=== PATIENT | female | born 1930 | race Hispanic/Latino ===

== ENCOUNTER 2016-11-06 07:57 | Inpatient (IN) | payer MEDICARE, OTHER ==
[2016-11-06 08:10] VITALS: BMI 30.7
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
[2016-11-06 08:28] LABS: ADD MANUAL DIFF? NO
[2016-11-06 08:33] LABS: BASO % 1.1 % (0.0-3.0); EOS # 0.2 (0.0-0.7); EOS % 2.3 % (1.5-5.0); GRAN % 79.3 % (50.0-68.0); HEMATOCRIT 41.9 % (36.0-48.0); LYMPH # 1.1 (1.2-3.4); LYMPH % 12.1 % (22.0-35.0); MEAN CELL VOLUME 93.1 fL (80.0-105.0); MEAN CORPUSCULAR HGB CONC 32.2 g/dl (31.0-37.0); MEAN PLATELET VOLUME 9.1 fl (7.0-11.0); MONO # 0.5 (0.1-0.6); MONO % 5.2 % (1.0-6.0); PLATELET COUNT 379 10^3/uL (120.0-450.0); RED CELL DISTRIBUTION WIDTH 15.9 % (11.5-14.5); WHITE BLOOD COUNT 9.2 10^3/ul (4.5-11.0)
[2016-11-06 08:44] LABS: ALKALINE PHOSPHATASE 111 U/L (38-133); ALT/SGPT 18 U/L (7-56); AST/SGOT 25 U/L (15-39); BILIRUBIN,TOTAL 1.1 mg/dL (0.2-1.3); BLOOD UREA NITROGEN 18 mg/dL (7-21); CALCIUM 9.6 mg/dL (8.4-10.5); CARBON DIOXIDE 29 mmol/L (21-33); CHLORIDE 102 mmol/L (98-107); GFR AFRICAN-AMERICAN > 60; GLUCOSE,RANDOM 213 mg/dL (70-110); INR 2.1 (0.93-1.08); MAGNESIUM 1.8 mg/dL (1.7-2.2); PARTIAL THROMBOPLASTIN TIME 32.9 Seconds (23.7-30.8); POTASSIUM 3.7 mmol/L (3.6-5.0); SODIUM 140 mmol/L (132-148); TOTAL PROTEIN 8.3 g/dL (5.8-8.3)
[2016-11-06 08:54] LABS: TROPONIN I 0.02 ng/mL
--- NOTE | 2016-11-06 09:02 | RAD ---
Indication: Altered mental status Portable chest Comparison: Chest x-ray performed 07/14/16 Findings: Examination limited by habitus. Cardiomegaly. Atherosclerotic calcifications of the aorta. Small right pleural effusion. Trace left pleural effusion. Bibasilar atelectasis/infiltrates. Mild to moderate pulmonary venous congestion. No definite pneumothorax. Please note that chest x-ray has limited sensitivity for the detection of pulmonary masses. Osseous demineralization. Degenerative changes of the spine and shoulders. Impression: Cardiomegaly. Small right and trace left pleural effusions. Bibasilar atelectasis/infiltrates. Mild to moderate pulmonary venous congestion.
[2016-11-06 09:16] LABS: PH,URINE 6.5 (4.7-8.0); URINE BILIRUBIN NEGATIVE (NEGATIVE); URINE BLOOD SMALL (NEGATIVE); URINE GLUCOSE (UA) 100 mg/dL (NEGATIVE); URINE KETONE NEGATIVE (NEGATIVE); URINE LEUKOCYTE ESTERASE SMALL Leu/uL (NEGATIVE); URINE PROTEIN 100 mg/dL (<30 mg/dL)
--- NOTE | 2016-11-06 09:32 | CT ---
PROCEDURE: CT HEAD WITHOUT CONTRAST. HISTORY: ams COMPARISON: None available. TECHNIQUE: Axial computed tomography images were obtained through the head/brain without intravenous contrast. Radiation dose: Total exam DLP = 859.09 mGy-cm. FINDINGS: BRAIN: Diffuse atrophy with prominence of the ventricles and sulci noted. No mass effect or edema. Intracranial atherosclerotic calcifications. Right parietal subdural hematoma measures approximately 8 mm maximum diameter and appears chronic with small amount of hyperdensity posteriorly likely acute on chronic hemorrhage. Small subdural collection is suspected layering along the posterior falx. Moderate scattered periventricular and subcortical white matter hypodensities, which are nonspecific, but often seen with chronic microvascular ischemic disease. Please note that MRI with diffusion imaging is more sensitive in the detection of acute ischemic event. VENTRICLES: No hydrocephalus. CALVARIUM: Unremarkable. PARANASAL SINUSES: Unremarkable as visualized. No significant inflammatory changes. MASTOID AIR CELLS: Unremarkable as visualized. No inflammatory changes. OTHER FINDINGS: None. IMPRESSION: Right parietal subdural hematoma measures approximately 8 mm maximum diameter and appears chronic with small amount of hyperdensity posteriorly likely acute on chronic hemorrhage. Small subdural collection is suspected layering along the posterior falx. Moderate nonspecific white matter changes. Findings discussed with Dr. Young on 11/06/16 at 9:25 a.m..
[2016-11-06 09:42] LABS: URINE COLOR YELLOW (YELLOW)
[2016-11-06 09:44] LABS: URINE APPEARANCE SL CLOUDY (CLEAR)
[2016-11-06 09:45] LABS: URINE BACTERIA MANY (NEG); URINE WBC TNTC /hpf (0-6)
[2016-11-06] MEDS ORDERED: cefTRIAXone 1 gm 100 ML IVPB STA (09:46)
[2016-11-06 09:53] LABS: ALCOHOL SERUM < 10 mg/dL (0-10)
[2016-11-06 09:57] LABS: THYROID STIMULATING HORMONE 2.34 mIU/mL (0.46-4.68)
[2016-11-06] MEDS: Digoxin 125 mcg (0.125 mg) Tab PO SCH (13:06)
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
[2016-11-06] MEDS: Insulin Lispro (humaLOG) LOW Coverage SC SCH ×2 (17:49→23:35)
--- NOTE | 2016-11-06 18:01 | CP.PCM.PN ---
Subjective - Date & Time of Evaluation Date of Evaluation: 11/06/16 Time of Evaluation: 17:59 - Subjective Subjective: 86 yo female with dementia who becan acting strangly, hallucinating never had any motor difficulty had ct showing tiny r parietal extra-axial collection with no mass effect Pt currnely confused but otherwise intact Will repeat ct but this collection not causing her sx Unless maked change on ct no intervention indicated Objective - Vital Signs/Intake and Output Vital Signs (last 24 hours): Temp Pulse Resp BP Pulse Ox 97 F L 76 18 141/81 95 11/06/16 17:48 11/06/16 17:48 11/06/16 17:48 11/06/16 17:48 11/06/16 11:27 - Medications Medications: Current Medications Atorvastatin Calcium (Lipitor) 20 mg PO DAILY [facility] Last Admin: 11/06/16 13:06 Dose: 20 mg Digoxin (Lanoxin) 0.125 mg PO DAILY [facility] Last Admin: 11/06/16 13:06 Dose: 0.125 mg Diltiazem HCl (Cardizem Cd) 240 mg PO DAILY [facility] Ceftriaxone Sodium (Rocephin 1 Gram Ivpb) 100 mls @ 100 mls/hr IVPB DAILY [facility] PRN Reason: Protocol Insulin Human Lispro (Humalog Low) 0 units SC ACHS [facility] PRN Reason: Protocol Last Admin: 11/06/16 17:49 Dose: 1 units Metformin HCl (Glucophage) 500 mg PO BID [facility] - Labs Labs: PT 22.7 Seconds (9.9-11.8) H 11/06/16 08:27 INR 2.10 (0.93-1.08) H 11/06/16 08:27 APTT 32.9 Seconds (23.7-30.8) H 11/06/16 08:27
[2016-11-06] MEDS ORDERED: Pneumococcal 23-Valent Vaccine IM ONE (20:58)
[2016-11-06] MEDS ORDERED: Influenza Vaccine 45 MCG/0.5 ml IM ONE (20:58)
[2016-11-07] MEDS: Insulin Lispro (humaLOG) LOW Coverage SC SCH ×4 (08:57→22:10)
--- NOTE | 2016-11-07 09:33 | CARD ---
APPROVED REPORT EKG Measurement Heart [id number] <Conclusion> Atrial fibrillation Left axis deviation RSR' or QR pattern in V1 suggests right ventricular conduction delay NSSTW changes ASMI, old No change except faster rate
--- NOTE | 2016-11-07 10:04 | CP.PCM.PN ---
Subjective - Date & Time of Evaluation Date of Evaluation: 11/07/16 Time of Evaluation: 10:03 - Subjective Subjective: no sig change in CT Neurosurgically clear for d/c Objective - Vital Signs/Intake and Output Vital Signs (last 24 hours): Temp Pulse Resp BP Pulse Ox 98.0 F 101 H 18 144/92 H 94 L 11/07/16 06:00 11/07/16 06:00 11/07/16 06:00 11/07/16 06:00 11/07/16 06:00 Intake and Output: 11/07/16 11/07/16 06:59 18:59 Intake Total 220 Output Total 200 Balance 20 - Medications Medications: Current Medications Atorvastatin Calcium (Lipitor) 20 mg PO DAILY [facility] Last Admin: 11/06/16 13:06 Dose: 20 mg Digoxin (Lanoxin) 0.125 mg PO DAILY [facility] Last Admin: 11/06/16 13:06 Dose: 0.125 mg Diltiazem HCl (Cardizem Cd) 240 mg PO DAILY [facility] Ceftriaxone Sodium (Rocephin 1 Gram Ivpb) 100 mls @ 100 mls/hr IVPB DAILY [facility] PRN Reason: Protocol Insulin Human Lispro (Humalog Low) 0 units SC ACHS [facility] PRN Reason: Protocol Last Admin: 11/07/16 08:57 Dose: Not Given Metformin HCl (Glucophage) 500 mg PO BID [facility] Last Admin: 11/06/16 18:31 Dose: 500 mg - Labs Labs: PT 22.7 Seconds (9.9-11.8) H 11/06/16 08:27 INR 2.10 (0.93-1.08) H 11/06/16 08:27 APTT 32.9 Seconds (23.7-30.8) H 11/06/16 08:27
[2016-11-07] MEDS: diltiaZEM 240 mg/24 Hours CD Cap PO SCH (10:53)
[2016-11-07] MEDS: Digoxin 125 mcg (0.125 mg) Tab PO SCH (10:56)
[2016-11-07] MEDS: cefTRIAXone 1 gm 100 ML IVPB SCH (10:57)
--- NOTE | 2016-11-07 11:31 | CT ---
PROCEDURE: CT HEAD WITHOUT CONTRAST. HISTORY: f/u COMPARISON: Noncontrast head CT performed 11/06/16 TECHNIQUE: Axial computed tomography images were obtained through the head/brain without intravenous contrast. Radiation dose: Total exam DLP = 725.84 mGy-cm. FINDINGS: BRAIN: Diffuse atrophy with prominence of the ventricles and sulci noted. No mass effect or edema. Intracranial atherosclerotic calcifications. Right parietal subdural hematoma measures approximately 8 mm maximum diameter and appears chronic with small amount of hyperdensity posteriorly likely acute on chronic hemorrhage. Small subdural collection re-identified layering along the posterior falx. Moderate scattered periventricular and subcortical white matter hypodensities, which are nonspecific, but often seen with chronic microvascular ischemic disease. Please note that MRI with diffusion imaging is more sensitive in the detection of acute ischemic event. VENTRICLES: No hydrocephalus. CALVARIUM: Unremarkable. PARANASAL SINUSES: Unremarkable as visualized. No significant inflammatory changes. MASTOID AIR CELLS: Unremarkable as visualized. No inflammatory changes. OTHER FINDINGS: Bilateral cataract surgery. Findings consistent with mild exophthalmos. IMPRESSION: Right convexity subdural hematoma measuring approximately 8 mm maximum diameter similar to prior study with evidence of acute on chronic hemorrhage. Tiny subdural collection is also re-identified layering along the posterior falx. Moderate nonspecific white matter changes. Bilateral cataract surgery. Findings consistent with mild exophthalmos.
--- NOTE | 2016-11-07 18:18 | CP.PCM.PN ---
Subjective - Date & Time of Evaluation Date of Evaluation: 11/07/16 Time of Evaluation: 10:00 - Subjective Subjective: She is alert , oriented. Deines headaches. CT head showed right parietal subdural hematoma, stable. UA positive, on IV antibiotics. BP controlled on current meds. No shortness of breath. heart rate controlled, tele monitor reviewed. coumadin on hold. Objective - Vital Signs/Intake and Output Vital Signs (last 24 hours): Temp Pulse Resp BP Pulse Ox 97.8 F 77 20 137/64 94 L 11/07/16 17:21 11/07/16 17:21 11/07/16 17:21 11/07/16 17:21 11/07/16 06:00 Intake and Output: 11/07/16 11/07/16 06:59 18:59 Intake Total 220 Output Total 200 Balance 20 - Medications Medications: Current Medications Atorvastatin Calcium (Lipitor) 20 mg PO DAILY [facility] Last Admin: 11/07/16 10:57 Dose: 20 mg Digoxin (Lanoxin) 0.125 mg PO DAILY [facility] Last Admin: 11/07/16 10:56 Dose: 0.125 mg Diltiazem HCl (Cardizem Cd) 240 mg PO DAILY [facility] Last Admin: 11/07/16 10:53 Dose: 240 mg Ceftriaxone Sodium (Rocephin 1 Gram Ivpb) 100 mls @ 100 mls/hr IVPB DAILY [facility] PRN Reason: Protocol Last Admin: 11/07/16 10:57 Dose: 100 mls/hr Insulin Human Lispro (Humalog Low) 0 units SC ACHS [facility] PRN Reason: Protocol Last Admin: 11/07/16 17:42 Dose: Not Given Metformin HCl (Glucophage) 500 mg PO BID [facility] Last Admin: 11/07/16 17:45 Dose: 500 mg Warfarin Sodium (Coumadin) 2 mg PO 1800 [facility] PRN Reason: Protocol - Labs Labs: PT 22.7 Seconds (9.9-11.8) H 11/06/16 08:27 INR 2.10 (0.93-1.08) H 11/06/16 08:27 APTT 32.9 Seconds (23.7-30.8) H 11/06/16 08:27 - Constitutional Appears: Well, Non-toxic, Cachectic - Head Exam Head Exam: ATRAUMATIC, NORMAL INSPECTION, NORMOCEPHALIC - Eye Exam Eye Exam: Normal appearance Pupil Exam: NORMAL ACCOMODATION - ENT Exam ENT Exam: Mucous Membranes Moist, Normal Exam - Neck Exam Neck Exam: Normal Inspection - Respiratory Exam Respiratory Exam: Clear to Ausculation Bilateral, NORMAL BREATHING PATTERN - Cardiovascular Exam Cardiovascular Exam: Irregular Rhythm, +S1, +S2 - GI/Abdominal Exam GI & Abdominal Exam: Soft, Normal Bowel Sounds - Extremities Exam Extremities Exam: Normal Capillary Refill, Normal Inspection - Back Exam Back Exam: NORMAL INSPECTION - Neurological Exam Neurological Exam: Alert, CN II-XII Intact, Oriented x3 - Skin Skin Exam: Dry, Intact, Normal Color, Petechiae Assessment and Plan - Assessment and Plan (Free Text) Assessment: 1. Right parietal subdural hematoma : stable. No surgical intervention needed. neuro-surgical consultation reviewed. Neuro following. Note reviewed. 2. A-Fib : coumadin was on hold. will resume at 2 mg daily. HR controlled. INR therapeutic. 3. HTN: BP controlled on current meds. will continue same. 4. Cardiomyopathy : stable. no issues. continue diltiazem, digoxin. 5. Deconditioning: gait unsteady. TCU eval. 6. UTI : urine culture pending. IV ceftrioxone to continue. Daughter bedside. Discussed with her. She agreed with plan. Discussed with the staff nurse.
--- NOTE | 2016-11-07 18:59 | HP ---
HISTORY OF PRESENT ILLNESS: The patient is an 86-year-old female with past history of cardiomyopathy, hypertension, diabetes mellitus. She also has atrial fibrillation, currently on Coumadin. She was found to have altered behavior. She thought she in the morning and had auditory hallucinations. She also had hallucination that somebody cut her legs and breast. She was admitted. A CAT scan of the head showed right parietal subdural hematoma. She had hematoma before also. In the ED, she was awake, alert and oriented. The family denies having fever. She did not fall. She has atrial fibrillation. Heart rate was controlled on current medication. She also has cardiomyopathy. No issues of shortness of breath or chest pain. She has baseline dementia which is stable, diabetes mellitus type 2. Sugars are controlled as per family. PAST MEDICAL HISTORY: Right parietal subdural hematoma, cardiomyopathy, hypertension, diabetes mellitus type 2, atrial fibrillation, dementia, on Coumadin, history of myocardial infarction, congestive cardiac failure, COPD, osteoarthritis. PAST SURGICAL HISTORY: Right breast cyst removed 25 years ago. ALLERGIES: No known drug allergies. HOME MEDICATIONS: Lipitor 20 mg daily, digoxin 0.125 mg daily, Lasix 40 mg daily, nystatin 1 application topical b.i.d., K-Dur 10 mEq daily, metformin 500 mg p.o. b.i.d., . SOCIAL HISTORY: Lives with a daughter at home. PERSONAL HISTORY: Nonsmoker. No history of alcohol abuse. FAMILY HISTORY: None positive. Mother and father not positive. REVIEW OF SYSTEMS: As per HPI. Rest of 12-point review of systems reviewed and negative. PHYSICAL EXAMINATION: GENERAL: Comfortable in bed, in no acute distress. VITAL SIGNS: Temperature 98.6, heart rate 100 per minute, respiratory rate 18 per minute, blood pressure 166/96, pulse ox is 95% on oxygen by nasal cannula. HEENT: Normal. NECK: No lymphadenopathy. CHEST: Air entry present, equal bilateral. No added sounds. CARDIOVASCULAR: S1, S2, irregularly irregular. No murmur, no gallop. CHEST: Air entry present, equal bilateral. No added sounds. ABDOMEN: Soft, nontender, no hepatosplenomegaly. EXTREMITIES: Few bruises on the right arm. There is no edema bilaterally. CENTRAL NERVOUS SYSTEM: Alert, oriented x 3, no focal sensorimotor deficit. GAIT: Unsteady. LABORATORY DATA: White count 9.2, hemoglobin 13.5, hematocrit 41.9, platelet count 379. Sodium 140, potassium 3.7, creatinine 0.8, glucose 213. Granulocytes 79%, lymphocytes 12%. INR 2. PTT 32.9, PT 22.7. . IMAGING: CT head, diffuse atrophy, prominence of ventricle and sulci noted. No mass effect, no edema. Right parietal subdural hematoma 8 mm maximum diameter, appears to be chronic. ASSESSMENT: 1. Right parietal subdural hematoma. 2. Coagulopathy related to Coumadin use. 3. Cardiomyopathy. 4. Hypertension. 5. Diabetes mellitus type 2. 6. Atrial fibrillation. 7. Dementia. 8. Urinary tract infection. PLAN: Neurology consultation with Dr. Hendrix requested, neurosurgery consultation with Dr. Chauhan requested. Note reviewed. CT scan reviewed , right parietal hematoma, appears chronic. No surgical intervention indicated right now as per neurosurgery. Coumadin was held yesterday. INR is therapeutic. We will resume the Coumadin 2 mg daily. We will monitor PT/INR. Ceftriaxone 1 gram daily for UTI. Urine culture sent. Continue digoxin 0.125 p.o. daily, diltiazem 240 mg daily, sliding scale insulin, metformin 500 mg p.o. b.i.d. to continue. Lipitor 20 mg daily to continue. Will have PT eval for gait dysfunction and deconditioning. TCU evaluation requested. Dinorah Yang MD cc: [id number] TT: 11/07/2016 18:58:44 jammie LOVE
[2016-11-08] MEDS ORDERED: Albuterol-Ipratrop 3 mg / 0.5 (3 ml) UD IH STA (07:05)
[2016-11-08] MEDS ORDERED: Albuterol-Ipratrop 3 mg / 0.5 (3 ml) UD IH PRN (07:24)
--- NOTE | 2016-11-08 07:30 | CP.PCM.PN ---
Subjective - Date & Time of Evaluation Date of Evaluation: 11/08/16 Time of Evaluation: 07:25 - Subjective Subjective: called by nurse pt is c/o sob pt has hx of chf copd admitted for subdural hematoma . pt is not on any nebs treatment.pulse ox is 83 %. Objective - Vital Signs/Intake and Output Vital Signs (last 24 hours): Temp Pulse Resp BP Pulse Ox 98.2 F 86 18 155/82 H 93 L 11/08/16 06:00 11/08/16 07:18 11/08/16 06:00 11/08/16 06:00 11/08/16 06:00 - Medications Medications: Current Medications Albuterol/Ipratropium (Duoneb 3 Mg/0.5 Mg (3 Ml) Ud) 3 ml IH Q2H PRN PRN Reason: Shortness of Breath Atorvastatin Calcium (Lipitor) 20 mg PO DAILY [facility] Last Admin: 11/07/16 10:57 Dose: 20 mg Digoxin (Lanoxin) 0.125 mg PO DAILY [facility] Last Admin: 11/07/16 10:56 Dose: 0.125 mg Diltiazem HCl (Cardizem Cd) 240 mg PO DAILY [facility] Last Admin: 11/07/16 10:53 Dose: 240 mg Ceftriaxone Sodium (Rocephin 1 Gram Ivpb) 100 mls @ 100 mls/hr IVPB DAILY [facility] PRN Reason: Protocol Last Admin: 11/07/16 10:57 Dose: 100 mls/hr Insulin Human Lispro (Humalog Low) 0 units SC ACHS [facility] PRN Reason: Protocol Last Admin: 11/07/16 22:10 Dose: Not Given Metformin HCl (Glucophage) 500 mg PO BID [facility] Last Admin: 11/07/16 17:45 Dose: 500 mg Warfarin Sodium (Coumadin) 2 mg PO 1800 [facility] PRN Reason: Protocol Last Admin: 11/07/16 18:40 Dose: 2 mg - Labs Labs: PT 22.7 Seconds (9.9-11.8) H 11/06/16 08:27 INR 2.10 (0.93-1.08) H 11/06/16 08:27 APTT 32.9 Seconds (23.7-30.8) H 11/06/16 08:27 - Constitutional Appears: In Acute Distress - Head Exam Head Exam: NORMOCEPHALIC - Eye Exam Eye Exam: PERRL - ENT Exam ENT Exam: Mucous Membranes Moist - Neck Exam Neck Exam: Full ROM - Respiratory Exam Respiratory Exam: Decreased Breath Sounds, Wheezes - Cardiovascular Exam Cardiovascular Exam: Tachycardia, Irregular Rhythm, +S1, +S2 - GI/Abdominal Exam GI & Abdominal Exam: Soft, Normal Bowel Sounds - Rectal Exam Rectal Exam: Deferred - Extremities Exam Extremities Exam: Full ROM - Neurological Exam Neurological Exam: Alert, Awake, Oriented x3 - Psychiatric Exam Psychiatric exam: Anxious - Skin Skin Exam: Dry, Warm Assessment and Plan - Assessment and Plan (Free Text) Assessment: sob copd exacerbation./a-fib. Plan: duoneb stat. and then q2h prn. ABG stat. chest x-ray stat.
[2016-11-08 07:40] LABS: ARTERIAL BLOOD GAS HCO3 27.7 mmol/L (21-28); ARTERIAL BLOOD GAS O2 CAPACITY 18.7 mL/dl (16-24); ARTERIAL BLOOD GAS O2 CONTENT 17.8 ML/dl (15-23); ARTERIAL BLOOD GAS PH 7.37 (7.35-7.45); ARTERIAL BLOOD HGB O2 SAT 90.9 % (95.0-98.0); CARBOXYHEMOGLOBIN 3.4 % (0.5-1.5); HHB 4.4 % (0-5); METHEMOGLOBIN 1.3 % (0.0-3.0)
--- NOTE | 2016-11-08 08:01 | RAD ---
HISTORY: sob COMPARISON: 11/06/2016 FINDINGS: LUNGS: Bibasilar opacity, right greater than left. No significant change peer PLEURA: Hazy opacity at the right costophrenic angle may reflect small pleural effusion. No evidence of left pleural effusion. No pneumothorax. CARDIOVASCULAR: Mild congestive change. Normal heart size. OSSEOUS STRUCTURES: No significant abnormalities. VISUALIZED UPPER ABDOMEN: Normal. OTHER FINDINGS: None. IMPRESSION: Bibasilar opacities, right greater than left. Probable small right pleural effusion. Congestive change.
[2016-11-08] MEDS: Albuterol-Ipratrop 3 mg / 0.5 (3 ml) UD IH SCH ×2 (08:20→13:02)
--- NOTE | 2016-11-08 09:01 | PN ---
DATE: 11/08/2016 SUBJECTIVE: The patient has no headaches or dizziness, no chest pain, no shortness of breath. PHYSICAL EXAMINATION: VITAL SIGNS: Temperature is 98.2, pulse of 80, blood pressure 162/92, respirations 20, O2 saturation 93%. GENERAL: The patient comfortable, in no acute distress. HEENT: Anicteric sclerae. Moist mucosa. NECK: No JVD or adenopathy. CARDIAC: S1/S2. No murmurs. No rubs. Regular. RESPIRATORY: Clear to auscultation bilaterally. No wheezes, rales, or rhonchi. Good air entry. ABDOMEN: Bowel sounds are positive, soft, nontender, and nondistended. EXTREMITIES: No edema. Has 1+ pulses. LABORATORY DATA: Blood cultures x 2 are negative. Preliminary urine cultures negative so far. ASSESSMENT: 1. Right parietal subdural hematoma. 2. Atrial fibrillation, on anticoagulation with Coumadin. 3. Hypertension. 4. Diabetes, type 2. 5. Dementia, Alzheimer's type. PLAN: The patient is currently on Coumadin for anticoagulation for the atrial fibrillation. The pat ient is on Cardizem for atrial fibrillation. She is on digoxin. She is on Lipitor for dyslipidemia. She was seen by Dr. Chauhan; no surgical intervention is needed. He has cleared her for discha rge. The patient is on Lipitor for dyslipidemia. She is on metformin for her diabetes. She is on i nsulin sliding scale. She is going to need physical therapy. Overall prognosis is guarded. Denton Napoles MD cc: [id number] TT: 11/08/2016 09:01:12 Confirmation # [id number] Dictation # [id number] stephanie
[2016-11-08] MEDS: Digoxin 125 mcg (0.125 mg) Tab PO SCH (09:05)
[2016-11-08] MEDS: cefTRIAXone 1 gm 100 ML IVPB SCH (09:07)
[2016-11-08] MEDS: diltiaZEM 240 mg/24 Hours CD Cap PO SCH (09:08)
[2016-11-08] MEDS: Insulin Lispro (humaLOG) LOW Coverage SC SCH ×4 (09:08→23:08)
[2016-11-09] MEDS: Albuterol-Ipratrop 3 mg / 0.5 (3 ml) UD IH SCH ×4 (02:05→20:27)
[2016-11-09] MEDS: Insulin Lispro (humaLOG) LOW Coverage SC SCH ×4 (08:21→22:00)
--- NOTE | 2016-11-09 10:17 | PN ---
DATE: 11/09/2016 SUBJECTIVE: The patient has no complaints of any chest pain or shortness of breath. She does get ag itated at times. She did not offer physical therapy evaluation to be done yesterday. PHYSICAL EXAMINATION: VITAL SIGNS: Temperature is 97.5, pulse of 49, blood pressure is 142/61, respirations 20. GENERAL: The patient comfortable, in no acute distress. HEENT: Anicteric sclerae. Moist mucosa. NECK: No JVD or adenopathy. CARDIAC: S1/S2. No murmurs. No rubs. Regular. RESPIRATORY: Clear to auscultation bilaterally. No wheezes, rales, or rhonchi. Good air entry. ABDOMEN: Bowel sounds are positive, soft, nontender, and nondistended. EXTREMITIES: No edema. Has 1+ pulses. IMAGING: Chest x-ray done shows bibasilar opacities, right greater than left; probable right pleur al effusion. ASSESSMENT: 1. Hypoxia. 2. Right parietal subdural hematoma. 3. Atrial fibrillation, on anticoagulation with Coumadin. 4. Hypertension. 5. Diabetes type 2. 6. Dementia, Alzheimer's type. PLAN: The patient is currently comfortable. She is on Cardizem. The patient's Coumadin is on hold. She is receiving digoxin. The patient is going to continue with metformin. She is on Xanax as nee ded. She is getting DuoNeb treatments. I will get a pulmonary evaluation by Dr. Celaya and we will continue to follow closely. Waiting for physical therapy and probable discharge to subacute rehab. Denton Napoles MD cc: [id number] TT: 11/09/2016 10:17:09 Confirmation # [id number] Dictation # [id number] mn
[2016-11-09] MEDS: diltiaZEM 240 mg/24 Hours CD Cap PO SCH (12:51)
[2016-11-09] MEDS: Digoxin 125 mcg (0.125 mg) Tab PO SCH (12:52)
--- NOTE | 2016-11-09 18:21 | PN ---
DATE: 11/09/2016 CHIEF COMPLAINT: Followup for status post right parietal subdural hematoma. SUBJECTIVE: The patient seen and examined at bedside. She has baseline dementia which is stable, sh e has type 2 diabetes mellitus. Her sugars are controlled. During the hospital course no seizure-like activity. No further altered behavior or auditory halluci nations. She is afebrile. She is on anticoagulation with Coumadin for atrial fibrillation and is on Cardizem for rate control. She is on Lipitor for dyslipidemia, and she was seen by Dr. Chauhan, which mention no surgical intervention needed and cleared her for discharge. She had some shortness of breath overnight and had a chest x-ray which showed bilateral opacities, right greater than left, and probable small right pleural effusion. She is currently on albuterol, ipratropium for her breat purnima. PAST MEDICAL HISTORY: History of type 2 diabetes, dementia - Alzheimer's type, hypertension, AFib o n Coumadin. REVIEW OF SYSTEMS: A 14-point review of systems negative except for the HPI. SOCIAL HISTORY: No illicit drug use, smoking, or ETOH abuse. ALLERGIES: No known drug allergies. MEDICATIONS: Reviewed via nurse reconciliation sheet. FAMILY HISTORY: Noncontributory. LABORATORIES: Blood glucose 145. Ammonia is less than 9. PHYSICAL EXAMINATION: VITAL SIGNS: Temperature of 97.9, pulse rate is 81, blood pressure 161/69, respiratory rate of 18, o xygen saturation 97% via room air. GENERAL EXAMINATION: The patient is lying in bed in no acute distress. HENT: Atraumatic, normocephalic. PERRLA, extraocular muscles intact. NECK: Supple, no JVD, no adenopathy noted. LUNGS: Have mild decreased breath sounds bilaterally, but no adventitious sounds. HEART: S1, S2, normal rate and rhythm. No murmurs, rubs, or gallops. ABDOMEN: Soft, nontender, nondistended. Bowel sounds present. EXTREMITIES: No clubbing. Has peripheral pulses 2+ felt bilaterally. NEUROLOGIC EXAMINATION: The patient is alert, oriented to person and place; not much on month or yea r. Recall at 5 minutes is -0/3. Reports slow thought process. Cannot spell the word world backward s. Speech is fluent without any errors. Cranial nerves II-XII are intact. MOTOR EXAMINATION: Moves all extremities equally. Slight increased tone throughout. No pronator dr ift seen. SENSORY EXAMINATION: Light touch, pinprick is reduced up the calves. Slight decreased vibration of the toes. DTRs are 1+ throughout. COORDINATION: Hqkmal-vr-hape intact. Toes are downgoing bilaterally. GAIT: Deferred for now. IMAGING: Chest x-ray shows bibasilar opacities, right greater than left, and probable right pleural effusion. ASSESSMENT AND PLAN: This is an 86-year-old woman with history of cardiomyopathy, hypertension, diab etes mellitus, atrial fibrillation on Coumadin, who was found to have altered behavior and auditory h allucinations, and she was admitted to the hospital. Found to have a CAT scan showed a right parieta l subdural hematoma in which no surgical intervention from a neurosurgical standpoint was done. Coum leslie was put on hold for coagulopathy and restarted slowly. She also had hypoxia, which was likely s econdary as a possibility of chronic obstructive pulmonary disease exacerbation, and since her chest x-ray shows some bibasilar opacities, right greater than left. She is currently stable; doing well. She is, at this time recommend: 1. To continue with Cardizem and Coumadin for atrial fibrillation. 2. Keep the blood pressure between 120-130 mmHg. 3. Give her Xanax p.r.n. 0.25 mg p.o. q. 6 hours for agitation if she gets delirious. 4. Continue with DuoNeb 3 mg/0.5 mg as needed for shortness of breath, and will likely need some phys ical therapy or subacute rehabilitation. At this time, continue with current present medical managem ent. Thank you for this followup. No further neurological workup needed at this time. She is clear from my standpoint. Ravi Hendrix MD cc: [id number] TT: 11/09/2016 18:21:40 Confirmation # [id number] Dictation # [id number] jn
[2016-11-10] MEDS: Albuterol-Ipratrop 3 mg / 0.5 (3 ml) UD IH SCH ×4 (01:03→20:40)
--- NOTE | 2016-11-10 02:55 | CON ---
DATE: 11/09/2016 REFERRING PHYSICIAN: Dr. Denton Napoles. REASON FOR CONSULT: Chronic lung disease. HISTORY OF PRESENT ILLNESS: This is an 86-year-old female with multiple medical issues including car diomyopathy, hypertension, diabetes, atrial fibrillation, dementia, anticoagulation. She was brought in to the Emergency Room with hallucinations and delusions. Also has some cough and shortness of br eath. No vomiting, no hematuria, no diarrhea reported. PAST MEDICAL HISTORY: Significant for chronic obstructive lung disease, cardiomyopathy with systolic dysfunction, pulmonary hypertension, atrial fibrillation, hypertension, diabetes, dementia, divertic ulosis, multiple falls. ALLERGIES: None known. SOCIAL HISTORY: She stopped smoking many years ago. Denied any alcohol use. FAMILY HISTORY: There is no significant cardiac history, but very strong history of chronic lung dis ease. MEDICATIONS: She is on Cardizem-CD 240 mg daily. Coumadin has been on hold, DuoNeb q. 2 hours p.r. n., DuoNeb q. 6 hours around the clock, metformin 500 mg twice a day, insulin coverage, digoxin 0.12 5 mg daily, Lipitor 20 mg daily, Xanax 0.25 mg q. 6 hours. REVIEW OF SYSTEMS: No headache, no rhinitis. Has some cough and shortness of breath. No chest pain , no nausea, no vomiting, no diarrhea. Does have trace leg swelling. PHYSICAL EXAMINATION: GENERAL: Sitting up in a chair in no acute distress. VITAL SIGNS: Temp is 98, heart rate is 81, respiratory rate is 18, blood pressure 161/69, pulse ox 9 4% on 2 liters nasal cannula. HEENT: Moist mucous membrane. Crowded airway. NECK: Supple. No JVD. LUNGS: Has a few scattered rhonchi, has a few crackles at the bases. HEART: S1, S2 irregular. ABDOMEN: Soft, nontender. No organomegaly. EXTREMITIES: Trace edema. NEUROLOGIC: Awake, alert, does follow simple commands. LABORATORY DATA: Shows hemoglobin 13.5, hematocrit 41.9, WBC 9.2, platelet is 379. INR is 2.10, PTT is 39. This was on 11/06. Blood gases from yesterday shows pH 7.37, pCO2 48, O2 of 68% on nasal ca nnula. Sodium is 140, potassium 3.7, chloride 102, bicarbonate 29, BUN 18, creatinine 0.8, glucose 2 13, calcium 9.6, phosphorus 3.0, magnesium 1.8, AST 25, ALT 18, alkaline phosphatase is 111. Ammonia level less than 9. LDH is 434, albumin is 4.0. Troponin less 0.02. TSH 2.34. Chest x-ray done ye sterday shows bibasilar opacity right greater than the left, small right pleural effusion. CAT scan of the head was done on admission, which shows right convex subdural hematoma measuring approximately 8 mm in maximum diameter. ____ prior studies is evidence of acute on chronic hemorrhages. Tiny sub dural collection is also reidentified layering along the posterior more than ____ white matter changes. Bilateral gastric was incidental finding. IMPRESSION AND PLAN: Cardiomyopathy with systolic dysfunction, pulmonary hypertension, hypertension, history of diverticulosis, atrial fibrillation, may have a sleep apnea syndrome. According to the p atient, she has multiple falls at home that may be correlating to the subdural hematoma, but differen t stages, will need to reconsider abort of anticoagulation. Is she a good candidate? Or just keep t he heart rate controlled. Need speak to family about risks, benefits, and clarify she may be better off without anticoagulation at this time. Will continue inhaled bronchodilator. She may need CPAP w hile sleeping for CO2 retention with cardiomyopathy, as well as atrial fibrillation. Will try her on CPAP 7 cm while sleeping and see how she does. She is confused. Rosa Celaya MD cc: [id number] TT: 11/10/2016 02:55:08 Confirmation # [id number] Dictation # [id number] mn
[2016-11-10 08:34] VITALS: RESP 20
[2016-11-10] MEDS: Insulin Lispro (humaLOG) LOW Coverage SC SCH ×4 (08:42→23:11)
--- NOTE | 2016-11-10 08:52 | PN ---
DATE: 11/10/2016 SUBJECTIVE: The patient has no complaints of any chest pain or shortness of breath. No headaches or dizziness. PHYSICAL EXAMINATION: VITAL SIGNS: Temperature is 97.9, pulse of 81, blood pressure 161/69, respirations 18. GENERAL: The patient comfortable, in no acute distress. HEENT: Anicteric sclerae. Moist mucosa. NECK: No JVD or adenopathy. CARDIAC: S1/S2. No murmurs. No rubs. Regular. RESPIRATORY: Clear to auscultation bilaterally. No wheezes, rales, or rhonchi. Good air entry. ABDOMEN: Bowel sounds are positive, soft, nontender, and nondistended. EXTREMITIES: No edema. Has 1+ pulses. A chest x-ray done shows bibasilar opacities, right greater than left. ASSESSMENT: 1. Hypoxia, improved. 2. Right parietal subdural hematoma, stable. 2. Atrial fibrillation, on Coumadin. 3. Hypertension. 4. Diabetes type 2. 5. Dementia, Alzheimer's type. PLAN: The patient is currently comfortable. She is being followed by Dr. Celaya. I reviewed his no te. I have held the patient's anticoagulation because of the risk of bleeding. The patient does hav e episodes of confusion. She was seen by physical therapy yesterday and may need to go to rehab. Th e patient is currently on Cardizem for her atrial fibrillation. She is on digoxin. The patient is o n Lipitor for dyslipidemia and on metformin for her diabetes. She is on CPAP. Her blood cultures gill ve been negative. She is going to be scheduled to be discharged tomorrow to subacute rehab. Denton Napoles MD cc: [id number] TT: 11/10/2016 08:51:58 Confirmation # [id number] Dictation # [id number] mn
[2016-11-10] MEDS: diltiaZEM 240 mg/24 Hours CD Cap PO SCH (09:20)
[2016-11-10] MEDS: Digoxin 125 mcg (0.125 mg) Tab PO SCH (14:43)
--- NOTE | 2016-11-10 15:54 | PN ---
DATE: 11/10/2016 REFERRING PHYSICIAN: Dr. Denton Napoles. SUBJECTIVELY: The patient is lying in the bed, head at 45 degrees. Feels better. No headache, no r hinitis, decreased cough. No nausea, no vomiting, no diarrhea. No leg pain or leg swelling. Refuse d to use BiPAP last night. OBJECTIVELY: In no acute distress. Temp is 98, heart rate 74, respiratory rate is 20, blood pressure 174/86, pulse ox 92% on nasal cannu la. HENT: Moist mucous membrane. Crowded airway. Mallampati score is 4. NECK: Supple. No JVD. LUNGS: Has scattered rhonchi. HEART: S1 and S2. ABDOMEN: Soft, nontender, no organomegaly. EXTREMITIES: There is trace edema. NEUROLOGICALLY: Awake, alert. Follows simple commands. MEDICATIONS: She is on Cardizem CD 240 mg daily, Coumadin is on hold, DuoNeb q. 6 hours, metformin 5 00 mg twice a day, insulin coverage, digoxin 0.125 mg daily, Lipitor 20 mg daily, Xanax 0.25 mg q. 6 hours p.r.n. LABORATORY DATA: Shows blood sugar this morning 215. ProBNP was 764 and procalcitonin less than 0.05 . Microbiology: Blood culture is negative. Urine culture: Suggested to repeat culture. IMPRESSION AND PLAN: Cardiomyopathy with systolic dysfunction, pulmonary hypertension, hypertension, history of diverticulosis, atrial fibrillation. May have a sleep apnea syndrome. On admission has a psychosis with hallucination and delusions. Presently, she is much more awake and alert. Will continue sleep apnea precaution, encourage CPAP use, keep head at 45 degree. Also, has multiple addiction stages. Need to reconsider about risk/benefit ratio of Coumadin. Thank you, and will follow with you. Rosa Celaya MD cc: [id number] TT: 11/10/2016 15:26:50 Confirmation # [id number] Dictation # [id number] rick
[2016-11-10 18:06] VITALS: TEMP 98; O2SAT 94
[2016-11-11] MEDS: Albuterol-Ipratrop 3 mg / 0.5 (3 ml) UD IH SCH ×2 (01:30→07:47)
[2016-11-11 07:41] LABS: HEMATOCRIT 40.4 % (36.0-48.0); MEAN CELL VOLUME 94.8 fL (80.0-105.0); MEAN CORPUSCULAR HEMOGLOBIN 29.8 pg (25.0-35.0); MEAN CORPUSCULAR HGB CONC 31.4 g/dl (31.0-37.0); MEAN PLATELET VOLUME 9.6 fl (7.0-11.0); RED CELL DISTRIBUTION WIDTH 15.6 % (11.5-14.5); WHITE BLOOD COUNT 10.5 10^3/ul (4.5-11.0)
[2016-11-11 07:53] LABS: INR 1.32 (0.93-1.08)
[2016-11-11 08:23] LABS: ALB/GLOB RATIO 0.9 (1.1-1.8); ALKALINE PHOSPHATASE 81 U/L (38-133); ALT/SGPT 12 U/L (7-56); AST/SGOT 19 U/L (15-39); BILIRUBIN,TOTAL 1.1 mg/dL (0.2-1.3); BLOOD UREA NITROGEN 26 mg/dL (7-21); CALCIUM 9.2 mg/dL (8.4-10.5); CARBON DIOXIDE 31 mmol/L (21-33); CHLORIDE 100 mmol/L (98-107); GFR AFRICAN-AMERICAN > 60; GLUCOSE,RANDOM 143 mg/dL (70-110); POTASSIUM 4.3 mmol/L (3.6-5.0); SODIUM 140 mmol/L (132-148); TOTAL PROTEIN 7.7 g/dL (5.8-8.3)
[2016-11-11] MEDS: Insulin Lispro (humaLOG) LOW Coverage SC SCH ×2 (08:26→12:20)
[2016-11-11 09:15] VITALS: BP 153/81; PULSE 71
[2016-11-11] MEDS: diltiaZEM 240 mg/24 Hours CD Cap PO SCH (10:30)
[2016-11-11] MEDS: Digoxin 125 mcg (0.125 mg) Tab PO SCH (10:30)
[2016-11-11 10:33] VITALS: PULSE 71
--- NOTE | 2016-11-11 12:26 | DS ---
SUBJECTIVE: This is an 86-year-old female who had come to the hospital because of a fall. She had a subdural hematoma. The patient did not have progression of her subdural hematoma. Her anticoagulat ion has been on hold. She is getting physical therapy. She is [facility] to [facility]. She refused BiPAP. She has no complaints of any headaches or dizziness. No nausea. She is go ing to be discharged to subacute, today. PHYSICAL EXAMINATION: VITAL SIGNS: Temperature is 98, pulse of 84, blood pressure 135/64, respirations 20, O2 saturation 9 4%. GENERAL: The patient comfortable, in no acute distress. HEENT: Anicteric sclerae. Moist mucosa. NECK: No JVD or adenopathy. CARDIAC: S1/S2. No murmurs. No rubs. Regular. RESPIRATORY: Clear to auscultation bilaterally. No wheezes, rales, or rhonchi. Good air entry. ABDOMEN: Bowel sounds are positive, soft, nontender, and nondistended. EXTREMITIES: No edema. Has 1+ pulses. ASSESSMENT: 1. Fall. 2. Hypoxia, improved. 3. Right parietal subdural hematoma, stable. 4. Atrial fibrillation, Coumadin on hold. 5. Hypertension. 6. Diabetes type 2. 7. Dementia, Alzheimer type. PLAN: The patient is currently comfortable. The patient is receiving Xanax. She is on metformin fo r her diabetes. She is on an insulin sliding scale. She is tolerating her diet. Sugars are 181 and 120. CONDITION: Stable. ACTIVITIES: Increase as tolerated. Denton Napoles MD cc: [id number] TT: 11/11/2016 12:25:10 rick
== END 2016-11-11 13:09 | DRG 65 ==
LOC: ED 07:57 → ERH 09:50 → 2RNO 12:10 → OBSVTOIN 11-08 08:05 → 5RSO 11-08 19:06
PROVIDERS: ADMIT Internal Medicine Medical Oncology; ATTEND Internal Medicine Nephrology
PROC: 5A09357 Assistance with Respiratory Ventilation, Less than 24 Consecutive Hours, Continuous Positive Airway Pressure (ICD-10-PCS; principal; 2016-11-09)
DX: I62.03 Nontraumatic chronic subdural hemorrhage (principal); J44.1 Chronic obstructive pulmonary disease with (acute) exacerbation; N39.0 Urinary tract infection, site not specified; I42.9 Cardiomyopathy, unspecified; I11.0 Hypertensive heart disease with heart failure; I50.9 Heart failure, unspecified; I27.2 Other secondary pulmonary hypertension; I48.91 Unspecified atrial fibrillation; E11.9 Type 2 diabetes mellitus without complications; R09.02 Hypoxemia; M19.90 Unspecified osteoarthritis, unspecified site; G30.9 Alzheimer's disease, unspecified; F02.80 Dementia in other diseases classified elsewhere, unspecified severity, without behavioral disturbance, psychotic disturbance, mood disturbance, and anxiety; R79.1 Abnormal coagulation profile; Z66 Do not resuscitate; G47.30 Sleep apnea, unspecified; E78.5 Hyperlipidemia, unspecified; K57.90 Diverticulosis of intestine, part unspecified, without perforation or abscess without bleeding; Z79.01 Long term (current) use of anticoagulants; I25.2 Old myocardial infarction; Z79.84 Long term (current) use of oral hypoglycemic drugs; Z87.891 Personal history of nicotine dependence

== ENCOUNTER 2017-01-07 18:10 | Inpatient (IN) | payer MEDICARE, OTHER ==
[2017-01-07 18:56] VITALS: BMI 24.8
--- NOTE | 2017-01-07 19:24 | ED PDOC ---
Arrival/HPI <Rebecca Sigala - Last Filed: 01/07/17 22:41> - General Historian: Patient - History of Present Illness Time/Duration: Other (17 hours ago) Context: Home <Hernesto Quesada - Last Filed: 01/09/17 16:25> - General Chief Complaint: Trauma Time Seen by Provider: 01/07/17 18:15 - History of Present Illness Narrative History of Present Illness (Text): 01/07/17 19:22 This 86 yo female with pmh a-fib, dementia, dm, presents to this ED with daughter c/o fall x 15 hours ago. Daughter stated patient had a mechanical fall after trying to get off her bed. Patient denies head injury. Patient is c /o right thumb pain and swelling, and left knee bruise. Denies neck pain, loc, syncope, gill, sob, cp, abdominal pain, back pain, hip pain, or abnormal gait. She stated she uses a walker. (Hernesto Quesada) Past Medical History - Provider Review Nursing Documentation Reviewed: Yes - Infectious Disease Hx of Infectious Diseases: None - Tetanus Immunization Tetanus Immunization: Unknown - Reproductive Menopause: Yes - Cardiac Hx Cardiac Disorders: Yes (OR) Hx Congestive Heart Failure: Yes Hx Hypertension: Yes - Pulmonary Hx Respiratory Disorders: Yes Hx Chronic Obstructive Pulmonary Disease (COPD): Yes - Neurological Hx Neurological Disorder: Yes Hx Dementia: Yes Hx Dizziness: Yes - HEENT Hx HEENT Disorder: Yes Hx Cataracts: Yes (bilateral, sx 2007) - Renal Hx Renal Disorder: No - Endocrine/Metabolic Hx Diabetes Mellitus Type 2: Yes - Hematological/Oncological Hx Blood Disorders: Yes Hx Anemia: Yes - Integumentary Hx Dermatological Disorder: Yes Other/Comment: eccymosis righ thigh hip leg, bruises to knees, dry brown crusty skin between toes small 0>3 round scab outer r ankle, stage 1 opening 0.5cm round left buttock, buttocks/sacrum reddened, slight redness under r brreast, multiple dry age spots to chest - Musculoskeletal/Rheumatological Hx Arthritis: Yes - Gastrointestinal Hx Gastrointestinal Disorders: Yes Hx Diverticulitis: Yes - Genitourinary/Gynecological Hx Genitourinary Disorders: Yes Hx Incontinence: Yes - Psychiatric Hx Psychophysiologic Disorder: No Hx Anxiety: No Hx Bipolar Disorder: No Hx Depression: No Hx Emotional Abuse: No Hx Hallucinations: No Hx Panic Disorder: No Hx Post Traumatic Stress Disorder: No Hx Psychosis: No Hx Physical Abuse: No Hx Schizophrenia: No Hx Sexual Abuse: No Hx Substance Use: No - Surgical History Hx Amputation: No Hx Appendectomy: No Hx Cardiac Catheterization: No Hx Cholecystectomy: No Hx Coronary Stent: No Hx Gastric Bypass Surgery: No Hx Hysterectomy: No Hx Joint Replacement: No Hx Kidney Transplant: No Hx Liver Transplant: No Hx Musculoskeletal Surgery: No Hx Open Heart Surgery: No Hx Orthopedic Surgery: No Hx Splenectomy: No Hx Valve Replacement: No Other/Comment: righ breast cyst removed 25 yrs ago - Anesthesia Hx Anesthesia: No - Suicidal Assessment Feels Threatened In Home Enviroment: No <Hernesto Quesada P - Last Filed: 01/09/17 16:25> Family/Social History - Physician Review Nursing Documentation Reviewed: Yes Family/Social History: No Known Family HX Smoking Status: Never Smoked Hx Alcohol Use: No Hx Substance Use: No Hx Substance Use Treatment: No <DipakNahapril P - Last Filed: 01/09/17 16:25> Allergies/Home Meds <Rebecca Sigala - Last Filed: 01/07/17 22:41> <Hernesto Quesada P - Last Filed: 01/09/17 16:25> Allergies/Adverse Reactions: Allergies No Known Allergies Allergy (Verified 11/06/16 18:20) Home Medications: Home Meds Medication Instructions Recorded Confirmed Atorvastatin [Lipitor] 20 mg PO DAILY 10/13/14 01/07/17 Digoxin 0.125 mg PO DAILY 10/13/14 01/07/17 Furosemide [Lasix] 40 mg PO DAILY 10/13/14 01/07/17 Nystatin [Mycostatin Cream] 1 appl TP BID 10/25/14 01/07/17 Potassium Chloride [Klor-Con 10] 10 meq PO DAILY 06/27/15 01/07/17 Metformin HCl [Glucophage] 500 mg PO BID 07/14/16 01/07/17 Svoyl-9-Vzry Ethyl Esters 1 GM 1 gm SL DAILY 07/14/16 01/07/17 [Lovaza] [id number] CD [Cardizem CD] 240 mg PO DAILY 07/14/16 01/07/17 Review of Systems - Review of Systems Constitutional: Other (fall). absent: Fatigue, Weight Change, Fevers Eyes: Normal ENT: Normal Respiratory: Cough. absent: SOB, Sputum, Wheezing Cardiovascular: Normal. absent: Chest Pain, Palpitations Gastrointestinal: Normal. absent: Abdominal Pain, Nausea, Vomiting Genitourinary Female: Normal. absent: Dysuria, Frequency, Hematuria Musculoskeletal: Other (See HPI) Skin: Normal. absent: Rash, Pruritis Neurological: Normal. absent: Headache, Dizziness Endocrine: Normal Hemo/Lymphatic: Normal Psychiatric: Normal <[employer] P - Last Filed: 01/09/17 16:25> Physical Exam Temperature: Afebrile Blood Pressure: Normal Pulse: Regular Respiratory Rate: Normal Appearance: Positive for: Well-Appearing, Non-Toxic, Comfortable Pain Distress: None Mental Status: Positive for: Alert and Oriented X 3 - Systems Exam Head: Present: Atraumatic, Normocephalic Pupils: Present: PERRL Extroacular Muscles: Present: EOMI Conjunctiva: Present: Normal Mouth: Present: Moist Mucous Membranes Neck: Present: Normal Range of Motion Respiratory/Chest: Present: Clear to Auscultation, Good Air Exchange. No: Respiratory Distress, Accessory Muscle Use Cardiovascular: Present: Regular Rate and Rhythm, Normal S1, S2. No: Murmurs Abdomen: Present: Normal Bowel Sounds. No: Tenderness, Distention, Peritoneal Signs, Rebound, Guarding Back: Present: Normal Inspection. No: CVA Tenderness Upper Extremity: Present: NORMAL PULSES, Neurovascularly Intact, Capillary Refill < 2s, Other ((+) right thumb is ecchymotis, swollen, and tender). No: Cyanosis, Edema Lower Extremity: Present: Edema (trace), NORMAL PULSES, Normal ROM, Neurovascularly Intact, Capillary Refill < 2 s, Other (Left anterior knee ecchymosis. B/L knee have FROM). No: CALF TENDERNESS, Erythema, Temperature Abnormalties Neurological: Present: GCS=15, CN II-XII Intact, Speech Normal, Motor Func Grossly Intact, Normal Sensory Function, Normal Cerebellar Funct Skin: Present: Warm, Dry, Normal Color, Erythematous. No: Rashes Psychiatric: Present: Alert, Oriented x 3 <Quesada,Nahim P - Last Filed: 01/09/17 16:25> Vital Signs Temp Pulse Resp BP Pulse Ox 01/07/17 22:19 79 20 116/62 91 L 01/07/17 22:18 116/62 01/07/17 20:11 64 20 124/60 91 L 01/07/17 18:11 98.5 F 70 20 124/60 90 L Medical Decision Making - EKG Interpretation Interpreted by ED Physician: Yes Type: 12 lead EKG <Rebecca Sigala - Last Filed: 01/07/17 22:41> Re-evaluation Time: 22:40 Reassessment Condition: Re-examined, Improving,but remains with symptoms - Lab Interpretations I have reviewed the lab results: Yes Interpretation: Abnormal lab values - EKG Interpretation Interpreted by ED Physician: Yes (A-Fib @[address] changes) Type: 12 lead EKG Comparison: No previous EKG avail. <Hernesto Quesada - Last Filed: 01/09/17 16:25> ED Course and Treatment: 01/07/17 22:42 Patient seen and examined with PA. Daughter at bedside. Patient fell at approximately 4 am. Reportedly family members heard her fall and presented immediately and she was not on floor for prolonged time. She has no hip pain on exam. Contusion to knee with bleeding controlled. No syncope or loc reported. Neurologically patient intact. While at CT scan, report from lab that patient was hypoglycemic. Patient brought back from CT, she is awake, alert, although blood sugar "less than 40". Patient given amp of d50 and fed sandwich. She is alert, awake and at baseline mental status as per daughter. Daughter states she gave her insulin prior to coming to emergency department and she did not eat. She is afebrile. No abdominal pain. Denies urinary symptoms. Patient noted to have cough. Famliy reports persistent despite outpatient antibiotics. CXR consistent with CHF, with elevated BNP. She denies chest pain. Troponin 0.05. EKG unremarkable. Lasix administered. INR 4, improved from recent INR as per PMD. No active bleeding currently noted. CT head unremarkable for acute bleed. Will admit for CHF, hypoclyemia, fall with elevated INR, monitoring, serial exams. Case discussed with Dr. Napoles, accepts admission. (Rebecca Sigala) - Lab Interpretations Lab Results: 01/07/17 19:20 01/07/17 19:20 Lab Results 01/07/17 19:20: Digoxin 1.5 01/07/17 19:20: PT 43.9 H*, INR 4.06 H*, APTT 39.8 H 01/07/17 19:20: Sodium 139, Potassium 4.3, Chloride 99, Carbon Dioxide 27, Anion Gap 17, BUN 45 H, Creatinine 1.2, Est GFR ( Amer) 51, Est GFR (Non- Af Amer) 42, Random Glucose 40 L* D, Calcium 9.9, Total Bilirubin 0.9, AST 30, ALT 34, Alkaline Phosphatase 101, Lactate Dehydrogenase 344, Total Creatine Kinase < 20 L, Troponin I 0.05 D, NT-Pro-B Natriuret Pep 2530 H, Total Protein 8.1, Albumin 4.2, Globulin 3.9, Albumin/Globulin Ratio 1.1 01/07/17 19:20: WBC 9.0, RBC 4.71, Hgb 13.6, Hct 42.8, MCV 90.9, MCH 28.9, MCHC 31.8, RDW 16.5 H, Plt Count 407, MPV 9.9, Gran % 74.1 H, Lymph % (Auto) 15.3 L, [place] % (Auto) 7.6 H, Eos % (Auto) 2.2, Baso % (Auto) 0.8, Gran # 6.65 H, Lymph # 1.4, [place] # 0.7 H, Eos # 0.2, Baso # 0.07 - RAD Interpretation Narrative RAD Interpretations (Text): 01/07/17 20:59 [facility] FINDINGS: Brain: There is marked diffuse heterogeneity of the white matter attenuation, consistent with severe chronic white matter ischemic changes. There is marked diffuse cerebral atrophy present, consistent with this patient's age. Multifocal encephalomalacia predominate right hemisphere secondary to previous infarction. There is benign calcification of the falx cerebri. The remaining brain is otherwise unremarkable. Normal narayan-white matter differentiation is present, without acute hemorrhage, or mass. Ventricles: Unremarkable. No ventriculomegaly. Bones/joints: There is a small lucent focus of right frontal bone measuring 11 mm. This is unchanged from prior exam. Benign hyperostosis frontalis is present. No acute fracture. Soft tissues: Unremarkable. Sinuses: Unremarkable as visualized, except for mild sphenoid mucosal thickening posterior aspect. No acute sinusitis. Mastoid air cells: Unremarkable as visualized. No mastoid effusion. Orbits: The orbits are normal. There is no evidence of retrobulbar hemorrhage. IMPRESSION: Age-related atrophy and chronic white matter ischemic changes, with no evidence of an acute intracranial abnormality. Chronic-appearing changes as described in the right hemisphere. Small stable lucent focus within the right frontal bone of uncertain etiology or clinical significance. Thank you for allowing us to participate in the care of your patient. Dictated and Authenticated by: Adarsh Pereira MD 01/07/2017 8:44 PM Eastern Time ([place] & [place]) 01/07/17 20:59 Right hand x-rays: Non displaced distal phalanx fx right hand , thumb Knee x-rays: DJD. no Fx (Hernesto Quesada) Radiology Orders: 01/07/17 19:19 HEAD W/O CONTRAST [CT] Stat HAND RIGHT 3 VIEWS [RAD] Stat 01/07/17 19:20 KNEE LEFT 2 VIEWS (AP & LAT) [RAD] Stat 01/07/17 19:21 CHEST PORTABLE [RAD] Stat - Medication Orders Current Medication Orders: Albuterol/Ipratropium (Duoneb 3 Mg/0.5 Mg (3 Ml) Ud) 3 ml IH [id number] [facility] Last Admin: 01/09/17 15:46 Dose: 3 ml Alprazolam (Xanax) 0.25 mg PO Q6 PRN; Protocol PRN Reason: Agitation Stop: 01/16/17 18:01 Last Admin: 01/09/17 14:11 Dose: 0.25 mg Atorvastatin Calcium (Lipitor) 20 mg PO HS [facility] Last Admin: 01/08/17 22:00 Dose: Not Given Non-Admin Reason: Patient Refused Digoxin (Lanoxin) 0.125 mg PO DAILY [facility] Last Admin: 01/09/17 09:44 Dose: 0.125 mg Diltiazem HCl (Cardizem Cd) 240 mg PO DAILY [facility] Last Admin: 01/09/17 09:43 Dose: 240 mg Insulin Human Regular (Humulin R Low) 0 units SC ACHS [facility] PRN Reason: Protocol Last Admin: 01/09/17 12:30 Dose: 3 units Warfarin Sodium (Coumadin) 2.5 mg PO 1800 [facility] PRN Reason: Protocol Discontinued Medications Albuterol/Ipratropium (Duoneb 3 Mg/0.5 Mg (3 Ml) Ud) 3 ml IH STAT STA Stop: 01/08/17 02:44 Last Admin: 01/08/17 02:55 Dose: 3 ml Dextrose (Dextrose 50% Inj) 50 ml IVP ONCE ONE Stop: 01/07/17 20:31 Last Admin: 01/07/17 20:35 Dose: 50 ml Furosemide (Lasix) 40 mg IVP ONCE ONE Stop: 01/07/17 20:46 Last Admin: 01/07/17 22:18 Dose: 40 mg Furosemide (Lasix) 40 mg IVP STAT STA Stop: 01/08/17 02:44 Last Admin: 01/08/17 02:56 Dose: 40 mg - PA / NAVAL ENGINEER / Resident Statement /DO has reviewed & agrees with the documentation as recorded. / has examined the patient and agrees with the treatment plan. <Rebecca Sigala - Last Filed: 01/07/17 22:41> Disposition/Present on Arrival <Rebecca Sigala - Last Filed: 01/07/17 22:41> - Present on Arrival Any Indicators Present on Arrival: No History of DVT/PE: No History of Uncontrolled Diabetes: No Urinary Catheter: No History of Decub. Ulcer: No History Surgical Site Infection Following: None - Disposition Have Diagnosis and Disposition been Completed?: Yes Disposition Time: 22:40 Patient Plan: Admission <Hernesto Quesada - Last Filed: 01/09/17 16:25> - Disposition Diagnosis: CHF (congestive heart failure), Elevated INR Disposition: HOSPITALIZED Condition: STABLE
[2017-01-07 19:56] LABS: ADD MANUAL DIFF? NO
[2017-01-07 20:14] LABS: ALB/GLOB RATIO 1.1 (1.1-1.8); ALKALINE PHOSPHATASE 101 U/L (38-133); ALT/SGPT 34 U/L (7-56); AST/SGOT 30 U/L (15-39); BILIRUBIN,TOTAL 0.9 mg/dL (0.2-1.3); BLOOD UREA NITROGEN 45 mg/dL (7-21); CALCIUM 9.9 mg/dL (8.4-10.5); CARBON DIOXIDE 27 mmol/L (21-33); CHLORIDE 99 mmol/L (98-107); GFR AFRICAN-AMERICAN 51; POTASSIUM 4.3 mmol/L (3.6-5.0); SODIUM 139 mmol/L (132-148); TOTAL PROTEIN 8.1 g/dL (5.8-8.3)
[2017-01-07 20:20] LABS: BASO # 0.07 K/mm3 (0.0-2.0); BASO % 0.8 % (0.0-3.0); EOS # 0.2 (0.0-0.7); EOS % 2.2 % (1.5-5.0); GRAN # 6.65 (1.4-6.5); GRAN % 74.1 % (50.0-68.0); HEMATOCRIT 42.8 % (36.0-48.0); LYMPH # 1.4 (1.2-3.4); LYMPH % 15.3 % (22.0-35.0); MEAN CELL VOLUME 90.9 fL (80.0-105.0); MEAN CORPUSCULAR HEMOGLOBIN 28.9 pg (25.0-35.0); MEAN CORPUSCULAR HGB CONC 31.8 g/dl (31.0-37.0); MEAN PLATELET VOLUME 9.9 fl (7.0-11.0); MONO # 0.7 (0.1-0.6); MONO % 7.6 % (1.0-6.0); PLATELET COUNT 407 10^3/uL (120.0-450.0); RED CELL DISTRIBUTION WIDTH 16.5 % (11.5-14.5)
[2017-01-07 20:22] LABS: GLUCOSE,RANDOM 40 mg/dL (70-110)
[2017-01-07 20:26] LABS: TROPONIN I 0.05 ng/mL
[2017-01-07 20:27] LABS: PARTIAL THROMBOPLASTIN TIME 39.8 Seconds (23.7-30.8)
[2017-01-07] MEDS ORDERED: Dextrose 50% SYRINGE Inj (50 ml) IVP ONE (20:30)
[2017-01-07 20:32] LABS: INR 4.06 (0.93-1.08)
--- NOTE | 2017-01-08 00:44 | CP.PCM.PN ---
Subjective - Date & Time of Evaluation Date of Evaluation: 01/08/17 Time of Evaluation: 00:43 - Subjective Subjective: Patient was examined at bedside. Nurse requested for diet order. Patient has been lethargic unlike earlier in the ER when she was more alert. Patient resoponds to my questions by moaning a little. Does not talk. This 86 year old woman was admitted after a mechanical fall. CT head showed atrophy changes. She has history of dementia, atrial fibrillation, DM, [place],HTN, CHF , COPD, cataract surgery,anemia, arthritis, diverticulitis. Chemistry blood glucose was 40 mg %. Finger stick blood glucose now is 206 mg %. Objective - Vital Signs/Intake and Output Vital Signs (last 24 hours): Temp Pulse Resp BP Pulse Ox 98.5 F 79 20 116/62 91 L 01/07/17 18:11 01/07/17 22:19 01/07/17 22:19 01/07/17 22:19 01/07/17 22:19 - Labs Labs: PT 43.9 Seconds (9.9-11.8) H* 01/07/17 19:20 INR 4.06 (0.93-1.08) H* 01/07/17 19:20 APTT 39.8 Seconds (23.7-30.8) H 01/07/17 19:20 - Constitutional Appears: No Acute Distress - Head Exam Head Exam: ATRAUMATIC, NORMAL INSPECTION, NORMOCEPHALIC - Eye Exam Eye Exam: Normal appearance, PERRL - ENT Exam ENT Exam: Normal External Ear Exam - Neck Exam Neck Exam: Normal Inspection - Respiratory Exam Respiratory Exam: NORMAL BREATHING PATTERN. absent: Accessory Muscle Use, Rales , Rhonchi, Wheezes, Respiratory Distress, Stridor - Cardiovascular Exam Cardiovascular Exam: absent: JVD - GI/Abdominal Exam GI & Abdominal Exam: Normal Bowel Sounds - Rectal Exam Rectal Exam: Deferred - Extremities Exam Extremities Exam: Normal Inspection - Back Exam Back Exam: NORMAL INSPECTION - Neurological Exam Neurological Exam: Altered - Psychiatric Exam Psychiatric exam: Depressed - Skin Skin Exam: Warm Assessment and Plan - Assessment and Plan (Free Text) Assessment: A/P:Lethargy. Hypercarbia. COPD. S/P fall. DM II. HTN. CHF. Atrial fibrillation. ABG with lactate shows respiratory acidosis, hypoxia.Normal lactate. BiPAP as ordered. NPO for now.
[2017-01-08 02:02] LABS: ARTERIAL BLOOD GAS HCO3 27.3 mmol/L (21-28); ARTERIAL BLOOD GAS PH 7.28 (7.35-7.45)
[2017-01-08] MEDS ORDERED: Albuterol-Ipratrop 3 mg / 0.5 (3 ml) UD IH STA (02:43)
[2017-01-08 06:30] LABS: ARTERIAL BLOOD GAS HCO3 28.5 mmol/L (21-28); ARTERIAL BLOOD GAS O2 CAPACITY 15.8 mL/dl (16-24); ARTERIAL BLOOD GAS O2 CONTENT 15.1 ML/dl (15-23); ARTERIAL BLOOD HGB O2 SAT 92.4 % (95.0-98.0); CARBOXYHEMOGLOBIN 2.6 % (0.5-1.5); HHB 4.2 % (0-5); METHEMOGLOBIN 0.7 % (0.0-3.0)
[2017-01-08 07:52] LABS: ADD MANUAL DIFF? NO
[2017-01-08 07:59] LABS: BASO # 0.05 K/mm3 (0.0-2.0); BASO % 0.7 % (0.0-3.0); EOS # 0.2 (0.0-0.7); GRAN % 74.9 % (50.0-68.0); HEMATOCRIT 41.8 % (36.0-48.0); LYMPH # 1.1 (1.2-3.4); LYMPH % 14.8 % (22.0-35.0); MEAN CELL VOLUME 89.7 fL (80.0-105.0); MEAN CORPUSCULAR HEMOGLOBIN 27.7 pg (25.0-35.0); MEAN CORPUSCULAR HGB CONC 30.9 g/dl (31.0-37.0); MEAN PLATELET VOLUME 9.6 fl (7.0-11.0); MONO # 0.6 (0.1-0.6); MONO % 7.6 % (1.0-6.0); PLATELET COUNT 362 10^3/uL (120.0-450.0); RED CELL DISTRIBUTION WIDTH 16.5 % (11.5-14.5); WHITE BLOOD COUNT 7.6 10^3/ul (4.5-11.0)
[2017-01-08] MEDS: Albuterol-Ipratrop 3 mg / 0.5 (3 ml) UD IH SCH ×5 (08:07→23:18)
[2017-01-08 08:37] LABS: BILIRUBIN,TOTAL 0.7 mg/dL (0.2-1.3); CALCIUM 9.5 mg/dL (8.4-10.5); TOTAL PROTEIN 7.6 g/dL (5.8-8.3)
--- NOTE | 2017-01-08 09:52 | CT ---
PROCEDURE: CT HEAD WITHOUT CONTRAST. HISTORY: fall COMPARISON: 11/07/2016 TECHNIQUE: Axial computed tomography images were obtained through the head/brain without intravenous contrast. Radiation dose: Total exam DLP = 822.62 mGy-cm. This CT exam was performed using one or more of the following dose reduction techniques: Automated exposure control, adjustment of the mA and/or kV according to patient size, and/or use of iterative reconstruction technique. FINDINGS: HEMORRHAGE: No intracranial hemorrhage. Previously identified right parietal extra-axial collection has resolved. . BRAIN: No mass effect or edema. There is encephalomalacia in the right occipital lobe not evident on prior examination, uncertain significance. This could be related to the prior extra-axial collection or could represent old infarct common not evident on prior examination. There is severe patchy and confluent periventricular and deep white matter lucency consistent with microvascular ischemic change. There is mild to moderate diffuse age-appropriate cerebral atrophy. VENTRICLES: Unremarkable. No hydrocephalus. CALVARIUM: Stable 1.3 cm irregular lucent lesion in the right frontal calvarium unchanged dating back to examination of 12/20/2013. Not concerning for malignancy. PARANASAL SINUSES: Minimal chronic sphenoid sinusitis. MASTOID AIR CELLS: Unremarkable as visualized. No inflammatory changes. OTHER FINDINGS: None. IMPRESSION: No intracranial mass, hemorrhage or evidence of acute infarct. Resolved previously evident right occipital parietal extra-axial collection. Encephalomalacia right occipital lobe new since prior examination, possibly related to prior right occipital parietal extra-axial collection. Alternatively, this could represent old infarct, not evident on prior examination. Severe chronic microvascular ischemic change. Age-appropriate diffuse atrophy. Preliminary interpretation of this examination was reported by [facility] at 8:44 p.m. on 01/07/2017. There is concurrence of this report with the preliminary interpretation.
[2017-01-08] MEDS: Digoxin 125 mcg (0.125 mg) Tab PO SCH (10:19)
[2017-01-08] MEDS: diltiaZEM 240 mg/24 Hours CD Cap PO SCH (10:19)
[2017-01-08] MEDS: Insulin Reg-LOW-Coverage SC SCH ×2 (12:18→17:33)
--- NOTE | 2017-01-08 12:59 | CARD ---
APPROVED REPORT EKG Measurement Heart [id number] <Conclusion> Atrial fibrillation Left axis deviation Inferior infarct, age undetermined Anteroseptal infarct, age undetermined Abnormal ECG
--- NOTE | 2017-01-08 13:06 | RAD ---
PROCEDURE: Right Hand Radiographs. HISTORY: pain s/p fall COMPARISON: None. FINDINGS: BONES: Intra-articular oblique fracture base of 1st distal phalanx. No other fracture identified. JOINTS: Osteoarthritis DIP 1 through 5. Osteoarthritis at CMC 1. No articular erosions. SOFT TISSUES: Normal. OTHER FINDINGS: None. IMPRESSION: Oblique nondisplaced intra-articular fracture base of 1st distal phalanx.
--- NOTE | 2017-01-08 13:08 | RAD ---
PROCEDURE: Left Knee Radiographs. HISTORY: Pain. COMPARISON: None. FINDINGS: BONES: No acute fracture. . JOINTS: Tricompartmental osteoarthritis most pronounced in the medial compartment. JOINT EFFUSION: None. OTHER FINDINGS: None. IMPRESSION: No acute fracture. Osteoarthritis.
--- NOTE | 2017-01-08 13:10 | RAD ---
HISTORY: cough COMPARISON: 11/08/2016 FINDINGS: LUNGS: No pulmonary infiltrate. Poor inspiratory effort with bronchovascular crowding. PLEURA: Slight blunting of both costophrenic angles which may reflect small pleural effusions or chronic pleural thickening. No pneumothorax. CARDIOVASCULAR: Normal. OSSEOUS STRUCTURES: No significant abnormalities. VISUALIZED UPPER ABDOMEN: Normal. OTHER FINDINGS: None. IMPRESSION: Possible very small bilateral pleural effusion. No acute infiltrate.
[2017-01-08 14:16] LABS: PH,URINE 5.5 (4.7-8.0); URINE BILIRUBIN NEGATIVE (NEGATIVE); URINE BLOOD NEGATIVE (NEGATIVE); URINE GLUCOSE (UA) NEGATIVE (NEGATIVE); URINE KETONE NEGATIVE (NEGATIVE); URINE LEUKOCYTE ESTERASE NEGATIVE Leu/uL (NEGATIVE); URINE PROTEIN NEGATIVE mg/dL (<30 mg/dL); URINE UROBILINOGEN 0.2 E.U./dL (<1 E.U./dL)
[2017-01-08 14:21] LABS: URINE APPEARANCE CLEAR (CLEAR); URINE COLOR YELLOW (YELLOW)
--- NOTE | 2017-01-08 15:44 | HP ---
CHIEF COMPLAINT AND HISTORY OF PRESENT ILLNESS: This is an 86-year-old female who is coming into the hospital complaining of a fall. The patient's daughter had brought her in because she had a fall pr ior to coming into the hospital. She has a past medical history of atrial fibrillation and is on Cou madin. She has diabetes. She has dementia, Alzheimer type. The patient was trying to get out of he r bed and she had a fall. She initially denied any head injury. She is confused this morning and I am not able to get a good history from her. She has complaints of right thumb pain and swelling. Hina jacome has bruising to the left knee. She has no complaints. She has no complaints of any abdominal pain , no back pain, no chest pain, no shortness of breath. REVIEW OF SYMPTOMS: Is limited because of the patient's confusion. ALLERGIES: No known drug allergies. HOME MEDICATIONS: Lipitor, digoxin, Lasix, nystatin, Klor-Con, Glucophage, Lovaza and Cardizem. PAST MEDICAL HISTORY: Fall, right parietal subdural hematoma, atrial fibrillation on Coumadin, hyper tension, diabetes type 2, Alzheimer dementia, osteoarthritis, COPD. SOCIAL HISTORY: She lives with her daughter. She does not smoke or drink. FAMILY HISTORY: Unable to obtain. PAST SURGICAL HISTORY: Right breast cyst removal 25 years ago. PHYSICAL EXAMINATION: VITAL SIGNS: Temperature is 97.4, pulse of 61, blood pressure 169/96, respirations 20, O2 saturation 94%. Height is 5 feet 6 inches, weight is 180 pounds, BMI is 29.2. GENERAL: Patient lying in bed, flat, and in no apparent distress. HEAD AND NECK EXAM: Atraumatic, normocephalic. Conjunctivae are pink. Throat clear and mouth with moist mucosa. Oropharynx benign. EYES: Unable to do a full eye exam. NECK: Supple. No JVD, thyromegaly, or adenopathy. No bruits. HEART: S1 and S2 regular rate and rhythm. No murmurs, rubs, or gallops. LUNGS: Clear to auscultation bilaterally. No wheezing rales or rhonchi appreciated. No retraction s on exam. ABDOMEN: Soft, nontender, nondistended. Bowel sounds are positive in all quadrants. No rebound. No hepatosplenomegaly. EXTREMITIES: No cyanosis, clubbing, or edema. NEURO: No facial asymmetry, tongue is midline, no uvula deviation. Power is 5/5 in upper extremity and 5/5 in lower extremity. Sensation is normal in upper extremity and lower extremity. PSYCH: Awake, alert, oriented x3. No anxiety or depression symptoms. Good insight. Normal affec t. : No CVA tenderness VASCULAR: 2+ pulses in carotid and pedal pulses. SKIN: No erythema or abnormal nodules noted. SPINE: Normal curvature. LYMPHADENOPATHY: No anterior cervical or posterior cervical adenopathy. No inguinal adenopathy. PSYCHIATRIC: Unable to assess. LABORATORY DATA: White count of 9.0, hemoglobin 13.6, platelet count is 407. INR is 4.06. ABG show s a pH of 7.28, pCO2 is 58; a repeat is a pH of 7.4 with a pCO2 of 46. Chemistry shows a sodium 139, potassium is 4.0, creatinine is 1.2. The glucose is 133. Toxicology shows a digoxin of 1.5. A CT of the head is unremarkable for acute bleed. There is age related atrophy. No evidence of intracran ial hemorrhage. The right hand, a nondisplaced distal phalanx fracture of the right thumb. ASSESSMENT: 1. Fall. 2. Right thumb distal phalanx fracture. 3. Atrial fibrillation, on Coumadin. 4. Hypertension. 5. Diabetes type 2. 6. Dementia, Alzheimer type. 7. Delirium. PLAN: The patient is going to be admitted to the hospital. She was given dextrose for her sugars. She is going to be placed on insulin sliding scale, because her sugars were low when she first came i n. I will hold off on any diabetes medications. She will need physical therapy. She is going to be seen by Dr. Celaya for elevated pCO2. The patient has been on Cardizem. Will continue the Cardizem as well as digoxin. The patient is on Lipitor for dyslipidemia. Will speak to the family to give t hem an update on the patient's diagnosis and plan of care. Denton Napoles MD cc: [id number] TT: 01/08/2017 15:43:11 dn
[2017-01-09] MEDS: Albuterol-Ipratrop 3 mg / 0.5 (3 ml) UD IH SCH ×6 (04:50→23:06)
[2017-01-09 07:23] LABS: INR 1.01 (0.93-1.08)
[2017-01-09] MEDS: Insulin Reg-LOW-Coverage SC SCH ×4 (08:35→22:10)
--- NOTE | 2017-01-09 09:22 | CON ---
DATE: 01/08/2017 REFERRING PHYSICIAN: Dr. Denton Napoles REASON FOR CONSULTATION: Chronic obstructive lung disease, hypoxemia, CO2 retention. HISTORY OF PRESENT ILLNESS: This is an 86-year-old female with past medical history significant for COUNTERSINKER bleed, atrial fibrillation, been on Coumadin, hypertension, diabetes, Alzheimer's type dementia, chronic obstructive lung disease, osteoarthritis. Apparently, she was trying to get out of bed to a chair. While trying to get out of the bed to chair, slipped and fall, ended up getting trauma to the right thumb requiring fixing, has a soft cast on it. Cough, shortness of breath. No nausea, no vom iting, no diarrhea reported. PAST MEDICAL HISTORY: Chronic obstructive lung disease, Alzheimer's type dementia, diabetes, hyperte nsion, atrial fibrillation, history of COUNTERSINKER bleed. SOCIAL HISTORY: Presently, no history of smoking or alcohol use. FAMILY HISTORY: No significant cardiopulmonary disease reported. MEDICATIONS: She is on Cardizem-CD 240 mg daily, DuoNeb q. 4 hours, insulin coverage, digoxin 0.25 m g daily, Lipitor 20 mg daily. REVIEW OF SYSTEMS: No headache, no rhinitis. Has some cough, not much sputum production. Short of breath. No nausea, no vomiting, no diarrhea, no leg pain. Has some bruises on the left knee. PHYSICAL EXAMINATION: GENERAL: Lying in the bed, mild distress secondary to cough and shortness of breath. VITAL SIGNS: Temp is 98, heart rate 73, respiratory rate is 20, blood pressure 149/84, pulse ox 95% on BiPAP. HEENT: Moist mucous membrane. Crowded airway. NECK: Supple. No JVD. LUNGS: Has a few crackles, expiratory rhonchi and wheezing. HEART: S1 and S2. ABDOMEN: Soft, nontender. No organomegaly. EXTREMITIES: Multiple bruises. Right thumb has a protective . NEUROLOGIC: Awake, alert, follows simple commands, but confused. LABORATORY DATA: Shows hemoglobin 12.9, hematocrit 41.8, WBC 7.6, platelet count is 362. Yesterday, INR 4.06. Blood gases shows pH 7.40, pCO2 46, O2 68 with supplemental oxygen. Sodium 139, potassiu m 4.0, chloride 100, bicarbonate 31, BUN 44, creatinine 1.2, glucose 133, calcium 9.5, AST 29, ALT 33 , alk phos is 101, albumin is 3.8. Chest x-ray in ER shows small bilateral pleural effusions. Her knee x-ray is no fracture, has some o steoarthritis. Also had a CAT scan of the head, which shows no intracranial mass, hemorrhage, or delia dence of acute infarct, previous right occipital parietal extraaxial collection, encephalomalacia rig ht occipital lobe, new since prior examination, related to prior right occipital parietal extraaxial collection. Also had x-ray of the hand, which shows oblique nondisplaced intraarticular fracture bas e on the first digit phalanx on the right hand. IMPRESSION AND PLAN: Cardiomyopathy with systolic dysfunction, pulmonary hypertension, hypertension, diverticulosis, atrial fibrillation, may have a sleep apnea syndrome, chronic lung disease, respirat ory failure requiring noninvasive ventilation. Continue bronchodilator. Keep head elevated at 45 de grees. May use BiPAP at bedtime and p.r.n. Get INR in the morning. Fall precautions. Thank you and we will follow with you. Rosa Celaya MD cc: [id number] TT: 01/09/2017 09:22:08 Confirmation # [id number] Dictation # [id number] en
[2017-01-09] MEDS: diltiaZEM 240 mg/24 Hours CD Cap PO SCH (09:43)
[2017-01-09] MEDS: Digoxin 125 mcg (0.125 mg) Tab PO SCH (09:44)
--- NOTE | 2017-01-09 11:31 | PN ---
DATE: 01/09/2017 DATE: 01/09/2017 SUBJECTIVE: The patient is much more awake and alert today. She has no complaints of any headaches or dizziness. This is her baseline. PHYSICAL EXAMINATION: VITAL SIGNS: Temperature is 97.7, pulse of 90. Blood pressure is 176/87, respirations 20. GENERAL: The patient is comfortable, in no acute distress. HEENT: Anicteric sclerae. Moist mucosa. NECK: No JVD or adenopathy. CARDIAC: S1/S2. No murmurs. No rubs. Regular. RESPIRATORY: Clear to auscultation bilaterally. No wheezes, rales, or rhonchi. Good air entry. ABDOMEN: Bowel sounds are positive, soft, nontender, and nondistended. EXTREMITIES: No edema. Has 1+ pulses. ASSESSMENT: 1. Fall. 2. Right thumb phalanx fracture. 3. Atrial fibrillation, on Coumadin. 4. Hypertension. 5. Diabetes type 2. 6. Dementia, Alzheimer's type. 7. Delirium. PLAN: The patient is currently comfortable. She is on Lipitor for dyslipidemia. She is on Lanoxin. The patient is on Cardizem. She is high risk of having stroke with the atrial fibrillation. I eliot l start her back on her Coumadin at a lower dose. The patient is getting physical therapy. I did ca ll the patient's daughter yesterday to give her an update on the patient's diagnosis and plan of care . I will see if the patient can [facility]. Denton Napoles MD cc: [id number] TT: 01/09/2017 11:30:34 Confirmation # [id number] Dictation # [id number] rick
--- NOTE | 2017-01-09 15:30 | CON ---
DATE: 01/09/2017 REQUESTING PHYSICIAN: Dr. Napoles. REASON FOR CONSULTATION: Atrial fibrillation, recent fall. HISTORY OF PRESENT ILLNESS: This is an 86-year-old woman known to us from prior admissions, who was brought to the Emergency Room after a fall at home. She apparently was trying to get out of bed and fell to the floor. There is no reports of syncope. She was last admitted several months ago with a subdural hematoma. She is seen lying in bed on 3R. She appears pleasantly confused. She does have a history of baseline dementia. She does have a history of chronic atrial fibrillation, COPD, zimmerman ry artery disease with prior myocardial infarction. She also has a history of hypertension, divertic ulosis, diabetes and lower extremity edema. CURRENT MEDICATIONS: Include diltiazem 240 mg daily, warfarin, albuterol inhaler, digoxin 0.125 mg d aily, atorvastatin 20 mg daily. ALLERGIES: She has no reported allergies. SOCIAL HISTORY: She does not smoke or drink. She lives with her daughter. FAMILY HISTORY: She cannot recall. REVIEW OF SYSTEMS: Ten point review of systems is limited, but grossly not abnormal. PHYSICAL EXAMINATION: GENERAL: She is an elderly woman who appears comfortable at rest. VITAL SIGNS: Her blood pressure is 176/80 with pulse of 90 and irregularly irregular, respirations a re 14. She is afebrile. HEENT: Normocephalic, atraumatic. NECK: Supple. No JVD noted. CHEST: Bilateral scattered rhonchi heard. HEART: PMI displaced laterally with an irregularly irregular rhythm. Systolic murmur is present in left sternal border. ABDOMEN: Soft, nontender with normoactive bowel sounds. EXTREMITIES: Chronic stasis changes are present. No edema noted. PSYCHIATRIC: Appropriate mood and affect. NEUROLOGIC: Oriented to person and year. No gross motor or sensory deficits appreciable. DIAGNOSTIC DATA: White count 7.6, hemoglobin and hematocrit 12.9 and 41.8 with a platelet count 362, 000. Initial INR is 4.6, repeat is 1.0. Potassium 4.0, BUN and creatinine are 44 and 1.2. Initial glucose was 40, repeat is 133. Initial cardiac enzymes are negative. BNP 2530. Digoxin level is 1. 5. Electrocardiogram reveals atrial fibrillation with left axis deviation and a prior anteroseptal a nd inferior wall myocardial infarction pattern cannot be excluded. Chest x-ray reveals normal cardia c silhouette, small bilateral effusions cannot be excluded. Hand x-ray revealed fracture of the base of the first distal phalanx. IMPRESSION: 1. Recent fall with finger fracture. 2. No clear evidence of syncope. 3. Chronic atrial fibrillation, rate controlled, currently on Coumadin; however, the safety of oscar nued use is questionable given her recurrent falls and recent subdural hematoma. At this time the ri sk of anticoagulation may outweigh benefit. 4. Rest of problems as noted. RECOMMENDATIONS: Her current rate control therapy should continue. Discussion will need to be had w ith the family regarding the appropriateness and safety of anticoagulation use. At this time, the ri sk appears to be excessive. In general, conservative management appears most reasonable for her. Thank you for this consultation. I am happy to follow through her hospital course. Gabe Alba MD cc: [id number] TT: 01/09/2017 15:24:57 Confirmation # [id number] Dictation # [id number] 01/09/2017 14:29:13
[2017-01-09] MEDS ORDERED: Albuterol-Ipratrop 3 mg / 0.5 (3 ml) UD IH PRN (23:17)
--- NOTE | 2017-01-09 23:55 | PN ---
DATE: 01/09/2017 PULMONARY PROGRESS NOTE REFERRING PHYSICIAN: Dr. Denton Napoles. SUBJECTIVE: The patient is lying in the bed, night was unremarkable, not very compliant with BiPAP, confused, trying to get her out of bed to chair, has a cough, shortness of breath. No nausea, no vom iting, no diarrhea. Has some bruises of the lower extremities. Right thumb has a soft cast. OBJECTIVE: GENERAL: No acute distress. VITAL SIGNS: Temperature is 98, heart rate is 90, respiratory rate is 20, blood pressure 176/87 and pulse ox 96% on nasal cannula. HEENT: Moist mucous membranes. Crowded airway. NECK: Supple. No JVD. LUNGS: Has scattered rhonchi. HEART: S1 and S2. ABDOMEN: Soft, nontender. No organomegaly. EXTREMITIES: There are some bruises. NEUROLOGIC: Awake, alert, follows simple commands, but confused. MEDICATIONS: She is on Cardizem-CD 240 mg daily, Coumadin 2.5 mg, DuoNeb q. 6 hours, insulin coverag e, digoxin 0.125 mg daily, Lipitor 20 mg daily, Xanax 0.25 mg q. 6 hours. LABORATORY DATA: Reviewed, shows INR is 1.01. Ammonia level is 14. IMPRESSION AND PLAN: Cardiomyopathy with systolic dysfunction, pulmonary hypertension, hypertension, diverticulosis, atrial fibrillation, may have sleep apnea syndrome, chronic lung disease, respirator y failure requiring noninvasive ventilation, Alzheimer type dementia, very forgetful, trauma with rig ht thumb finger fracture. Pulmonary point of view, continue to encourage BiPAP. Keep head jelena vated at 45 degrees. Anticoagulation. Fall precaution. Bronchodilator. Thank you and we will foll ow with you. Rosa Celaya MD cc: [id number] TT: 01/09/2017 23:55:15 Confirmation # [id number] Dictation # [id number] stephanie
[2017-01-10 07:33] LABS: MEAN CELL VOLUME 90.3 fL (80.0-105.0); MEAN CORPUSCULAR HEMOGLOBIN 27.5 pg (25.0-35.0); MEAN CORPUSCULAR HGB CONC 30.5 g/dl (31.0-37.0); MEAN PLATELET VOLUME 9.6 fl (7.0-11.0); RED CELL DISTRIBUTION WIDTH 16.6 % (11.5-14.5)
[2017-01-10 07:55] LABS: INR 3.32 (0.93-1.08)
[2017-01-10 07:56] LABS: ALKALINE PHOSPHATASE 89 U/L (38-133); ALT/SGPT 30 U/L (7-56); AST/SGOT 25 U/L (15-39); BILIRUBIN,TOTAL 0.9 mg/dL (0.2-1.3); BLOOD UREA NITROGEN 32 mg/dL (7-21); CALCIUM 9.1 mg/dL (8.4-10.5); CARBON DIOXIDE 33 mmol/L (21-33); CHLORIDE 100 mmol/L (95-110); GFR AFRICAN-AMERICAN > 60; GLUCOSE,RANDOM 141 mg/dL (70-110); SODIUM 142 mmol/L (132-148); TOTAL PROTEIN 7.3 g/dL (5.8-8.3)
[2017-01-10] MEDS: Insulin Reg-LOW-Coverage SC SCH ×4 (08:03→21:57)
[2017-01-10 08:04] LABS: URINE BILIRUBIN NEGATIVE (NEGATIVE); URINE BLOOD MODERATE (NEGATIVE); URINE GLUCOSE (UA) NEGATIVE (NEGATIVE); URINE KETONE NEGATIVE (NEGATIVE); URINE LEUKOCYTE ESTERASE SMALL Leu/uL (NEGATIVE); URINE PROTEIN TRACE mg/dL (<30 mg/dL); URINE UROBILINOGEN 0.2 E.U./dL (<1 E.U./dL)
[2017-01-10 08:05] LABS: URINE APPEARANCE CLEAR (CLEAR); URINE COLOR YELLOW (YELLOW)
[2017-01-10] MEDS: Arformoterol 15 mcg/2 ml Inh Sol IH SCH ×2 (08:08→19:45)
[2017-01-10] MEDS: Budesonide 0.5 mg/2 ml Inhal Susp UD IH SCH ×2 (08:08→19:45)
[2017-01-10 08:21] LABS: URINE BACTERIA FEW (NEG); URINE EPITHELIAL CELLS 0 - 2 /hpf (0-5); URINE RBC 25 - 30 /hpf (0-2)
--- NOTE | 2017-01-10 09:50 | PQF GENQUE ---
This form is a permanent part of the medical record Dr. Napoles, Patient was admitted after a fall at home, has history of dementia. Blood sugar 40 in ER, afib on EKG, elevated BNP with small pleural effusions on CXR, respiratory acidosis shortly after admission. Pulmonary consult noted respiratory failure requiring bipap. ER attending noted CHF. Please document specifically if any of these findings contributed to admission, were they present or ruled out as diagnosis? No respiratory failure and no CHF Clarification of your documentation is requested to better reflect the severity of illness and intensity of treatment of your patient. Indicators present [] Specify: [] [] Specify: [] [] Specify: [] [] Specify: [] Location in the medical record that reflects the above clinical findings: [] Treatment Provided: [] PHYSICIAN'S RESPONSE Based on your medical judgment of the clinical indicators outlined above please clarify the following: [] Practitioner response [] If unable to determine, please check the box, sign and date. Present On Admission (POA) Indicator: [] Present at the time of admission [] Not present at the time of admission [] Clinically Undetermined In responding to this query, please exercise your independent professional judgment. The fact that a question is asked does not imply that any particular answer is desired or expected. Thank you for your clarification on this documentation. If you have any questions please call:[ ] * Thank you, [ ]Jessica Lala [facility] #[id number] style advisor KATE
[2017-01-10] MEDS: diltiaZEM 240 mg/24 Hours CD Cap PO SCH (09:53)
[2017-01-10] MEDS: Digoxin 125 mcg (0.125 mg) Tab PO SCH (09:54)
--- NOTE | 2017-01-10 10:10 | PN ---
DATE: 01/10/2017 SUBJECTIVE: The patient has no complaints of any chest pain, no shortness of breath, no headaches. PHYSICAL EXAMINATION: VITAL SIGNS: Temperature is 98.3, pulse of 96, blood pressure 156/72, respirations 18. GENERAL: The patient comfortable, in no acute distress. HEENT: Anicteric sclerae. Moist mucosa. NECK: No JVD or adenopathy. CARDIAC: S1/S2. No murmurs. No rubs. Regular. RESPIRATORY: Clear to auscultation bilaterally. No wheezes, rales, or rhonchi. Good air entry. ABDOMEN: Bowel sounds are positive, soft, nontender, and nondistended. EXTREMITIES: No edema. Has 1+ pulses. LABS: White count of 9.0, hemoglobin 11.9. ASSESSMENT: 1. Fall. 2. Right thumb phalanx fracture. 3. Atrial fibrillation, on Coumadin. 4. Hypertension. 5. Diabetes, type 2. 6. Dementia, Alzheimer's type. 7. Delirium. PLAN: The patient is comfortable. She is on Coumadin. Her INR is 3.3 today. She is on a lower dos e of her Coumadin. The patient is on Lipitor for dyslipidemia. She is on digoxin. She is going to continue with Lipitor. She is being followed by Dr. Hercules. The patient is waiting for TCU evalua tion. Denton Napoles MD cc: [id number] TT: 01/10/2017 10:09:25 Confirmation # [id number] Dictation # [id number] mn
--- NOTE | 2017-01-10 22:09 | PN ---
DATE: 01/10/2017 PULMONARY PROGRESS NOTE REFERRING PHYSICIAN: Dr. Denton Napoles. SUBJECTIVE: She is out of bed to chair, feels better, decreased cough, decreased shortness of breath . No nausea, no vomiting, no diarrhea. Has Coy catheter, leg bruises. OBJECTIVE: GENERAL: No acute distress. VITAL SIGNS: Temperature is 98, heart rate is 60, respiratory rate is 20, blood pressure 142/81, pul se ox 95% on 2 liters nasal cannula. HEENT: Moist mucous membranes. Crowded airway. Mallampati score is 4. NECK: Supple. No JVD. LUNGS: Has scattered rhonchi and wheezing. HEART: S1 and S2. ABDOMEN: Soft, nontender. No organomegaly. EXTREMITIES: Multiple bruises. NEUROLOGIC: Awake, alert, follows simple command. MEDICATIONS: She is on Brovana 15 mcg inhaled twice a day, Cardizem-CD 240 mg daily, Coumadin 2.5 mg daily, DuoNeb q. 6 hours, digoxin 0.125 mg daily, Lasix 40 mg daily, Pulmicort inhaled twice a day, Xanax 0.25 mg q. 6 hours p.r.n. LABORATORY DATA: Shows hemoglobin 11.9, hematocrit 39.0, WBC 9.0, platelet is 327. INR 3.32. Sodiu m 142, potassium 4.0, chloride 100, bicarbonate 33, BUN 32, creatinine 0.9, glucose 141, calcium 9.1, AST 25, ALT 30, alkaline phosphatase is 89, albumin 3.6. IMPRESSION AND PLAN: Cardiomyopathy with systolic dysfunction, pulmonary hypertension, hypertension, diverticulosis, atrial fibrillation, sleep apnea syndrome, chronic lung disease, respiratory failure requiring noninvasive ventilation, Alzheimer-type dementia, status post fall with multiple bruises a nd left hand thumb fracture. Pulmonary point of view, continue bronchodilator, keep head at 45 degre es. May use BiPAP while sleeping. Gastric prophylaxis. No Coumadin today. INR in the morning. Th ank you and will follow with you. Rosa Celaya MD cc: [id number] TT: 01/10/2017 22:08:29 Confirmation # [id number] Dictation # [id number] mn
[2017-01-11 06:53] LABS: HEMATOCRIT 40.2 % (36.0-48.0); MEAN CELL VOLUME 91.4 fL (80.0-105.0); MEAN CORPUSCULAR HGB CONC 30.6 g/dl (31.0-37.0); MEAN PLATELET VOLUME 9.7 fl (7.0-11.0); RED CELL DISTRIBUTION WIDTH 16.6 % (11.5-14.5); WHITE BLOOD COUNT 9.5 10^3/ul (4.5-11.0)
[2017-01-11 07:07] LABS: INR 2.4 (0.93-1.08)
--- NOTE | 2017-01-11 07:51 | PN ---
DATE: 01/11/2017 SUBJECTIVE: The patient has no complaints of any chest pain, no shortness of breath, no headaches, n o dizziness. PHYSICAL EXAMINATION: VITAL SIGNS: Temperature is 98.4, pulse of 60, blood pressure is 142/81, respirations 19, O2 saturat ion is 95%. GENERAL: The patient comfortable, in no acute distress. HEENT: Anicteric sclerae. Moist mucosa. NECK: No JVD or adenopathy. CARDIAC: S1/S2. No murmurs. No rubs. Regular. RESPIRATORY: Clear to auscultation bilaterally. No wheezes, rales, or rhonchi. Good air entry. ABDOMEN: Bowel sounds are positive, soft, nontender, and nondistended. EXTREMITIES: No edema. Has 1+ pulses. LABORATORY DATA: White count is 9.0, hemoglobin 11.9. Creatinine 0.9. ASSESSMENT: 1. Fall. 2. Right thumb phalanx fracture. 3. Atrial fibrillation, on Coumadin. 4. Hypertension. 5. Diabetes type 2. 6. Dementia, Alzheimer's type. 7. Delirium. 8. Congestive heart failure, secondary to systolic dysfunction, stable. PLAN: The patient is currently comfortable. She is on her anticoagulation. She has an INR that is pending this morning. She is on Coumadin. She is on Lipitor for dyslipidemia. She is on Lasix. Sh e is on Xanax as needed. She is receiving Cardizem for her atrial fibrillation. She has an echo jenny t has been ordered. She was seen by physical therapy and TCU was recommended. Awaiting for the TCU to see if she can go. Will discuss with assistant case manager. Denton Napoles MD cc: [id number] TT: 01/11/2017 07:49:58 Confirmation # [id number] Dictation # [id number] en
[2017-01-11] MEDS: Arformoterol 15 mcg/2 ml Inh Sol IH SCH (08:12)
[2017-01-11] MEDS: Budesonide 0.5 mg/2 ml Inhal Susp UD IH SCH (08:12)
[2017-01-11] MEDS: Insulin Reg-LOW-Coverage SC SCH ×2 (08:44→17:38)
[2017-01-11 08:50] LABS: ALB/GLOB RATIO 0.9 (1.1-1.8); ALKALINE PHOSPHATASE 91 U/L (38-133); ALT/SGPT 28 U/L (7-56); AST/SGOT 23 U/L (15-39); BLOOD UREA NITROGEN 32 mg/dL (7-21); CALCIUM 9.1 mg/dL (8.4-10.5); CARBON DIOXIDE 31 mmol/L (21-33); CHLORIDE 101 mmol/L (98-107); GFR AFRICAN-AMERICAN > 60; GLUCOSE,RANDOM 163 mg/dL (70-110); POTASSIUM 4.2 mmol/L (3.6-5.0); SODIUM 139 mmol/L (132-148); TOTAL PROTEIN 7.3 g/dL (5.8-8.3)
[2017-01-11] MEDS: Digoxin 125 mcg (0.125 mg) Tab PO SCH (10:02)
[2017-01-11] MEDS: diltiaZEM 240 mg/24 Hours CD Cap PO SCH (10:03)
[2017-01-11 10:08] VITALS: PULSE 84
--- NOTE | 2017-01-11 11:44 | CP.PCM.PN ---
Subjective - Date & Time of Evaluation Date of Evaluation: 12/30/16 Time of Evaluation: 11:30 - Subjective Subjective: Patient seen and evaluated at bedside. She does require frequent repositioning, is admitted s/p fall , and is at risk for future falls, at risk for aspiration, therefore will benefit from hospital bed at home. ISAIAH Martinez. Objective - Vital Signs/Intake and Output Vital Signs (last 24 hours): Temp Pulse Resp BP Pulse Ox 97.8 F 70 22 164/94 H 93 L 01/11/17 08:28 01/11/17 08:28 01/11/17 08:28 01/11/17 10:02 01/11/17 08:28 Intake and Output: 01/11/17 01/11/17 06:59 18:59 Intake Total 600 Output Total 425 Balance 175 - Medications Medications: Current Medications Albuterol/Ipratropium (Duoneb 3 Mg/0.5 Mg (3 Ml) Ud) 3 ml IH [id number] PRN PRN Reason: Shortness of Breath Alprazolam (Xanax) 0.25 mg PO Q6 PRN; Protocol PRN Reason: Agitation Stop: 01/16/17 18:01 Last Admin: 01/11/17 04:49 Dose: 0.25 mg Arformoterol Tartrate (Brovana) 15 mcg IH [id number] [facility] Last Admin: 01/11/17 08:12 Dose: 15 mcg Atorvastatin Calcium (Lipitor) 20 mg PO HS [facility] Last Admin: 01/10/17 21:57 Dose: 20 mg Budesonide (Pulmicort Respules) 0.5 mg IH [id number] [facility] Last Admin: 01/11/17 08:12 Dose: 0.5 mg Digoxin (Lanoxin) 0.125 mg PO DAILY [facility] Last Admin: 01/11/17 10:02 Dose: 0.125 mg Diltiazem HCl (Cardizem Cd) 240 mg PO DAILY [facility] Last Admin: 01/11/17 10:03 Dose: 240 mg Furosemide (Lasix) 40 mg IVP DAILY [facility] Last Admin: 01/11/17 10:02 Dose: 40 mg Insulin Human Regular (Humulin R Low) 0 units SC ACHS [facility] PRN Reason: Protocol Last Admin: 01/11/17 08:44 Dose: 1 units Warfarin Sodium (Coumadin) 2.5 mg PO 1800 GRACIE PRN Reason: Protocol Last Admin: 01/10/17 17:41 Dose: 2.5 mg - Labs Labs: 01/11/17 06:15 01/11/17 06:15 PT 25.9 Seconds (9.9-11.8) H 01/11/17 06:15 INR 2.40 (0.93-1.08) H 01/11/17 06:15 APTT 39.8 Seconds (23.7-30.8) H 01/07/17 19:20
[2017-01-11 17:29] VITALS: BP 165/80; PULSE 92; RESP 21; O2SAT 94
[2017-01-11 17:30] VITALS: TEMP 97.8
--- NOTE | 2017-01-12 01:55 | CON ---
DATE: 01/11/2017 HISTORY OF PRESENT ILLNESS: The patient is an 86-year-old female with history of dementia and multiple medical problems including ACB dementia. The patient is status post fall. That is why patient was admitted on the medical side. Psych consult was called for evaluation of psychotic sympt oms. This casualty underwriter attempted to speak to the patient. The patient was falling asleep during the inter view. There is no option to have meaningful conversation. The patient is mumbling something to her incoherently. The patient does not know why she came to the hospital. This casualty underwriter checked the previ ous history. This casualty underwriter that has never been involved in the patient's care. VITAL SIGNS: Stable. Temperature 97.8, pulse is 70, blood pressure 164/94, respirations 22, oxygen saturation is 93. MEDICATIONS: Reviewed. The patient is on DuoNeb, Xanax 0.25 mg q. 6 hours as needed, Brovana, Lipit or, Pulmicort, , Cardizem, Lasix, Humulin, as well as Coumadin. LABORATORY DATA: Reviewed. Patient's hematology seems to be within normal limits. Coagulation: PT 25.9 and 2.40 INR. Chemistry also reviewed. The patient has normal labs. Most recent urinalysis s howed possible urinary tract infection. Microbiology: No growth. Notes by Dr. Napoles reviewed. MENTAL STATUS EXAMINATION: As this casualty underwriter described above, the patient presented to be sleepy, was f alling asleep during the interview. No eye contact. Speech was incoherent. The patient was mumblin g something. The patient was not able to participate in interview, but the patient is not agitated, not having any aggressive behavior. IMPRESSION: Most likely, it is combination of delirium plus dementia. The patient has multiple medi zaid issues including status post fall, right thumb phalanx fracture, atrial fibrillation, hypertensio n, diabetes, dementia, congestive heart failure. PLAN: Continue current management. This casualty underwriter will attempt to speak to the patient tomorrow. Ther e is no option to have a meaningful conversation. The patient has Xanax as needed for agitation. We will keep monitoring patient and will advise accordingly. Thank you very much for letting me participate in the care of your patient. Jazmyn Kaye MD cc: [id number] TT: 01/12/2017 01:54:16 Confirmation # [id number] Dictation # [id number] mn
--- NOTE | 2017-01-12 06:38 | CARD ---
APPROVED REPORT EXAM: Two-dimensional and M-mode echocardiogram with Doppler and color Doppler. INDICATION Congestive Heart Failure 2D DIMENSIONS Left Atrium (2D)5.8 (1.6-4.0cm)IVSd1.0 (0.7-1.1cm) LVDd4.2 (3.9-5.9cm)LVOT Diameter2.2 (1.8-2.4cm) PWd1.0 (0.7-1.1cm)LVDs3.2 (2.5-4.0cm) FS (%) 25.2 %LVEF (%)50.2 (>50%) M-Mode DIMENSIONS Aortic Root2.80 (2.2-3.7cm)Aortic Cusp Exc.0.70 (1.5-2.0cm) Aortic Valve AoV Peak Ywewhpru487.0cm/sAoV VTI59.3cmAO Peak GR.26mmHg LVOT Peak Qcgfpclj26.7cm/sLVOT VTI16.20cmAO Mean GR.15mmHg LEIGHTON (VMAX)1.82pt8LYV (VTI)1.04cm2 Mitral Valve MV FHX33ywU/A ratio0.0MVA (PHT)2.56cm2 TDI E/Lateral E'0.0E/Medial E'0.0 Pulmonary Valve PV Peak Zsrboefi05.0cm/sPV Peak Grad.1mmHg Tricuspid Valve TR Peak Zzsstgav404dq/sRAP TQDIOYZY30otZvCF Peak Gr.31mmHg BRCS87yaCf LEFT VENTRICLE The left ventricle is normal size. There is normal left ventricular wall thickness. Left ventricle systolic function is low normal.EF-50-55% There is normal LV segmental wall motion. A Fib No left ventricle thrombus noted on this study. There is no ventricular septal defect visualized. There is no left ventricular aneurysm. There is no mass noted in the left ventricle. RIGHT VENTRICLE The right ventricle is moderately dilated. There is normal right ventricular wall thickness. Systolic function of RV is moderately reduced. ATRIA The left atrium is moderately dilated. The right atrium is moderately dilated. The interatrial septum is intact with no evidence for an atrial septal defect. AORTIC VALVE The aortic valve is calcified and displays decreased opening. There is trace aortic regurgitation. There is moderate to severe valvular aortic stenosis. There is no aortic valvular vegetation. MITRAL VALVE The mitral valve is calcified and displays decreased opening. Mitral regurgitation is mild. There is mild mitral valve stenosis. There is no evidence of mitral valve prolapse. TRICUSPID VALVE The tricuspid valve leaflets are thickened , but open well. There is trace to mild tricuspid regurgitation.RVSP-31 mmof Hg There is no tricuspid valve stenosis. PULMONIC VALVE The pulmonic valve is mildly thickened. There is trace to mild pulmonic valvular regurgitation. There is no pulmonic valvular stenosis. GREAT VESSELS The aortic root is normal in size. The ascending aorta is normal in size. The pulmonary artery is normal. The IVC is dilated. PERICARDIAL EFFUSION There is moderate left pleural effusion. There is a trace circumferential pericardial effusion. <Conclusion> The left ventricle is normal size. There is normal left ventricular wall thickness. Left ventricle systolic function is low normal.EF-50-55% The right ventricle is moderately dilated. Systolic function of RV is moderately reduced. There is trace aortic regurgitation. There is moderate to severe valvular aortic stenosis. Mitral regurgitation is mild. There is mild mitral valve stenosis. There is trace to mild tricuspid regurgitation.RVSP-31 mmof Hg There is trace to mild pulmonic valvular regurgitation. The IVC is dilated. There is moderate left pleural effusion. There is a trace circumferential pericardial effusion. No thrombus or vegetation noted
--- NOTE | 2017-01-12 10:19 | CP.PCM.PCO ---
Physician Communication Note - Physician Communication Note Physician Communication Note: pt was d/c yesterday
--- NOTE | 2017-01-20 08:38 | DS ---
This is an 86-year-old female who had come in to the hospital after a fall. The patient had a right thumb phalanx fracture. She was on anticoagulation with Coumadin. She was comfortable. She had imp rovement of her symptoms. Please see the note dictated 01/11/2017 for further details. The patient w as discharged. Denton Napoles MD cc: [id number] TT: 01/20/2017 08:37:38 jn
== END 2017-01-11 18:10 | disposition home or self-care (01) | DRG 638 ==
LOC: ED 18:10 → ERH 21:37 → 2RNO 01-08 00:16 → 3RNO 01-08 18:52
PROVIDERS: ADMIT Internal Medicine Nephrology; ATTEND Internal Medicine Nephrology
PROC: 5A09457 Assistance with Respiratory Ventilation, 24-96 Consecutive Hours, Continuous Positive Airway Pressure (ICD-10-PCS; principal; 2017-01-08)
DX: E11.649 Type 2 diabetes mellitus with hypoglycemia without coma (principal); S62.524A Nondisplaced fracture of distal phalanx of right thumb, initial encounter for closed fracture; S80.02XA Contusion of left knee, initial encounter; I50.20 Unspecified systolic (congestive) heart failure; E87.2 Acidosis; I42.9 Cardiomyopathy, unspecified; I11.0 Hypertensive heart disease with heart failure; D64.9 Anemia, unspecified; G30.9 Alzheimer's disease, unspecified; F02.80 Dementia in other diseases classified elsewhere, unspecified severity, without behavioral disturbance, psychotic disturbance, mood disturbance, and anxiety; I48.2 Chronic atrial fibrillation; J44.9 Chronic obstructive pulmonary disease, unspecified; E78.5 Hyperlipidemia, unspecified; K57.90 Diverticulosis of intestine, part unspecified, without perforation or abscess without bleeding; I27.2 Other secondary pulmonary hypertension; G47.30 Sleep apnea, unspecified; I25.10 Atherosclerotic heart disease of native coronary artery without angina pectoris; M19.90 Unspecified osteoarthritis, unspecified site; W06.XXXA Fall from bed, initial encounter; I25.2 Old myocardial infarction; Y92.013 Bedroom of single-family (private) house as the place of occurrence of the external cause; Z79.84 Long term (current) use of oral hypoglycemic drugs; Z79.01 Long term (current) use of anticoagulants

== ENCOUNTER 2017-01-26 21:56 | Inpatient (IN) | payer MEDICARE, OTHER ==
[2017-01-26 21:59] VITALS: BMI 29.8
--- NOTE | 2017-01-26 22:23 | ED PDOC ---
Arrival/HPI - General Chief Complaint: Shortness Of Breath Time Seen by Provider: 01/26/17 21:57 Historian: Patient, Family (Daughter) - History of Present Illness Narrative History of Present Illness (Text): 01/26/17 22:22 Arleth Batista is an 86 year old female, whose past medical history includes hypertension, atrial fibrillation, CHF, COPD, diabetes, and Alzheimer's dementia , who presents to the Emergency department brought in by EMS accompanied by daughter complaining of shortness of breath. Daughter states patient has been experiencing worsening shortness of breath tonight with bilateral lower extremity redness. Patient reports associated discomfort to bilateral lower extremities and cough. Patient denies any fever, chills, nausea, vomiting, diarrhea, urinary symptoms, back pain, neck pain, headache, dizziness, or any other complaints. PMD: Dr. Napoles Symptom Onset: Gradual Symptom Course: Unchanged Activities at Onset: Rest, Light Context: Home Past Medical History - Provider Review Nursing Documentation Reviewed: Yes - Infectious Disease Hx of Infectious Diseases: None - Tetanus Immunization Tetanus Immunization: Unknown - Cardiac Hx Cardiac Disorders: Yes (VT) Hx Congestive Heart Failure: Yes Hx Hypertension: Yes - Pulmonary Hx Respiratory Disorders: Yes Hx Chronic Obstructive Pulmonary Disease (COPD): Yes - Neurological Hx Neurological Disorder: Yes Hx Dementia: Yes Hx Dizziness: Yes - HEENT Hx HEENT Disorder: Yes Hx Cataracts: Yes (bilateral, sx 2007) - Renal Hx Renal Disorder: No - Endocrine/Metabolic Hx Diabetes Mellitus Type 2: Yes - Hematological/Oncological Hx Blood Disorders: Yes Hx Anemia: Yes - Integumentary Hx Dermatological Disorder: Yes Other/Comment: eccymosis righ thigh hip leg, bruises to knees, dry brown crusty skin between toes small 0>3 round scab outer r ankle, stage 1 opening 0.5cm round left buttock, buttocks/sacrum reddened, slight redness under r brreast, multiple dry age spots to chest - Musculoskeletal/Rheumatological Hx Arthritis: Yes - Gastrointestinal Hx Gastrointestinal Disorders: Yes Hx Diverticulitis: Yes - Genitourinary/Gynecological Hx Genitourinary Disorders: Yes Hx Incontinence: Yes - Psychiatric Hx Psychophysiologic Disorder: No Hx Anxiety: No Hx Bipolar Disorder: No Hx Depression: No Hx Emotional Abuse: No Hx Hallucinations: No Hx Panic Disorder: No Hx Post Traumatic Stress Disorder: No Hx Psychosis: No Hx Physical Abuse: No Hx Schizophrenia: No Hx Sexual Abuse: No Hx Substance Use: No - Surgical History Hx Amputation: No Hx Appendectomy: No Hx Cardiac Catheterization: No Hx Cholecystectomy: No Hx Coronary Stent: No Hx Gastric Bypass Surgery: No Hx Hysterectomy: No Hx Joint Replacement: No Hx Kidney Transplant: No Hx Liver Transplant: No Hx Musculoskeletal Surgery: No Hx Open Heart Surgery: No Hx Orthopedic Surgery: No Hx Splenectomy: No Hx Valve Replacement: No Other/Comment: righ breast cyst removed 25 yrs ago - Anesthesia Hx Anesthesia: No - Suicidal Assessment Feels Threatened In Home Enviroment: No Family/Social History - Physician Review Nursing Documentation Reviewed: Yes Family/Social History: No Known Family HX Smoking Status: Never Smoked Hx Alcohol Use: No Hx Substance Use: No Hx Substance Use Treatment: No Allergies/Home Meds Allergies/Adverse Reactions: Allergies No Known Allergies Allergy (Verified 11/06/16 18:20) Home Medications: Home Meds Medication Instructions Recorded Confirmed Atorvastatin [Lipitor] 20 mg PO DAILY 10/13/14 01/26/17 Digoxin 0.125 mg PO DAILY 10/13/14 01/26/17 Furosemide [Lasix] 40 mg PO BID 10/13/14 01/26/17 Nystatin [Mycostatin Cream] 1 appl TP BID 10/25/14 01/26/17 Potassium Chloride [Klor-Con 10] 10 meq PO DAILY 06/27/15 01/26/17 Metformin HCl [Glucophage] 500 mg PO BID 07/14/16 01/26/17 [id number]-[id number] Ethyl Esters 1 GM 1 cap PO DAILY 07/14/16 01/26/17 [Lovaza] [id number] CD [Cardizem CD] 240 mg PO DAILY 07/14/16 01/26/17 Alprazolam [Xanax] 1 tab PO HS PRN 01/26/17 01/26/17 Donepezil [Aricept] 1 tab PO DAILY 01/26/17 01/26/17 Insulin Aspar/Insulin N 70/30 20 units SC 01/26/17 [Novolog Mix 70/30-U/ml 3Ml] Warfarin [Coumadin] 1 tab PO DAILY 01/26/17 01/26/17 Review of Systems - Physician Review All systems were reviewed & negative as marked: Yes - Review of Systems Constitutional: Normal. absent: Fevers Eyes: Normal ENT: Normal Respiratory: SOB, Cough Cardiovascular: Normal. absent: Chest Pain Gastrointestinal: Normal. absent: Abdominal Pain, Diarrhea, Nausea, Vomiting Genitourinary Female: Normal. absent: Dysuria, Frequency, Hematuria, Urine Output Changes Musculoskeletal: Other (+bilateral lower extremity redness/swelling). absent: Back Pain, Neck Pain Skin: absent: Rash Neurological: Normal. absent: Headache, Dizziness Endocrine: Normal Hemo/Lymphatic: Normal Psychiatric: Normal Physical Exam Vital Signs Reviewed: Yes Vital Signs Temp Pulse Resp BP Pulse Ox 01/27/17 07:33 96 H 20 138/92 H 01/27/17 05:26 86 19 146/59 L 92 L 01/27/17 04:18 78 18 154/92 H 97 01/27/17 02:04 73 18 152/77 H 96 01/26/17 23:08 121/82 01/26/17 22:20 97.7 F 76 24 145/82 95 Temperature: Afebrile Blood Pressure: Normal Pulse: Regular Respiratory Rate: Normal Appearance: Positive for: Well-Appearing, Non-Toxic, Comfortable Pain Distress: None Mental Status: Positive for: Alert and Oriented X 3 - Systems Exam Head: Present: Atraumatic, Normocephalic Pupils: Present: PERRL Extroacular Muscles: Present: EOMI Conjunctiva: Present: Normal Mouth: Present: Moist Mucous Membranes Neck: Present: Normal Range of Motion Respiratory/Chest: Present: Rales (Rales bilaterally). No: Respiratory Distress , Accessory Muscle Use Cardiovascular: Present: Irregular Rhythm, Bradycardic Abdomen: Present: Normal Bowel Sounds. No: Tenderness, Distention, Peritoneal Signs Upper Extremity: Present: Normal Inspection. No: Cyanosis, Edema Lower Extremity: Present: Edema (Pitting edema bilaterally), Erythema (Erythema to bilateral lower legs) Neurological: Present: GCS=15, CN II-XII Intact, Speech Normal Skin: Present: Warm, Dry, Normal Color. No: Rashes Psychiatric: Present: Alert, Oriented x 3, Normal Insight, Normal Concentration Medical Decision Making ED Course and Treatment: 01/26/17 22:22 Impression: 86 year old female complaining of shortness of breath, bilateral lower extremity redness/discomfort, and cough. Differential Diagnosis include but are not limited to: CHF vs. pneumonia vs. ACS vs. COPD Plan: -- EKG -- Chest X-ray -- Labs, cardiac enzymes, BNP, blood cultures, VBG -- Reassess and disposition Prior Visits: Notes and results from previous visits were reviewed. Progress Notes: Reviewed EKG, a fib at [address] bpm[address] Non-specific ST/T wave changes. 01/26/17 23:07 Reviewed radiology, Chest X-ray shows CHF. 01/26/17 23:[address] Napoles, who is aware and agrees with plan. Accepts pt in to his service. Pt will go to Telemetry observation for CHF. - Lab Interpretations Microbiology Results: Microbiology Results 01/26/17 22:45 Blood-Venous Blood Culture - Preliminary NO GROWTH AFTER 48 HOURS 01/26/17 22:25 Blood-Venous Blood Culture - Preliminary NO GROWTH AFTER 48 HOURS Lab Results: 01/28/17 06:30 01/28/17 06:30 Lab Results 01/28/17 07:51: POC Glucose (mg/dL) 150 H 01/28/17 06:30: Sodium 140, Chloride 97, Potassium 3.7, Carbon Dioxide 34 H, Anion Gap 13, BUN 39 H, Creatinine 1.0, Est GFR ( Amer) > 60, Est GFR ( Non-Af Amer) 52, Random Glucose 129 H, Calcium 9.2, Total Bilirubin 0.7, AST 21 , ALT 31, Alkaline Phosphatase 98, Total Protein 7.3, Albumin 3.6, Globulin 3.6 , Albumin/Globulin Ratio 1.0 L 01/28/17 06:30: PT 15.4 H, INR 1.43 H 01/28/17 06:30: WBC 7.9, RBC 4.64, Hgb 12.3, Hct 41.2, MCV 88.8, MCH 26.5, MCHC 29.9 L, RDW 17.2 H, Plt Count 350, MPV 9.3 01/27/17 18:07: POC Glucose (mg/dL) 229 H 01/26/17 22:25: Sodium 138, Chloride 100, Potassium 4.3, Carbon Dioxide 30, Anion Gap 12, BUN 45 H, Creatinine 1.3, Est GFR ( Amer) 47, Est GFR (Non- Af Amer) 39, Random Glucose 72, Calcium 9.5, Total Bilirubin 0.6, AST 25, ALT 24 , Alkaline Phosphatase 113, Lactate Dehydrogenase 379, Total Creatine Kinase < 20 L, Troponin I 0.04, NT-Pro-B Natriuret Pep 2250 H, Total Protein 7.8, Albumin 3.9, Globulin 3.9, Albumin/Globulin Ratio 1.0 L 01/26/17 22:25: pO2 52, VBG pH 7.32, VBG pCO2 63.0 H, VBG HCO3 32.5 H, VBG Total CO2 34.4 H, VBG O2 Sat (Calc) 87.1 H, VBG Base Excess 4.5 H, VBG Potassium 4.5, Sodium 139.0, Chloride 103.0, Glucose 70, Lactate 1.8, FiO2 21.0 , Venous Blood Potassium 4.5 01/26/17 22:25: PT 15.2 H, INR 1.41 H, APTT 29.2 01/26/17 22:25: WBC 7.7, RBC 4.63, Hgb 12.7, Hct 41.8, MCV 90.3, MCH 27.4, MCHC 30.4 L, RDW 17.3 H, Plt Count 368, MPV 9.5, Gran % 71.7 H, Lymph % (Auto) 13.7 L , [place] % (Auto) 9.7 H, Eos % (Auto) 3.7, Baso % (Auto) 1.2, Gran # 5.49, Lymph # 1.1 L, [place] # 0.7 H, Eos # 0.3, Baso # 0.09 I have reviewed the lab results: Yes - RAD Interpretation Radiology Orders: 01/26/17 22:23 CHEST PORTABLE [RAD] Stat Costume Cutter: ED Physician - EKG Interpretation Interpreted by ED Physician: Yes Type: 12 lead EKG - Medication Orders Current Medication Orders: Acetylcysteine (Acetylcysteine 20%) 3 ml IH 0800,1999 [facility] Arformoterol Tartrate (Brovana) 15 mcg IH [id number] [facility] Last Admin: 01/29/17 08:25 Dose: 15 mcg Atorvastatin Calcium (Lipitor) 20 mg PO DAILY [facility] Last Admin: 01/29/17 11:23 Dose: 20 mg Budesonide (Pulmicort Respules) 0.5 mg IH [id number] [facility] Last Admin: 01/29/17 08:25 Dose: 0.5 mg Digoxin (Lanoxin) 0.125 mg PO 1400 [facility] Last Admin: 01/29/17 13:36 Dose: 0.125 mg Diltiazem HCl (Cardizem Cd) 240 mg PO DAILY [facility] Last Admin: 01/29/17 11:23 Dose: 240 mg Donepezil HCl (Aricept) 5 mg PO HS [facility] Last Admin: 01/28/17 21:31 Dose: Not Given Non-Admin Reason: Patient Refused Enoxaparin Sodium (Lovenox) 80 mg SC Q12H [facility] PRN Reason: Protocol Last Admin: 01/29/17 15:51 Dose: 80 mg Furosemide (Lasix) 40 mg IVP BID [facility] Last Admin: 01/29/17 17:43 Dose: 40 mg Ceftriaxone Sodium (Rocephin 1 Gram Ivpb) 1 gm in 100 mls @ 200 mls/hr IV DAILY [facility] PRN Reason: Protocol Last Admin: 01/29/17 11:18 Dose: 200 mls/hr Insulin Human Regular (Humulin R Low) 0 units SC ACHS [facility] PRN Reason: Protocol Last Admin: 01/29/17 17:43 Dose: 2 units Lorazepam (Ativan) 0.5 mg PO BID PRN; Protocol PRN Reason: anxiety, restlessness Memantine (Namenda) 5 mg PO DAILY [facility] Last Admin: 01/29/17 11:24 Dose: 5 mg Quetiapine Fumarate (Seroquel) 12.5 mg PO HS PRN; Protocol PRN Reason: agitation/confusion Warfarin Sodium (Coumadin) 7 mg PO 1800 [facility] PRN Reason: Protocol Last Admin: 01/29/17 17:43 Dose: 7 mg Discontinued Medications Acetylcysteine (Acetylcysteine 20%) 3 ml PO BID [facility] Last Admin: 01/28/17 10:45 Dose: Not Given Non-Admin Reason: Patient Refused Acetylcysteine (Acetylcysteine 20%) 3 ml IH BID [facility] Last Admin: 01/28/17 19:42 Dose: Not Given Non-Admin Reason: Patient Refused Donepezil HCl (Aricept) 5 mg PO HS [facility] Last Admin: 01/27/17 22:30 Dose: Not Given Non-Admin Reason: Patient Refused Furosemide (Lasix) 40 mg IVP ONCE ONE Stop: 01/26/17 23:00 Last Admin: 01/26/17 23:08 Dose: 40 mg Home Med (*Refrigerator Open) Confirm Administered Dose 1 unit XX .STK-MED ONE Stop: 01/27/17 08:34 Vancomycin HCl (Vancomycin 1gm) 1 gm in 250 mls @ 167 mls/hr IVPB STAT STA PRN Reason: Protocol Stop: 01/27/17 01:39 Last Admin: 01/27/17 01:56 Dose: 167 mls/hr Piperacillin Sod/Tazobactam Sod (Zosyn 3.375 In Ns 100ml) 100 mls @ 200 mls/hr IVPB STAT STA PRN Reason: Protocol Stop: 01/27/17 00:40 Last Admin: 01/27/17 00:51 Dose: 200 mls/hr Warfarin Sodium (Coumadin) 5 mg PO 1800 [facility] PRN Reason: Protocol Last Admin: 01/27/17 18:42 Dose: 5 mg - Scribe Statement The provider has reviewed the documentation as recorded by the Ilanibayaz Grullon All medical record entries made by the Ilanibayaz were at my direction and personally dictated by me. I have reviewed the chart and agree that the record accurately reflects my personal performance of the history, physical exam, medical decision making, and the department course for this patient. I have also personally directed, reviewed, and agree with the discharge instructions and disposition. Disposition/Present on Arrival - Present on Arrival Any Indicators Present on Arrival: No History of DVT/PE: No History of Uncontrolled Diabetes: No Urinary Catheter: No History of Decub. Ulcer: No History Surgical Site Infection Following: None - Disposition Have Diagnosis and Disposition been Completed?: Yes Diagnosis: CHF (congestive heart failure), Cellulitis of lower leg Disposition: HOSPITALIZED Disposition Time: 23:45 Condition: FAIR
[2017-01-26 22:31] LABS: ADD MANUAL DIFF? NO
[2017-01-26 22:33] LABS: BASO # 0.09 K/mm3 (0.0-2.0); BASO % 1.2 % (0.0-3.0); EOS # 0.3 (0.0-0.7); EOS % 3.7 % (1.5-5.0); GRAN # 5.49 (1.4-6.5); GRAN % 71.7 % (50.0-68.0); HEMATOCRIT 41.8 % (36.0-48.0); LYMPH # 1.1 (1.2-3.4); LYMPH % 13.7 % (22.0-35.0); MEAN CELL VOLUME 90.3 fL (80.0-105.0); MEAN CORPUSCULAR HEMOGLOBIN 27.4 pg (25.0-35.0); MEAN CORPUSCULAR HGB CONC 30.4 g/dl (31.0-37.0); MEAN PLATELET VOLUME 9.5 fl (7.0-11.0); MONO # 0.7 (0.1-0.6); MONO % 9.7 % (1.0-6.0); PLATELET COUNT 368 10^3/uL (120.0-450.0); RED CELL DISTRIBUTION WIDTH 17.3 % (11.5-14.5); WHITE BLOOD COUNT 7.7 10^3/ul (4.5-11.0)
[2017-01-26 22:37] LABS: VENOUS BLOOD GAS BASE EXCESS 4.5 mmol/L (0.0-2.0); VENOUS BLOOD PH 7.32 (7.32-7.43)
[2017-01-26 22:44] LABS: ALKALINE PHOSPHATASE 113 U/L (38-133); ALT/SGPT 24 U/L (7-56); AST/SGOT 25 U/L (15-39); BILIRUBIN,TOTAL 0.6 mg/dL (0.2-1.3); BLOOD UREA NITROGEN 45 mg/dL (7-21); CALCIUM 9.5 mg/dL (8.4-10.5); CARBON DIOXIDE 30 mmol/L (21-33); CHLORIDE 100 mmol/L (98-107); GFR AFRICAN-AMERICAN 47; GLUCOSE,RANDOM 72 mg/dL (70-110); POTASSIUM 4.3 mmol/L (3.6-5.0); SODIUM 138 mmol/L (132-148); TOTAL PROTEIN 7.8 g/dL (5.8-8.3)
[2017-01-26 22:56] LABS: TROPONIN I 0.04 ng/mL
[2017-01-26 23:03] LABS: INR 1.41 (0.93-1.08); PARTIAL THROMBOPLASTIN TIME 29.2 Seconds (23.7-30.8)
[2017-01-27] MEDS ORDERED: Vancomycin 1gm in NS 250ml 1 GM/250 ML BAG IVPB STA (00:10)
[2017-01-27] MEDS ORDERED: Piperacillin/Tazobact 3.375 gm 100 ML IVPB STA (00:11)
--- NOTE | 2017-01-27 08:17 | RAD ---
HISTORY: Shortness of breath COMPARISON: 01/07/2017 FINDINGS: LUNGS: There are low lung volumes. There is mild pulmonary venous congestion worse since the prior examination. PLEURA: There are probable small pleural effusions. No pneumothorax. CARDIOVASCULAR: Within normal limits. Atherosclerotic aortic arch calcifications are present. OSSEOUS STRUCTURES: No significant abnormalities. VISUALIZED UPPER ABDOMEN: Normal. OTHER FINDINGS: None. IMPRESSION: Worsening pulmonary venous congestion and stable small pleural effusions.
--- NOTE | 2017-01-27 10:43 | CARD ---
APPROVED REPORT EKG Measurement Heart [id number] <Conclusion> Atrial fibrillation IMI, old ASMI, old STTW changes c/w ischemia No change
[2017-01-27] MEDS: diltiaZEM 240 mg/24 Hours CD Cap PO SCH (10:50)
[2017-01-27] MEDS: Digoxin 125 mcg (0.125 mg) Tab PO SCH (14:56)
[2017-01-27] MEDS: Enoxaparin 80 mg Syringe SC SCH (15:03)
[2017-01-27] MEDS: cefTRIAXone 1 gm 1 GM/100 ML BAG IV SCH (15:04)
--- NOTE | 2017-01-27 15:20 | HP ---
CHIEF COMPLAINT AND HISTORY OF PRESENT ILLNESS: This is an 86-year-old female who is coming into the hospital with complaints of shortness of breath and lower extremity edema. The patient's daughter kelley hernandez called me a few days ago informing me that she is having lower extremity swelling. I had increase d the patient's diuretics. She did not respond well enough and so she came in for further evaluation . The patient is currently comfortable. She has Alzheimer dementia, so she is not able to give much of a history. She has a history of CHF, COPD, diabetes. She has no complaints of any fevers, no ch ills, no headaches, no nausea, but not able to get a full review of symptoms. MEDICATIONS: She is on Lipitor, digoxin, Lasix, nystatin, potassium, Glucophage, Lovaza, Cardizem, X anax, Aricept, NovoLog and Coumadin. PAST MEDICAL HISTORY: 1. Fall. 2. Right parietal subdural hematoma. 3. Atrial fibrillation, on Coumadin. 4. Hypertension. 5. Diabetes type 2. 6. Dementia, Alzheimer's type. 7. Osteoarthritis. 8. COPD. SOCIAL HISTORY: She lives with her daughter. She does not smoke or drink currently. FAMILY HISTORY: Noncontributory. PAST SURGICAL HISTORY: Right breast cyst removal 25 years ago. PHYSICAL EXAMINATION: VITAL SIGNS: She has a temperature of 97.3, pulse of 100, blood pressure is 147/76, respirations 18, height is 5 feet 6 inches, weight is 185 pounds, BMI is 29.9. GENERAL: The patient lying in bed, flat, and in no apparent distress. HEAD AND NECK EXAM: Atraumatic, normocephalic. Conjunctivae are pink. Throat clear and mouth with moist mucosa. Oropharynx benign. EYES: Extraocular movements are intact. PERRLA. NECK: Supple. No JVD, thyromegaly, or adenopathy. No bruits. HEART: S1 and S2 regular rate and rhythm. No murmurs, rubs, or gallops. LUNGS: Clear to auscultation bilaterally. No wheezing rales or rhonchi appreciated. No retraction s on exam. ABDOMEN: Soft, nontender, nondistended. Bowel sounds are positive in all quadrants. No rebound. No hepatosplenomegaly. EXTREMITIES: In the lower extremities, there is 2+ edema with bilateral erythema. No cyanosis, cl ubbing. NEUROLOGIC: No facial asymmetry, tongue is midline, no uvula deviation. Power is 5/5 in upper extr emity and 5/5 in lower extremity. Sensation is normal in upper extremity and lower extremity. PSYCHIATRIC: Awake, alert, oriented x 1. No anxiety or depression symptoms. Good insight. Ambar l affect. GENITOURINARY: No CVA tenderness VASCULAR: 2+ pulses in carotid and pedal pulses. SKIN: No erythema or abnormal nodules noted. SPINE: Normal curvature. LYMPHADENOPATHY: No anterior cervical or posterior cervical adenopathy. No inguinal adenopathy. LABORATORIES: White count of 7.7, hemoglobin is 12.7. The patient's INR is 1.4. She is subtherapeu tic. Creatinine is 1.3. ProBNP is 2250. ABG done showed a pH of 7.3, pCO2 of 63, PaO2 is 52. Her chest x-ray done shows no infiltrates. EKG shows atrial fibrillation at 58. There are no nonspe cific ST changes, QTc is 333. ASSESSMENT: 1. Acute congestive heart failure, secondary to systolic dysfunction. 2. Dementia, Alzheimer's type. 3. Right distal phalanx fracture. 4. Atrial fibrillation, on Coumadin. 5. Hypertension. 6. Diabetes type 2. 7. Osteoarthritis. 8. Chronic obstructive pulmonary disease. PLAN: The patient is going to be admitted to the hospital. I did call the patient's daughter to [facility] her an outpatient. She is going to be on Aricept. She is going to continue with Coumadin. She is subtherapeutic. I will place her on Lovenox. She has going to be placed on Lasix. I will get Dr. De Los Santos to evaluate the patient. She is on Lipitor for dyslipidemia. I will add memantine for her de mentia. She is going to be on a carbohydrate consistent diet for her diabetes. I will place her on insulin. She will need physical therapy. Denton Napoles MD cc: [id number] TT: 01/27/2017 15:19:04 en
[2017-01-27] MEDS ORDERED: Acetylcysteine 20% Inhal Sol (30ml) PO SCH (18:00)
[2017-01-27] MEDS ORDERED: Acetylcysteine 20% Inhal Soln (4ml) PO SCH (18:00)
[2017-01-27] MEDS: Insulin Reg-LOW-Coverage SC SCH ×2 (18:43→22:40)
[2017-01-27] MEDS: Arformoterol 15 mcg/2 ml Inh Sol IH SCH (19:51)
[2017-01-27] MEDS: Budesonide 0.5 mg/2 ml Inhal Susp UD IH SCH (19:51)
--- NOTE | 2017-01-27 23:28 | CON ---
DATE: 01/27/2017 REFERRING PHYSICIAN: Dr. Denton Napoles. REASON FOR CONSULT: Chronic lung disease, short of breath, heart failure. HISTORY OF PRESENT ILLNESS: This is an 86-year-old female with past medical history significant for cardiomyopathy with atrial fibrillation, chronic lung disease. Comes into Emergency Room with shortn ess of breath, lower extremity swelling and erythema. The patient is very forgetful, cannot give any history. Most of the information obtained from the chart. There is no fever, no chills, no hemopty sis. PAST MEDICAL HISTORY: Chronic lung disease, cardiomyopathy, atrial fibrillation, hypertension, diabe papi, Alzheimer type dementia, osteoarthritis, multiple falls. ALLERGIES: None known. SOCIAL HISTORY: Does not smoke or drink, lives with her daughter. MEDICATIONS: She is on Aricept 5 mg at bedtime, Cardizem-CD 240 mg daily, Coumadin 5 mg daily, insul in coverage, digoxin 0.125 mg daily, Lasix 40 mg IV twice a day, Lipitor 20 mg daily, Lovenox 80 mg s ubQ q. 12 hours, Namenda 5 mg daily, Rocephin 1 gram daily. REVIEW OF SYSTEMS: CONSTITUTIONAL: No headache. Has some rhinitis, postnasal drip, cough, sputum production. CHEST: No chest pain. ABDOMEN: No nausea, no vomiting, no abdominal pain. EXTREMITIES: Has some leg swelling and erythema of the skin. NEUROLOGIC: Awake, alert, follows simple commands. PHYSICAL EXAMINATION: GENERAL: Lying in the bed, head at 45 degrees, having cough, shortness of breath. VITAL SIGNS: Temp is 98, heart rate is 100, respiratory rate is 20, blood pressure 147/66, pulse ox 92% on room air. HEENT: Small oral cavity. Crowded airway. NECK: Supple, no JVD. LUNGS: Crackles in the bases and scattered rhonchi and wheezing. HEART: S1 and S2. ABDOMEN: Soft, nontender. No organomegaly. EXTREMITIES: Does have edema of both lower extremities, erythema of lower extremities. NEUROLOGIC: Awake, but confused. LABORATORY DATA: Shows hemoglobin 12.7, hematocrit 41.8, WBC 7.7, platelet is 368. INR 1.41. PTT 2 9. VBG showed pH 7.32, pCO2 is 63, O2 is 52. Sodium 138, potassium 4.3, chloride 100, bicarbonate 3 0, BUN 45, creatinine 1.3, glucose 72. AST 25, ALT 24, alkaline phosphatase is 113. LDH is 379, pro tein is 7.8. SMA-7 showed BUN 45, creatinine 1.3, proBNP 2250. Chest x-ray done in the ER shows pul monary venous congestion, stable small pleural effusion. IMPRESSION AND PLAN: Cardiomyopathy with systolic cardiac dysfunction, pulmonary hypertension, hyper tension, diverticulosis, atrial fibrillation, may have sleep apnea syndrome, chronic lung disease, ac miky bronchitis. We will place her on bilevel positive airway pressure 10/6 with 30% oxygen while sle eping or while short of breath. Continue anticoagulation. Gastric prophylaxis. We will continue di uretics. Add inhaled bronchodilators. Follow up labs in the morning. Aspiration precaution. Thank you and we will follow with you. Rosa Celaya MD cc: [id number] TT: 01/27/2017 23:27:51 Confirmation # [id number] Dictation # [id number] ln
[2017-01-28] MEDS: Enoxaparin 80 mg Syringe SC SCH ×2 (03:00→14:55)
[2017-01-28] MEDS: Arformoterol 15 mcg/2 ml Inh Sol IH SCH ×5 (05:14→19:42)
[2017-01-28] MEDS: Budesonide 0.5 mg/2 ml Inhal Susp UD IH SCH ×5 (05:15→19:42)
[2017-01-28 07:03] LABS: INR 1.43 (0.93-1.08)
[2017-01-28 07:09] LABS: HEMATOCRIT 41.2 % (36.0-48.0); MEAN CELL VOLUME 88.8 fL (80.0-105.0); MEAN CORPUSCULAR HEMOGLOBIN 26.5 pg (25.0-35.0); MEAN CORPUSCULAR HGB CONC 29.9 g/dl (31.0-37.0); MEAN PLATELET VOLUME 9.3 fl (7.0-11.0); RED CELL DISTRIBUTION WIDTH 17.2 % (11.5-14.5); WHITE BLOOD COUNT 7.9 10^3/ul (4.5-11.0)
[2017-01-28 07:22] LABS: ALKALINE PHOSPHATASE 98 U/L (38-133); ALT/SGPT 31 U/L (7-56); AST/SGOT 21 U/L (15-39); BILIRUBIN,TOTAL 0.7 mg/dL (0.2-1.3); BLOOD UREA NITROGEN 39 mg/dL (7-21); CALCIUM 9.2 mg/dL (8.4-10.5); CARBON DIOXIDE 34 mmol/L (21-33); CHLORIDE 97 mmol/L (95-110); GFR AFRICAN-AMERICAN > 60; GLUCOSE,RANDOM 129 mg/dL (70-110); POTASSIUM 3.7 mmol/L (3.6-5.0); SODIUM 140 mmol/L (132-148); TOTAL PROTEIN 7.3 g/dL (5.8-8.3)
[2017-01-28] MEDS: Insulin Reg-LOW-Coverage SC SCH ×4 (08:31→22:00)
--- NOTE | 2017-01-28 08:49 | PN ---
DATE: 01/28/2017 DATE: 01/28/2017 SUBJECTIVE: The patient has no complaints of any chest pain, no shortness of breath, no headaches. PHYSICAL EXAMINATION: VITAL SIGNS: Temperature is 98.2. Pulse is 62. Blood pressure is 135/71, respirations 20. GENERAL: The patient is comfortable, in no acute distress. HEENT: Anicteric sclerae. Moist mucosa. NECK: No JVD or adenopathy. CARDIAC: S1/S2. No murmurs. No rubs. Regular. RESPIRATORY: Clear to auscultation bilaterally. No wheezes, rales, or rhonchi. Good air entry. ABDOMEN: Bowel sounds are positive, soft, nontender, and nondistended. EXTREMITIES: Lower extremity edema. LABS: Creatinine is 1.3. ASSESSMENT: 1. Acute congestive heart failure secondary to systolic dysfunction. 2. Lower extremity edema. 3. Dementia, Alzheimer's type. 4. Atrial fibrillation, on Coumadin. 5. Right distal phalanx fracture history. 6. Hypertension. 7. Diabetes type 2. 8. Osteoarthritis. 9. Chronic obstructive pulmonary disease. 10. Lower extremity cellulitis. PLAN: The patient is currently comfortable. She is getting diuretic therapy. She is being followed by Dr. Celaya from pulmonary. I appreciate his input. She is going to be on Aricept for her zaria ia. The patient is on Coumadin. She is going to be on Lipitor for dyslipidemia. She is on Lovenox because she is subtherapeutic. She is on Rocephin for antibiotics for her lower extremity cellulitis . I did speak to the patient's daughter yesterday to give her an update. She lives at home with her daughter. I will get physical therapy to evaluate the patient. Denton Napoles MD cc: [id number] TT: 01/28/2017 08:48:54 Confirmation # [id number] Dictation # [id number] jn
[2017-01-28] MEDS: cefTRIAXone 1 gm 1 GM/100 ML BAG IV SCH (10:36)
[2017-01-28] MEDS: diltiaZEM 240 mg/24 Hours CD Cap PO SCH ×3 (10:41→15:08)
[2017-01-28] MEDS: Digoxin 125 mcg (0.125 mg) Tab PO SCH (14:56)
[2017-01-28] MEDS ORDERED: Acetylcysteine 20% Inhal Soln (4ml) IH SCH (18:00)
--- NOTE | 2017-01-28 19:51 | PN ---
DATE: 01/28/2017 REFERRING PHYSICIAN: Dr. Denton Napoles. SUBJECTIVE: The patient is lying in the bed, head at 45 degree. Daughter is at bedside, nursing sta ff at bedside. Overall, feels better, tolerated BiPAP well, decreased cough and shortness of breath. No nausea, no vomiting, no diarrhea. Still having leg swelling. OBJECTIVE: GENERAL: No acute distress. VITAL SIGNS: Temp is 98, heart rate is 72, respiratory rate is 18, blood pressure 158/77, pulse ox i s 90% on nasal cannula. HEENT: Moist mucous membranes. Crowded airway. Mallampati score is 4. NECK: Supple. No JVD. LUNGS: Have a few crackles at bases, scattered rhonchi. HEART: S1, S2. ABDOMEN: Soft, nontender. No organomegaly. EXTREMITIES: There is edema and erythema of the lower extremities. NEUROLOGIC: Awake, alert, follows simple command. MEDICATIONS: She is on Mucomyst 20% inhaled twice a day, Aricept 5 mg at bedtime, Brovana 15 mcg inh aled twice a day, Cardizem-CD 240 mg daily, Coumadin 7 mg will be given tonight, insulin coverage, di goxin 0.125 mg daily, Lasix 40 mg IV twice a day, Lipitor 20 mg daily, Lovenox 80 mg subQ q. 12 hour s, Namenda 5 mg daily, Pulmicort inhaled twice a day, Rocephin 1 gram IV daily. LABORATORY DATA: Shows hemoglobin 12.3, hematocrit 41.2, WBC 7.9, platelet is 350. INR is 1.43. So dium 140, potassium 3.7, chloride 97, bicarbonate 34, BUN 39, creatinine 1.0, glucose 129, calcium is 9.2, total albumin 0.7, AST 21, ALT 31, alk phos is 98, albumin is 3.6. Microbiology: Blood cultur es have been negative. IMPRESSION AND PLAN: Cardiomyopathy with systolic cardiac dysfunction, pulmonary hypertension, hyper tension, diverticulosis, atrial fibrillation, may have sleep apnea syndrome, chronic lung disease, ac miky bronchitis. I spoke to patient at bedside. All the questions answered. Continue antibiotics. Continue bronchodilator. Keep head elevated at 45 degree. Continue diuretics. Gastric prophylaxis. Follow up labs in the morning. Thank you and will follow with you. Rosa Celaya MD cc: [id number] TT: 01/28/2017 19:50:34 Confirmation # [id number] Dictation # [id number] jn
[2017-01-29] MEDS: Enoxaparin 80 mg Syringe SC SCH ×2 (03:00→15:51)
[2017-01-29] MEDS: Insulin Reg-LOW-Coverage SC SCH ×4 (08:03→22:25)
[2017-01-29] MEDS: Arformoterol 15 mcg/2 ml Inh Sol IH SCH ×2 (08:25→20:35)
[2017-01-29] MEDS: Budesonide 0.5 mg/2 ml Inhal Susp UD IH SCH ×2 (08:25→20:35)
[2017-01-29 08:33] LABS: INR 1.56 (0.93-1.08)
[2017-01-29 08:53] LABS: BLOOD UREA NITROGEN 33 mg/dL (7-21); CARBON DIOXIDE 35 mmol/L (21-33); CHLORIDE 95 mmol/L (95-110); GFR AFRICAN-AMERICAN > 60; GLUCOSE,RANDOM 150 mg/dL (70-110); POTASSIUM 3.6 mmol/L (3.6-5.0); SODIUM 139 mmol/L (132-148)
--- NOTE | 2017-01-29 09:41 | PN ---
DATE: 01/29/2017 SUBJECTIVE: The patient has no complaints of any chest pain. She says she does have a cough, mostly dry, no headaches. PHYSICAL EXAMINATION: VITAL SIGNS: Temperature is 97.3, pulse is 72, blood pressure 126/82, respirations 20. GENERAL: The patient comfortable, in no acute distress. HEENT: Anicteric sclerae. Moist mucosa. NECK: No JVD or adenopathy. CARDIAC: S1/S2. No murmurs. No rubs. Regular. RESPIRATORY: Clear to auscultation bilaterally. No wheezes, rales, or rhonchi. Good air entry. ABDOMEN: Bowel sounds are positive, soft, nontender, and nondistended. EXTREMITIES: Lower extremities 1+ edema. Has 1+ pulses. LABS: Creatinine is 1.0. ASSESSMENT: 1. Acute congestive heart failure secondary to systolic dysfunction. 2. Lower extremity 1+ edema. 3. Dementia, Alzheimer's type. 4. Atrial fibrillation, on Coumadin. 5. Hypertension. 6. Diabetes type 2. 7. Chronic obstructive pulmonary disease. 8. Osteoarthritis. 9. Right distal phalanx fracture. 10. Lower extremity cellulitis. PLAN: The patient is currently comfortable. She is continuing on Aricept. She is also on Cardizem. She is on Coumadin. Her INR is subtherapeutic still at 1.5. She is on memantine as well. The pat ient is on Lasix twice a day. She is on Lovenox for DVT prophylaxis. She is on Rocephin for her patricio lulitis of her legs. She is on a 1:1 because of her confusion. Denton Napoles MD cc: [id number] TT: 01/29/2017 09:41:15 Confirmation # [id number] Dictation # [id number] maulik
[2017-01-29] MEDS: cefTRIAXone 1 gm 1 GM/100 ML BAG IV SCH (11:18)
[2017-01-29] MEDS: diltiaZEM 240 mg/24 Hours CD Cap PO SCH (11:23)
[2017-01-29] MEDS: Digoxin 125 mcg (0.125 mg) Tab PO SCH (13:36)
--- NOTE | 2017-01-29 14:00 | CON ---
DATE: 01/29/2017 HISTORY OF PRESENT ILLNESS: Shortly, the patient is an 86-year-old female with long histor y of Alzheimer's type dementia. The patient has multiple medical issues, hypertension, atrial fibril lation, CHF, COPD, diabetes. The patient was brought in by her daughter for evaluation of shortness of breath. A psych consult was called for evaluation of confusion as well as psychotic symptoms as w ell as safety precautions. The patient was seen and examined today. The patient is on 1:1 for jesús denson and patient is very familiar to this senior underwriter from the previous admissions on the medical floor. The patient appears to be confused. There is no option to have a logical conversation with the patie nt. The patient said that this senior underwriter is her blood relative and at present moment, her mother is ivy garcia. This information is not true. The patient also started to cry and said that she needs to go bec ause her mother is dying. The 1:1 reported that the patient has good appetite. The patient is restl ess. At the same time, no agitation, no aggression, but patient is confused and talking nonsense. VITAL SIGNS: Reviewed. Temperature 97.3, pulse is 72, blood pressure 155/80, respirations 20, oxyge n saturation is 98. MEDICATIONS: Reviewed. The patient is on , Brovana, Lipitor, Pulmicort. The patient is on ant ibiotics, Rocephin 1 gram IV push daily, digoxin, Cardizem, Aricept 5 mg at the nighttime, Lovenox, L asix, Namenda 5 mg daily, Coumadin. This senior underwriter also reviewed previous history. The patient was seen by this senior underwriter and patient was on X anax in the past and tolerated that well. LABORATORY DATA: Reviewed. Chemistry, carbon dioxide 35, BUN 33. The rest within normal limits. MENTAL STATUS EXAMINATION: The patient presents to be confused, oriented only in herself, intermitte nt eye contact, appears to be anxious and restless. Speech is incoherent. Thought process is disorg anized and illogical. Thought content: The patient is confused. Denied hearing voices, denied seei ng things, denied thoughts of harming herself or others. Insight and judgment are impaired. Impulse s are unpredictable. IMPRESSION: Alzheimer's dementia plus delirium due to general medical condition. The patient has co ngestive heart failure, atrial fibrillation, congestive heart failure, right distal phalanx fracture, lower extremity cellulitis. PLAN: Continue current management. The patient is on 1:1 for safety precautions. The patient is ve ry confused and restless. Based on the previous history, patient was on small dose of Xanax and toan ent might benefit from a small dose of Ativan at present moment 0.5 mg twice a day as needed for rest less behavior and anxiety. This senior underwriter also will implement Seroquel 12.5 mg at the nighttime as need ed for agitation and psychotic symptoms at the nighttime because patient most likely is in delirium s tage, and sundowning syndrome cannot be excluded at present moment. Meanwhile, continue current leandro gement. Continue current medications. We will follow up on this patient and advise accordingly. Thank you very much for letting me participate in the care of your patient. Jazmyn Kaye MD cc: [id number] TT: 01/29/2017 13:59:25 Confirmation # [id number] Dictation # [id number] jammie
--- NOTE | 2017-01-29 17:13 | PN ---
DATE: 01/29/2017 REFERRING PHYSICIAN: Dr. Denton Napoles SUBJECTIVE: She is lying in the bed, head at 45 degrees, under 1:1 supervision. Night was unremarka ble. Tolerated CPAP for a while. Coughing is better. Decreased shortness of breath. No nausea, no vomiting, no diarrhea. Still having leg swelling and erythema of the lower extremity. OBJECTIVE: GENERAL: In no acute distress. VITAL SIGNS: Temp is 98, heart rate is 88, respiratory rate is 18, blood pressure 138/90, pulse ox 9 8% on nasal cannula. HEENT: Moist mucous membrane. Crowded airway. NECK: Supple, no JVD. LUNGS: Have crackles at the bases, scattered rhonchi. HEART: S1 and S2. ABDOMEN: Soft, nontender. No organomegaly. EXTREMITIES: Does have edema, erythema of the lower extremity ____ . NEUROLOGIC: Awake, alert, follows simple commands, but confused. MEDICATIONS: She is on Mucomyst inhaled twice a day, Aricept 5 mg daily, Ativan 0.5 mg twice a day p .r.n., Brovana 15 mcg inhaled twice daily, diltiazem 240 mg daily, Coumadin 7 mg will be given, digox in 0.125 mg daily, Lasix 40 mg twice a day, Lipitor 20 mg daily, Lovenox 80 mg subcutaneous q. 12 richard rs, Namenda 5 mg daily, Pulmicort inhaled twice a day, Rocephin 1 g IV daily, Seroquel 12.5 mg at bed time. LABORATORY DATA: Shows INR 1.56. Sodium 139, potassium 3.6, chloride 95, bicarbonate 35, BUN 33, cr eatinine 1.0, glucose is 261, calcium is 9.0. MICROBIOLOGY: Blood culture has been negative. IMPRESSION AND PLAN: Cardiomyopathy with systolic cardiac dysfunction, pulmonary hypertension, hyper tension, diverticulosis, atrial fibrillation. May have a component of sleep apnea syndrome, chronic lung disease, acute bronchitis, lower extremity erythema could be cellulitis. Pulmonary point of vie w, she is doing okay. Cough is better. Shortness of breath is better, under 1:1 supervision, seen b y psychiatrist. Gastric prophylaxis. Fall precaution. Thank you and I will follow with you. Rosa Celaya MD cc: [facility] TT: 01/29/2017 17:13:02 Confirmation # [id number] Dictation # [id number] dn
[2017-01-30] MEDS: Enoxaparin 80 mg Syringe SC SCH (02:40)
[2017-01-30 07:39] LABS: INR 2.05 (0.93-1.08)
[2017-01-30 07:47] LABS: BLOOD UREA NITROGEN 30 mg/dL (7-21); CALCIUM 9.1 mg/dL (8.4-10.5); CARBON DIOXIDE 37 mmol/L (21-33); CHLORIDE 94 mmol/L (95-110); GFR AFRICAN-AMERICAN > 60; GLUCOSE,RANDOM 138 mg/dL (70-110); POTASSIUM 3.6 mmol/L (3.6-5.0); SODIUM 139 mmol/L (132-148)
[2017-01-30] MEDS: Acetylcysteine 20% Inhal Soln (4ml) IH SCH ×2 (08:01→20:46)
[2017-01-30] MEDS: Budesonide 0.5 mg/2 ml Inhal Susp UD IH SCH ×3 (08:01→20:45)
[2017-01-30] MEDS: Arformoterol 15 mcg/2 ml Inh Sol IH SCH ×3 (08:01→20:46)
[2017-01-30] MEDS: Insulin Reg-LOW-Coverage SC SCH ×3 (08:50→21:43)
[2017-01-30] MEDS: cefTRIAXone 1 gm 1 GM/100 ML BAG IV SCH (10:14)
[2017-01-30] MEDS: diltiaZEM 240 mg/24 Hours CD Cap PO SCH (10:17)
--- NOTE | 2017-01-30 10:22 | PN ---
DATE: 01/30/2017 Shortly, patient is an 86-year-old female, long history of Alzheimer dementia. The patient was admitted on the medical side for cough. Psych consult was called for evaluation of restlessness , confusion and change in mental status. The patient was seen initially yesterday. This sports book writer impl emented small dose of Ativan as well as Seroquel at the nighttime. The patient was followed up today . The patient presented to be less confused, more pleasant. The patient observed eating with a good appetite. As per 1:1, patient slept through the night, does not have behavioral issues, but confuse d and disoriented. During the interview, patient was confabulating. The patient said that he does r emember this sports book writer. When this sports book writer asked how old are you, patient was giving vague answers like i t is not polite to ask such questions. At the same time, patient is not emotionally disturbed, smili ng appropriately. VITAL SIGNS: Stable. Temperature 98.1, pulse is 62, blood pressure 132/77, respirations 21. MEDICATIONS: Reviewed. The patient on acetylcysteine, Brovana, Lipitor, Pulmicort, Rocephin, digoxi n, Cardizem, Aricept, Lovenox, Lasix, Humulin, Ativan, Namenda, Seroquel 12.5 mg at nighttime as need ed for agitation. LABORATORIES: Reviewed. No acute changes with the labs. Chloride of 94, carbon dioxide 37. Notes reviewed. The patient was seen by tube drawer, Dr. Celaya, and Dr. Denton Napoles. MENTAL STATUS EXAMINATION: As this sports book writer described above, patient is alert, but disoriented in plac e, confabulates. Speech was underproductive. Eye contact is fair. Mood described "I'm kind of okay ." Affect was constricted, but reactive, mood congruent. Thought process confabulation. Thought co ntent: The patient denied visual, auditory, tactile hallucinations, denied paranoid ideations. The patient denied thoughts of harming herself or others, denied intent or plan. Insight and judgment ar e impaired due to chronic dementia. Impulses are well controlled. IMPRESSION: The patient has multiple medical issues, cardiomyopathy, systolic dysfunction, pul monary hypertension, hypertension, diverticulosis, atrial fibrillation. The patient also could have sleep apnea syndrome, bronchitis. The patient also has Alzheimer dementia with behavioral disturbanc es. On top of that, patient was delirious, which is improving. PLAN: Continue current management. The patient seems to be doing better. Ativan as needed for anxi ety. The patient was on Xanax in the past. For agitation and restless behavior at the nighttime, 12 .5 mg Seroquel should be given. The patient is on 1:1. insulation worker apprentice and case investigator involvement. This sports book writer is not sure where does patient live and what family patient has. This sports book writer doubts jenny t patient could function independently. We will follow up and advise accordingly. Thank you so much for letting me participate in care of your patient. Jazmyn Kaye MD cc: [id number] TT: 01/30/2017 10:22:24 Confirmation # [id number] Dictation # [id number] en
--- NOTE | 2017-01-30 10:58 | PN ---
DATE: 01/30/2017 SUBJECTIVE: The patient has no complaints of any chest pain, no shortness of breath, no headaches, n o dizziness. PHYSICAL EXAMINATION: VITAL SIGNS: Temperature is 98.1, pulse is 69, blood pressure 132/77, respirations 21. GENERAL: The patient comfortable, in no acute distress. HEENT: Anicteric sclerae. Moist mucosa. NECK: No JVD or adenopathy. CARDIAC: S1/S2. No murmurs. No rubs. Regular. RESPIRATORY: Clear to auscultation bilaterally. No wheezes, rales, or rhonchi. Good air entry. ABDOMEN: Bowel sounds are positive, soft, nontender, and nondistended. EXTREMITIES: Lower extremities, 1+ edema. Lower extremity erythema improving. Has 1+ pulses. LABORATORIES: Creatinine 0.9. ASSESSMENT: 1. Acute congestive heart failure, secondary to systolic dysfunction. 2. Lower extremity cellulitis. 3. Lower extremity edema. 4. Dementia, Alzheimer's type. 5. Atrial fibrillation, on Coumadin. 6. Hypertension. 7. Diabetes type 2. 8. Chronic obstructive pulmonary disease. 9. Osteoarthritis. 10. Right distal phalanx fracture. PLAN: The patient is currently comfortable, is on Aricept for memory. Her INR is therapeutic this m orning at 2. She is on Coumadin 7. This will be continued. She is on Lasix daily. She will have h er Lovenox discontinued because she is therapeutic. The patient is on Lipitor for dyslipidemia, is o n Pulmicort. She is going to continue with Seroquel. Denton Napoles MD cc: [id number] TT: 01/30/2017 10:57:30 Confirmation # [id number] Dictation # [id number] en
[2017-01-30] MEDS: Digoxin 125 mcg (0.125 mg) Tab PO SCH (15:58)
--- NOTE | 2017-01-30 17:43 | PN ---
DATE: 01/30/2017 REFERRING PHYSICIAN: Dr. Denton Napoles. SUBJECTIVE: She is lying in the bed, head at 45 degrees, sleepy, arousable, feels better. Decreased cough, decreased shortness of breath. No chest pain, no nausea, no vomiting, no diarrhea. Still gill ving significant leg swelling. OBJECTIVE: GENERAL: In no acute distress. VITAL SIGNS: Temp is 98, heart rate is 99, respiratory rate is 18, blood pressure 136/76, pulse ox 9 7% on nasal cannula. HEENT: Moist mucous membrane. Crowded airway. NECK: Supple, no JVD. LUNGS: Have a few crackles at the bases and scattered rhonchi. HEART: S1 and S2. ABDOMEN: Soft and nontender. No organomegaly. EXTREMITIES: Has edema of both lower extremities. There is erythema of the lower extremities. NEUROLOGIC: Awake, alert, follows simple commands, but confused. MEDICATIONS: She is on Mucomyst 20% inhaled twice a day, Aricept 5 mg at bedtime, Ativan 0.5 mg twic e a day p.r.n., Brovana 15 mcg inhaled twice a day, diltiazem 240 mg daily, Coumadin 7 mg will be giv en tonight, insulin coverage, digoxin 0.125 mg daily, Lasix 40 mg twice a day, Lipitor 20 mg daily, N amenda 5 mg daily, Pulmicort inhaled twice a day, Rocephin 1 gram daily, Seroquel 12.5 mg at bedtime. LABORATORY DATA: Reviewed and shows INR is 2.05. Sodium 139, potassium 3.6, chloride 94, bicarbonat e 31, BUN 30, creatinine 0.9, glucose 138, calcium is 9.1. Microbiology: Blood cultures have been n egative. IMPRESSION AND PLAN: Cardiomyopathy with systolic cardiac dysfunction, pulmonary hypertension, hyper tension, diverticulosis, atrial fibrillation, may have a sleep apnea syndrome, chronic lung disease, acute bronchitis, mild erythema lower extremities, may have cellulitis. I spoke to the nursing staff and requested to raise her lower extremities up while she is in the bed. Continue bronchodilator. Keep head elevated at 45 degrees. CPAP while sleeping. Diuretics. Coumadin and INR in the mo rning. Thank you and will follow with you. Rosa Celaya MD cc: [id number] TT: 01/30/2017 17:43:37 Confirmation # [id number] Dictation # [id number] dn
[2017-01-31 07:47] LABS: INR 2.33 (0.93-1.08)
[2017-01-31] MEDS: Insulin Reg-LOW-Coverage SC SCH ×4 (08:19→22:50)
[2017-01-31] MEDS: Acetylcysteine 20% Inhal Soln (4ml) IH SCH ×2 (08:33→19:25)
[2017-01-31] MEDS: Budesonide 0.5 mg/2 ml Inhal Susp UD IH SCH ×2 (08:34→19:26)
[2017-01-31] MEDS: Arformoterol 15 mcg/2 ml Inh Sol IH SCH ×2 (08:34→19:26)
--- NOTE | 2017-01-31 10:02 | CP.PCM.CON ---
History of Present Illness - History of Present Illness History of Present Illness: Palliative consult requested by Dr Doc Napoles Reason: Goals of care/advance care planning HPI: 86 year old female who presented with shortness of breath, lower extremity swelling. Chest x ray showed pulmonary congestion, bilateral pleural effusions.She was admitted with CHF secondary to systolic dysfunction. PMHx:Alzheimer's type dementia, cardiomyopathy pulmonary hypertension, atrial fibrillation, anti-coagulation therapy, HTN, diverticulosis. Social History: Non smoker, no alcohol or drug use. Family History: Non contributory Advance Care Planning: There is no Advance Directive in chart Review of System: Patient is confused, unable to obtain. Past Patient History - Infectious Disease Hx of Infectious Diseases: None - Tetanus Immunizations Tetanus Immunization: Unknown - Past Social History Smoking Status: Never Smoked - CARDIAC Hx Cardiac Disorders: Yes (AL) Hx Congestive Heart Failure: Yes Hx Hypertension: Yes - PULMONARY Hx Respiratory Disorders: Yes Hx Chronic Obstructive Pulmonary Disease (COPD): Yes - NEUROLOGICAL Hx Neurological Disorder: Yes Hx Dementia: Yes Hx Dizziness: Yes - HEENT Hx HEENT Problems: Yes Hx Cataracts: Yes (bilateral, sx 2007) - RENAL Hx Chronic Kidney Disease: No - ENDOCRINE/METABOLIC Hx Diabetes Mellitus Type 2: Yes - HEMATOLOGICAL/ONCOLOGICAL Hx Blood Disorders: Yes Hx Anemia: Yes - INTEGUMENTARY Hx Dermatological Problems: Yes Other/Comment: eccymosis righ thigh hip leg, bruises to knees, dry brown crusty skin between toes small 0>3 round scab outer r ankle, stage 1 opening 0.5cm round left buttock, buttocks/sacrum reddened, slight redness under r brreast, multiple dry age spots to chest - MUSCULOSKELETAL/RHEUMATOLOGICAL Hx Arthritis: Yes - GASTROINTESTINAL Hx Gastrointestinal Disorders: Yes Hx Diverticulitis: Yes - GENITOURINARY/GYNECOLOGICAL Hx Genitourinary Disorders: Yes Hx Incontinence: Yes - PSYCHIATRIC Hx Psychophysiologic Disorder: No Hx Anxiety: No Hx Bipolar Disorder: No Hx Depression: No Hx Emotional Abuse: No Hx Hallucinations: No Hx Panic Symptoms: No Hx Post Traumatic Stress Disorder: No Hx Psychosis: No Hx Physical Abuse: No Hx Schizophrenia: No Hx Sexual Abuse: No Hx Substance Use: No - SURGICAL HISTORY Hx Amputation: No Hx Appendectomy: No Hx Cardiac Catheterization: No Hx Cholecystectomy: No Hx Coronary Stent: No Hx Gastric Bypass Surgery: No Hx Hysterectomy: No Hx Joint Replacement: No Hx Kidney Transplant: No Hx Liver Transplant: No Hx Musculoskeletal Surgery: No Hx Open Heart Surgery: No Hx Orthopedic Surgery: No Hx Splenectomy: No Hx Valve Replacement: No Other/Comment: righ breast cyst removed 25 yrs ago - ANESTHESIA Hx Anesthesia: No Meds Allergies/Adverse Reactions: Allergies Allergy/AdvReac Type Severity Reaction Status Date / Time No Known Allergies Allergy Verified 11/06/16 18:20 - Medications Medications: Current Medications Acetylcysteine (Acetylcysteine 20%) 3 ml IH 0800,1999 [facility] Last Admin: 01/31/17 08:33 Dose: 3 ml Arformoterol Tartrate (Brovana) 15 mcg IH [id number] [facility] Last Admin: 01/31/17 08:34 Dose: 15 mcg Atorvastatin Calcium (Lipitor) 20 mg PO DAILY [facility] Last Admin: 01/30/17 10:14 Dose: 20 mg Budesonide (Pulmicort Respules) 0.5 mg IH [id number] [facility] Last Admin: 01/31/17 08:34 Dose: 0.5 mg Digoxin (Lanoxin) 0.125 mg PO 1400 [facility] Last Admin: 01/30/17 15:58 Dose: 0.125 mg Diltiazem HCl (Cardizem Cd) 240 mg PO DAILY [facility] Last Admin: 01/30/17 10:17 Dose: 240 mg Donepezil HCl (Aricept) 5 mg PO HS [facility] Last Admin: 01/30/17 21:21 Dose: 5 mg Ceftriaxone Sodium (Rocephin 1 Gram Ivpb) 1 gm in 100 mls @ 200 mls/hr IV DAILY [facility] PRN Reason: Protocol Last Admin: 01/30/17 10:14 Dose: 200 mls/hr Insulin Human Regular (Humulin R Low) 0 units SC ACHS [facility] PRN Reason: Protocol Last Admin: 01/31/17 08:19 Dose: 1 units Lorazepam (Ativan) 0.5 mg PO BID PRN; Protocol PRN Reason: anxiety, restlessness Last Admin: 01/29/17 22:28 Dose: 0.5 mg Memantine (Namenda) 5 mg PO DAILY [facility] Last Admin: 01/30/17 10:14 Dose: 5 mg Polyethylene Glycol (Miralax) 17 gm PO DAILY [facility] Quetiapine Fumarate (Seroquel) 12.5 mg PO HS PRN; Protocol PRN Reason: agitation/confusion Last Admin: 01/30/17 21:21 Dose: 12.5 mg Warfarin Sodium (Coumadin) 7 mg PO 1800 [facility] PRN Reason: Protocol Last Admin: 01/30/17 18:05 Dose: 7 mg Physical Exam - Constitutional Appears: Chronically Ill - Head Exam Head Exam: NORMOCEPHALIC - Eye Exam Eye Exam: Normal appearance, PERRL - ENT Exam ENT Exam: Mucous Membranes Moist, Normal Oropharynx - Neck Exam Neck exam: Positive for: Normal Inspection - Respiratory Exam Respiratory Exam: Decreased Breath Sounds, NORMAL BREATHING PATTERN - Cardiovascular Exam Cardiovascular Exam: Irregular Rhythm, +S1, +S2 - GI/Abdominal Exam GI & Abdominal Exam: Distended, Hypoactive Bowel Sounds Additional comments: diffuse tenderness on palpation - Exam Additional comments: incontinent - Extremities Exam Additional comments: bilateral lower extremity edema 1+, cellulitis left mosley - Neurological Exam Neurological exam: Altered - Skin Skin Exam: Dry, Pallor - Additional Findings Additional findings: Palliative performance rating 40% Results - Vital Signs Recent Vital Signs: Last Vital Signs Temp 97.5 F L 01/31/17 06:00 Pulse 65 01/31/17 06:00 Resp 20 01/31/17 06:00 BP 146/76 01/31/17 06:00 Pulse Ox 91 L 01/31/17 06:00 - Labs Result Diagrams: 01/28/17 06:30 01/30/17 07:26 Labs: Laboratory Results - last 24 hr 01/30/17 01/30/17 01/30/17 11:51 14:10 16:10 PT INR POC Glucose (mg/dL) 224 H 214 H Digoxin 1.0 01/30/17 01/31/17 21:35 06:30 PT 25.2 H INR 2.33 H POC Glucose (mg/dL) 295 H Digoxin Assessment & Plan - Assessment and Plan (Free Text) Assessment: 86 year old female admitted with CHF,lower extremity edema, LLE cellulitis. The patients needs assistance with most ADL/s. She follows simple command, confused. She is distended and has abdominal tenderness when examined. Small amount of hard stool in rectum.No nausea or vomiting. I spoke with patients daughter, Rocco Anguiano via phone. Daughter expressed interest in hospice services. Hospice care explained in detail. Questions answered. Daughter feels she is not ready for hospice services at this point in time. I also spoke with daughter about resuscitation status and advance care planning. Benefits and burdens of aggressive resuscitation explained. Rocco states that she is her mother's POA and that she can make decision regarding medical directives. POLST explained. Daughter will meet with me to complete POLST form. Time spent in discussion regarding goals of care and advance care planning, 20 minutes Plan: Constipation: Ducolax suppository now, would follow with enema in no BM. Will assist with advance care planning
[2017-01-31] MEDS: POLYETHYLENE GLYCOL 3350 17 GM/Dose PACKET PO SCH (10:47)
[2017-01-31] MEDS: diltiaZEM 240 mg/24 Hours CD Cap PO SCH (10:47)
[2017-01-31] MEDS: cefTRIAXone 1 gm 1 GM/100 ML BAG IV SCH (10:48)
--- NOTE | 2017-01-31 16:31 | CP.PCM.PCO ---
Physician Communication Note - Physician Communication Note Physician Communication Note: pt was seen by a resident, pt is pleasantly confused, no changes, will f/u
[2017-01-31] MEDS: Digoxin 125 mcg (0.125 mg) Tab PO SCH (19:08)
--- NOTE | 2017-02-01 07:43 | PN ---
DATE: 01/31/2017 SUBJECTIVE: The patient is lying in the bed, head at 45 degree, under one-to-one supervision. Decrea sed cough. Decreased shortness of breath. No nausea, no vomiting, no diarrhea. Still having leg sw elling, but improving. OBJECTIVE: GENERAL: No acute distress. VITAL SIGNS: Temp is 98, heart rate is 70, respiratory rate is 18, blood pressure 128/72. HEENT: Moist mucous membrane. Crowded airway. NECK: Supple. No JVD. LUNGS: Have crackles at the bases, scattered rhonchi. HEART: S1 and S2. ABDOMEN: Soft, nontender. No organomegaly. EXTREMITIES: Does have edema. There is some skin breakdown though. NEUROLOGIC: Sleepy, arousable. Follows simple commands, but confused. MEDICATIONS: She is on Mucomyst 20% inhaled twice a day, Aricept 5 mg at bedtime, Lovaza 0.5 mg twic e a day p.r.n., Brovana 15 mcg inhaled twice a day, Cardizem-CD 240 mg daily, Coumadin 5 mg daily, in sulin coverage, digoxin 0.125 mg daily, Lipitor 20 mg daily, MiraLax 17 g daily, Namenda 5 mg daily, Pulmicort inhaled twice a day, Rocephin 1 g daily, Seroquel 12.5 mg at bedtime. LABORATORY DATA: Shows INR is 2.33. Blood sugar is 192. MICROBIOLOGY: Blood culture has been negative. IMPRESSION AND PLAN: Cardiomyopathy with systolic cardiac dysfunction, pulmonary hypertension, hyper tension, diverticulosis, atrial fibrillation, may have sleep apnea syndrome, chronic lung disease, ac miky bronchitis, erythema of the lower extremity with probably cellulitis Pulmonary point of view, doi ng okay. Keep head elevated at 45 degrees. Continue bronchodilator. Encourage BiPAP use. Gastric prophylaxis. Anticoagulation. INR in the morning. Elevate lower extremity. The patient seen by shima galeano. Thank you and we will follow with you. Rosa Celaya MD cc: [phone] TT: 02/01/2017 07:42:49 Confirmation # [id number] Dictation # [id number] dn
[2017-02-01] MEDS: Acetylcysteine 20% Inhal Soln (4ml) IH SCH (08:32)
[2017-02-01] MEDS: Insulin Reg-LOW-Coverage SC SCH ×2 (08:37→12:26)
[2017-02-01 08:38] VITALS: RESP 22
[2017-02-01] MEDS: Budesonide 0.5 mg/2 ml Inhal Susp UD IH SCH (08:40)
[2017-02-01] MEDS: Arformoterol 15 mcg/2 ml Inh Sol IH SCH (08:40)
--- NOTE | 2017-02-01 11:00 | CP.PCM.PN ---
Subjective - Date & Time of Evaluation Date of Evaluation: 02/01/17 Time of Evaluation: 10:00 - Subjective Subjective: Alert, confused. Objective - Vital Signs/Intake and Output Vital Signs (last 24 hours): Temp Pulse Resp BP Pulse Ox 98.7 F 75 22 134/79 95 02/01/17 07:30 02/01/17 07:30 02/01/17 07:30 02/01/17 07:30 02/01/17 07:30 Intake and Output: 02/01/17 02/01/17 06:59 18:59 Intake Total 120 Balance 120 - Medications Medications: Current Medications Acetylcysteine (Acetylcysteine 20%) 3 ml IH 0800,2000 [facility] Last Admin: 02/01/17 08:32 Dose: 3 ml Arformoterol Tartrate (Brovana) 15 mcg IH [id number] [facility] Last Admin: 02/01/17 08:40 Dose: 15 mcg Atorvastatin Calcium (Lipitor) 20 mg PO DAILY [facility] Last Admin: 01/31/17 10:47 Dose: 20 mg Budesonide (Pulmicort Respules) 0.5 mg IH [id number] [facility] Last Admin: 02/01/17 08:40 Dose: 0.5 mg Digoxin (Lanoxin) 0.125 mg PO 1400 [facility] Last Admin: 01/31/17 19:08 Dose: 0.125 mg Diltiazem HCl (Cardizem Cd) 240 mg PO DAILY [facility] Last Admin: 01/31/17 10:47 Dose: 240 mg Donepezil HCl (Aricept) 5 mg PO HS [facility] Last Admin: 01/31/17 22:49 Dose: 5 mg Ceftriaxone Sodium (Rocephin 1 Gram Ivpb) 1 gm in 100 mls @ 200 mls/hr IV DAILY [facility] PRN Reason: Protocol Last Admin: 01/31/17 10:48 Dose: 200 mls/hr Insulin Human Regular (Humulin R Low) 0 units SC ACHS [facility] PRN Reason: Protocol Last Admin: 02/01/17 08:37 Dose: 1 units Lorazepam (Ativan) 0.5 mg PO BID PRN; Protocol PRN Reason: anxiety, restlessness Last Admin: 02/01/17 02:48 Dose: 0.5 mg Memantine (Namenda) 5 mg PO DAILY [facility] Last Admin: 01/31/17 10:48 Dose: 5 mg Polyethylene Glycol (Miralax) 17 gm PO DAILY [facility] Last Admin: 01/31/17 10:47 Dose: 17 gm Quetiapine Fumarate (Seroquel) 12.5 mg PO HS PRN; Protocol PRN Reason: agitation/confusion Last Admin: 01/30/17 21:21 Dose: 12.5 mg Warfarin Sodium (Coumadin) 5 mg PO 1800 GRACIE PRN Reason: Protocol Last Admin: 01/31/17 19:10 Dose: 5 mg Warfarin Sodium (Coumadin) 2 mg PO 1800 GRACIE PRN Reason: Protocol Last Admin: 01/31/17 19:09 Dose: 2 mg - Labs Labs: 01/30/17 07:26 PT 25.2 Seconds (9.9-11.8) H 01/31/17 06:30 INR 2.33 (0.93-1.08) H 01/31/17 06:30 APTT 29.2 Seconds (23.7-30.8) 01/26/17 22:25 - Constitutional Appears: No Acute Distress - Eye Exam Eye Exam: Normal appearance, PERRL - Respiratory Exam Respiratory Exam: Clear to Ausculation Bilateral, NORMAL BREATHING PATTERN - Cardiovascular Exam Cardiovascular Exam: +S1, +S2 - GI/Abdominal Exam GI & Abdominal Exam: Soft, Normal Bowel Sounds - Extremities Exam Extremities Exam: Pedal Edema Additional comments: left lower leg cellulitis - Skin Skin Exam: Dry Assessment and Plan - Assessment and Plan (Free Text) Assessment: 86 year old female admitted with CHF, lower extrmity edema, LLE cellulitis. Voice message left for daughter, Rocco Skinner. Intent to follow up on advance care planning and initiation of POLST. Constipation resolved. Plan: Advance care planning
[2017-02-01] MEDS: diltiaZEM 240 mg/24 Hours CD Cap PO SCH (11:08)
[2017-02-01] MEDS: POLYETHYLENE GLYCOL 3350 17 GM/Dose PACKET PO SCH (11:08)
[2017-02-01] MEDS: cefTRIAXone 1 gm 1 GM/100 ML BAG IV SCH (11:09)
[2017-02-01] MEDS: Digoxin 125 mcg (0.125 mg) Tab PO SCH (13:31)
[2017-02-01 13:32] VITALS: PULSE 70
--- NOTE | 2017-02-01 16:34 | DS ---
The patient is an 86-year-old female who had come into the hospital because of lower extremity edema. She was having acute CHF exacerbation secondary to systolic dysfunction and she also had a cellulit is. She was placed on IV antibiotics and also given IV diuretics. The patient is comfortable. She has no swelling. End of life discussions were had with the patient's daughter and also hospice infor mation was given by Christy Cotter. The patient is going to be discharged home to follow up as an out patient. PHYSICAL EXAMINATION: VITAL SIGNS: Temperature is 97, pulse of 70, blood pressure 128/72, respirations 18. GENERAL: The patient comfortable, in no acute distress. HEENT: Anicteric sclerae. Moist mucosa. NECK: No JVD or adenopathy. CARDIAC: S1/S2. No murmurs. No rubs. Regular. RESPIRATORY: Clear to auscultation bilaterally. No wheezes, rales, or rhonchi. Good air entry. ABDOMEN: Bowel sounds are positive, soft, nontender, and nondistended. EXTREMITIES: No edema. Has 1+ pulses. ASSESSMENT: 1. Acute congestive heart failure secondary to systolic dysfunction. 2. Lower extremity edema, resolved. 3. Lower extremity cellulitis, resolved. 4. Dementia, Alzheimer's type. 5. Atrial fibrillation, on Coumadin. 6. Hypertension. 7. Diabetes type 2. 8. Chronic obstructive pulmonary disease. 9. Osteoarthritis. 10. Right distal phalanx fracture. PLAN: The patient is on Aricept, is going to continue with her Coumadin. She is therapeutic with an INR of 2.3. The patient is on Rocephin for antibiotics. She is on Seroquel. The Seroquel will als o be continued. The patient is on MiraLax for constipation. She is on BiPAP. She is going to be di scharged home today. Denton Napoles MD cc: [id number] TT: 02/01/2017 16:33:13 ln
[2017-02-01 16:52] VITALS: BP 142/72; PULSE 68; TEMP 98.5; O2SAT 93
--- NOTE | 2017-02-01 19:15 | PN ---
DATE: 02/01/2017 REFERRING PHYSICIAN: Dr. Denton Napoles. SUBJECTIVE: The patient is lying in the bed, head at 45 degrees, night was unremarkable. Feels much better, decreased cough, decreased shortness of breath. No nausea, vomiting, diarrhea. No leg pain or leg swelling. OBJECTIVE: GENERAL: In no acute distress. VITAL SIGNS: Temp is 98, heart rate is 68, respiratory rate is 20, blood pressure 142/72, pulse ox 9 5% on nasal cannula. HEENT: Moist mucous membranes. No ulcer or oral thrush noted. NECK: Supple. No JVD. LUNGS: Have fair airflow with few rhonchi. HEART: S1, S2. ABDOMEN: Soft, nontender. No organomegaly. EXTREMITIES: There is decreased edema. NEUROLOGIC: Awake, alert, follows simple command. MEDICATIONS: She is on Mucomyst 20% inhaled twice a day, Aricept 5 mg at bedtime, Ativan 0.5 mg twic e a day p.r.n., Brovana 15 mcg inhaled twice a day, Cardizem-CD 240 mg daily, Coumadin 5 mg daily, in sulin coverage, digoxin 0.125 mg daily, Lipitor 20 mg daily, MiraLax 17 grams daily, Namenda 5 mg crystal ly, Pulmicort inhaled twice a day, Rocephin 1 gram daily, Seroquel 12.5 mg at bedtime. LABORATORY DATA: Reviewed and was sent yesterday again at 2.3. Blood sugar from today is 230. MICROBIOLOGY: Blood cultures have been negative. IMPRESSION AND PLAN: Cardiomyopathy with systolic cardiac dysfunction, pulmonary hypertension, hyper tension, diverticulosis, atrial fibrillation, may have sleep apnea syndrome, chronic lung disease. F rom a pulmonary point of view, doing well. Keep head elevated at 45 degrees. Encourage BiPAP use, b ronchodilator and aspiration precaution. Gastric prophylaxis, anticoagulation and fall precautions. Thank you and will follow with you. Rosa Celaya MD cc: [phone] TT: 02/01/2017 19:15:22 Confirmation # [id number] Dictation # [id number] mn
== END 2017-02-01 17:53 | disposition home or self-care (01) | DRG 292 ==
LOC: ED 21:56 → ERH 01-27 00:03 → 2RSO 01-27 08:47 → OBSVTOIN 01-28 09:13 → 5RSO 01-31 22:00
PROVIDERS: ADMIT Internal Medicine Nephrology; ATTEND Internal Medicine Nephrology
PROC: 5A09357 Assistance with Respiratory Ventilation, Less than 24 Consecutive Hours, Continuous Positive Airway Pressure (ICD-10-PCS; principal; 2017-01-28)
DX: I11.0 Hypertensive heart disease with heart failure (principal); I50.21 Acute systolic (congestive) heart failure; L03.115 Cellulitis of right lower limb; L03.116 Cellulitis of left lower limb; F05 Delirium due to known physiological condition; J44.0 Chronic obstructive pulmonary disease with (acute) lower respiratory infection; J20.9 Acute bronchitis, unspecified; I27.2 Other secondary pulmonary hypertension; G30.9 Alzheimer's disease, unspecified; I42.9 Cardiomyopathy, unspecified; I48.91 Unspecified atrial fibrillation; E11.9 Type 2 diabetes mellitus without complications; M19.90 Unspecified osteoarthritis, unspecified site; E78.5 Hyperlipidemia, unspecified; K57.90 Diverticulosis of intestine, part unspecified, without perforation or abscess without bleeding; G47.30 Sleep apnea, unspecified; F02.80 Dementia in other diseases classified elsewhere, unspecified severity, without behavioral disturbance, psychotic disturbance, mood disturbance, and anxiety; K59.00 Constipation, unspecified; R29.6 Repeated falls; Z79.01 Long term (current) use of anticoagulants; Z79.4 Long term (current) use of insulin

== ENCOUNTER 2017-04-16 20:27 | Inpatient (IN) | payer MEDICARE, OTHER ==
[2017-04-16 20:50] VITALS: BMI 34.6
--- NOTE | 2017-04-16 21:04 | ED PDOC ---
Arrival/HPI - General Chief Complaint: Shortness Of Breath Time Seen by Provider: 04/16/17 20:32 Historian: Patient - History of Present Illness Narrative History of Present Illness (Text): 04/16/17 21:04 Arleth Batista is an 86 year old female, whose past medical history includes hypertension, atrial fibrillation, CHF, COPD, diabetes, and Alzheimer's dementia , who presents to the Emergency department complaining of worsening bilateral leg and body edema. Patient also complaining of some shortness of breath and weeping fluid from the legs. Patient recently had her Lasix dosage increased with minimal relief. Patient denies any fever, chills, chest pain, nausea, vomiting, diarrhea, back pain, neck pain, headache, dizziness, or any other complaints. PMD: Dr. Napoles Symptom Onset: Gradual Symptom Course: Unchanged Activities at Onset: Rest, Light Context: Home Past Medical History - Provider Review Nursing Documentation Reviewed: Yes - Infectious Disease Hx of Infectious Diseases: None - Tetanus Immunization Tetanus Immunization: Unknown - Reproductive Menopause: Yes - Cardiac Hx Cardiac Disorders: Yes ([place]) Hx Congestive Heart Failure: Yes Hx Hypertension: Yes - Pulmonary Hx Respiratory Disorders: Yes Hx Chronic Obstructive Pulmonary Disease (COPD): Yes - Neurological Hx Neurological Disorder: Yes Hx Dementia: Yes Hx Dizziness: Yes - HEENT Hx HEENT Disorder: Yes Hx Cataracts: Yes (bilateral, sx 2007) - Renal Hx Renal Disorder: No - Endocrine/Metabolic Hx Diabetes Mellitus Type 2: Yes - Hematological/Oncological Hx Blood Disorders: Yes Hx Anemia: Yes - Integumentary Hx Dermatological Disorder: Yes Other/Comment: eccymosis righ thigh hip leg, bruises to knees, dry brown crusty skin between toes small 0>3 round scab outer r ankle, stage 1 opening 0.5cm round left buttock, buttocks/sacrum reddened, slight redness under r brreast, multiple dry age spots to chest - Musculoskeletal/Rheumatological Hx Arthritis: Yes - Gastrointestinal Hx Gastrointestinal Disorders: Yes Hx Diverticulitis: Yes - Genitourinary/Gynecological Hx Genitourinary Disorders: Yes Hx Incontinence: Yes - Psychiatric Hx Psychophysiologic Disorder: No Hx Anxiety: No Hx Bipolar Disorder: No Hx Depression: No Hx Emotional Abuse: No Hx Hallucinations: No Hx Panic Disorder: No Hx Post Traumatic Stress Disorder: No Hx Psychosis: No Hx Physical Abuse: No Hx Schizophrenia: No Hx Sexual Abuse: No Hx Substance Use: No - Surgical History Hx Amputation: No Hx Appendectomy: No Hx Cardiac Catheterization: No Hx Cholecystectomy: No Hx Coronary Stent: No Hx Gastric Bypass Surgery: No Hx Hysterectomy: No Hx Joint Replacement: No Hx Kidney Transplant: No Hx Liver Transplant: No Hx Musculoskeletal Surgery: No Hx Open Heart Surgery: No Hx Orthopedic Surgery: No Hx Splenectomy: No Hx Valve Replacement: No Other/Comment: righ breast cyst removed 25 yrs ago - Anesthesia Hx Anesthesia: No - Suicidal Assessment Feels Threatened In Home Enviroment: No Family/Social History - Physician Review Nursing Documentation Reviewed: Yes Family/Social History: Unknown Family HX Smoking Status: Never Smoked Hx Alcohol Use: No Hx Substance Use: No Hx Substance Use Treatment: No Allergies/Home Meds Allergies/Adverse Reactions: Allergies No Known Allergies Allergy (Verified 11/06/16 18:20) Home Medications: Home Meds Medication Instructions Recorded Confirmed Atorvastatin [Lipitor] 20 mg PO DAILY 10/13/14 04/16/17 Digoxin 0.125 mg PO DAILY 10/13/14 04/16/17 Furosemide [Lasix] 80 mg PO BID 10/13/14 04/16/17 Metformin HCl [Glucophage] 500 mg PO BID 07/14/16 04/16/17 [id number] CD [Cardizem CD] 240 mg PO DAILY 07/14/16 04/16/17 Alprazolam [Xanax] 1 tab PO HS PRN 01/26/17 04/16/17 Donepezil [Aricept] 1 tab PO DAILY 01/26/17 04/16/17 Insulin Aspar/Insulin N 70/30 20 units SC BID 01/26/17 04/16/17 [Novolog Mix 70/30-U/ml 3Ml] Warfarin [Coumadin] 1 tab PO DAILY 01/26/17 04/16/17 Potassium Chloride [Klor-Con 8] 8 meq PO DAILY 04/16/17 04/16/17 Review of Systems - Physician Review All systems were reviewed & negative as marked: Yes - Review of Systems Constitutional: absent: Fevers Eyes: Normal ENT: Normal Respiratory: SOB. absent: Cough Cardiovascular: Normal. absent: Chest Pain Gastrointestinal: Normal. absent: Abdominal Pain, Diarrhea, Nausea, Vomiting Genitourinary Female: Normal. absent: Dysuria, Frequency, Hematuria, Urine Output Changes Musculoskeletal: Other (+bilateral lower leg edema). absent: Neck Pain Skin: Normal Neurological: Normal. absent: Headache, Dizziness Endocrine: Normal Hemo/Lymphatic: Normal Psychiatric: Normal Physical Exam Vital Signs Reviewed: Yes Vital Signs Temp Pulse Resp BP Pulse Ox 04/16/17 22:01 126/72 04/16/17 20:38 97.7 F 82 18 124/78 98 Temperature: Afebrile Blood Pressure: Normal Pulse: Regular Respiratory Rate: Normal Appearance: Positive for: Well-Appearing, Non-Toxic, Comfortable Pain Distress: None Mental Status: Positive for: Alert and Oriented X 3 Finger Stick Blood Glucose: 150 - Systems Exam Head: Present: Atraumatic, Normocephalic Pupils: Present: PERRL Extroacular Muscles: Present: EOMI Conjunctiva: Present: Normal Mouth: Present: Moist Mucous Membranes Neck: Present: Normal Range of Motion Respiratory/Chest: Present: Rales (Rales at bases), Rhonchi (Rhonchi at bases). No: Respiratory Distress, Accessory Muscle Use Cardiovascular: Present: Normal S1, S2, Irregular Rhythm (Irregular, regular). No: Murmurs Abdomen: Present: Normal Bowel Sounds. No: Tenderness, Distention, Peritoneal Signs Back: Present: Normal Inspection Upper Extremity: Present: Edema (+1 pitting edema to bilateral hands). No: Cyanosis Lower Extremity: Present: Edema (+1 pitting edema to bilateral lower extremities , skin breakdown to left lower leg with weeping fluid), NORMAL PULSES, Neurovascularly Intact. No: CALF TENDERNESS, Cyanosis, Prema's Sign, Erythema, Deformity Neurological: Present: GCS=15, CN II-XII Intact, Speech Normal Skin: Present: Warm, Dry, Normal Color. No: Rashes Psychiatric: Present: Alert, Oriented x 3, Normal Insight, Normal Concentration Medical Decision Making ED Course and Treatment: 04/16/17 21:04 Impression: 86 year old female complaining of worsening bilateral leg and body edema. Also complaining of some shortness of breath. Plan: -- EKG -- Chest X-ray -- Labs, BNP, cardiac enzymes, digoxin -- Reassess and disposition Prior Visits: Notes and results from previous visits were reviewed. On 01/26/2017, pt was seen in the Emergency department for shortness of breath, bilateral lower extremity redness, and cough. Pt was admitted to the hospital for further evaluation. Progress Notes: Reviewed EKG, a fib at 81 bpm. Occasional PVC. LAD. Inferior and anteroseptal infarct. 04/16/17 21:[address] Yang, covering for Dr. Napoles, who is aware and agrees with plan. Pt will be admitted to Telemetry for CHF under Dr. Napoles's service. - Lab Interpretations Lab Results: 04/16/17 21:00 04/16/17 21:00 Lab Results 04/16/17 21:00: Digoxin 1.4 04/16/17 21:00: WBC 7.1, RBC 4.95, Hgb 12.1, Hct 42.2, MCV 85.3, MCH 24.4 L, MCHC 28.7 L, RDW 19.8 H, Plt Count 277, MPV 9.8 04/16/17 21:00: Sodium 141, Potassium 4.2, Chloride 100, Carbon Dioxide 30, Anion Gap 15, BUN 57 H, Creatinine 1.5 H, Est GFR ( Amer) 40, Est GFR ( Non-Af Amer) 33, Random Glucose 134 H, Calcium 8.9, Total Bilirubin 0.6, AST 36 , ALT 39, Alkaline Phosphatase 125, Lactate Dehydrogenase 394, Total Creatine Kinase < 20 L, Troponin I 0.05 D, NT-Pro-B Natriuret Pep 2810 H, Total Protein 7.6, Albumin 3.6, Globulin 4.1, Albumin/Globulin Ratio 0.9 L 04/16/17 21:00: PT 44.6 H*, INR 4.13 H*, APTT 38.3 H I have reviewed the lab results: Yes - RAD Interpretation Radiology Orders: 04/16/17 20:45 CHEST PORTABLE [RAD] Stat - EKG Interpretation Interpreted by ED Physician: Yes Type: 12 lead EKG - Medication Orders Current Medication Orders: Alprazolam (Xanax) 1 mg PO HS PRN; Protocol PRN Reason: Anxiety Atorvastatin Calcium (Lipitor) 20 mg PO DAILY [facility] Digoxin (Lanoxin) 0.125 mg PO DAILY [facility] Diltiazem HCl (Cardizem Cd) 240 mg PO DAILY [facility] Donepezil HCl (Aricept) 1 mg PO DAILY [facility] Metformin HCl (Glucophage) 500 mg PO BID GRACIE Non-Formulary Medication (Insulin Aspar/Insulin N 70/30 [Novolog Mix 70/30-U/Ml 3ml]) 20 units SC BID GRACIE Discontinued Medications Furosemide (Lasix) 60 mg IVP ONCE ONE Stop: 04/16/17 21:40 Last Admin: 04/16/17 22:01 Dose: 60 mg - Scribe Statement The provider has reviewed the documentation as recorded by the Jimmy Grullon Provider Scribe Attestation: All medical record entries made by the Jimmy were at my direction and personally dictated by me. I have reviewed the chart and agree that the record accurately reflects my personal performance of the history, physical exam, medical decision making, and the department course for this patient. I have also personally directed, reviewed, and agree with the discharge instructions and disposition. Disposition/Present on Arrival - Present on Arrival Any Indicators Present on Arrival: No History of DVT/PE: No History of Uncontrolled Diabetes: No Urinary Catheter: No History of Decub. Ulcer: No History Surgical Site Infection Following: None - Disposition Have Diagnosis and Disposition been Completed?: Yes Diagnosis: CHF (congestive heart failure) Disposition: HOSPITALIZED Disposition Time: 21:40 Patient Plan: Admission Patient Problems: Current Active Problems Problem Status Onset CHF (congestive heart failure) Acute Condition: STABLE
[2017-04-16 21:28] LABS: ALB/GLOB RATIO 0.9 (1.1-1.8); ALKALINE PHOSPHATASE 125 U/L (38-133); ALT/SGPT 39 U/L (7-56); AST/SGOT 36 U/L (15-39); BILIRUBIN,TOTAL 0.6 mg/dL (0.2-1.3); BLOOD UREA NITROGEN 57 mg/dL (7-21); CALCIUM 8.9 mg/dL (8.4-10.5); CARBON DIOXIDE 30 mmol/L (21-33); CHLORIDE 100 mmol/L (98-107); GFR AFRICAN-AMERICAN 40; GLUCOSE,RANDOM 134 mg/dL (70-110); POTASSIUM 4.2 mmol/L (3.6-5.0); SODIUM 141 mmol/L (132-148); TOTAL PROTEIN 7.6 g/dL (5.8-8.3)
[2017-04-16 21:31] LABS: HEMATOCRIT 42.2 % (36.0-48.0); MEAN CELL VOLUME 85.3 fl (80.0-105.0); MEAN CORPUSCULAR HEMOGLOBIN 24.4 pg (25.0-35.0); MEAN CORPUSCULAR HGB CONC 28.7 g/dl (31.0-37.0); MEAN PLATELET VOLUME 9.8 fl (7.0-11.0); RED CELL DISTRIBUTION WIDTH 19.8 % (11.5-14.5); WHITE BLOOD COUNT 7.1 10^3/ul (4.5-11.0)
[2017-04-16 21:40] LABS: TROPONIN I 0.05 ng/mL
[2017-04-16 21:48] LABS: PARTIAL THROMBOPLASTIN TIME 38.3 Seconds (23.7-30.8)
[2017-04-16 21:50] LABS: INR 4.13 (0.93-1.08)
[2017-04-17 08:16] LABS: BASO # 0.05 K/mm3 (0.0-2.0); BASO % 0.8 % (0.0-3.0); EOS # 0.2 (0.0-0.7); EOS % 2.8 % (1.5-5.0); GRAN # 4.87 (1.4-6.5); GRAN % 75.2 % (50.0-68.0); HEMATOCRIT 40.9 % (36.0-48.0); LYMPH # 0.7 (1.2-3.4); LYMPH % 10.5 % (22.0-35.0); MEAN CORPUSCULAR HEMOGLOBIN 24.5 pg (25.0-35.0); MEAN CORPUSCULAR HGB CONC 28.9 g/dl (31.0-37.0); MEAN PLATELET VOLUME 9.9 fl (7.0-11.0); MONO # 0.7 (0.1-0.6); MONO % 10.7 % (1.0-6.0); RED CELL DISTRIBUTION WIDTH 19.9 % (11.5-14.5); WHITE BLOOD COUNT 6.5 10^3/ul (4.5-11.0)
[2017-04-17 08:33] LABS: CALCIUM 8.9 mg/dL (8.4-10.5); POTASSIUM 3.7 mmol/L (3.6-5.0)
[2017-04-17] MEDS: Potassium Chloride 20 mEq ER Tab PO SCH (10:55)
[2017-04-17] MEDS: diltiaZEM 240 mg/24 Hours CD Cap PO SCH (10:55)
[2017-04-17] MEDS: Insulin Lispro (humaLOG) MIX 75/25(10 ml) SC SCH ×2 (10:57→18:16)
--- NOTE | 2017-04-17 13:54 | RAD ---
HISTORY: sob COMPARISON: Comparison chest 01/26/2017 FINDINGS: LUNGS: Mild pulmonary vascular congestive changes with bilateral lower lobe alveolar-type infiltrates and bilateral effusions right larger than left PLEURA: As above. No pneumothorax apparent. CARDIOVASCULAR: Cardiomegaly. OSSEOUS STRUCTURES: Multilevel degenerative spondylosis of the thoracic spine degenerative osteoarthritis both shoulder girdles right greater than left. VISUALIZED UPPER ABDOMEN: Normal. OTHER FINDINGS: None. IMPRESSION: Mild pulmonary vascular congestive changes with bilateral lower lobe alveolar-type infiltrates and bilateral effusions right larger than left Cardiomegaly.
[2017-04-17] MEDS: Digoxin 125 mcg (0.125 mg) Tab PO SCH (14:34)
--- NOTE | 2017-04-17 16:36 | CON ---
DATE: 04/17/2017 CONSULTATION INDICATION: Shortness of breath and edema. HISTORY OF PRESENT ILLNESS: This is an 86-year-old woman known to me from prior [facility] admissions. Admitted to the emergency room yesterday because of increasing worsening lower extremity edema and dyspnea. There was no chest pain, orthopnea, PND, syncope, fall, dizziness, vertigo, palpitations, fever, chills, cough, sputum production, hemoptysis, abdominal pain, nausea, vomiting, diarrhea, constipation or melena. PAST MEDICAL HISTORY: Complex. She has coronary artery disease with remote myocardial infarction. A recent echo in December 2016 documents normal LV function. It also showed moderate to severe aortic stenosis with mild mitral regurgitation. She has chronic atrial fibrillator on warfarin. Although, she has history of falls, including a finger fracture and subdural hematoma. She has COPD, diabetes, hypertension, dementia, diverticulosis, anemia, chronic lower extremity edema. There is no history of rheumatic fever, stroke, or gout. MEDICATIONS: At the time of admission include Aricept, diltiazem, warfarin, digoxin, metformin, potassium chloride, Lasix b.i.d., Lipitor, insulin, Xanax. ALLERGIES: NO MEDICATION ALLERGIES REPORTED. SOCIAL HISTORY: She lives at home. She is sedentary. She does not smoke. She does not drink alcohol significantly. FAMILY HISTORY: Noncontributory. REVIEW OF SYSTEMS: A 10-point review of systems, otherwise unremarkable except as noted above. PHYSICAL EXAMINATION: GENERAL: She is an elderly woman lying in bed on telemetry in no acute distress. VITAL SIGNS: Notable for atrial fibrillation 63 to 101 beats per minute. She is afebrile, blood pressure 143/61, respirations 18 to 21, O2 sat 95 to 99% on nasal cannula. HEENT: Reveals no neck vein distention, thyromegaly or carotid bruit. Mucous membranes are moist. Conjunctiva pink. NECK: Supple. LUNGS: Lung valentine, diminished breath sounds at the bases. Few scattered rhonchi. HEART: Examination of heart reveals a soft systolic ejection murmur in the aortic space and along the left sternal border. ABDOMEN: Soft. Bowel sounds present. No mass, organomegaly, tenderness, rebound, guarding, CVA tenderness, or palpable abdominal aortic aneurysm. EXTREMITIES: Exam revealed no cyanosis, clubbing or edema. NEUROLOGIC: She is awake and alert. PSYCHIATRIC: Alert, dementia. SKIN: Warm and dry. Lower extremities bandaged. LABORATORY AND IMAGING DATA: Chest x-ray was a portable study is not yet read, it shows some increased vascular markings, cardiomegaly right pleural effusion by my reading. CBC unremarkable. PT 44.6, INR 4.13, PTT 38.3. Electrolytes normal; BUN 57 and creatinine 1.5. LFTs unremarkable. CK less than 20. Troponin of 0.05. BNP 2810. Dig 1.4. IMPRESSION: Arleth Batista is an 86-year-old woman with chronic cellulitic lower extremities admitted with increasing swelling and weeping, possible acute cellulitis, also with dyspnea with a history of remote myocardial infraction, normal left ventricular function on a fairly recent echo with moderately severe aortic stenosis and mild mitral regurgitation. PLAN: At this time, I reviewed her old records and prior echocardiogram. She is on telemetry. Her leg should be cultured. She is getting IV Lasix. Podiatric evaluation would be appropriate as well as leg elevation. Warfarin will be held. INRs will be monitored. I will check a TSH. She can be out of bed to chair. I will follow along with you. I will make additional recommendations based on her clinical course. Overall, conservative course of cardiac care is anticipated. Robert De Los Santos MD MTDJarvis
--- NOTE | 2017-04-17 21:11 | CARD ---
APPROVED REPORT EKG Measurement Heart [id number] <Conclusion> Atrial fibrillation with premature ventricular or aberrantly conducted complexes Left axis deviation Inferior infarct, age undetermined Anteroseptal infarct, age undetermined Abnormal ECG
[2017-04-17] MEDS: cefTRIAXone 1 gm 1 GM/100 ML BAG IVPB SCH (21:24)
--- NOTE | 2017-04-17 23:00 | CP.PCM.PN ---
Subjective - Date & Time of Evaluation Date of Evaluation: 04/17/17 Time of Evaluation: 22:59 - Subjective Subjective: Patient was seen at bedside because she was found to have 10 beats of vtach on monitor. Has no complaints. Denies chest pain, sob, nausea, sweating , palpitation. Is going to get prescribed xanax for her anxiety. ROS:Negative except as mentioned above. 86 year old white woman was admitted with worsenig bilateral leg and bod edema, sob,CHF. Has PMH of right parietal subdural hematoma, atrial fibrillation, on coumadin, HTN,CHF, DM II, Dementia Alzheimer's type, COPD, OA, falls,right breast cyst excision. Objective - Vital Signs/Intake and Output Vital Signs (last 24 hours): Temp Pulse Resp BP Pulse Ox 98.3 F 80 20 137/61 96 04/17/17 18:00 04/17/17 22:00 04/17/17 18:00 04/17/17 18:17 04/17/17 06:00 - Medications Medications: Current Medications Alprazolam (Xanax) 1 mg PO HS PRN; Protocol PRN Reason: Anxiety Atorvastatin Calcium (Lipitor) 20 mg PO DAILY [facility] Last Admin: 04/17/17 10:55 Dose: 20 mg Digoxin (Lanoxin) 0.125 mg PO 1400 [facility] Last Admin: 04/17/17 14:34 Dose: 0.125 mg Diltiazem HCl (Cardizem Cd) 240 mg PO DAILY [facility] Last Admin: 04/17/17 10:55 Dose: 240 mg Donepezil HCl (Aricept) 5 mg PO HS [facility] Last Admin: 04/17/17 21:23 Dose: 5 mg Furosemide (Lasix) 40 mg IVP BID [facility] Last Admin: 04/17/17 18:17 Dose: 40 mg Ceftriaxone Sodium (Rocephin 1 Gram Ivpb) 1 gm in 100 mls @ 100 mls/hr IVPB DAILY [facility] PRN Reason: Protocol Last Admin: 04/17/17 21:24 Dose: 100 mls/hr Insulin Lispro Protam/Lispro Human (Humalog Mix 75/25) 20 units SC BID [facility] Last Admin: 04/17/17 18:16 Dose: 20 units Potassium Chloride (K-Dur 20 Meq Er Tab) 20 meq PO DAILY [facility] Last Admin: 04/17/17 10:55 Dose: 20 meq - Labs Labs: 04/17/17 07:20 04/17/17 07:20 PT 44.6 Seconds (9.9-11.8) H* 04/16/17 21:00 INR 4.13 (0.93-1.08) H* 04/16/17 21:00 APTT 38.3 Seconds (23.7-30.8) H 04/16/17 21:00 Laboratory Last Values WBC 6.5 10^3/ul (4.5-11.0) 04/17/17 07:20 RBC 4.81 10^6/uL (3.5-6.1) 04/17/17 07:20 Hgb 11.8 g/dL (12.0-16.0) L 04/17/17 07:20 Hct 40.9 % (36.0-48.0) 04/17/17 07:20 MCV 85.0 fl (80.0-105.0) 04/17/17 07:20 MCH 24.5 pg (25.0-35.0) L 04/17/17 07:20 MCHC 28.9 g/dl (31.0-37.0) L 04/17/17 07:20 RDW 19.9 % (11.5-14.5) H 04/17/17 07:20 Plt Count 276 10^3/uL (120.0-450.0) 04/17/17 07:20 MPV 9.9 fl (7.0-11.0) 04/17/17 07:20 Gran % 75.2 % (50.0-68.0) H 04/17/17 07:20 Lymph % (Auto) 10.5 % (22.0-35.0) L 04/17/17 07:20 [place] % (Auto) 10.7 % (1.0-6.0) H 04/17/17 07:20 Eos % (Auto) 2.8 % (1.5-5.0) 04/17/17 07:20 Baso % (Auto) 0.8 % (0.0-3.0) 04/17/17 07:20 Gran # 4.87 (1.4-6.5) 04/17/17 07:20 Lymph # 0.7 (1.2-3.4) L 04/17/17 07:20 [place] # 0.7 (0.1-0.6) H 04/17/17 07:20 Eos # 0.2 (0.0-0.7) 04/17/17 07:20 Baso # 0.05 K/mm3 (0.0-2.0) 04/17/17 07:20 PT 44.6 Seconds (9.9-11.8) H* 04/16/17 21:00 INR 4.13 (0.93-1.08) H* 04/16/17 21:00 APTT 38.3 Seconds (23.7-30.8) H 04/16/17 21:00 Sodium 141 mmol/L (132-148) 04/17/17 07:20 Potassium 3.7 mmol/L (3.6-5.0) 04/17/17 07:20 Chloride 100 mmol/L (98-107) 04/17/17 07:20 Carbon Dioxide 32 mmol/L (21-33) 04/17/17 07:20 Anion Gap 13 (10-20) 04/17/17 07:20 BUN 56 mg/dL (7-21) H 04/17/17 07:20 Creatinine 1.3 mg/dL (0.5-1.4) 04/17/17 07:20 Est GFR ( Amer) 47 04/17/17 07:20 Est GFR (Non-Af Amer) 39 04/17/17 07:20 POC Glucose (mg/dL) 176 mg/dL (65-110) H 04/17/17 17:10 Random Glucose 111 mg/dL (70-110) H 04/17/17 07:20 Calcium 8.9 mg/dL (8.4-10.5) 04/17/17 07:20 Total Bilirubin 0.6 mg/dL (0.2-1.3) 04/16/17 21:00 AST 36 U/L (15-39) 04/16/17 21:00 ALT 39 U/L (7-56) 04/16/17 21:00 Alkaline Phosphatase 125 U/L (38-133) 04/16/17 21:00 Lactate Dehydrogenase 394 U/L (333-699) 04/16/17 21:00 Total Creatine Kinase < 20 U/L (35-230) L 04/16/17 21:00 Troponin I 0.05 ng/mL D 04/16/17 21:00 NT-Pro-B Natriuret Pep 2810 pg/mL (0-450) H 04/16/17 21:00 Total Protein 7.6 g/dL (5.8-8.3) 04/16/17 21:00 Albumin 3.6 g/dL (3.0-4.8) 04/16/17 21:00 Globulin 4.1 gm/dL 04/16/17 21:00 Albumin/Globulin Ratio 0.9 (1.1-1.8) L 04/16/17 21:00 Digoxin 1.4 ng/mL (0.8-2.0) 04/16/17 21:00 - Constitutional Appears: Well, No Acute Distress - Head Exam Head Exam: ATRAUMATIC, NORMAL INSPECTION, NORMOCEPHALIC - Eye Exam Eye Exam: Normal appearance - ENT Exam ENT Exam: Normal External Ear Exam - Neck Exam Neck Exam: Normal Inspection - Respiratory Exam Respiratory Exam: NORMAL BREATHING PATTERN - Cardiovascular Exam Cardiovascular Exam: absent: JVD - GI/Abdominal Exam GI & Abdominal Exam: absent: Distended - Rectal Exam Rectal Exam: Deferred - Exam Additional comments: Deferred. - Extremities Exam Extremities Exam: Normal Inspection - Back Exam Back Exam: NORMAL INSPECTION - Neurological Exam Neurological Exam: Alert, Awake - Psychiatric Exam Psychiatric exam: Normal Affect, Normal Mood - Skin Skin Exam: Normal Color Assessment and Plan - Assessment and Plan (Free Text) Assessment: Non sustained ventricular tachycardia. CHF. HTN. Atrial fibrillation. DM II. Dementia, Alzheimer's type. Plan: EKG--------------------->Atrial fibrillation, LAD, Old inf mi. BMP, Magnesium , phos, troponin stat. Observation. Continue present management.
[2017-04-17 23:43] LABS: CALCIUM 8.9 mg/dL (8.4-10.5); MAGNESIUM 1.8 mg/dL (1.7-2.2); PHOSPHOROUS 3.6 mg/dL (2.5-4.5); POTASSIUM 3.9 mmol/L (3.6-5.0)
[2017-04-17 23:54] LABS: TROPONIN I 0.05 ng/mL
[2017-04-18 06:55] LABS: INR 3.02 (0.93-1.08)
[2017-04-18 06:57] LABS: BASO # 0.07 K/mm3 (0.0-2.0); BASO % 1.2 % (0.0-3.0); EOS # 0.2 (0.0-0.7); EOS % 2.9 % (1.5-5.0); GRAN # 4.22 (1.4-6.5); HEMATOCRIT 41.7 % (36.0-48.0); LYMPH # 0.7 (1.2-3.4); LYMPH % 12.3 % (22.0-35.0); MEAN CELL VOLUME 85.1 fl (80.0-105.0); MEAN CORPUSCULAR HEMOGLOBIN 24.3 pg (25.0-35.0); MEAN CORPUSCULAR HGB CONC 28.5 g/dl (31.0-37.0); MEAN PLATELET VOLUME 9.6 fl (7.0-11.0); MONO # 0.6 (0.1-0.6); MONO % 10.6 % (1.0-6.0); RED CELL DISTRIBUTION WIDTH 20.1 % (11.5-14.5); WHITE BLOOD COUNT 5.8 10^3/ul (4.5-11.0)
[2017-04-18 07:00] LABS: CALCIUM 8.8 mg/dL (8.4-10.5); POTASSIUM 3.9 mmol/L (3.6-5.0)
[2017-04-18] MEDS: Insulin Lispro (humaLOG) MIX 75/25(10 ml) SC SCH ×2 (10:56→18:18)
[2017-04-18] MEDS: diltiaZEM 240 mg/24 Hours CD Cap PO SCH (11:27)
[2017-04-18] MEDS: cefTRIAXone 1 gm 1 GM/100 ML BAG IVPB SCH (11:27)
[2017-04-18] MEDS: Potassium Chloride 20 mEq ER Tab PO SCH (11:28)
--- NOTE | 2017-04-18 13:58 | PN ---
DATE: 04/18/2017 SUBJECTIVE: Patient is seen lying in bed in telemetry. Her edema is improved. Her left leg remains wrapped. She remains in atrial fibrillation. CURRENT MEDICATIONS: Include Aricept, diltiazem 240 mg daily, Coumadin, insulin, K-Dur 20 mEq daily, Lanoxin 0.125 mg daily, Lasix 40 mg IV b.i.d., Lipitor 20 mg daily, Rocephin and Xanax. PHYSICAL EXAMINATION GENERAL: She is a very elderly woman who appears comfortable at rest. VITAL SIGNS: Blood pressure is 132/66 with a pulse of 60 and atrial fibrillation, respirations are 16. She is afebrile. HEENT: No JVD. CHEST: Few scattered rhonchi heard. HEART: PMI displaced laterally with systolic murmur at the base. ABDOMEN: Soft and nontender. Normoactive bowel sounds. EXTREMITIES: Left leg is wrapped in gauze dressing. 1+ bilateral edema is present. DIAGNOSTIC DATA: Potassium is 3.9, BUN and creatinine are 54 and 1.2. White count is 5.8, hemoglobin and hematocrit 11.9 and 41.7 with a platelet count of 262,000. INR is 3.0. IMPRESSION: 1. Leg cellulitis on antibiotics and local wound care. 2. Known coronary artery disease status post prior infarct. 3. Moderately severe aortic stenosis with preserved LV systolic function. 4. Chronic atrial fibrillation. 5. History of diabetes, hypertension, and dementia. RECOMMENDATIONS: IV Lasix should continue. All records were reviewed. Consideration to be given to switching from diltiazem, which may increase the likelihood of peripheral edema and substituting with a beta-lemuel in its place. In general, conservative management is most appropriate. We will continue to follow and make further recommendations as appropriate. Gabe Alba MD
[2017-04-18] MEDS: Digoxin 125 mcg (0.125 mg) Tab PO SCH (14:02)
--- NOTE | 2017-04-18 15:44 | US ---
HISTORY: Leg pain and swelling. Evaluate for DVT PHYSICIAN(S): Dayo Mahoney MD. TECHNIQUE: Duplex sonography and color-flow Doppler with graded compression were used to evaluate the deep venous systems of both lower extremities. The tibial veins are not well seen due to edema and bandages on the left lower extremity below the knee FINDINGS: The visualized deep venous systems of both lower extremities are sonographically normal and compressible. Normal wave forms and augmentation are seen. There is no sonographic evidence for deep venous thrombosis in the visualized segments of both lower extremities. IMPRESSION: No sonographic evidence for deep venous thrombosis in the visualized segments of both lower extremities. Limited study.
[2017-04-18] MEDS ORDERED: metOLazone 5 MG TAB PO ONE (20:44)
--- NOTE | 2017-04-18 21:42 | CARD ---
APPROVED REPORT EKG Measurement Heart [id number] <Conclusion> Atrial fibrillation Left axis deviation Low voltage QRS Inferior infarct, age undetermined Cannot rule out Anteroseptal infarct, age undetermined Abnormal ECG
--- NOTE | 2017-04-18 22:47 | CP.PCM.HP ---
History of Present Illness - History of Present Illness History of Present Illness: Patient is an 86 year old female presented to ED with increased shortness of breath. She has history of CHF, A- Fib. CXR showed b/L lower lobe infiltrate. B /L pleural effusion. Rt greater than left. INR supra-therapeutic. On coumadin. Increased lower extremity swelling. right leg swelling, redness. No chest pain, nausea. Present on Admission - Present on Admission Any Indicators Present on Admission: Yes Decubitus Ulcer Present: Yes (left buttock , stage 1) Decubitus Ulcer Location: left buttock Decubitus Ulcer Stage: I Review of Systems - Constitutional Constitutional: As Per HPI, Fatigue, Malaise, Weakness - EENT Eyes: absent: As Per HPI, Blind Spots, Blurred Vision, Change in Vision, Decreased Night Vision, Diplopia, Discharge, Dry Eye, Exophthalmos, Floaters, Irritation, Itchy Eyes, Loss of Peripheral Vision, Pain, Photophobia, Requires Corrective Lenses, Sees Flashes, Spots in Vision, Tunnel Vision, Other Visual Disturbances, Loss of Vision, Other - Breasts Breasts: absent: As Per HPI, Change in Shape, Mass, Pain, Nipple Discharge, Nipple Inversion, Skin Changes, Swelling, Other - Cardiovascular Cardiovascular: As Per HPI - Respiratory Respiratory: As Per HPI, Dyspnea - Gastrointestinal Gastrointestinal: absent: As Per HPI, Abdominal Pain, Belching, Bloating, Change in Bowel Habits, Change in Stool Character, Coffee Ground Emesis, Constipation, Cramping, Diarrhea, Dyspepsia, Dysphagia, Early Satiety, Excessive Flatus, Fecal Incontinence, Heartburn, Hematemesis, Hematochezia, Loose Stools, Melena, Nausea, Odynophagia, Temesmus, Vomiting, Other - Genitourinary Genitourinary: absent: As Per HPI, Change in Urinary Stream, Difficulty Urinating, Dysuria, Flank Pain, Hematuria, Pyuria, Nocturia, Urinary Incontinence, Urinary Frequency, Urinary Hesitance, Urinary Urgency, Voiding Freq/Small Amts, Freq UTI, Hx Renal/Bladder Calculi, Hx /Renal Surgery, Bladder Distension, Other - Menstruation Menstruation: absent: As Per HPI, Amenorrhea, Amenorrhea/ Control, Currently Menstual, Cycle <21 Days, Cycle >35 Days, Cycle Variable, Menses 1-7 Days, Menses >/= 8 Days, Menses Variable, Cycle > 4 Weeks Between, No Menses for 6 Months, Heavy Menses, Light Menses, Normal Menses, Spotting Between Cycles , S/P Hysterectomy, Menopausal, Post Menopausal, Premenarche, Abnormal Vaginal Bleeding, Dysmenorrhea, Other - Musculoskeletal Additional comments: b/l leg swelling - Neurological Neurological: As Per HPI - Psychiatric Psychiatric: absent: As Per HPI, Abnormal Sleep Pattern, Anhedonia, Anxiety, Auditory Hallucinations, Behavioral Changes, Change in Appetite, Change in Libido, Confusion, Depression, Difficulty Concentrating, Hallucinations, Homicidal Ideation, Hopelessness, Irritability, Memory Loss, Mood Swings, Panic Attacks, Paranoia, Suicidal Ideation, Visual Hallucinations, Tactile Hallucinations, Other - Endocrine Endocrine: As Per HPI - Hematologic/Lymphatic Hematologic: As Per HPI Past Patient History - Infectious Disease Hx of Infectious Diseases: None - Tetanus Immunizations Tetanus Immunization: Unknown - Past Medical History & Family History Past Medical History?: Yes Past Family History: Reviewed and not pertinent - Past Social History Smoking Status: Never Smoked - CARDIAC Hx Cardiac Disorders: Yes (AR) Hx Cardia Arrhythmia: Yes (afib) Hx Congestive Heart Failure: Yes Hx Hypercholesterolemia: Yes Hx Hypertension: Yes Hx Peripheral Edema: Yes (+2 pitting edema arms/hands legs) - PULMONARY Hx Respiratory Disorders: Yes Hx Chronic Obstructive Pulmonary Disease (COPD): Yes Hx Pneumonia: Yes - NEUROLOGICAL Hx Neurological Disorder: Yes HX Cerebrovascular Accident: Yes Hx Dementia: Yes Hx Dizziness: Yes - HEENT Hx HEENT Problems: Yes Hx Cataracts: Yes (bilateral, sx 2007) - RENAL Hx Chronic Kidney Disease: No - ENDOCRINE/METABOLIC Hx Diabetes Mellitus Type 2: Yes - HEMATOLOGICAL/ONCOLOGICAL Hx Blood Disorders: Yes Hx Anemia: Yes - INTEGUMENTARY Hx Dermatological Problems: Yes Other/Comment: bruises to left knee , both great toes red swollen stage 1 opening 0.5cm round left buttock, buttocks/sacrum reddened, red rash under right breast multiple dry age spots to chest, small dry brown growth to left hand 3rd finger. 2 small scabs to rle, multiple skin discolorations b/l arms, small st 1 0.5cm left buttock round opening - MUSCULOSKELETAL/RHEUMATOLOGICAL Hx Falls: No - GASTROINTESTINAL Hx Gastrointestinal Disorders: Yes Hx Diverticulitis: Yes - GENITOURINARY/GYNECOLOGICAL Hx Genitourinary Disorders: Yes Hx Incontinence: Yes Hx Urinary Tract Infection: Yes - PSYCHIATRIC Hx Substance Use: No - SURGICAL HISTORY Hx Amputation: No Hx Appendectomy: No Hx Cardiac Catheterization: No Hx Cholecystectomy: No Hx Coronary Stent: No Hx Gastric Bypass Surgery: No Hx Hysterectomy: No Hx Joint Replacement: No Hx Kidney Transplant: No Hx Liver Transplant: No Hx Musculoskeletal Surgery: No Hx Open Heart Surgery: No Hx Orthopedic Surgery: No Hx Splenectomy: No Hx Valve Replacement: No Other/Comment: right breast cyst removed 25 yrs ago - ANESTHESIA Hx Anesthesia: No Meds Allergies/Adverse Reactions: Allergies Allergy/AdvReac Type Severity Reaction Status Date / Time No Known Allergies Allergy Verified 11/06/16 18:20 Physical Exam - Constitutional Appears: Chronically Ill - Head Exam Head Exam: ATRAUMATIC, NORMAL INSPECTION, NORMOCEPHALIC - Eye Exam Eye Exam: Normal appearance Pupil Exam: NORMAL ACCOMODATION - ENT Exam ENT Exam: absent: Mucous Membranes Dry, Mucous Membranes Moist, Normal Exam, Normal External Ear Exam, Normal Oropharynx, TM's Normal Bilaterally - Neck Exam Neck exam: Negative for: Full Rom, Lymphadenopathy, Meningismus, Normal Inspection, Tenderness, Thyromegaly - Respiratory Exam Respiratory Exam: Clear to Auscultation Bilateral, NORMAL BREATHING PATTERN - Cardiovascular Exam Cardiovascular Exam: REGULAR RHYTHM, +S1, +S2 - GI/Abdominal Exam GI & Abdominal Exam: Normal Bowel Sounds, Soft - Extremities Exam Extremities exam: Positive for: pedal edema Additional comments: B/L leg swelling. erythema right leg. - Back Exam Additional comments: stage I decub left buttock - Psychiatric Exam Psychiatric exam: Normal Affect, Normal Mood - Skin Skin Exam: Normal Color, Warm Additional comments: as above. Results - Vital Signs Recent Vital Signs: Last Vital Signs Temp 98.3 F 04/17/17 18:00 Pulse 75 04/17/17 18:00 Resp 20 04/17/17 18:00 BP 137/61 04/17/17 18:17 Pulse Ox 96 04/17/17 06:00 - Labs Result Diagrams: 04/18/17 06:30 04/18/17 06:30 Labs: Laboratory Results - last 24 hr 04/17/17 04/17/17 04/17/17 07:20 07:20 11:20 WBC 6.5 RBC 4.81 Hgb 11.8 L Hct 40.9 MCV 85.0 MCH 24.5 L MCHC 28.9 L RDW 19.9 H Plt Count 276 MPV 9.9 Gran % 75.2 H Lymph % (Auto) 10.5 L [place] % (Auto) 10.7 H Eos % (Auto) 2.8 Baso % (Auto) 0.8 Gran # 4.87 Lymph # 0.7 L [place] # 0.7 H Eos # 0.2 Baso # 0.05 Sodium 141 Potassium 3.7 Chloride 100 Carbon Dioxide 32 Anion Gap 13 BUN 56 H Creatinine 1.3 Est GFR ( Amer) 47 Est GFR (Non-Af Amer) 39 POC Glucose (mg/dL) 179 H Random Glucose 111 H Calcium 8.9 04/17/17 17:10 WBC RBC Hgb Hct MCV MCH MCHC RDW Plt Count MPV Gran % Lymph % (Auto) [place] % (Auto) Eos % (Auto) Baso % (Auto) Gran # Lymph # [place] # Eos # Baso # Sodium Potassium Chloride Carbon Dioxide Anion Gap BUN Creatinine Est GFR ( Amer) Est GFR (Non-Af Amer) POC Glucose (mg/dL) 176 H Random Glucose Calcium Assessment & Plan - Assessment and Plan (Free Text) Plan: 1. CHF 2. A-Fib 3. Coagulopathy 4. CAD 5. DM II 6. anemia,granulocytosis 7. B/L lung infiltrate. 8. B/L leg swelling. Plan : admit tele monitoring. lasix 40 mg IV BID. Kdur 20 meq daily. B/L lung infiltrate. ceftrioxone 1 gm daily. ID consult, Dr. Conway. doppler b/l lower extremity. INR elevated 4.0. Hold coumadin. monitor Pt/INR. Insulin -25 units BID. Continue xanax, lipitor, digoxin. cardiology consult Dr. De Los Santos. podiatry consult.
--- NOTE | 2017-04-18 22:55 | CP.PCM.PN ---
Subjective - Date & Time of Evaluation Date of Evaluation: 04/18/17 Time of Evaluation: 10:00 - Subjective Subjective: Comfortable in bed. Breathing improved. B/L lower leg swelling. Doppler negative for DVT. No fever, cough. Objective - Vital Signs/Intake and Output Vital Signs (last 24 hours): Temp Pulse Resp BP Pulse Ox 98.2 F 63 18 144/68 94 L 04/18/17 16:00 04/18/17 16:00 04/18/17 16:00 04/18/17 18:18 04/18/17 16:00 Intake and Output: 04/18/17 04/19/17 18:59 06:59 Intake Total 540 Output Total 1100 Balance -560 - Medications Medications: Current Medications Alprazolam (Xanax) 1 mg PO HS PRN; Protocol PRN Reason: Anxiety Last Admin: 04/17/17 23:14 Dose: 1 mg Atorvastatin Calcium (Lipitor) 20 mg PO DAILY [facility] Last Admin: 04/18/17 11:28 Dose: 20 mg Digoxin (Lanoxin) 0.125 mg PO 1400 [facility] Last Admin: 04/18/17 14:02 Dose: 0.125 mg Diltiazem HCl (Cardizem Cd) 240 mg PO DAILY [facility] Last Admin: 04/18/17 11:27 Dose: 240 mg Donepezil HCl (Aricept) 5 mg PO HS [facility] Last Admin: 04/18/17 21:09 Dose: 5 mg Furosemide (Lasix) 40 mg IVP BID [facility] Last Admin: 04/18/17 18:18 Dose: 40 mg Ceftriaxone Sodium (Rocephin 1 Gram Ivpb) 1 gm in 100 mls @ 100 mls/hr IVPB DAILY [facility] PRN Reason: Protocol Last Admin: 04/18/17 11:27 Dose: 100 mls/hr Insulin Lispro Protam/Lispro Human (Humalog Mix 75/25) 20 units SC BID [facility] Last Admin: 04/18/17 18:18 Dose: 20 units Metolazone (Zaroxolyn) 5 mg PO ONCE ONE Stop: 04/19/17 10:01 Potassium Chloride (K-Dur 20 Meq Er Tab) 20 meq PO DAILY [facility] Last Admin: 04/18/17 11:28 Dose: 20 meq Warfarin Sodium (Coumadin) 3 mg PO 1800 [facility] PRN Reason: Protocol - Labs Labs: 04/18/17 06:30 04/18/17 06:30 PT 32.6 Seconds (9.9-11.8) H* 04/18/17 06:30 INR 3.02 (0.93-1.08) H 04/18/17 06:30 APTT 38.3 Seconds (23.7-30.8) H 04/16/17 21:00 - Constitutional Appears: Non-toxic - Head Exam Head Exam: ATRAUMATIC, NORMAL INSPECTION, NORMOCEPHALIC - Eye Exam Eye Exam: absent: Conjunctival injection, EOMI, Normal appearance, Nystagmus, Periorbital swelling, Periorbital tenderness, PERRL, Scleral icterus - ENT Exam ENT Exam: absent: Mucous Membranes Dry, Mucous Membranes Moist, Normal Exam, Normal External Ear Exam, Normal Oropharynx, TM's Normal Bilaterally - Neck Exam Neck Exam: absent: Full ROM, Lymphadenopathy, Meningismus, Normal Inspection, Tenderness, Thyromegaly - Respiratory Exam Respiratory Exam: Clear to Ausculation Bilateral, NORMAL BREATHING PATTERN - GI/Abdominal Exam GI & Abdominal Exam: Normal Bowel Sounds. absent: Bruit, Distended, Firm, Guarding, Rigid, Soft, Tenderness, Diminished Bowel Sounds, Hernia, Hyperactive Bowel Sounds, Hypoactive Bowel Sounds, Organomegaly, Pulsatile Mass, Rebound, Mass - Extremities Exam Extremities Exam: Pedal Edema - Neurological Exam Neurological Exam: Alert, Oriented x3 - Skin Skin Exam: Normal Color, Warm Assessment and Plan - Assessment and Plan (Free Text) Assessment: Plan: 1. CHF 2. A-Fib 3. Coagulopathy 4. CAD 5. DM II 6. anemia,granulocytosis 7. B/L lung infiltrate. 8. B/L leg swelling. Plan : Breathing improved. Continue lasix 40 mg IV BID Kdur 20 meq daily. B/L lung infiltrate. ceftrioxone 1 gm daily. doppler b/l lower extremity negative for DVT. coumadin 3start 04/19. monitor Pt/INR. Insulin -25 units BID. Continue xanax, lipitor, digoxin. cardiology consult Dr. De Los Santos appreciated. Blood counts stable.
[2017-04-19 07:39] LABS: MEAN CELL VOLUME 86.4 fl (80.0-105.0); MEAN CORPUSCULAR HEMOGLOBIN 24.8 pg (25.0-35.0); MEAN CORPUSCULAR HGB CONC 28.8 g/dl (31.0-37.0); MEAN PLATELET VOLUME 9.4 fl (7.0-11.0); RED CELL DISTRIBUTION WIDTH 20.2 % (11.5-14.5); WHITE BLOOD COUNT 6.3 10^3/ul (4.5-11.0)
[2017-04-19 07:59] LABS: ALB/GLOB RATIO 0.8 (1.1-1.8); BILIRUBIN,TOTAL 0.8 mg/dL (0.2-1.3); CALCIUM 8.9 mg/dL (8.4-10.5); POTASSIUM 3.4 mmol/L (3.6-5.0); TOTAL PROTEIN 7.4 g/dL (5.8-8.3)
[2017-04-19 08:13] VITALS: O2SAT 96
[2017-04-19] MEDS: Potassium Chloride 20 mEq ER Tab PO SCH (09:39)
[2017-04-19] MEDS: cefTRIAXone 1 gm 1 GM/100 ML BAG IVPB SCH (09:39)
[2017-04-19] MEDS: diltiaZEM 240 mg/24 Hours CD Cap PO SCH (09:39)
[2017-04-19] MEDS: Insulin Lispro (humaLOG) MIX 75/25(10 ml) SC SCH ×2 (09:40→17:26)
[2017-04-19] MEDS ORDERED: metOLazone 5 MG TAB PO ONE (10:00)
--- NOTE | 2017-04-19 13:23 | CP.PCM.CON ---
<Lisset Baez - Last Filed: 04/19/17 13:18> History of Present Illness - History of Present Illness History of Present Illness: Patient is an 86 yo female patient with PMHx of CHF, A- Fib, DM II, Dementia Alzheimer's type, COPD was seen at bedside this AM with attending Dr. Gamino concerning Left leg open wound. Patient was not AAOx3 at the time of visit and was not able to communicate. Patient is known to podiatry service (Dr. Gamino) from home visits in the past. Patient presents with left leg venous stasis ulceration to anterior aspect and b/l lymphedema secondary to CHF Past Patient History - Infectious Disease Hx of Infectious Diseases: None - Tetanus Immunizations Tetanus Immunization: Unknown - Past Medical History & Family History Past Medical History?: Yes Past Family History: Reviewed and not pertinent - Past Social History Smoking Status: Never Smoked - CARDIAC Hx Cardiac Disorders: Yes ([place]) Hx Congestive Heart Failure: Yes Hx Hypercholesterolemia: Yes Hx Hypertension: Yes - PULMONARY Hx Chronic Obstructive Pulmonary Disease (COPD): Yes - NEUROLOGICAL HX Cerebrovascular Accident: Yes - HEENT Hx HEENT Problems: Yes Hx Cataracts: Yes (bilateral, sx 2007) - RENAL Hx Chronic Kidney Disease: No - ENDOCRINE/METABOLIC Hx Diabetes Mellitus Type 2: Yes - HEMATOLOGICAL/ONCOLOGICAL Hx Blood Disorders: Yes Hx Anemia: Yes - INTEGUMENTARY Hx Dermatological Problems: Yes Other/Comment: bruises to left knee , both great toes red swollen stage 1 opening 0.5cm round left buttock, buttocks/sacrum reddened, red rash under right breast multiple dry age spots to chest, small dry brown growth to left hand 3rd finger. 2 small scabs to rle, multiple skin discolorations b/l arms, small st 1 0.5cm left buttock round opening - MUSCULOSKELETAL/RHEUMATOLOGICAL Hx Falls: No - GASTROINTESTINAL Hx Gastrointestinal Disorders: Yes Hx Diverticulitis: Yes - GENITOURINARY/GYNECOLOGICAL Hx Genitourinary Disorders: Yes Hx Incontinence: Yes Hx Urinary Tract Infection: Yes - PSYCHIATRIC Hx Substance Use: No - SURGICAL HISTORY Hx Amputation: No Hx Appendectomy: No Hx Cardiac Catheterization: No Hx Cholecystectomy: No Hx Coronary Stent: No Hx Gastric Bypass Surgery: No Hx Hysterectomy: No Hx Joint Replacement: No Hx Kidney Transplant: No Hx Liver Transplant: No Hx Musculoskeletal Surgery: No Hx Open Heart Surgery: No Hx Orthopedic Surgery: No Hx Splenectomy: No Hx Valve Replacement: No Other/Comment: right breast cyst removed 25 yrs ago - ANESTHESIA Hx Anesthesia: No Meds Allergies/Adverse Reactions: Allergies Allergy/AdvReac Type Severity Reaction Status Date / Time No Known Allergies Allergy Verified 11/06/16 18:20 - Medications Medications: Current Medications Alprazolam (Xanax) 1 mg PO HS PRN; Protocol PRN Reason: Anxiety Last Admin: 04/17/17 23:14 Dose: 1 mg Atorvastatin Calcium (Lipitor) 20 mg PO DAILY [facility] Last Admin: 04/19/17 09:39 Dose: 20 mg Digoxin (Lanoxin) 0.125 mg PO 1400 [facility] Last Admin: 04/18/17 14:02 Dose: 0.125 mg Diltiazem HCl (Cardizem Cd) 240 mg PO DAILY [facility] Last Admin: 04/19/17 09:39 Dose: 240 mg Donepezil HCl (Aricept) 5 mg PO HS [facility] Last Admin: 04/18/17 21:09 Dose: 5 mg Furosemide (Lasix) 40 mg IVP BID [facility] Last Admin: 04/19/17 09:39 Dose: 40 mg Ceftriaxone Sodium (Rocephin 1 Gram Ivpb) 1 gm in 100 mls @ 100 mls/hr IVPB DAILY [facility] PRN Reason: Protocol Last Admin: 04/19/17 09:39 Dose: 100 mls/hr Insulin Lispro Protam/Lispro Human (Humalog Mix 75/25) 20 units SC BID [facility] Last Admin: 04/19/17 09:40 Dose: 20 units Potassium Chloride (K-Dur 20 Meq Er Tab) 20 meq PO DAILY [facility] Last Admin: 04/19/17 09:39 Dose: 20 meq Warfarin Sodium (Coumadin) 3 mg PO 1800 [facility] PRN Reason: Protocol Physical Exam - Constitutional Appears: Well, Non-toxic, No Acute Distress - Head Exam Head Exam: ATRAUMATIC - Extremities Exam Additional comments: Left lower extremity exam DERM: Open wound noted to anterior aspect of Left leg measuring 3cm x 2cmx 0.1cm with mix of granular and fibrotic base. Moderate sero-sanguinous drainage is noted from the wound. Mild erythema is present around the wound. No purulent drainage is noted. No mal-odor is noted. No PTB VASC: Non-palpable DP and PT noted b/l [employer] less than 3 seconds noted to all digits - Psychiatric Exam Psychiatric exam: Normal Affect, Normal Mood - Skin Skin Exam: Normal Color, Warm Results - Vital Signs Recent Vital Signs: Last Vital Signs Temp 97.8 F 04/19/17 08:12 Pulse 62 04/19/17 09:39 Resp 22 04/19/17 08:12 BP 142/62 04/19/17 09:39 Pulse Ox 96 04/19/17 08:12 - Labs Result Diagrams: 04/19/17 07:00 04/19/17 07:00 Labs: Laboratory Results - last 24 hr 04/18/17 04/18/17 04/19/17 16:49 21:01 07:00 WBC 6.3 RBC 4.63 Hgb 11.5 L Hct 40.0 MCV 86.4 MCH 24.8 L MCHC 28.8 L RDW 20.2 H Plt Count 237 MPV 9.4 Sodium Potassium Chloride Carbon Dioxide Anion Gap BUN Creatinine Est GFR ( Amer) Est GFR (Non-Af Amer) POC Glucose (mg/dL) 208 H 179 H Random Glucose Calcium Total Bilirubin AST ALT Alkaline Phosphatase Total Protein Albumin Globulin Albumin/Globulin Ratio 04/19/17 04/19/17 04/19/17 07:00 07:54 11:37 WBC RBC Hgb Hct MCV MCH MCHC RDW Plt Count MPV Sodium 143 Potassium 3.4 L Chloride 97 Carbon Dioxide 40 H Anion Gap 9 L BUN 50 H Creatinine 1.2 Est GFR ( Amer) 51 Est GFR (Non-Af Amer) 42 POC Glucose (mg/dL) 127 H 227 H Random Glucose 122 H Calcium 8.9 Total Bilirubin 0.8 AST 33 ALT 27 Alkaline Phosphatase 119 Total Protein 7.4 Albumin 3.2 Globulin 4.2 Albumin/Globulin Ratio 0.8 L Assessment & Plan - Assessment and Plan (Free Text) Assessment: 86 year old female presents with Lower extremity lymphedema, open venous stasis ulceration to anterior left leg Plan: Patient was seen, evaluated by bedside with attending Dr. Gamino Labs and vitals reviewed Left leg wound is dressed with Adaptic, Maxorb and DSD Podiatry will continue to follow inhouse <Quan Gamino - Last Filed: 04/21/17 08:01> Results - Vital Signs Recent Vital Signs: Last Vital Signs Temp 98.7 F 04/19/17 16:00 Pulse 42 L 04/19/17 16:00 Resp 20 04/19/17 16:00 BP 132/65 04/19/17 17:26 Pulse Ox 96 04/19/17 16:00 - Labs Result Diagrams: 04/19/17 07:00 04/19/17 07:00 Attending/Attestation - Attestation I have personally seen and examined this patient.: Yes I have fully participated in the care of the patient.: Yes I have reviewed all pertinent clinical information: Yes
[2017-04-19] MEDS: Digoxin 125 mcg (0.125 mg) Tab PO SCH (14:32)
[2017-04-19 14:35] VITALS: PULSE 76
[2017-04-19 16:36] VITALS: BP 132/65; PULSE 42; RESP 20; TEMP 98.7
--- NOTE | 2017-04-20 02:52 | PN ---
DATE: 04/19/2017 SUBJECTIVE: Patient is seen lying in bed on 3R. She offers no complaints at present. MEDICATIONS: Her current medications include Aricept,diltiazem 240 mg daily, warfarin, insulin, potassium, digoxin 0.125 mg daily, Lasix 40 mg b.i.d., Lipitor 20 mg daily, Rocephin, and Xanax p.r.n. OBJECTIVE: GENERAL: She is a very elderly women, who appears comfortable at the present time. VITAL SIGNS: Her blood pressure 142/60 with pulse of 60 and sinus, respirations are 16. She is afebrile. HEENT: No JVD. LUNGS: Few scattered rhonchi heard. CARDIOVASCULAR: PMI displaced laterally with systolic murmur in the left sternal border. ABDOMEN: Soft and nontender with bowel sounds.. EXTREMITIES: Revealed 1+ leg edema. DIAGNOSTIC DATA: Potassium is 3.4, BUN and creatinine 50 and 1.2. White count 6.3, hemoglobin and hematocrit 11.5 and 40.0 with platelet count 237,000. IMPRESSION: 1. Leg cellulitis, clinically improved. 2. Known coronary artery disease status post prior myocardial infarction. 3. Moderately severe aortic stenosis. 4. Chronic atrial fibrillation. 5. History of hypertension, diabetes, and dementia. RECOMMENDATIONS: Lasix can be switch to oral administration at this time. From a cardiac standpoint, she appears stable for transfer to rehabilitation center if she is mentally cleared to do so. Conservative cardiac management is planned. We will follow along as needed. Gabe Alba MD
--- NOTE | 2017-04-20 05:40 | DS ---
HISTORY OF PRESENT ILLNESS: This is an 86-year-old female who was brought in by her daughter because of lower extremity edema with significant swelling that was 3+. She was having oozing to her legs and bandages are wet that were being wrapped. She has been given IV diuretic therapy and have improvement of her symptoms. She is going to be discharge to subacute rehab at [facility] for further management. She has no complaints of any headaches or dizziness. No nausea. No vomiting. PHYSICAL EXAMINATION: VITAL SIGNS: Temperature 98.7, pulse of 42, blood pressure 132/65 and respirations 20. GENERAL: The patient is lying in bed, flat, comfortable. HEENT: No oral lesion. Anicteric sclerae. Moist mucosa. NECK: No JVD, adenopathy, or thyromegaly. CARDIOVASCULAR: S1 and S2, regular. No murmurs, rubs, or gallops. LUNGS: Clear to auscultation bilaterally. No wheeze, rales, or rhonchi. ABDOMEN: Bowel sounds are positive, soft, nontender and nondistended. EXTREMITIES: 1+ edema. LABORATORY DATA: White count is 6.3 and hemoglobin 11.5. Creatinine is 1.2 and potassium is 3.4. ASSESSMENT: 1. Lower extremity edema, improving. 2. Coronary artery disease. 3. Congestive heart failure secondary to diastolic dysfunction. 4. Aortic stenosis. 5. Atrial fibrillation, on anticoagulation. 6. Hypertension. 7. Diabetes type 2. 8. Dementia, Alzheimer's type. PLAN: The patient is currently comfortable. She is going to be discharge home. I did give her metolazone for extra diuresis. She did have significant urine output. She is going to be discharge to [facility] for followup as an outpatient with me, although she is homebound. Condition is stable. Activities increase as tolerated. Denton Napoles MD
== END 2017-04-19 21:38 | DRG 292 ==
LOC: ED 20:27 → ERH 21:41 → 2RSO 04-17 01:11 → 3RNO 04-18 12:53
PROVIDERS: ADMIT Internal Medicine Nephrology; ATTEND Internal Medicine Nephrology
DX: I11.0 Hypertensive heart disease with heart failure (principal); I50.31 Acute diastolic (congestive) heart failure; I47.2 Ventricular tachycardia; L03.119 Cellulitis of unspecified part of limb; L97.829 Non-pressure chronic ulcer of other part of left lower leg with unspecified severity; E11.622 Type 2 diabetes mellitus with other skin ulcer; L89.321 Pressure ulcer of left buttock, stage 1; I48.2 Chronic atrial fibrillation; G30.9 Alzheimer's disease, unspecified; F02.80 Dementia in other diseases classified elsewhere, unspecified severity, without behavioral disturbance, psychotic disturbance, mood disturbance, and anxiety; J44.9 Chronic obstructive pulmonary disease, unspecified; D64.9 Anemia, unspecified; I87.8 Other specified disorders of veins; I25.10 Atherosclerotic heart disease of native coronary artery without angina pectoris; I08.0 Rheumatic disorders of both mitral and aortic valves; M19.012 Primary osteoarthritis, left shoulder; M19.011 Primary osteoarthritis, right shoulder; I89.0 Lymphedema, not elsewhere classified; I25.2 Old myocardial infarction; Z79.01 Long term (current) use of anticoagulants; Z79.4 Long term (current) use of insulin

== ENCOUNTER 2017-06-15 12:07 | Emergency (ER) | payer MEDICARE, OTHER ==
[2017-06-15 12:08] VITALS: PULSE 76; BMI 34.6
[2017-06-15 12:30] VITALS: TEMP 98.4
--- NOTE | 2017-06-15 12:50 | ED PDOC ---
Arrival/HPI - General Chief Complaint: Trauma Time Seen by Provider: 06/15/17 12:12 Historian: Patient, Family (daughter) - History of Present Illness Narrative History of Present Illness (Text): 06/15/17 12:35 Arleth Batista is an 86 year old female, whose past medical history includes COPD, CHF, diabetes, NC, and dementia, who is brought in to the emergency department by her daughter after a [facility] prior to arrival. Daughter reports the nursing aid contacted her stating patient was getting up to go to the bathroom from her chair when she slipped down hitting her buttocks. It was a witnessed fall with no head injury or LOC. Daughter notes patient was complaining of pain but patient currently denies any symptoms. No other complaints were made. PMD: Dr. Napoles 06/15/17 15:13 Time/Duration: Prior to Arrival Symptom Onset: Sudden Symptom Course: Unchanged Activities at Onset: Light Context: Slipped Past Medical History - Provider Review Nursing Documentation Reviewed: Yes - Infectious Disease Hx of Infectious Diseases: None - Tetanus Immunization Tetanus Immunization: Unknown - Reproductive Menopause: Yes - Cardiac Hx Cardiac Disorders: Yes ([place]) Hx Congestive Heart Failure: Yes Hx Hypertension: Yes - Pulmonary Hx Chronic Obstructive Pulmonary Disease (COPD): Yes - Neurological Hx Alzheimer's Disease: Yes HX Cerebrovascular Accident: Yes - HEENT Hx HEENT Disorder: Yes Hx Cataracts: Yes (bilateral, sx 2007) - Renal Hx Renal Disorder: No - Endocrine/Metabolic Hx Diabetes Mellitus Type 2: Yes - Hematological/Oncological Hx Blood Disorders: Yes Hx Anemia: Yes - Integumentary Hx Dermatological Disorder: Yes Other/Comment: bruises to left knee , both great toes red swollen stage 1 opening 0.5cm round left buttock, buttocks/sacrum reddened, red rash under right breast multiple dry age spots to chest, small dry brown growth to left hand 3rd finger. 2 small scabs to rle, multiple skin discolorations b/l arms, small st 1 0.5cm left buttock round opening - Musculoskeletal/Rheumatological Hx Falls: No - Gastrointestinal Hx Gastrointestinal Disorders: Yes Hx Diverticulitis: Yes - Genitourinary/Gynecological Hx Genitourinary Disorders: Yes Hx Incontinence: Yes Hx Urinary Tract Infection: Yes - Psychiatric Hx Psychophysiologic Disorder: No Hx Anxiety: No Hx Bipolar Disorder: No Hx Depression: No Hx Emotional Abuse: No Hx Hallucinations: No Hx Panic Disorder: No Hx Post Traumatic Stress Disorder: No Hx Psychosis: No Hx Physical Abuse: No Hx Schizophrenia: No Hx Sexual Abuse: No Hx Substance Use: No - Surgical History Hx Amputation: No Hx Appendectomy: No Hx Cardiac Catheterization: No Hx Cholecystectomy: No Hx Coronary Stent: No Hx Gastric Bypass Surgery: No Hx Hysterectomy: No Hx Joint Replacement: No Hx Kidney Transplant: No Hx Liver Transplant: No Hx Musculoskeletal Surgery: No Hx Open Heart Surgery: No Hx Orthopedic Surgery: No Hx Splenectomy: No Hx Valve Replacement: No Other/Comment: right breast cyst removed 25 yrs ago - Anesthesia Hx Anesthesia: No - Suicidal Assessment Feels Threatened In Home Enviroment: No Family/Social History - Physician Review Nursing Documentation Reviewed: Yes Family/Social History: Unknown Family HX Smoking Status: Never Smoked Hx Alcohol Use: No Hx Substance Use: No Hx Substance Use Treatment: No Allergies/Home Meds Allergies/Adverse Reactions: Allergies No Known Allergies Allergy (Verified 11/06/16 18:20) Home Medications: Home Meds Medication Instructions Recorded Confirmed Atorvastatin [Lipitor] 20 mg PO DAILY 10/13/14 06/15/17 Digoxin 0.125 mg PO DAILY 10/13/14 06/15/17 [id number] CD [Cardizem CD] 240 mg PO DAILY 07/14/16 06/15/17 Alprazolam [Xanax] 1 mg PO HS 01/26/17 06/15/17 Furosemide [Lasix] 80 mg PO TID 06/15/17 06/15/17 Warfarin [Coumadin] 4 mg PO 1800 06/15/17 06/15/17 Review of Systems - Review of Systems Constitutional: absent: Fevers Respiratory: absent: SOB Cardiovascular: absent: Chest Pain Genitourinary Female: Vaginal Bleeding (not new and is scheduled to see a office clinician this week) Musculoskeletal: Other (buttock pain after mechanical fall at [facility]. ) Neurological: absent: Headache, Dizziness Physical Exam Vital Signs Reviewed: Yes Vital Signs Temp Pulse Resp BP Pulse Ox 06/15/17 15:09 57 L 17 135/77 93 L 06/15/17 12:29 98.4 F 74 17 137/62 95 Temperature: Afebrile Blood Pressure: Normal Pulse: Regular Respiratory Rate: Normal Appearance: Positive for: Well-Appearing, Non-Toxic, Comfortable Pain Distress: None Mental Status: Positive for: Alert and Oriented X 3 - Systems Exam Head: Present: Atraumatic, Normocephalic. No: Tenderness, Swelling Pupils: Present: PERRL Extroacular Muscles: Present: EOMI Conjunctiva: Present: Normal Mouth: Present: Moist Mucous Membranes Neck: Present: Normal Range of Motion. No: MIDLINE TENDERNESS, Paraspinal Tenderness Respiratory/Chest: Present: Clear to Auscultation, Good Air Exchange. No: Respiratory Distress, Accessory Muscle Use Cardiovascular: Present: Regular Rate and Rhythm, Normal S1, S2. No: Murmurs Abdomen: Present: Normal Bowel Sounds. No: Tenderness, Distention, Peritoneal Signs Back: No: CVA Tenderness, Midline Tenderness, Paraspinal Tenderness, Pain with Leg Raise Upper Extremity: Present: Normal Inspection, Normal ROM, NORMAL PULSES, Neurovascularly Intact. No: Cyanosis, Edema, Tenderness, Swelling, Deformity Lower Extremity: Present: Edema, Normal ROM, Other (FROM of hip and knees). No : Tenderness, Deformity Neurological: Present: GCS=15, CN II-XII Intact, Speech Normal, Motor Func Grossly Intact, Normal Sensory Function Skin: Present: Warm, Dry, Normal Color. No: Rashes Psychiatric: Present: Alert, Oriented x 3, Normal Insight, Normal Concentration Medical Decision Making ED Course and Treatment: 06/15/17 Impression: 86 year old female with no back tenderness, no midline or neck tenderness. pt has FROM of bilateral knees and hip. there is no tenderness on head or extremities. Differential Diagnosis included but are not limited to: mechanical fall r/o fracture Plan: -- Hip x-ray -- Labs -- Urinalysis -- Reassess and disposition Progress Notes: 06/15/17 14:10 Hip x-ray: Creator: Guzman Tracy MD FINDINGS: BONES: Pelvis: Unremarkable. Right hip: Unremarkable. Left hip: Unremarkable. JOINTS: Right hip: Mild degenerative change Left hip: Mild degenerative change Sacroiliac Joints: Unremarkable. Pubic symphysis: Unremarkable. SOFT TISSUES: Normal. OTHER FINDINGS: None. IMPRESSION: Mild degenerative changes. No evidence of fracture 06/15/17 16:50 Daughter states that the fall was witness and patient is at baseline mental status. She requested a UA because her mom has frequent UTI's. The labs showed elevated INR. Daughter states the vaginal bleeding has not worsened. Patient denies any lightheadedness or dizziness. H/H normal. I advised daughter she needs to hold the coumadin for 2 days and get her INR rechecked by her PMD in 2- 3days. UA was positive for UTI and patient was treated with Keflex. UCx sent. Oxygen saturation is 95% on 2L oxygen and daughter states this is her baseline. She says without oxygen she drops to the 80's as her baseline. - Lab Interpretations Lab Results: 06/15/17 13:15 06/15/17 13:15 Lab Results 06/15/17 15:23: Urine Color Yellow, Urine Appearance Cloudy, Urine pH 6.0, Ur Specific [place] 1.015, Urine Protein Trace H, Urine Glucose (UA) Negative, Urine Ketones Negative, Urine Blood Moderate H, Urine Nitrate Negative, Urine Bilirubin Negative, Urine Urobilinogen 1.0 H, Ur Leukocyte Esterase Large H, Urine RBC 20 - 25, Urine WBC Tntc, Ur Epithelial Cells 6 - 8, Urine Bacteria Many 06/15/17 14:25: PT 41.9 H, INR 3.74 H*, APTT 46.2 H 06/15/17 13:15: Sodium 143, Potassium 4.1, Chloride 99, Carbon Dioxide 35 H, Anion Gap 13, BUN 43 H, Creatinine 1.4 H, Est GFR ( Amer) 43, Est GFR ( Non-Af Amer) 36, Random Glucose 188 H, Calcium 9.0 06/15/17 13:15: WBC 7.1, RBC 4.52, Hgb 12.4, Hct 40.8, MCV 90.3 D, MCH 27.4, MCHC 30.4 L, RDW 21.4 H, Plt Count 274, MPV 9.8, Gran % 79.3 H, Lymph % (Auto) 7.1 L, Gage % (Auto) 10.3 H, Eos % (Auto) 2.5, Baso % (Auto) 0.8, Gran # 5.60, Lymph # 0.5 L, Gage # 0.7 H, Eos # 0.2, Baso # 0.06 I have reviewed the lab results: Yes - RAD Interpretation Radiology Orders: 06/15/17 12:37 Hip Bilateral [HIP MIN 3V W/ PELVIS DANA] [RAD] Stat - Medication Orders Current Medication Orders: Discontinued Medications Cephalexin Monohydrate (Keflex) 500 mg PO STAT STA PRN Reason: Protocol Stop: 06/15/17 16:31 - Scribe Statement The provider has reviewed the documentation as recorded by the Jimmy Peterson Provider Scribe Attestation: All medical record entries made by the Scribe were at my direction and personally dictated by me. I have reviewed the chart and agree that the record accurately reflects my personal performance of the history, physical exam, medical decision making, and the department course for this patient. I have also personally directed, reviewed, and agree with the discharge instructions and disposition. Disposition/Present on Arrival - Present on Arrival Any Indicators Present on Arrival: No History of DVT/PE: No History of Uncontrolled Diabetes: No Urinary Catheter: No History of Decub. Ulcer: No History Surgical Site Infection Following: None - Disposition Have Diagnosis and Disposition been Completed?: Yes Diagnosis: Elevated INR, UTI (lower urinary tract infection), Fall Disposition: HOME/ ROUTINE Disposition Time: 16:53 Patient Plan: Discharge Patient Problems: Current Active Problems Problem Status Onset Elevated INR Acute Fall Acute UTI (lower urinary tract infection) Acute Condition: IMPROVED Discharge Instructions (ExitCare): Urinary Tract Infection in Women (ED), Fall Prevention for Older Adults (ED), Elevated INR (ED) Additional Instructions: Ms Batista thank you for letting us take care of you today. Your provider was Dr. Newell. You were treated for UTI, Mechanical Fall, Elevated INR. The emergency medical care you received today was directed at your acute symptoms. If you were prescribed any medication, please fill it and take as directed. It may take several days for your symptoms to resolve. Return to the Emergency Department if your symptoms worsen, do not improve, or if you have any other problems. Hold her coumadin for 2 days and make sure to have your INR repeated in 2-3 days. Please contact your doctor or call one of the physicians/clinics you have been referred to that are listed on the Patient Visit Information form that is included in your discharge packet. Bring any paperwork you were given at discharge with you along with any medications you are taking to your follow up visit. Our treatment cannot replace ongoing medical care by a primary care provider (PCP) outside of the emergency department. Thank you for allowing the [facility] team to be part of your care today. If you had an X-Ray or CT scan: A Radiologist will review the ED reading if any change in treatment is needed we will contact you. If you had a blood, urine, or wound culture: It will take several days for the results, if any change in treatment is needed we will contact you. If you had an STI test: It will take 48 hours for the results. Please call after 1 week if you have not heard back. Prescriptions: Cephalexin [Keflex] 500 mg PO BID #14 capsule Referrals: Denton Napoles MD [Family Provider] - Follow up with primary Forms: [employer] (Vietnamese)
[2017-06-15 13:55] LABS: BASO # 0.06 K/mm3 (0.0-2.0); BASO % 0.8 % (0.0-3.0); EOS # 0.2 (0.0-0.7); EOS % 2.5 % (1.5-5.0); GRAN # 5.6 (1.4-6.5); GRAN % 79.3 % (50.0-68.0); HEMATOCRIT 40.8 % (36.0-48.0); LYMPH # 0.5 (1.2-3.4); LYMPH % 7.1 % (22.0-35.0); MEAN CELL VOLUME 90.3 fl (80.0-105.0); MEAN CORPUSCULAR HEMOGLOBIN 27.4 pg (25.0-35.0); MEAN CORPUSCULAR HGB CONC 30.4 g/dl (31.0-37.0); MEAN PLATELET VOLUME 9.8 fl (7.0-11.0); MONO # 0.7 (0.1-0.6); MONO % 10.3 % (1.0-6.0); RED CELL DISTRIBUTION WIDTH 21.4 % (11.5-14.5); WHITE BLOOD COUNT 7.1 10^3/ul (4.5-11.0)
[2017-06-15 14:02] LABS: POTASSIUM 4.1 mmol/L (3.6-5.0)
--- NOTE | 2017-06-15 14:12 | RAD ---
PROCEDURE: Radiographs of the pelvis and bilateral hips HISTORY: fall r/o fx COMPARISON: None. FINDINGS: BONES: Pelvis: Unremarkable. Right hip:Unremarkable. Left hip:Unremarkable. JOINTS: Right hip: Mild degenerative change Left hip: Mild degenerative change Sacroiliac Joints: Unremarkable. Pubic symphysis: Unremarkable. SOFT TISSUES: Normal. OTHER FINDINGS: None. IMPRESSION: Mild degenerative changes. No evidence of fracture
[2017-06-15 15:10] LABS: PARTIAL THROMBOPLASTIN TIME 46.2 Seconds (25.1-36.5)
[2017-06-15 15:11] LABS: INR 3.74 (0.93-1.08)
[2017-06-15 15:50] LABS: URINE BILIRUBIN NEGATIVE (NEGATIVE); URINE BLOOD MODERATE (NEGATIVE); URINE GLUCOSE (UA) NEGATIVE (NEGATIVE); URINE KETONE NEGATIVE (NEGATIVE); URINE LEUKOCYTE ESTERASE LARGE Leu/uL (NEGATIVE); URINE PROTEIN TRACE mg/dL (<30 mg/dL)
[2017-06-15 15:59] LABS: URINE APPEARANCE CLOUDY (CLEAR); URINE COLOR YELLOW (YELLOW)
[2017-06-15 16:02] LABS: URINE BACTERIA MANY (NEG); URINE RBC 20 - 25 /hpf (0-2); URINE WBC TNTC /hpf (0-6)
[2017-06-15 17:18] VITALS: BP 144/72; RESP 18; O2SAT 94
[2017-06-15 17:21] VITALS: PULSE 60
== END 2017-06-15 17:20 | disposition home or self-care (01) ==
LOC: ED 12:07
DX: R79.1 Abnormal coagulation profile (principal); N39.0 Urinary tract infection, site not specified; E11.9 Type 2 diabetes mellitus without complications; F02.80 Dementia in other diseases classified elsewhere, unspecified severity, without behavioral disturbance, psychotic disturbance, mood disturbance, and anxiety; G30.9 Alzheimer's disease, unspecified; I50.9 Heart failure, unspecified; I10 Essential (primary) hypertension; Z79.01 Long term (current) use of anticoagulants; J44.9 Chronic obstructive pulmonary disease, unspecified

== ENCOUNTER 2017-06-27 05:04 | Inpatient (IN) | payer MEDICARE, OTHER ==
[2017-06-27 05:08] VITALS: BMI 33.8
--- NOTE | 2017-06-27 05:30 | ED PDOC ---
Arrival/HPI - General Chief Complaint: Shortness Of Breath Time Seen by Provider: 06/27/17 05:08 Historian: Patient - History of Present Illness Narrative History of Present Illness (Text): 06/27/17 05:30 Arleth Batista is an 86 year old female, whose past medical history includes COPD, CHF, diabetes,atrial fibrillation, [place], and dementia, who presents to the emergency department complaining of shortness of breath for a few hours. Patient denies any fever, chills, chest pain, nausea, vomiting, diarrhea, urinary symptoms, back pain, neck pain, headache, dizziness, or any other complaints. Time/Duration: 4-6 hours Symptom Onset: Gradual Symptom Course: Unchanged Activities at Onset: Rest Context: Home Past Medical History - Provider Review Nursing Documentation Reviewed: Yes - Infectious Disease Hx of Infectious Diseases: None - Tetanus Immunization Tetanus Immunization: Unknown - Cardiac Hx Cardiac Disorders: Yes ([place]) Hx Congestive Heart Failure: Yes Hx Hypertension: Yes - Pulmonary Hx Chronic Obstructive Pulmonary Disease (COPD): Yes - Neurological Hx Alzheimer's Disease: Yes HX Cerebrovascular Accident: Yes - HEENT Hx HEENT Disorder: Yes Hx Cataracts: Yes (bilateral, sx 2007) - Renal Hx Renal Disorder: No - Endocrine/Metabolic Hx Diabetes Mellitus Type 2: Yes - Hematological/Oncological Hx Blood Disorders: Yes Hx Anemia: Yes - Integumentary Hx Dermatological Disorder: Yes Other/Comment: bruises to left knee , both great toes red swollen stage 1 opening 0.5cm round left buttock, buttocks/sacrum reddened, red rash under right breast multiple dry age spots to chest, small dry brown growth to left hand 3rd finger. 2 small scabs to rle, multiple skin discolorations b/l arms, small st 1 0.5cm left buttock round opening - Musculoskeletal/Rheumatological Hx Falls: No - Gastrointestinal Hx Gastrointestinal Disorders: Yes Hx Diverticulitis: Yes - Genitourinary/Gynecological Hx Genitourinary Disorders: Yes Hx Incontinence: Yes Hx Urinary Tract Infection: Yes - Psychiatric Hx Psychophysiologic Disorder: No Hx Anxiety: No Hx Bipolar Disorder: No Hx Depression: No Hx Emotional Abuse: No Hx Hallucinations: No Hx Panic Disorder: No Hx Post Traumatic Stress Disorder: No Hx Psychosis: No Hx Physical Abuse: No Hx Schizophrenia: No Hx Sexual Abuse: No Hx Substance Use: No - Surgical History Hx Amputation: No Hx Appendectomy: No Hx Cardiac Catheterization: No Hx Cholecystectomy: No Hx Coronary Stent: No Hx Gastric Bypass Surgery: No Hx Hysterectomy: No Hx Joint Replacement: No Hx Kidney Transplant: No Hx Liver Transplant: No Hx Musculoskeletal Surgery: No Hx Open Heart Surgery: No Hx Orthopedic Surgery: No Hx Splenectomy: No Hx Valve Replacement: No Other/Comment: right breast cyst removed 25 yrs ago - Anesthesia Hx Anesthesia: No - Suicidal Assessment Feels Threatened In Home Enviroment: No Family/Social History - Physician Review Nursing Documentation Reviewed: Yes Family/Social History: No Known Family HX Smoking Status: Never Smoked Hx Alcohol Use: No Hx Substance Use: No Hx Substance Use Treatment: No Allergies/Home Meds Allergies/Adverse Reactions: Allergies No Known Allergies Allergy (Verified 11/06/16 18:20) Home Medications: Home Meds Medication Instructions Recorded Confirmed Atorvastatin [Lipitor] 20 mg PO DAILY 10/13/14 06/27/17 Digoxin 0.125 mg PO DAILY 10/13/14 06/27/17 [id number] [Cardizem CD] 240 mg PO DAILY 07/14/16 06/27/17 Alprazolam [Xanax] 1 mg PO HS 01/26/17 06/27/17 Furosemide [Lasix] 80 mg PO TID 06/15/17 06/27/17 Warfarin [Coumadin] 4 mg PO 1800 06/15/17 06/27/17 Review of Systems - Review of Systems Constitutional: absent: Fevers, Night Sweats Eyes: absent: Vision Changes ENT: absent: Hearing Changes Respiratory: SOB Cardiovascular: absent: Chest Pain Gastrointestinal: absent: Abdominal Pain Genitourinary Female: absent: Dysuria, Frequency Musculoskeletal: absent: Arthralgias, Back Pain Skin: absent: Rash, Pruritis Neurological: absent: Headache, Dizziness Endocrine: absent: Diaphoresis Hemo/Lymphatic: absent: Adenopathy Physical Exam Vital Signs Reviewed: Yes Vital Signs Temp Pulse Resp BP Pulse Ox 06/27/17 07:40 97.9 F 81 20 158/110 H 92 L 06/27/17 07:16 148/116 H 06/27/17 07:12 90 19 148/116 H 92 L 06/27/17 05:22 18 06/27/17 05:08 96.7 F L 62 19 162/102 H 92 L Temperature: Afebrile Blood Pressure: Hypertensive Pulse: Irregular Respiratory Rate: Normal Appearance: Positive for: Well-Appearing Mental Status: Positive for: Alert and Oriented X 3 - Systems Exam Head: Present: Atraumatic, Normocephalic Pupils: Present: PERRL Extroacular Muscles: Present: EOMI Conjunctiva: Present: Normal Mouth: Present: Moist Mucous Membranes Pharnyx: Present: Normal Neck: Present: Normal Range of Motion Respiratory/Chest: Present: Rales (to bilateral bases), Rhonchi Cardiovascular: Present: Irregular Rhythm. No: Murmurs Abdomen: Present: Normal Bowel Sounds. No: Tenderness, Distention, Peritoneal Signs Upper Extremity: Present: Normal Inspection. No: Cyanosis, Edema Lower Extremity: Present: Edema (chronic), Erythema (chronic), Neurovascularly Intact Neurological: Present: GCS=15, CN II-XII Intact, Speech Normal, Motor Func Grossly Intact, Normal Sensory Function Skin: Present: Warm, Dry, Normal Color. No: Rashes Psychiatric: Present: Alert, Oriented x 3 Medical Decision Making ED Course and Treatment: 06/27/17 05:33 Impression: 86 year old female complaining of shortness of breath for a few hours. Differential Diagnosis included but are not limited to: Plan: -- EKG -- Chest X-ray -- Labs -- Reassess and disposition Prior Visits: Notes and results from previous visits were reviewed. Patient last seen in the ED on 06/15/17 for evaluation s/p mechanical fall prior to arriving that day. Patient was discharged home. Progress Notes: EKG: Ordered, reviewed, and independently interpreted the EKG. Rate : 81 BPM Rhythm : A Fib Interpretation : Occasional PVC. LAD. Inferior infarct. No specific ST-T changes. - Lab Interpretations Lab Results: 06/27/17 05:50 06/27/17 06:40 Lab Results 06/27/17 06:40: Sodium 142, Potassium 3.9, Chloride 98, Carbon Dioxide 36 H, Anion Gap 12, BUN 44 H, Creatinine 1.2, Est GFR ( Amer) 51, Est GFR (Non- Af Amer) 42, Random Glucose 122 H, Calcium 9.2, Total Bilirubin 1.2, AST 32, ALT 23, Alkaline Phosphatase 142 H, Lactate Dehydrogenase 440, Total Creatine Kinase < 20 L, Troponin I 0.04, NT-Pro-B Natriuret Pep 2440 H, Total Protein 8.3 , Albumin 3.6, Globulin 4.7, Albumin/Globulin Ratio 0.8 L 06/27/17 06:40: PT 20.5 H, INR 1.84 H, APTT 35.4 06/27/17 05:50: WBC 7.3, RBC 4.31, Hgb 11.6 L, Hct 38.7, MCV 89.8, MCH 26.9, MCHC 30.0 L, RDW 21.8 H, Plt Count 317, MPV 9.9 I have reviewed the lab results: Yes - RAD Interpretation Narrative RAD Interpretations (Text): 06/27/17 05:53 CXR- Increased PVM c/w CHF Radiology Orders: 06/27/17 05:22 CHEST PORTABLE [RAD] Stat [employer]: ED Physician - Medication Orders Current Medication Orders: Albuterol/Ipratropium (Duoneb 3 Mg/0.5 Mg (3 Ml) Ud) 3 ml IH TIDRESP [facility] Last Admin: 06/27/17 14:06 Dose: 3 ml Alprazolam (Xanax) 1 mg PO [facility] PRN Reason: Protocol Atorvastatin Calcium (Lipitor) 20 mg PO DAILY [facility] Last Admin: 06/27/17 11:11 Dose: 20 mg Digoxin (Lanoxin) 0.125 mg PO DAILY [facility] Last Admin: 06/27/17 11:12 Dose: 0.125 mg MAR Apical Pulse Rate Document 06/27/17 11:12 SOUSV (Rec: 06/27/17 11:12 [facility] [id number]) Apical Pulse Rate Apical Pulse Rate (60-90 beats/min) 80 Diltiazem HCl (Cardizem Cd) 240 mg PO DAILY [facility] Last Admin: 06/27/17 11:11 Dose: 240 mg MAR Pulse and Blood Pressure Document 06/27/17 11:11 [facility]SV (Rec: 06/27/17 11:12 [facility] [id number]) Pulse Pulse Rate (60-90) 81 Blood Pressure Blood Pressure (100/60-150/90) 153/75 Donepezil HCl (Aricept) 5 mg PO [facility] Furosemide (Lasix) 40 mg IVP BID [facility] Last Admin: 06/27/17 17:04 Dose: 40 mg MAR Blood Pressure Document 06/27/17 17:04 SOUSV (Rec: 06/27/17 17:04 [facility] [id number]) Blood Pressure Blood Pressure (100/60-150/90) 171/87 IVP Administration Document 06/27/17 17:04 SOUSV (Rec: 06/27/17 17:04 [facility] [id number]) Charges for Administration # of IVP Administrations 1 Insulin Human Regular (Humulin R Med) 0 units SC ACHS [facility] PRN Reason: Protocol Last Admin: 06/27/17 17:05 Dose: 1 units MAR Blood Glucose Document 06/27/17 17:05 SOUSV (Rec: 06/27/17 17:05 [facility]OUS [id number]) Blood Glucose Finger Stick Blood Glucose (70-120) 155 Subcutaneous Administrations Document 06/27/17 17:05 [facility] (Rec: 06/27/17 17:05 [facility] [id number] Injection Site MAR Injection Site Left Arm Charges for Administration # of Subcutaneous Administrations 1 Insulin Lispro Protam/Lispro Human (Humalog Mix 75/25) 20 units SC BID [facility] Last Admin: 06/27/17 17:05 Dose: 20 units MAR Blood Glucose Document 06/27/17 17:05 [facility]SV (Rec: 06/27/17 17:05 [facility] [id number]) Blood Glucose Finger Stick Blood Glucose (70-120) 155 Subcutaneous Administrations Document 06/27/17 17:05 [facility]SV (Rec: 06/27/17 17:05 [facility] [id number]) Injection Site MAR Injection Site Left Arm Charges for Administration # of Subcutaneous Administrations 1 Potassium Chloride (K-Dur 20 Meq Er Tab) 20 meq PO DAILY [facility] Last Admin: 06/27/17 11:11 Dose: 20 meq Warfarin Sodium (Coumadin) 5 mg PO 1800 [facility] Last Admin: 06/27/17 17:05 Dose: 5 mg Discontinued Medications Furosemide (Lasix) 40 mg IVP ONCE ONE Stop: 06/27/17 07:02 Last Admin: 06/27/17 07:16 Dose: 40 mg MAR Blood Pressure Document 06/27/17 07:16 OCS (Rec: 06/27/17 07:16 [facility] [id number]) Blood Pressure Blood Pressure (100/60-150/90) 148/116 IVP Administration Document 06/27/17 07:16 [facility]CS (Rec: 06/27/17 07:16 [facility] [id number]) Charges for Administration # of IVP Administrations 1 Warfarin Sodium (Coumadin) 4 mg PO 1800 [facility] PRN Reason: Protocol Warfarin Sodium (Coumadin) 5 mg PO 1800 [facility] PRN Reason: Protocol - Scribe Statement The provider has reviewed the documentation as recorded by the Ilanibayaz Burton Provider Scribe Attestation: All medical record entries made by the Scribe were at my direction and personally dictated by me. I have reviewed the chart and agree that the record accurately reflects my personal performance of the history, physical exam, medical decision making, and the department course for this patient. I have also personally directed, reviewed, and agree with the discharge instructions and disposition. Disposition/Present on Arrival - Present on Arrival Any Indicators Present on Arrival: No History of DVT/PE: No History of Uncontrolled Diabetes: No Urinary Catheter: No History of Decub. Ulcer: No History Surgical Site Infection Following: None - Disposition Have Diagnosis and Disposition been Completed?: Yes Diagnosis: CHF (congestive heart failure) Disposition: HOSPITALIZED Disposition Time: 07:04 Patient Plan: Observation Patient Problems: Current Active Problems Problem Status Onset CHF (congestive heart failure) Acute Condition: STABLE
[2017-06-27 06:21] LABS: HEMATOCRIT 38.7 % (36.0-48.0); MEAN CELL VOLUME 89.8 fl (80.0-105.0); MEAN CORPUSCULAR HEMOGLOBIN 26.9 pg (25.0-35.0); MEAN PLATELET VOLUME 9.9 fl (7.0-11.0); RED CELL DISTRIBUTION WIDTH 21.8 % (11.5-14.5); WHITE BLOOD COUNT 7.3 10^3/ul (4.5-11.0)
[2017-06-27 07:04] LABS: ALB/GLOB RATIO 0.8 (1.1-1.8); ALKALINE PHOSPHATASE 142 U/L (38-126); ALT/SGPT 23 U/L (7-56); AST/SGOT 32 U/L (14-36); BILIRUBIN,TOTAL 1.2 mg/dL (0.2-1.3); BLOOD UREA NITROGEN 44 mg/dL (7-21); CALCIUM 9.2 mg/dL (8.4-10.5); CARBON DIOXIDE 36 mmol/L (21-33); CHLORIDE 98 mmol/L (98-107); GFR AFRICAN-AMERICAN 51; GLUCOSE,RANDOM 122 mg/dL (70-110); POTASSIUM 3.9 mmol/L (3.6-5.0); SODIUM 142 mmol/L (132-148); TOTAL PROTEIN 8.3 g/dL (5.8-8.3)
[2017-06-27 07:10] LABS: INR 1.84 (0.93-1.08); PARTIAL THROMBOPLASTIN TIME 35.4 Seconds (25.1-36.5)
[2017-06-27 07:18] LABS: TROPONIN I 0.04 ng/mL
--- NOTE | 2017-06-27 08:48 | RAD ---
HISTORY: Shortness of breath. Portable study 05:27. COMPARISON: 04/16/2017. FINDINGS: LUNGS: Worsening pulmonary edema PLEURA: Bilateral pleural effusions progressive compared to the prior study. CARDIOVASCULAR: Cardiomegaly/worsening CHF. OSSEOUS STRUCTURES: No significant abnormalities. VISUALIZED UPPER ABDOMEN: Normal. OTHER FINDINGS: None. IMPRESSION: Cardiomegaly, CHF and pulmonary edema of more severe than that seen previously.
--- NOTE | 2017-06-27 11:10 | HP ---
DATE: CHIEF COMPLAINT AND HISTORY OF PRESENT ILLNESS: This is an 86-year-old female who is coming into the hospital with complaints of a shortness of breath. She has a past medical history of COPD, CHF, diabetes, atrial fibrillation, on anticoagulation and dementia, Alzheimer type. The patient has been slowly declining at home. She is being taken care by her daughter, Rocco. I did speak to Rocco to give up information about how she has been doing at home. She states that she has been declining. She has been having episodes of hypoxia. She requires oxygen 24 hours a day. She was short of breath and told she was concerned about her shortness of breath last night and came into the ER for further evaluation. The patient has been taking diuretic therapy. She does have [place] visiting nurses come to the home and have been in contact with them and trying to manage her as an outpatient. The patient is not able to give much information because of her underlying dementia. She is awake and alert. Denies any chest pain or shortness of breath. PAST MEDICAL HISTORY: 1. Fall, right parietal subdural hematoma. 2. Atrial fibrillation, on Coumadin. 3. Hypertension. 4. Diabetes type 2. 5. Dementia, Alzheimer type. 6. Osteoarthritis. 7. COPD. SOCIAL HISTORY: She lives with her daughter. She does not smoke or drink. FAMILY HISTORY: Noncontributory. PAST SURGICAL HISTORY: Right breast cyst removal 25 years ago. HOME MEDICATIONS: Following, she is on Lipitor, digoxin, Cardizem, Xanax, Lasix, Coumadin. PHYSICAL EXAMINATION: VITAL SIGNS: Temperature is 97.9, pulse of 88, blood pressure is 158/110, respirations 20, O2 saturation 92%. Weight is 210 pounds. GENERAL: The patient lying in bed, uncomfortable, and in no acute distress. HEENT: Atraumatic and normocephalic. Anicteric sclerae. Moist mucosa. [place] conjunctivae. No oral lesions. NECK: No JVD, anterior and posterior adenopathy, thyromegaly, or bruits. CARDIOVASCULAR: S1 and S2 regular. No murmur, rubs, or gallop. LUNGS: Clear to auscultation bilaterally. No wheezes, rales, or rhonchi. ABDOMEN: Bowel sounds are positive. Soft, nontender and nondistended. No hepatosplenomegaly. No rebound. No guarding. NEUROLOGIC: No facial asymmetry. Tongue is midline. No uvula deviation. Power is 5/5 upper extremity and lower extremity. Sensation intact in upper extremity and lower extremity. PSYCHIATRIC: Alert, awake and oriented x1. No hallucinations. No delusions. GENITOURINARY: No CVA tenderness. VASCULAR: 2+ pulses in the carotid pulses and pedal pulses. SKIN: No erythema or nodules. SPINE: Shows normal curvature. EXTREMITIES: No cyanosis or clubbing. Lower extremities, 1+ edema. LABORATORY DATA: Sodium is 142, creatinine is 1.2, alkaline phosphatase 142, troponin 0.04. White count 10.3, hemoglobin 11.6. INR is 1.8. The patient had a chest x-ray done. Chest x-ray shows heart rate of 81, atrial fibrillation with occasional PVCs. Nonspecific ST-T changes. Chest x-ray shows mild increased pulmonary vascular congestion. There is some pleural effusion probably bilaterally, mild. BNP is 2440. ASSESSMENT: 1. Acute congestive heart failure secondary to systolic dysfunction. 2. Dementia, Alzheimer type. 3. Atrial fibrillation, on Coumadin subtherapeutic. 4. Hypertension. 5. Diabetes type 2. 6. Osteoarthritis. 7. Chronic obstructive pulmonary disease on home O2. 8. History of right distal phalanx fracture. PLAN: The patient is currently comfortable. She was given a dose of IV Lasix in the ER. I did speak to the patient's daughter to give an update on the patient's diagnosis and plan of care. We spoke to end-of-life care as well as hospice. She is open to the idea of trying to get compassionate care for hospice. The patient is on Coumadin. I would increase the patient's Coumadin. She is on Cardizem. Continue the Cardizem. She is on Aricept. The patient is going to be placed on Lasix IV for diuresis. She is on heart healthy diet. We will get physical therapy to evaluate the patient. Denton Napoles MD
[2017-06-27] MEDS: diltiaZEM 240 mg/24 Hours CD Cap PO SCH (11:11)
[2017-06-27] MEDS: Potassium Chloride 20 mEq ER Tab PO SCH (11:11)
[2017-06-27] MEDS: Digoxin 125 mcg (0.125 mg) Tab PO SCH (11:12)
--- NOTE | 2017-06-27 12:02 | CP.PCM.CON ---
History of Present Illness - History of Present Illness History of Present Illness: Palliative consult requested by Dr Doc Napoles Reason: Goals of care/hospice discussion 86 year old female with history of CHF,lower extremity edema, LLE cellulitis,UTI , dementia,atrial fibrillation who presented with shortness of breath. She denied fever,chills, pain, nausea,vomiting or diarrhea. Chest xray showed cardiomegaly,CHF and worsening pulmonary edema. PMHx: CHF,CAD,cardiomyopahty, pulmonary hypertension,atrial fibrillation,DM,HTN, UTI, cellulitis,COPD,[place],dementia, UTI,diverticulosis. Social History: Non smoker, no alcohol or drug use. Lives with daughter, Rocco Anguiano. Family History: Non contributory. Advance Care Planning:The patient does not have an Advance Directive. Review of Systems: As per HPI, limited as patient is confused. Past Patient History - Infectious Disease Hx of Infectious Diseases: None - Tetanus Immunizations Tetanus Immunization: Unknown - Past Medical History & Family History Past Medical History?: Yes - Past Social History Smoking Status: Never Smoked - CARDIAC Hx Cardiac Disorders: Yes ([place]) Hx Congestive Heart Failure: Yes Hx Hypertension: Yes - PULMONARY Hx Chronic Obstructive Pulmonary Disease (COPD): Yes - NEUROLOGICAL Hx Alzheimer's Disease: Yes HX Cerebrovascular Accident: Yes - HEENT Hx HEENT Problems: Yes Hx Cataracts: Yes (bilateral, sx 2007) - RENAL Hx Chronic Kidney Disease: No - ENDOCRINE/METABOLIC Hx Diabetes Mellitus Type 2: Yes - HEMATOLOGICAL/ONCOLOGICAL Hx Blood Disorders: Yes Hx Anemia: Yes - INTEGUMENTARY Hx Dermatological Problems: Yes Other/Comment: bruises to left knee , both great toes red swollen stage 1 opening 0.5cm round left buttock, buttocks/sacrum reddened, red rash under right breast multiple dry age spots to chest, small dry brown growth to left hand 3rd finger. 2 small scabs to rle, multiple skin discolorations b/l arms, small st 1 0.5cm left buttock round opening - MUSCULOSKELETAL/RHEUMATOLOGICAL Hx Falls: No - GASTROINTESTINAL Hx Gastrointestinal Disorders: Yes Hx Diverticulitis: Yes - GENITOURINARY/GYNECOLOGICAL Hx Genitourinary Disorders: Yes Hx Incontinence: Yes Hx Urinary Tract Infection: Yes - PSYCHIATRIC Hx Psychophysiologic Disorder: No Hx Anxiety: No Hx Bipolar Disorder: No Hx Depression: No Hx Emotional Abuse: No Hx Hallucinations: No Hx Panic Symptoms: No Hx Post Traumatic Stress Disorder: No Hx Psychosis: No Hx Physical Abuse: No Hx Schizophrenia: No Hx Sexual Abuse: No Hx Substance Use: No - SURGICAL HISTORY Hx Amputation: No Hx Appendectomy: No Hx Cardiac Catheterization: No Hx Cholecystectomy: No Hx Coronary Stent: No Hx Gastric Bypass Surgery: No Hx Hysterectomy: No Hx Joint Replacement: No Hx Kidney Transplant: No Hx Liver Transplant: No Hx Musculoskeletal Surgery: No Hx Open Heart Surgery: No Hx Orthopedic Surgery: No Hx Splenectomy: No Hx Valve Replacement: No Other/Comment: right breast cyst removed 25 yrs ago - ANESTHESIA Hx Anesthesia: No Meds Allergies/Adverse Reactions: Allergies Allergy/AdvReac Type Severity Reaction Status Date / Time No Known Allergies Allergy Verified 11/06/16 18:20 - Medications Medications: Current Medications Alprazolam (Xanax) 1 mg PO [facility] PRN Reason: Protocol Atorvastatin Calcium (Lipitor) 20 mg PO DAILY [facility] Last Admin: 06/27/17 11:11 Dose: 20 mg Digoxin (Lanoxin) 0.125 mg PO DAILY [facility] Last Admin: 06/27/17 11:12 Dose: 0.125 mg Diltiazem HCl (Cardizem Cd) 240 mg PO DAILY [facility] Last Admin: 06/27/17 11:11 Dose: 240 mg Donepezil HCl (Aricept) 5 mg PO HS [facility] Furosemide (Lasix) 40 mg IVP BID [facility] Last Admin: 06/27/17 11:07 Dose: Not Given Insulin Human Regular (Humulin R Med) 0 units SC [facility] PRN Reason: Protocol Insulin Lispro Protam/Lispro Human (Humalog Mix 75/25) 20 units SC BID [facility] Potassium Chloride (K-Dur 20 Meq Er Tab) 20 meq PO DAILY [facility] Last Admin: 06/27/17 11:11 Dose: 20 meq Warfarin Sodium (Coumadin) 5 mg PO 1800 [facility] Physical Exam - Constitutional Appears: No Acute Distress, Chronically Ill - Head Exam Head Exam: NORMAL INSPECTION - Eye Exam Eye Exam: Normal appearance, PERRL - ENT Exam ENT Exam: Mucous Membranes Moist, Normal Oropharynx - Neck Exam Neck exam: Positive for: Normal Inspection - Respiratory Exam Respiratory Exam: Decreased Breath Sounds, NORMAL BREATHING PATTERN - Cardiovascular Exam Cardiovascular Exam: Irregular Rhythm, +S1 - GI/Abdominal Exam GI & Abdominal Exam: Distended, Firm, Hypoactive Bowel Sounds Additional comments: non tender - Exam Additional comments: incontinent - Extremities Exam Additional comments: venous stasis and 2+ edema of both lower extremities - Neurological Exam Neurological exam: Alert, Altered - Skin Skin Exam: Dry, Pallor Additional comments: anasarca - Additional Findings Additional findings: Pallaiative performance scale rating 40% Results - Vital Signs Recent Vital Signs: Last Vital Signs Temp 97.9 F 06/27/17 07:40 Pulse 81 06/27/17 11:11 Resp 20 06/27/17 07:40 BP 153/75 H 06/27/17 11:11 Pulse Ox 92 L 06/27/17 07:40 - Labs Result Diagrams: 06/27/17 05:50 06/27/17 06:40 Assessment & Plan - Assessment and Plan (Free Text) Assessment: 86 year old female with history of cardiomegaly, CHF,pulmonary hypertension, atrial fibrillation,dementia and multiple comorbidities who was admitted with increased shortness of breath, CHF exacerbation. This patient is known to me. She is confused. She needs assistance with all ADL' s. She denies pain. I last spoke with this patients daughter, Rocco Anguiano in January of 2017. At that time the daughter and I discussed advance care planning and hospice services via phone. I tried to arrange to meet with Rocco but she was unable to do so. Today I left a voice mail for Rocco. My intent is to initiate advance care care planning and discuss goals of care again. Due to her multiple comorbidities this patient is an appropriate candidate for hospice services. I will specifically discuss this option for care with Rocco. Plan: Palliative services will assist family in establishing goals of care and with advance care planning.
[2017-06-27] MEDS: Insulin Reg-MEDIUM-Coverage SC SCH ×2 (13:27→17:05)
--- NOTE | 2017-06-27 13:43 | CARD ---
APPROVED REPORT EKG Measurement Heart [id number] <Conclusion> Atrial fibrillation with premature ventricular or aberrantly conducted complexes Left axis deviation Low voltage QRS Inferior infarct, age undetermined Cannot rule out Anteroseptal infarct, age undetermined Abnormal ECG
[2017-06-27] MEDS: Albuterol-Ipratrop 3 mg / 0.5 (3 ml) UD IH SCH ×2 (14:06→19:35)
[2017-06-27] MEDS: Insulin Lispro (humaLOG) MIX 75/25(10 ml) SC SCH ×2 (16:20→17:05)
[2017-06-28] MEDS: Insulin Reg-MEDIUM-Coverage SC SCH ×3 (08:00→17:53)
[2017-06-28] MEDS: Albuterol-Ipratrop 3 mg / 0.5 (3 ml) UD IH SCH ×3 (08:06→19:31)
[2017-06-28] MEDS: diltiaZEM 240 mg/24 Hours CD Cap PO SCH (09:00)
[2017-06-28] MEDS: Potassium Chloride 20 mEq ER Tab PO SCH (09:00)
[2017-06-28] MEDS: Digoxin 125 mcg (0.125 mg) Tab PO SCH (09:00)
[2017-06-28] MEDS: Insulin Lispro (humaLOG) MIX 75/25(10 ml) SC SCH ×2 (09:06→17:54)
--- NOTE | 2017-06-28 13:21 | CP.PCM.PN ---
Subjective - Date & Time of Evaluation Date of Evaluation: 06/28/17 Time of Evaluation: 12:00 - Subjective Subjective: Lethargic, offers no complaints. Objective - Vital Signs/Intake and Output Vital Signs (last 24 hours): Temp Pulse Resp BP Pulse Ox 97.6 F 60 24 140/77 95 06/28/17 08:05 06/28/17 09:00 06/28/17 08:05 06/28/17 09:00 06/28/17 08:05 Intake and Output: 06/28/17 06/28/17 06:59 18:59 Intake Total 300 Balance 300 - Medications Medications: Current Medications Albuterol/Ipratropium (Duoneb 3 Mg/0.5 Mg (3 Ml) Ud) 3 ml IH TIDRESP [facility] Last Admin: 06/28/17 13:06 Dose: 3 ml Alprazolam (Xanax) 1 mg PO HS [facility] PRN Reason: Protocol Last Admin: 06/27/17 22:29 Dose: 1 mg Atorvastatin Calcium (Lipitor) 20 mg PO DAILY [facility] Last Admin: 06/28/17 09:00 Dose: 20 mg Digoxin (Lanoxin) 0.125 mg PO DAILY [facility] Last Admin: 06/28/17 09:00 Dose: 0.125 mg Diltiazem HCl (Cardizem Cd) 240 mg PO DAILY [facility] Last Admin: 06/28/17 09:00 Dose: 240 mg Donepezil HCl (Aricept) 5 mg PO HS [facility] Last Admin: 06/27/17 22:29 Dose: 5 mg Furosemide (Lasix) 40 mg IVP BID [facility] Last Admin: 06/27/17 17:04 Dose: 40 mg Insulin Human Regular (Humulin R Med) 0 units SC [facility] PRN Reason: Protocol Last Admin: 06/28/17 08:00 Dose: Not Given Insulin Lispro Protam/Lispro Human (Humalog Mix 75/25) 20 units SC BID [facility] Last Admin: 06/28/17 09:06 Dose: 20 units Potassium Chloride (K-Dur 20 Meq Er Tab) 20 meq PO DAILY [facility] Last Admin: 06/28/17 09:00 Dose: 20 meq Warfarin Sodium (Coumadin) 5 mg PO 1800 [facility] Last Admin: 06/27/17 17:05 Dose: 5 mg - Labs Labs: PT 20.5 SECONDS (9.4-12.5) H 11/06/17 06:40 INR 1.84 (0.93-1.08) H 06/27/17 06:40 APTT 35.4 Seconds (25.1-36.5) 06/27/17 06:40 - Constitutional Appears: Chronically Ill - Head Exam Head Exam: NORMAL INSPECTION - Eye Exam Eye Exam: Normal appearance, PERRL - ENT Exam ENT Exam: Mucous Membranes Moist - Neck Exam Neck Exam: Normal Inspection - Respiratory Exam Respiratory Exam: Decreased Breath Sounds, NORMAL BREATHING PATTERN - Cardiovascular Exam Cardiovascular Exam: +S1, +S2 - GI/Abdominal Exam GI & Abdominal Exam: Distended, Firm, Diminished Bowel Sounds Additional comments: no tenderness - Back Exam Additional comments: 2 + edema of both lower extremities - Neurological Exam Additional comments: confused - Skin Skin Exam: Dry, Pallor Assessment and Plan - Assessment and Plan (Free Text) Assessment: 86 year old female with history of dementia, CHF,atrial fibrillation,HTN, lower extremity cellulitis who is admitted with shortness of breath, CHF exacerbation and lower extremity edema. Patients daughter Rocco Anguiano and I met today. Lengthy discussion regarding future goals of care ensued. Daughter expressed interest in hospice care. Hospice services explained in detail. All questions answered. Daughter understands that hospice care will focus on pain and symptom management while providing end of life. She has agreed to meet with [facility] liaison either later today or early tomorrow morning. Psychosocial support given. Time spent with daughter in goals of care discussion and end of life counseling , 30 minutes Plan: Hospice evaluation Palliative care assistance in establishing goals of care. End of life counseling
--- NOTE | 2017-06-28 16:05 | IP.NPCORE ---
Heart Failure Core Measure - Heart Failure Ejection Fraction: 40 % or Greater CECILIO Inhibitor Prescribed: No Contraindication/Reason for not providing: renal insufficiency Beta-Aleja Prescribed: None Contraindication/Reason for not providing: severe copd Angiotensin II Receptor Aleja Prescribed: No Contraindication/Reason for not providing: renal insufficiency AnticoagulationTherapy for Atrial Fibrillation/Atrialflutter: Yes Aldosterone Antagonist Prescribed: No Contraindication/Reason for not providing: on lasix 40 bid Hydralazine Nitrate Prescribed: No Contraindication/Reason for not providing: on lasix 40 bid Implantable Cardioverter Defibrillator Therapy: No Contraindication/Reason for not providing: ef greater than 40% Cardiac Resynchronization Therapy Prescribed: No Contraindication/Reason for not providing: not appropriate at this time, near end of life poor prognosis - Follow up Will be discharged to: Home Follow Up Date (must be within 7 days from discharge): 07/05/17 Follow Up Time: 09:00
--- NOTE | 2017-06-28 22:54 | PN ---
DATE: 06/28/2017 SUBJECTIVE: The patient has no complaints of any chest pain, shortness of breath and headache. PHYSICAL EXAMINATION: VITAL SIGNS: Temperature is 98, pulse of 55, blood pressure 150/72, respirations 20, creatinine is 1.2. GENERAL: The patient is lying in bed, flat, comfortable. HEENT: No oral lesion. Anicteric sclerae. Moist mucosa. NECK: No JVD, adenopathy, or thyromegaly. CARDIOVASCULAR: S1 and S2, regular. No murmurs, rubs, or gallops. LUNGS: Clear to auscultation bilaterally. No wheeze, rales, or rhonchi. ABDOMEN: Bowel sounds are positive, soft, nontender and nondistended. EXTREMITIES: No cyanosis or clubbing 1+stephan. ASSESSMENT: 1. Acute congestive heart failure secondary to systolic dysfunction, 2. Lower extremity edema, improving. 3. Dementia, Alzheimer's type. 4. Atrial fibrillation, on Coumadin. 5. Hypertension. 6. Diabetes type 2. 7. Osteoarthritis. 8. Chronic obstructive pulmonary disease on home O2. 9. History of right distal phalanx fracture. PLAN: The patient is being evaluated by hospice. I did speak to Roseline Cotter from palliative care. The patient's daughter, Tammi is going to be meeting with [facility] later today. The patient is on Aricept for dementia. The patient is going to continue with digoxin. She is on Lasix daily and Xanax as needed. Denton Napoles MD MTDJarvis
[2017-06-29] MEDS: Albuterol-Ipratrop 3 mg / 0.5 (3 ml) UD IH SCH ×4 (07:55→23:53)
[2017-06-29] MEDS: Insulin Reg-MEDIUM-Coverage SC SCH ×4 (07:56→22:00)
[2017-06-29] MEDS: Potassium Chloride 20 mEq ER Tab PO SCH (09:33)
[2017-06-29] MEDS: diltiaZEM 240 mg/24 Hours CD Cap PO SCH (09:34)
[2017-06-29] MEDS: Digoxin 125 mcg (0.125 mg) Tab PO SCH (09:34)
[2017-06-29 10:05] LABS: ARTERIAL BLOOD GAS HCO3 38.9 mmol/L (21-28); ARTERIAL BLOOD GAS PH 7.29 (7.35-7.45)
--- NOTE | 2017-06-29 10:19 | RAD ---
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 PLEURA: Interval increased bilateral pleural effusions. No pneumothorax seen. CARDIOVASCULAR: Cardiomegaly as before. OSSEOUS STRUCTURES: Thoracic spondylosis. Bilateral shoulder arthrosis. VISUALIZED UPPER ABDOMEN: Normal. OTHER FINDINGS: There is radio opaque wire projecting over the lateral right inferior gelacio thorax correlate clinically. This may be extrinsic to the patient IMPRESSION: Interval increasing pulmonary venous congestion/pulmonary edema. Interval concomitant coalescing pulmonary patchy infiltrates possible. Interval increased bilateral pleural effusions
[2017-06-29 10:23] LABS: BASO # 0.07 K/mm3 (0.0-2.0); BASO % 0.7 % (0.0-3.0); EOS # 0.2 (0.0-0.7); EOS % 2.5 % (1.5-5.0); GRAN # 7.58 (1.4-6.5); GRAN % 78.2 % (50.0-68.0); HEMATOCRIT 43.1 % (36.0-48.0); LYMPH # 1.1 (1.2-3.4); LYMPH % 11.7 % (22.0-35.0); MEAN CELL VOLUME 91.7 fl (80.0-105.0); MEAN CORPUSCULAR HEMOGLOBIN 26.6 pg (25.0-35.0); MEAN PLATELET VOLUME 9.1 fl (7.0-11.0); MONO # 0.7 (0.1-0.6); MONO % 6.9 % (1.0-6.0); RED CELL DISTRIBUTION WIDTH 21.4 % (11.5-14.5); WHITE BLOOD COUNT 9.7 10^3/ul (4.5-11.0)
[2017-06-29 10:30] LABS: ALB/GLOB RATIO 0.8 (1.1-1.8); BILIRUBIN,TOTAL 1.2 mg/dL (0.2-1.3); CALCIUM 9.6 mg/dL (8.4-10.5); MAGNESIUM 1.9 mg/dL (1.7-2.2); TOTAL PROTEIN 8.9 g/dL (5.8-8.3)
[2017-06-29 10:47] LABS: INR 2.56 (0.93-1.08); PARTIAL THROMBOPLASTIN TIME 36.3 Seconds (25.1-36.5)
--- NOTE | 2017-06-29 11:01 | PCM.RRT ---
<Addi Spence - Last Filed: 06/29/17 14:29> CLINICAL NURSING INTERN Nurse Assessment - Situation Date: 06/29/17 Time CLINICAL NURSING INTERN was called: 09:48 CLINICAL NURSING INTERN Responder Arrival Time: 09:52 CLINICAL NURSING INTERN Location:: [address] [place] [address] Room Number: 367 CLINICAL NURSING INTERN Reason for Call: Bradycardia, O2 Saturation below 90%, Change in Mental Status, Looks Sicker CLINICAL NURSING INTERN Called By: RN - IV IV Inserted during CLINICAL NURSING INTERN?: No - Respiratory Oxygen Delivery Method: Nasal Cannula @L/min Oxygen Flow Rate: 5 Received Nebulizer Treatments:: No Was the Patient Ventilated with Bag/Mask 100% O2?: Yes Secretions Suctioned?: Yes Was the Patient Intubated?: No Was the Patient Placed on a Ventilator?: No - Diagnostic Test Ordered EKG: Yes Chest X-Ray: Yes - Stat Labs Ordered CLINICAL NURSING INTERN Stat Labs Ordered: CBC, ABG CLINICAL NURSING INTERN Other Labs Ordered: INR, CPR started during CLINICAL NURSING INTERN?: No - Vital Signs Vital Sign: Rapid Response Vital Sign Blood Pressure 139/64 Pulse Rate 45 Oxygen Saturation 69 - Finger Stick Blood Glucose Finger Stick Blood Glucose: 119 - Time CLINICAL NURSING INTERN Ended Time CLINICAL NURSING INTERN Ended: 10:10 - Vital Signs at end of CLINICAL NURSING INTERN Vital Signs at end of CLINICAL NURSING INTERN: Rapid Response End Vital Sign Blood Pressure 187/77 Pulse Rate 97 O2 Sat by Pulse Oximetry 95 - Recommendations Notifications: Attending Physician, Family or Designated Caregiver I.Reason for CLINICAL NURSING INTERN - A) Acute Change in Patient: (Select all that apply): Staff member or family is worried about patient ( Patient began choking while drinking) - Neurological Status (Select all that apply): Disoriented, Lethargic. absent: Alert, Responsive, Oriented, Verbal, Follows Commands, Aggressive - Respiratory Oxygen Delivery Method: Nasal Cannula @L/min, Face Mask @% Oxygen Flow Rate: 5 - Constitutional Appears: In Acute Distress - Head Head Exam: ATRAUMATIC, NORMAL INSPECTION Additional Comments: Cyanosis of face and oral mucosa - Eyes Eye Exam: EOMI, Normal appearance Additional Comments: Right and left Ear lobes cyanotic - Respiratory Exam Respiratory Exam: Rales, Wheezes. absent: Clear to Ausculation Bilateral Additional comments: Fluid overloaded. Luiz cyanosis noted to improve after CLINICAL NURSING INTERN Initially minimal respiratory effort. With Ambu-bag respirations faint crackles were appreciated. After gaining normal respiratory efforts, diffuse wheezing appreciated in upper lobes bilaterally. - Cardiovascular Exam Cardiovascular Exam: Irregular Rhythm, +S1, +S2. absent: Clicks, Gallop Additional comments: Throughout course of CLINICAL NURSING INTERN, heart rate ranged between 30-100 bpm as observed on bed monitor - GI/Abdominal Exam GI & Abdominal Exam: Soft, Normal Bowel Sounds - Neurological Exam Neurological Exam: Altered. absent: Alert, Awake, Oriented x3 Additional exam: Initially not verbal, became verbal once respiratory efforts were gained. Still was not responsive to staff despite being verbal - Extremities Exam Extremities Exam: Pedal Edema (bilateral) Additional comments: Bilateral LE erythema Plan - Assessment of Findings&Treatment Plan Patient is an 86 year old female with past medical history of COPD, CHF, and atrial fibrillation on coumadin who is being treated for CHF exacerbation during this hospital visit. Rapid Response was called at 9:48 a.m. Patient was seen at bedside unresponsive, unable to breath on her own, and cyanotic. As per nursing staff patient began choking when she was taking her medication. Initially when CLINICAL NURSING INTERN was called patient was found to have a pulse oximetry of 69% as well as a HR in the 40s. With resuscitation efforts and oxygen mask, patient became responsive; vitals improved, began moving extremities, attempted to speak by counting to 100. Deep suctioning was performed by respiratory therapy due potential aspiration in which 100 ccs of bloody discharge was obtained. CBC , PT, ABG ordered. Once vitals stabilized, patient was transferred to the unit for further monitoring. As per discussion between palliative nurse and patient' s daughter (POA) patient will remain full code (this was the status at the time of CLINICAL NURSING INTERN). <Jade Montiel B - Last Filed: 06/29/17 17:19> CLINICAL NURSING INTERN Nurse Assessment - Vital Signs Vital Sign: Rapid Response Vital Sign Blood Pressure 139/64 Pulse Rate 45 Oxygen Saturation 69 - Vital Signs at end of CLINICAL NURSING INTERN Vital Signs at end of CLINICAL NURSING INTERN: Rapid Response End Vital Sign Blood Pressure 187/77 Pulse Rate 97 O2 Sat by Pulse Oximetry 95 Attending/Attestation - Attestation I have personally seen and examined this patient.: Yes I have fully participated in the care of the patient.: Yes I have reviewed all pertinent clinical information, including history, physical exam and plan: Yes Notes (Text): I have seen and examined the patient at bedside. Agree with the above note. Attending physician, patients family( daughter) and interventionist was notified. Patient is being transferred to ICU. As per patients daughter, she remains full code.
--- NOTE | 2017-06-29 11:33 | CP.PCM.CON ---
<Perfecto Marinelli - Last Filed: 06/29/17 11:24> History of Present Illness - History of Present Illness History of Present Illness: Patient is a 86 year old female with a PMHx of right parietal subdural hematoma , atrial fibrillation on coudmadin, hypertnesion, diabetes type 2, alzheimers dementia, osteoarthritis, and COPD who was admitted for evaluation and treatment of SOB. MUSIC WRITER was called on patient for experiencing a hypoxemic episode and was subsequently transferred to the ICU for further managing. Patient cannot provide further information due to declining status in addition to her baseline dementia. ROS cannot be attained at this time due to AMS. PMHx: right parietal subdural hematoma, atrial fibrillation on coumadin, hypertnesion, diabetes type 2, alzheimers dementia, osteoarthritis, and COPD PSHx: right breast cyst removal 25 years ago Allergies: NKDA Medications: no MAR Family Hx: noncontributory Social Hx: lives with daughter, does not smoke or drink ETOH Review of Systems - Review of Systems Review of Systems: 12 point review of systems cannot be ascertained at this time due to altered mental status Past Patient History - Infectious Disease Hx of Infectious Diseases: None - Tetanus Immunizations Tetanus Immunization: Unknown - Past Medical History & Family History Past Medical History?: Yes - Past Social History Smoking Status: Never Smoked - CARDIAC Hx Cardiac Disorders: Yes (HI) Hx Congestive Heart Failure: Yes Hx Hypertension: Yes - PULMONARY Hx Chronic Obstructive Pulmonary Disease (COPD): Yes - NEUROLOGICAL Hx Alzheimer's Disease: Yes HX Cerebrovascular Accident: Yes - HEENT Hx HEENT Problems: Yes Hx Cataracts: Yes (bilateral, sx 2007) - RENAL Hx Chronic Kidney Disease: No - ENDOCRINE/METABOLIC Hx Diabetes Mellitus Type 2: Yes - HEMATOLOGICAL/ONCOLOGICAL Hx Blood Disorders: Yes Hx Anemia: Yes - INTEGUMENTARY Hx Dermatological Problems: Yes Other/Comment: bruises to left knee , both great toes red swollen stage 1 opening 0.5cm round left buttock, buttocks/sacrum reddened, red rash under right breast multiple dry age spots to chest, small dry brown growth to left hand 3rd finger. 2 small scabs to rle, multiple skin discolorations b/l arms, small st 1 0.5cm left buttock round opening - MUSCULOSKELETAL/RHEUMATOLOGICAL Hx Falls: No - GASTROINTESTINAL Hx Gastrointestinal Disorders: Yes Hx Diverticulitis: Yes - GENITOURINARY/GYNECOLOGICAL Hx Genitourinary Disorders: Yes Hx Incontinence: Yes Hx Urinary Tract Infection: Yes - PSYCHIATRIC Hx Psychophysiologic Disorder: No Hx Anxiety: No Hx Bipolar Disorder: No Hx Depression: No Hx Emotional Abuse: No Hx Hallucinations: No Hx Panic Symptoms: No Hx Post Traumatic Stress Disorder: No Hx Psychosis: No Hx Physical Abuse: No Hx Schizophrenia: No Hx Sexual Abuse: No Hx Substance Use: No - SURGICAL HISTORY Hx Amputation: No Hx Appendectomy: No Hx Cardiac Catheterization: No Hx Cholecystectomy: No Hx Coronary Stent: No Hx Gastric Bypass Surgery: No Hx Hysterectomy: No Hx Joint Replacement: No Hx Kidney Transplant: No Hx Liver Transplant: No Hx Musculoskeletal Surgery: No Hx Open Heart Surgery: No Hx Orthopedic Surgery: No Hx Splenectomy: No Hx Valve Replacement: No Other/Comment: right breast cyst removed 25 yrs ago - ANESTHESIA Hx Anesthesia: No Meds Allergies/Adverse Reactions: Allergies Allergy/AdvReac Type Severity Reaction Status Date / Time No Known Allergies Allergy Verified 11/06/16 18:20 - Medications Medications: Current Medications Albuterol/Ipratropium (Duoneb 3 Mg/0.5 Mg (3 Ml) Ud) 3 ml IH TIDRESP [facility] Last Admin: 06/29/17 07:55 Dose: 3 ml Alprazolam (Xanax) 1 mg PO HS [facility] PRN Reason: Protocol Last Admin: 06/28/17 21:23 Dose: 1 mg Atorvastatin Calcium (Lipitor) 20 mg PO DAILY [facility] Last Admin: 06/29/17 09:33 Dose: 20 mg Digoxin (Lanoxin) 0.125 mg PO DAILY [facility] Last Admin: 06/29/17 09:34 Dose: 0.125 mg Diltiazem HCl (Cardizem Cd) 240 mg PO DAILY [facility] Last Admin: 06/29/17 09:34 Dose: 240 mg Donepezil HCl (Aricept) 5 mg PO HS [facility] Last Admin: 06/28/17 21:23 Dose: 5 mg Furosemide (Lasix) 40 mg PO BID [facility] Last Admin: 06/29/17 09:34 Dose: 40 mg Doxycycline Hyclate 100 mg/ (Sodium Chloride) 100 mls @ 100 mls/hr IVPB Q12 [facility] PRN Reason: Protocol Ceftriaxone Sodium (Rocephin 1 Gram Ivpb) 1 gm in 100 mls @ 100 mls/hr IVPB DAILY [facility] PRN Reason: Protocol Insulin Human Regular (Humulin R Med) 0 units SC ACHS [facility] PRN Reason: Protocol Last Admin: 06/29/17 07:56 Dose: Not Given Insulin Lispro Protam/Lispro Human (Humalog Mix 75/25) 20 units SC BID [facility] Last Admin: 06/28/17 17:54 Dose: 20 units Potassium Chloride (K-Dur 20 Meq Er Tab) 20 meq PO DAILY [facility] Last Admin: 06/29/17 09:33 Dose: 20 meq Warfarin Sodium (Coumadin) 5 mg PO 1800 [facility] Last Admin: 06/28/17 17:53 Dose: 5 mg Physical Exam - Head Exam Head Exam: ATRAUMATIC, NORMAL INSPECTION - Eye Exam Eye Exam: absent: Conjunctival injection - ENT Exam ENT Exam: Mucous Membranes Dry - Neck Exam Neck exam: Positive for: Normal Inspection - Respiratory Exam Respiratory Exam: Respiratory Distress - Cardiovascular Exam Cardiovascular Exam: +S1, +S2 - GI/Abdominal Exam GI & Abdominal Exam: Soft. absent: Distended, Firm, Guarding, Tenderness - Extremities Exam Extremities exam: Positive for: normal inspection - Neurological Exam Neurological exam: Altered - Skin Skin Exam: Normal Color, Warm Results - Vital Signs Recent Vital Signs: Last Vital Signs Temp 98.0 F 06/29/17 06:00 Pulse 92 H 06/29/17 10:34 Resp 17 06/29/17 06:00 BP 155/79 H 06/29/17 09:34 Pulse Ox 84 L 06/29/17 06:00 - Labs Result Diagrams: 06/29/17 10:15 06/29/17 10:15 Labs: Laboratory Results - last 24 hr 06/28/17 06/28/17 06/29/17 16:05 21:08 07:18 WBC RBC Hgb Hct MCV MCH MCHC RDW Plt Count MPV Gran % Lymph % (Auto) [place] % (Auto) Eos % (Auto) Baso % (Auto) Gran # Lymph # [place] # Eos # Baso # PT INR APTT pCO2 pO2 HCO3 ABG pH ABG Total CO2 ABG O2 Saturation ABG Base Excess ABG Potassium Sodium Chloride Glucose Lactate FiO2 Potassium Carbon Dioxide Anion Gap BUN Creatinine Est GFR ( Amer) Est GFR (Non-Af Amer) POC Glucose (mg/dL) 173 H 188 H 92 Random Glucose Calcium Phosphorus Magnesium Total Bilirubin AST ALT Alkaline Phosphatase Total Protein Albumin Globulin Albumin/Globulin Ratio Arterial Blood Potassium 06/29/17 06/29/17 06/29/17 09:51 10:00 10:15 WBC 9.7 D RBC 4.70 Hgb 12.5 Hct 43.1 MCV 91.7 MCH 26.6 MCHC 29.0 L RDW 21.4 H Plt Count 267 MPV 9.1 Gran % 78.2 H Lymph % (Auto) 11.7 L [place] % (Auto) 6.9 H Eos % (Auto) 2.5 Baso % (Auto) 0.7 Gran # 7.58 H Lymph # 1.1 L [place] # 0.7 H Eos # 0.2 Baso # 0.07 PT INR APTT pCO2 81 H* pO2 77.0 L HCO3 38.9 H ABG pH 7.29 L ABG Total CO2 41.4 H ABG O2 Saturation 96.1 ABG Base Excess 9.0 H ABG Potassium 3.5 L Sodium 143.0 Chloride 102.0 Glucose 153 H Lactate 1.5 FiO2 100.0 Potassium Carbon Dioxide Anion Gap BUN Creatinine Est GFR ( Amer) Est GFR (Non-Af Amer) POC Glucose (mg/dL) 119 H Random Glucose Calcium Phosphorus Magnesium Total Bilirubin AST ALT Alkaline Phosphatase Total Protein Albumin Globulin Albumin/Globulin Ratio Arterial Blood Potassium 3.5 L 06/29/17 06/29/17 10:15 10:15 WBC RBC Hgb Hct MCV MCH MCHC RDW Plt Count MPV Gran % Lymph % (Auto) [place] % (Auto) Eos % (Auto) Baso % (Auto) Gran # Lymph # [place] # Eos # Baso # PT 28.7 H INR 2.56 H APTT 36.3 pCO2 pO2 HCO3 ABG pH ABG Total CO2 ABG O2 Saturation ABG Base Excess ABG Potassium Sodium 145 Chloride 99 Glucose Lactate FiO2 Potassium 4.0 Carbon Dioxide 37 H Anion Gap 13 BUN 38 H Creatinine 1.2 Est GFR ( Amer) 51 Est GFR (Non-Af Amer) 42 POC Glucose (mg/dL) Random Glucose 154 H Calcium 9.6 Phosphorus 4.0 Magnesium 1.9 Total Bilirubin 1.2 AST 26 ALT 25 Alkaline Phosphatase 159 H Total Protein 8.9 H Albumin 3.9 Globulin 5.0 Albumin/Globulin Ratio 0.8 L Arterial Blood Potassium Assessment & Plan - Assessment and Plan (Free Text) Assessment: Patient is a 86 year old female with a PMHx of right parietal subdural hematoma , atrial fibrillation on coudmadin, hypertension, diabetes type 2, alzheimers dementia, osteoarthritis, and COPD who was admitted for evaluation and treatment of SOB. MUSIC WRITER was called on patient for experiencing a hypoxemic episode and was transferred to the ICU for further managing her respiratory distress. Plan: Neuro: Baseline Dementia Alzheimer Type - C/w aricept - Patient is awake, alert, responds to verbal stimuli, she does not answer questions appropriately, nor does she follows commands; moves extremities spontaneously - Monitor closely Cardio: Acute Systolic Heart Failure; Atrial Fibrillation; Hypertension - HR trended, reviewed, and appreciated, will continue to monitor closely - BPs trended, reviewed, and appreciated, will continue to monitor closely - c/w furosemide, digoxin, cardizem, atorvastatin, warfarin- follow up on INR - repeat CXR in afternoon- will follow up - continue to monitor vitals Pulm: COPD - ABG reviewed and appreciated- hypercapnic, hypoxemic respiratory failure - patient placed on bipap IPAP 14, EPAP 6 RR 16 FiO2 60% - IV solumedrol 40mg q8 - repeat ABG/CXR in afternoon- will follow up - c/w duonebs - c/w ceftriaxone and doxycycline - keep SaO2 above 92% GI: - continue with heart healthy diet - prophylaxis with protonix Renal/Electrolytes: - creatinine and BUN trended, reviewed, and appreciated, will continue to monitor closely - continue Kdur supplement Endo: - keep patient euglycemic - accuchecks - ISS and humalog 75/25 Heme: - Hgbs trended, reviewed, and appreciated, will continue to monitor closely - DVT prophylaxis with warfarin Patient seen, case discussed with, and plan approved by attending physician, Dr. Elizabeth <Reji Elizabeth - Last Filed: 06/29/17 15:14> Meds - Medications Medications: Current Medications Albuterol/Ipratropium (Duoneb 3 Mg/0.5 Mg (3 Ml) Ud) 3 ml IH Q2H PRN PRN Reason: Shortness of Breath Albuterol/Ipratropium (Duoneb 3 Mg/0.5 Mg (3 Ml) Ud) 3 ml IH [id number] [facility] Alprazolam (Xanax) 1 mg PO HS [facility] PRN Reason: Protocol Last Admin: 06/28/17 21:23 Dose: 1 mg Atorvastatin Calcium (Lipitor) 20 mg PO DAILY [facility] Last Admin: 06/29/17 09:33 Dose: 20 mg Digoxin (Lanoxin) 0.125 mg PO DAILY [facility] Last Admin: 06/29/17 09:34 Dose: 0.125 mg Diltiazem HCl (Cardizem Cd) 240 mg PO DAILY [facility] Last Admin: 06/29/17 09:34 Dose: 240 mg Donepezil HCl (Aricept) 5 mg PO HS [facility] Last Admin: 06/28/17 21:23 Dose: 5 mg Furosemide (Lasix) 40 mg IVP Q12 [facility] Last Admin: 06/29/17 14:38 Dose: 40 mg Doxycycline Hyclate 100 mg/ (Sodium Chloride) 100 mls @ 100 mls/hr IVPB Q12 [facility] PRN Reason: Protocol Last Admin: 06/29/17 14:38 Dose: 100 mls/hr Ceftriaxone Sodium (Rocephin 1 Gram Ivpb) 1 gm in 100 mls @ 100 mls/hr IVPB DAILY [facility] PRN Reason: Protocol Last Admin: 06/29/17 14:38 Dose: 100 mls/hr Milrinone Lactate/Dextrose (Primacor 20mg/100ml D5w) 100 mls @ 6.069 mls/hr IV .[id number] PRN; Protocol; 0.2 MCG/KG/MIN PRN Reason: TITRATE PER MD ORDER Insulin Human Regular (Humulin R Med) 0 units SC ACHS [facility] PRN Reason: Protocol Last Admin: 06/29/17 07:56 Dose: Not Given Insulin Lispro Protam/Lispro Human (Humalog Mix 75/25) 20 units SC BID [facility] Last Admin: 06/28/17 17:54 Dose: 20 units Methylprednisolone (Solu-Medrol) 40 mg IVP Q8H [facility] Last Admin: 06/29/17 14:37 Dose: 40 mg Pantoprazole Sodium (Protonix Inj) 40 mg IVP DAILY [facility] Potassium Chloride (K-Dur 20 Meq Er Tab) 20 meq PO DAILY [facility] Last Admin: 06/29/17 09:33 Dose: 20 meq Warfarin Sodium (Coumadin) 5 mg PO 1800 [facility] Last Admin: 06/28/17 17:53 Dose: 5 mg Results - Vital Signs Recent Vital Signs: Last Vital Signs Temp 98.0 F 06/29/17 06:00 Pulse 88 06/29/17 14:28 Resp 23 06/29/17 13:00 BP 148/67 06/29/17 14:38 Pulse Ox 87 L 06/29/17 14:28 - Labs Result Diagrams: 06/29/17 10:15 06/29/17 10:15 Labs: Laboratory Results - last 24 hr 06/28/17 06/28/17 06/29/17 16:05 21:08 07:18 WBC RBC Hgb Hct MCV MCH MCHC RDW Plt Count MPV Gran % Lymph % (Auto) [place] % (Auto) Eos % (Auto) Baso % (Auto) Gran # Lymph # [place] # Eos # Baso # PT INR APTT pCO2 pO2 HCO3 ABG pH ABG Total CO2 ABG O2 Saturation ABG Base Excess ABG Potassium Sodium Chloride Glucose Lactate FiO2 Potassium Carbon Dioxide Anion Gap BUN Creatinine Est GFR ( Amer) Est GFR (Non-Af Amer) POC Glucose (mg/dL) 173 H 188 H 92 Random Glucose Calcium Phosphorus Magnesium Total Bilirubin AST ALT Alkaline Phosphatase Total Protein Albumin Globulin Albumin/Globulin Ratio Arterial Blood Potassium 06/29/17 06/29/17 06/29/17 09:51 10:00 10:15 WBC 9.7 D RBC 4.70 Hgb 12.5 Hct 43.1 MCV 91.7 MCH 26.6 MCHC 29.0 L RDW 21.4 H Plt Count 267 MPV 9.1 Gran % 78.2 H Lymph % (Auto) 11.7 L [place] % (Auto) 6.9 H Eos % (Auto) 2.5 Baso % (Auto) 0.7 Gran # 7.58 H Lymph # 1.1 L [place] # 0.7 H Eos # 0.2 Baso # 0.07 PT INR APTT pCO2 81 H* pO2 77.0 L HCO3 38.9 H ABG pH 7.29 L ABG Total CO2 41.4 H ABG O2 Saturation 96.1 ABG Base Excess 9.0 H ABG Potassium 3.5 L Sodium 143.0 Chloride 102.0 Glucose 153 H Lactate 1.5 FiO2 100.0 Potassium Carbon Dioxide Anion Gap BUN Creatinine Est GFR ( Amer) Est GFR (Non-Af Amer) POC Glucose (mg/dL) 119 H Random Glucose Calcium Phosphorus Magnesium Total Bilirubin AST ALT Alkaline Phosphatase Total Protein Albumin Globulin Albumin/Globulin Ratio Arterial Blood Potassium 3.5 L 06/29/17 06/29/17 06/29/17 10:15 10:15 13:00 WBC RBC Hgb Hct MCV MCH MCHC RDW Plt Count MPV Gran % Lymph % (Auto) [place] % (Auto) Eos % (Auto) Baso % (Auto) Gran # Lymph # [place] # Eos # Baso # PT 28.7 H INR 2.56 H APTT 36.3 pCO2 66 H pO2 43.0 L* HCO3 40.0 H ABG pH 7.39 ABG Total CO2 42.0 H ABG O2 Saturation 83.6 L ABG Base Excess 12.1 H ABG Potassium 4.0 Sodium 145 141.0 Chloride 99 102.0 Glucose 172 H Lactate 0.7 FiO2 28.0 Potassium 4.0 Carbon Dioxide 37 H Anion Gap 13 BUN 38 H Creatinine 1.2 Est GFR ( Amer) 51 Est GFR (Non-Af Amer) 42 POC Glucose (mg/dL) Random Glucose 154 H Calcium 9.6 Phosphorus 4.0 Magnesium 1.9 Total Bilirubin 1.2 AST 26 ALT 25 Alkaline Phosphatase 159 H Total Protein 8.9 H Albumin 3.9 Globulin 5.0 Albumin/Globulin Ratio 0.8 L Arterial Blood Potassium 4.0 Attending/Attestation - Attestation I have personally seen and examined this patient.: Yes I have fully participated in the care of the patient.: Yes I have reviewed all pertinent clinical information: Yes Notes (Text): 06/29/17 15:10 86 yo with COPD and cor-pulmonale 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 BPAP, steroids taper, bronchodilators and abx started for presumed AECOPD etiology of respiratory failure, extra dose of IV Lasix given and primacor initiated to unload RV. INR is therapeutic--unlikely VTE. Family decided for DNR/DNI. GI prophylaxis. ABG substantially removed, acute respiratory acidosis resolved, continue with 02 supplementation and BPAP at night. ccm time 40 min
[2017-06-29] MEDS ORDERED: Albuterol-Ipratrop 3 mg / 0.5 (3 ml) UD IH PRN (11:35)
[2017-06-29] MEDS ORDERED: DOBUTamine 500mg/250ml D5W 500 MG/250 ML BAG IV PRN (11:50)
[2017-06-29] MEDS: Insulin Lispro (humaLOG) MIX 75/25(10 ml) SC SCH ×2 (12:00→18:00)
[2017-06-29 13:14] LABS: ARTERIAL BLOOD GAS PH 7.39 (7.35-7.45)
--- NOTE | 2017-06-29 13:29 | CP.PCM.PN ---
Subjective - Date & Time of Evaluation Date of Evaluation: 06/29/17 Time of Evaluation: 13:00 - Subjective Subjective: Found patient choking > then became unresponsive> rapid response called. Objective - Vital Signs/Intake and Output Vital Signs (last 24 hours): Temp Pulse Resp BP Pulse Ox 98.0 F 92 H 17 155/79 H 84 L 06/29/17 06:00 06/29/17 10:34 06/29/17 06:00 06/29/17 09:34 06/29/17 06:00 Intake and Output: 06/29/17 06/29/17 06:59 18:59 Intake Total 360 Output Total 900 Balance -540 - Medications Medications: Current Medications Albuterol/Ipratropium (Duoneb 3 Mg/0.5 Mg (3 Ml) Ud) 3 ml IH Q2H PRN PRN Reason: Shortness of Breath Albuterol/Ipratropium (Duoneb 3 Mg/0.5 Mg (3 Ml) Ud) 3 ml IH [id number] GRACIE Alprazolam (Xanax) 1 mg PO HS [facility] PRN Reason: Protocol Last Admin: 06/28/17 21:23 Dose: 1 mg Atorvastatin Calcium (Lipitor) 20 mg PO DAILY [facility] Last Admin: 06/29/17 09:33 Dose: 20 mg Digoxin (Lanoxin) 0.125 mg PO DAILY [facility] Last Admin: 06/29/17 09:34 Dose: 0.125 mg Diltiazem HCl (Cardizem Cd) 240 mg PO DAILY [facility] Last Admin: 06/29/17 09:34 Dose: 240 mg Donepezil HCl (Aricept) 5 mg PO HS [facility] Last Admin: 06/28/17 21:23 Dose: 5 mg Furosemide (Lasix) 40 mg IVP Q12 [facility] Doxycycline Hyclate 100 mg/ (Sodium Chloride) 100 mls @ 100 mls/hr IVPB Q12 [facility] PRN Reason: Protocol Ceftriaxone Sodium (Rocephin 1 Gram Ivpb) 1 gm in 100 mls @ 100 mls/hr IVPB DAILY [facility] PRN Reason: Protocol Milrinone Lactate/Dextrose (Primacor 20mg/100ml D5w) 100 mls @ 6.069 mls/hr IV .[id number] PRN; Protocol; 0.2 MCG/KG/MIN PRN Reason: TITRATE PER MD ORDER Insulin Human Regular (Humulin R Med) 0 units SC ACHS [facility] PRN Reason: Protocol Last Admin: 06/29/17 07:56 Dose: Not Given Insulin Lispro Protam/Lispro Human (Humalog Mix 75/25) 20 units SC BID [facility] Last Admin: 06/28/17 17:54 Dose: 20 units Methylprednisolone (Solu-Medrol) 40 mg IVP Q8H [facility] Pantoprazole Sodium (Protonix Inj) 40 mg IVP DAILY [facility] Potassium Chloride (K-Dur 20 Meq Er Tab) 20 meq PO DAILY [facility] Last Admin: 06/29/17 09:33 Dose: 20 meq Warfarin Sodium (Coumadin) 5 mg PO 1800 [facility] Last Admin: 06/28/17 17:53 Dose: 5 mg - Labs Labs: 06/29/17 10:15 06/29/17 10:15 PT 28.7 SECONDS (9.4-12.5) H 06/29/17 10:15 INR 2.56 (0.93-1.08) H 06/29/17 10:15 APTT 36.3 Seconds (25.1-36.5) 06/29/17 10:15 - Constitutional Appears: Chronically Ill - Eye Exam Eye Exam: Normal appearance, PERRL - ENT Exam ENT Exam: Mucous Membranes Moist - Respiratory Exam Respiratory Exam: Decreased Breath Sounds - Cardiovascular Exam Cardiovascular Exam: Bradycardia - GI/Abdominal Exam GI & Abdominal Exam: Firm, Diminished Bowel Sounds - Skin Skin Exam: Pallor Assessment and Plan - Assessment and Plan (Free Text) Assessment: 86 year old female with history of dementia, atrial fibrillation on warfarin, cellulitis of lower extremities, COPD,CAD, CHF and subdural hematoma who was admitted with CHF exacerbation. This morning, she choked and had difficulty breathing then became unresponsive. An ADULT PROTECTIVE CASEWORKER was called.She was transferred to the ICU for further medical management. She was placed on BIPAP but has since stabilized and is now back on nasal cannula. Family at bedside. Discussed resuscitation status at length. POLST directive explained, questions answered. POLST completed by Rocco WHITE. She is now DNR/DNI. Further discussion regarding goals of carer and option for comfort care discussed by Dr. Elizabeth with family. Family still undecided regarding hospice care. Psychosocial support given. Time spent with family in advance care planning discussion, 30 minutes Plan: POLST: DNR/DNI Palliative support and assistance establishing goals of care
[2017-06-29] MEDS: MethylPREDNISolone 40 mg Vial IVP SCH ×2 (14:37→20:28)
--- NOTE | 2017-06-29 14:37 | RAD ---
HISTORY: SOB COMPARISON: 06/29/2017 at 1006 hours. The current study is that to 13 p.m. on the same day FINDINGS: LUNGS: Allowing for slight differences in technique, the same-daycentral pulmonary vascular congestion and diffuse patchy hazy coalescent airspace opacities consistent with coalescent pulmonary edema and/or pulmonary infiltrates are similar in appearance. Interval trace decreased superior interstitial pulmonary edema is possible possible PLEURA: The prior bilateral pleural effusions right side greater than left side are similar in appearance. No pneumothorax. CARDIOVASCULAR: Cardiomegaly as before. Central pulmonary vascular congestion renoted extensive as detailed above OSSEOUS STRUCTURES: Thoracic spondylosis. VISUALIZED UPPER ABDOMEN: Normal. OTHER FINDINGS: None. IMPRESSION: Similar extensive coalescent hazy opacities obscuring each inferior hemithorax. Findings are more dense over left lung base yet extend more superiorly on the right. Large bilateral pleural effusions with concomitant coalescing compressive atelectasis and/or coalescing infiltrates suggested. Intrinsic pulmonary venous congestion and cardiomegaly. CHF-consistent with this . Possible minimal decreased interstitial pulmonary edema at the extreme lung apices. Cardiomegaly as before.
[2017-06-29] MEDS: cefTRIAXone 1 gm 1 GM/100 ML BAG IVPB SCH (14:38)
[2017-06-29] MEDS: Milrinone 20mg/100ml D5W 100 ML IV PRN (17:35)
--- NOTE | 2017-06-29 19:15 | CON ---
DATE: 06/29/2017 HISTORY OF PRESENT ILLNESS: The patient is an 86-year-old lady with history of COPD, CHF, right ventricular failure, who presented 2 days ago with increased shortness of breath, swelling of lower extremities. No fever, no chills, no sweats. No chest pain. Shortness of breath was getting progressively worse over the course of 2 to 3 days. It was more prominent during exertion. No cough. No sputum production. The patient had those episodes before, and at that time, she was diagnosed with CHF as well. PAST MEDICAL HISTORY: Atrial fibrillation, on Coumadin; hypertension, diabetes type 2, dementia, osteoarthritis, COPD, cor pulmonale. SOCIAL HISTORY: The patient used to smoke many years ago, not anymore. No alcohol or illicit drug abuse. FAMILY HISTORY: Noncontributory. HOME MEDICATIONS: The patient is on Lipitor, digoxin, Cardizem, Xanax, Lasix, and Coumadin. REVIEW OF SYSTEM: Review of 12-organ system other than mentioned in history of present illness is negative. MEDICATIONS IN THE HOSPITAL: Xanax, DuoNeb every 4 hours, Lipitor, digoxin, Cardizem, Aricept, doxycycline, Lasix 40 mg IV q. 12 hours (used to be p.o.); regular insulin sliding scale medium protocol, 75/25 insulin 20 units subcu b.i.d.; Solu-Medrol 40 mg IV q. 8 hours, Protonix, milrinone, ceftriaxone, warfarin. Chest x-ray showed worsening of bilateral vascular congestion and bilateral pleural effusion. PHYSICAL EXAMINATION: VITAL SIGNS: Oxygen saturation 94% on BiPAP 60% FiO2. Blood pressure systolic fluctuates between 155 to 180. Heart rate 92 to 103, respiratory rate 20. HEENT/NECK: Head and neck atraumatic. LUNGS: Crackles bibasilarly. HEART: Irregular rate and rhythm. S1, S2 distant. ABDOMEN: Soft, nontender, nondistended. MUSCULOSKELETAL: 1+ bilateral pedal and ankle edema. NEUROLOGIC: The patient moves all extremities spontaneously. SKIN: Moist. PSYCHIATRIC: The patient is alert and awake. LABORATORY DATA: WBC 9.7, hemoglobin 12.5, platelet count 267. Sodium 145, potassium 4, chloride 99, carbon dioxide 37, BUN 38, creatinine 1.2, glucose 154, AST 26, ALT 25, albumin 3.9. INR 2.56. ABG is 7.29/81/77. Lactic acid 1.5. ASSESSMENT AND PLAN: This is an 86-year-old lady who was transferred to intensive care unit after rapid response due to acute worsening of her shortness of breath. It appears that the patient has worsening of right ventricular failure, most likely due to cor pulmonale. She was found to have acute respiratory acidosis due to hypercapnic respiratory failure. Possibility of bronchospasm as a complication of chronic obstructive pulmonary disease exacerbation cannot be ruled out, which most likely superimposed on progressive right ventricular failure and some left ventricular systolic dysfunction. At the present time, we will proceed with BiPAP, conservative fluid management, and we will switch from p.o. formulation of Lasix to IV 40 mg q. 12 hours. I will start the patient on Primacor to somewhat unload right ventricle in an attempt to decrease mean pulmonary artery pressure as well as PVR. The patient is hypertensive. The patient has mild left ventricular systolic dysfunction and Primacor would help as well. I would avoid dobutamine at present time as the patient has atrial fibrillation. I will be careful with Primacor as well, as the patient has borderline renal function. I will monitor urine output and will try to maintain it at a rate of >0.5 mL/kg per hour. Unfortunately, I think her prognosis is poor. I will proceed with bronchodilators, steroid taper, and antibiotics as a part of management of her chronic obstructive pulmonary disease exacerbation. I discussed situation with patient's daughter and she will consider advance directives of which she will let me know. We will continue with gastrointestinal prophylaxis. I have low suspicion for venous thromboembolism as the patient has therapeutic level of INR. I will repeat ABG to ascertain resolution of hypercapnic respiratory failure. ccm time 40 min Reji Elizabeth MD KATE
--- NOTE | 2017-06-29 19:36 | DS ---
HISTORY OF PRESENT ILLNESS: This is an 86-year-old female who had come into the hospital because of lower extremity edema. She was more short of breath. The patient has been declining. She has advanced dementia, COPD, and is on home O2. The patient has been getting discussion regarding end of life care and hospice. The patient's daughter, Tammi was to meet with [facility] yesterday. We will see if she is open to being going home on palliative care. The patient has no complaint of any chest pain and no shortness of breath. No headache or dizziness. She will need oxygen. Her oxygen is 84% on room air without O2. She would qualify. PHYSICAL EXAMINATION: VITAL SIGNS: Temperature is 98, pulse is 64, blood pressure is 155/79, and O2 saturation of 84%. GENERAL: The patient is lying in bed, flat, comfortable. HEENT: No oral lesion. Anicteric sclerae. Moist mucosa. NECK: No JVD, adenopathy, or thyromegaly. CARDIOVASCULAR: S1 and S2, regular. No murmurs, rubs, or gallops. LUNGS: Clear to auscultation bilaterally. No wheeze, rales, or rhonchi. ABDOMEN: Bowel sounds are positive, soft, nontender and nondistended. EXTREMITIES: No cyanosis, clubbing or edema. ASSESSMENT: 1. Hypoxia secondary to chronic obstructive pulmonary disease with room air oxygenation at 84%. 2. Acute congestive heart failure secondary to systolic dysfunction improved. 3. Lower extremity edema improving. 4. Dementia Alzheimer's type. 5. Atrial fibrillation on Coumadin. 6. Hypertension. 7. Diabetes type 2. 8. Osteoarthritis. 9. Right distal phalanx fracture. PLAN: The patient is currently on Coumadin. The patient's INR was 1.4 yesterday. Her Coumadin was increased. The patient is on nebulizer treatment. She is receiving Humalog for her diabetes. She is on Lasix twice a day. I will change that to p.o. Lasix. At this point, she is on Lipitor for dyslipidemia. She is on potassium replacement. She does have mild edema, but I do not think she will be able to get rid of all of her edema. She is on heart healthy diet. CONDITION: Stable. ACTIVITY: Increase as tolerated. DISCHARGE INSTRUCTIONS: The patient , will get visiting nurse because it is too taxing for her to come to the office because of the COPD and advanced dementia. Denton Napoles MD
[2017-06-30] MEDS ORDERED: Dexmedetomidine HCl 4mcg/ml 400 MCG/100 ML BOTTLE IV PRN (01:47)
[2017-06-30] MEDS: Albuterol-Ipratrop 3 mg / 0.5 (3 ml) UD IH SCH ×5 (03:49→23:58)
[2017-06-30] MEDS: MethylPREDNISolone 40 mg Vial IVP SCH ×3 (04:00→21:12)
[2017-06-30 07:02] LABS: INR 2.56 (0.93-1.08)
[2017-06-30 07:08] LABS: BASO # 0.01 K/mm3 (0.0-2.0); BASO % 0.2 % (0.0-3.0); GRAN # 4.47 (1.4-6.5); GRAN % 90.7 % (50.0-68.0); HEMATOCRIT 39.2 % (36.0-48.0); LYMPH # 0.3 (1.2-3.4); LYMPH % 5.9 % (22.0-35.0); MEAN CORPUSCULAR HEMOGLOBIN 26.2 pg (25.0-35.0); MEAN CORPUSCULAR HGB CONC 28.8 g/dl (31.0-37.0); MEAN PLATELET VOLUME 9.6 fl (7.0-11.0); MONO # 0.2 (0.1-0.6); MONO % 3.2 % (1.0-6.0); PLATELET COUNT 259 10^3/uL (120.0-450.0); RED CELL DISTRIBUTION WIDTH 20.8 % (11.5-14.5); WHITE BLOOD COUNT 4.9 10^3/ul (4.5-11.0)
[2017-06-30] MEDS: Milrinone 20mg/100ml D5W 100 ML IV PRN ×2 (07:08→23:50)
[2017-06-30 07:12] LABS: ALB/GLOB RATIO 0.8 (1.1-1.8); BILIRUBIN,TOTAL 0.9 mg/dL (0.2-1.3); CALCIUM 9.1 mg/dL (8.4-10.5); POTASSIUM 4.2 mmol/L (3.6-5.0)
[2017-06-30 09:06] LABS: ANISOCYTOSIS SLIGHT; NEUTROPHIL 91 % (50.0-70.0)
[2017-06-30] MEDS: cefTRIAXone 1 gm 1 GM/100 ML BAG IVPB SCH (10:11)
[2017-06-30] MEDS: diltiaZEM 240 mg/24 Hours CD Cap PO SCH (10:12)
[2017-06-30] MEDS: Potassium Chloride 20 mEq ER Tab PO SCH (10:13)
[2017-06-30] MEDS: Insulin Reg-MEDIUM-Coverage SC SCH ×4 (10:15→22:13)
[2017-06-30] MEDS: Insulin Lispro (humaLOG) MIX 75/25(10 ml) SC SCH ×2 (10:15→17:57)
[2017-06-30] MEDS: Digoxin 125 mcg (0.125 mg) Tab PO SCH (10:17)
--- NOTE | 2017-06-30 10:49 | CP.CCUPN ---
<Perfecto Marinelli - Last Filed: 06/30/17 10:36> CCU Subjective - Physician Review Subjective (Free Text): Patient seen and examined at bedside. Resting comfortably in bed. Overnight the patient became agitated and attempted to pull off bipap. Patient was started on precedex to reduce agitation. It was turned off this morning and patient is resting comfortably in bed. She is awake, alert, responds to verbal stimuli, but does not answer questions appropriately or follow commands. ROS cannot be attained at this time due to altered mental status. 06/30/17 10:39 CCU Objective - Vital Signs / Intake & Output Vital Signs (Last 4 hours): Vital Signs Pulse Resp BP Pulse Ox 06/30/17 10:19 143/64 06/30/17 10:12 80 143/64 06/30/17 07:45 98 H 06/30/17 07:08 99 H 156/72 H 06/30/17 06:40 91 H 15 154/81 H 97 Intake and Output (Last 8hrs): Intake & Output 06/29/17 06/30/17 06/30/17 22:59 06:59 14:59 Intake Total 480 150 100 Output Total 500 400 Balance -20 -250 100 Weight 199 lb 3 oz Intake: IV 240 100 100 Right Hand 240 100 Oral 240 50 Output: Urine 500 400 Urine, Voided 500 400 Other: # Bowel Movements 0 - Physical Exam Head: Positive for: Atraumatic, Normocephalic Pupils: Positive for: PERRL Conjunctiva: Positive for: Normal Mouth: Positive for: Dry Pharnyx: Positive for: Normal Neck: Positive for: Normal Range of Motion Respiratory/Chest: Positive for: Decreased Breath Sounds, Rales (to bilateral bases) Cardiovascular: Positive for: Normal S1, S2. Negative for: Murmurs Abdomen: Positive for: Normal Bowel Sounds. Negative for: Tenderness, Distention, Peritoneal Signs Upper Extremity: Negative for: Cyanosis, Edema Lower Extremity: Positive for: Edema (chronic), Neurovascularly Intact Neurological: Positive for: Motor Func Grossly Intact Skin: Positive for: Warm, Dry. Negative for: Rashes Psychiatric: Positive for: Alert - Medications Active Medications: Active Medications Generic Name Dose Route Start Last Admin Trade Name Freq PRN Reason Stop Dose Admin Albuterol/Ipratropium 3 ml 06/29/17 11:35 Duoneb 3 Mg/0.5 Mg (3 Ml) Ud IH Q2H PRN Shortness of Breath Albuterol/Ipratropium 3 ml 06/29/17 15:30 06/30/17 07:42 Duoneb 3 Mg/0.5 Mg (3 Ml) Ud IH 3 ml [id number] GRACIE Administration Alprazolam 1 mg 06/27/17 22:00 06/29/17 21:22 Xanax PO 1 mg HS GRACIE Administration Protocol Atorvastatin Calcium 20 mg 06/27/17 10:00 06/30/17 10:13 Lipitor PO 20 mg DAILY GRACIE Administration Digoxin 0.125 mg 06/27/17 10:00 06/30/17 10:17 Lanoxin PO 0.125 mg DAILY GRACIE Administration Diltiazem HCl 240 mg 06/27/17 10:00 06/30/17 10:12 Cardizem Cd PO 240 mg DAILY GRACIE Administration Donepezil HCl 5 mg 06/27/17 22:00 06/29/17 21:23 Aricept PO 5 mg HS GRACIE Administration Furosemide 40 mg 06/29/17 12:00 06/30/17 10:19 Lasix IVP 40 mg Q12 GRACIE Administration Haloperidol Lactate 2 mg 06/30/17 09:25 Haldol IVP Q4 PRN Agitation Protocol Doxycycline Hyclate 100 mg/ 100 mls @ 100 mls/hr 06/29/17 10:45 06/30/17 10: 12 Sodium Chloride IVPB 100 mls/hr Q12 GRACIE Administration Protocol Ceftriaxone Sodium 1 gm in 100 mls @ 100 mls/hr 06/29/17 10:45 06/30/17 10:11 Rocephin 1 Gram Ivpb IVPB 100 mls/hr DAILY GRACIE Administration Protocol Milrinone Lactate/Dextrose 100 mls @ 6.069 mls/hr 06/29/17 11:51 06/30/17 07: 08 Primacor 20mg/100ml D5w IV 0.2 mcg/kg/min .[id number] PRN 6.069 mls/hr TITRATE PER MD ORDER Administration Protocol 0.2 MCG/KG/MIN Dexmedetomidine HCl 400 mcg in 100 mls @ 5.058 mls/hr 06/30/17 01:47 02:28 Precedex 4 Mcg/Ml (100 Ml) IV 0.1 mcg/kg/hr .[id number] PRN 2.529 mls/hr Sedation Administration Protocol 0.2 MCG/KG/HR Insulin Human Regular 0 units 06/27/17 11:30 06/30/17 10:15 Humulin R Med SC 3 units ACHS GRACIE Administration Protocol Insulin Lispro Protam/Lispro Human 20 units 06/27/17 10:00 06/30/17 10:15 Humalog Mix 75/25 SC 20 units BID GRACIE Administration Methylprednisolone 40 mg 06/29/17 11:45 06/30/17 04:00 Solu-Medrol IVP 40 mg Q8H GRACIE Administration Pantoprazole Sodium 40 mg 06/29/17 12:00 06/30/17 10:19 Protonix Inj IVP 40 mg DAILY GRACIE Administration Potassium Chloride 20 meq 06/27/17 10:00 06/30/17 10:13 K-Dur 20 Meq Er Tab PO 20 meq DAILY GRACIE Administration Warfarin Sodium 5 mg 06/27/17 18:00 06/29/17 18:00 Coumadin PO Not Given 1800 GRACIE - Patient Studies Lab Studies: Microbiology Studies 06/29/17 10:22 Blood Culture - Preliminary Blood-Venous NO GROWTH AFTER 24 HOURS 06/29/17 10:00 Blood Culture - Preliminary Blood-Venous NO GROWTH AFTER 24 HOURS Lab Studies 06/30/17 06/30/17 06/30/17 Range/Units 06:50 06:50 06:30 WBC 4.9 D (4.5-11.0) 10^3/ul RBC 4.31 (3.5-6.1) 10^6/uL Hgb 11.3 L (12.0-16.0) g/dL Hct 39.2 (36.0-48.0) % MCV 91.0 (80.0-105.0) fl MCH 26.2 (25.0-35.0) pg MCHC 28.8 L (31.0-37.0) g/dl RDW 20.8 H (11.5-14.5) % Plt Count 259 (120.0-450.0) 10^3/uL MPV 9.6 (7.0-11.0) fl Gran % 90.7 H (50.0-68.0) % Lymph % (Auto) 5.9 L (22.0-35.0) % Sherman % (Auto) 3.2 (1.0-6.0) % Eos % (Auto) 0.0 L (1.5-5.0) % Baso % (Auto) 0.2 (0.0-3.0) % Gran # 4.47 (1.4-6.5) Lymph # 0.3 L (1.2-3.4) Sherman # 0.2 (0.1-0.6) Eos # 0.0 (0.0-0.7) Baso # 0.01 (0.0-2.0) K/mm3 Neutrophils % (Manual) 91 H (50.0-70.0) % Lymphocytes % (Manual) 6 L (22.0-35.0) % Monocytes % (Manual) 3 (1.0-6.0) % Anisocytosis (manual) Slight PT 28.7 H (9.4-12.5) SECONDS INR 2.56 H (0.93-1.08) APTT (25.1-36.5) Seconds pCO2 (35-45) mm/Hg pO2 (80-100) mm/Hg HCO3 (21-28) mmol/L ABG pH (7.35-7.45) ABG Total CO2 (22-28) mmol.L ABG O2 Saturation (95-98) % ABG Base Excess (-2.0-3.0) mmol/L ABG Potassium (3.6-5.2) mmol/L Sodium 145 (132-148) mmol/L Chloride 99 (98-107) mmol/L Glucose (65-105) mg/dl Lactate (0.7-2.1) mmol/L FiO2 % Potassium 4.2 (3.6-5.0) mmol/L Carbon Dioxide 39 H (21-33) mmol/L Anion Gap 11 (10-20) BUN 44 H (7-21) mg/dL Creatinine 1.2 (0.7-1.2) mg/dL Est GFR ( Amer) 51 Est GFR (Non-Af Amer) 42 Random Glucose 225 H (70-110) mg/dL Calcium 9.1 (8.4-10.5) mg/dL Total Bilirubin 0.9 (0.2-1.3) mg/dL AST 23 (14-36) U/L ALT 23 (7-56) U/L Alkaline Phosphatase 132 H (38-126) U/L Total Protein 8.0 (5.8-8.3) g/dL Albumin 3.4 (3.0-4.8) g/dL Globulin 4.5 gm/dL Albumin/Globulin Ratio 0.8 L (1.1-1.8) Procalcitonin (0.19-0.49) NG/ML Arterial Blood Potassium (3.6-5.2) mmol/L 06/29/17 06/29/17 06/29/17 Range/Units 13:00 10:45 10:15 WBC (4.5-11.0) 10^3/ul RBC (3.5-6.1) 10^6/uL Hgb (12.0-16.0) g/dL Hct (36.0-48.0) % MCV (80.0-105.0) fl MCH (25.0-35.0) pg MCHC (31.0-37.0) g/dl RDW (11.5-14.5) % Plt Count (120.0-450.0) 10^3/uL MPV (7.0-11.0) fl Gran % (50.0-68.0) % Lymph % (Auto) (22.0-35.0) % Sherman % (Auto) (1.0-6.0) % Eos % (Auto) (1.5-5.0) % Baso % (Auto) (0.0-3.0) % Gran # (1.4-6.5) Lymph # (1.2-3.4) Sherman # (0.1-0.6) Eos # (0.0-0.7) Baso # (0.0-2.0) K/mm3 Neutrophils % (Manual) (50.0-70.0) % Lymphocytes % (Manual) (22.0-35.0) % Monocytes % (Manual) (1.0-6.0) % Anisocytosis (manual) PT 28.7 H (9.4-12.5) SECONDS INR 2.56 H (0.93-1.08) APTT 36.3 (25.1-36.5) Seconds pCO2 66 H (35-45) mm/Hg pO2 43.0 L* (80-100) mm/Hg HCO3 40.0 H (21-28) mmol/L ABG pH 7.39 (7.35-7.45) ABG Total CO2 42.0 H (22-28) mmol.L ABG O2 Saturation 83.6 L (95-98) % ABG Base Excess 12.1 H (-2.0-3.0) mmol/L ABG Potassium 4.0 (3.6-5.2) mmol/L Sodium 141.0 (132-148) mmol/L Chloride 102.0 (98-107) mmol/L Glucose 172 H (65-105) mg/dl Lactate 0.7 (0.7-2.1) mmol/L FiO2 28.0 % Potassium (3.6-5.0) mmol/L Carbon Dioxide (21-33) mmol/L Anion Gap (10-20) BUN (7-21) mg/dL Creatinine (0.7-1.2) mg/dL Est GFR ( Amer) Est GFR (Non-Af Amer) Random Glucose (70-110) mg/dL Calcium (8.4-10.5) mg/dL Total Bilirubin (0.2-1.3) mg/dL AST (14-36) U/L ALT (7-56) U/L Alkaline Phosphatase (38-126) U/L Total Protein (5.8-8.3) g/dL Albumin (3.0-4.8) g/dL Globulin gm/dL Albumin/Globulin Ratio (1.1-1.8) Procalcitonin 0.10 L (0.19-0.49) NG/ML Arterial Blood Potassium 4.0 (3.6-5.2) mmol/L Laboratory Results - last 24 hr 06/29/17 06/29/17 06/29/17 10:15 10:45 13:00 WBC RBC Hgb Hct MCV MCH MCHC RDW Plt Count MPV Gran % Lymph % (Auto) Sherman % (Auto) Eos % (Auto) Baso % (Auto) Gran # Lymph # Sherman # Eos # Baso # Neutrophils % (Manual) Lymphocytes % (Manual) Monocytes % (Manual) Anisocytosis (manual) PT 28.7 H INR 2.56 H APTT 36.3 pCO2 66 H pO2 43.0 L* HCO3 40.0 H ABG pH 7.39 ABG Total CO2 42.0 H ABG O2 Saturation 83.6 L ABG Base Excess 12.1 H ABG Potassium 4.0 Sodium 141.0 Chloride 102.0 Glucose 172 H Lactate 0.7 FiO2 28.0 Potassium Carbon Dioxide Anion Gap BUN Creatinine Est GFR ( Amer) Est GFR (Non-Af Amer) Random Glucose Calcium Total Bilirubin AST ALT Alkaline Phosphatase Total Protein Albumin Globulin Albumin/Globulin Ratio Procalcitonin 0.10 L Arterial Blood Potassium 4.0 06/30/17 06/30/17 06/30/17 06:30 06:50 06:50 WBC 4.9 D RBC 4.31 Hgb 11.3 L Hct 39.2 MCV 91.0 MCH 26.2 MCHC 28.8 L RDW 20.8 H Plt Count 259 MPV 9.6 Gran % 90.7 H Lymph % (Auto) 5.9 L Sherman % (Auto) 3.2 Eos % (Auto) 0.0 L Baso % (Auto) 0.2 Gran # 4.47 Lymph # 0.3 L Sherman # 0.2 Eos # 0.0 Baso # 0.01 Neutrophils % (Manual) 91 H Lymphocytes % (Manual) 6 L Monocytes % (Manual) 3 Anisocytosis (manual) Slight PT 28.7 H INR 2.56 H APTT pCO2 pO2 HCO3 ABG pH ABG Total CO2 ABG O2 Saturation ABG Base Excess ABG Potassium Sodium 145 Chloride 99 Glucose Lactate FiO2 Potassium 4.2 Carbon Dioxide 39 H Anion Gap 11 BUN 44 H Creatinine 1.2 Est GFR ( Amer) 51 Est GFR (Non-Af Amer) 42 Random Glucose 225 H Calcium 9.1 Total Bilirubin 0.9 AST 23 ALT 23 Alkaline Phosphatase 132 H Total Protein 8.0 Albumin 3.4 Globulin 4.5 Albumin/Globulin Ratio 0.8 L Procalcitonin Arterial Blood Potassium EKG/Cardiology Studies: Cardiology / EKG Studies 06/29/17 09:58 EKG [ELECTROCARDIOGRAM] 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 PEDIATRIC PHYSICIAN ASSISTANT was called on patient yesterday for experiencing a hypoxemic episode and was transferred to the ICU for further management of her respiratory distress. Patient is saturating >92% on BiPAP. Plan: Neuro: Baseline Dementia Alzheimer Type - C/w aricept - Patient is awake, alert, responds to verbal stimuli, she does not answer questions appropriately, nor does she follows commands; moves extremities spontaneously - Monitor closely Cardio: Acute Systolic Heart Failure; Cor Pulmonale; Atrial Fibrillation; Hypertension - HR trended, reviewed, and appreciated, will continue to monitor closely - BPs trended, reviewed, and appreciated, will continue to monitor closely - c/w furosemide, digoxin, cardizem, atorvastatin, warfarin, and milrinone gtt - repeat CXR in afternoon- will follow up - continue to monitor vitals Pulm: COPD - ABG reviewed and appreciated- hypercapnic, hypoxemic respiratory failure - patient placed on bipap IPAP 16, EPAP 6 RR 14 FiO2 60% - IV solumedrol 40mg q8 - repeat ABG/CXR in afternoon- will follow up - c/w duonebs - c/w ceftriaxone and doxycycline - keep SaO2 above 92% - palliative care consult appreciated GI: - continue with heart healthy diet - prophylaxis with protonix Renal/Electrolytes: - creatinine and BUN trended, reviewed, and appreciated, will continue to monitor closely - continue Kdur supplement Endo: - keep patient euglycemic - accuchecks - ISS and humalog 75/25 Heme: - Hgbs trended, reviewed, and appreciated, will continue to monitor closely - DVT prophylaxis with warfarin Dispo: Transfer to telemetry Critical care team will sign off at this time. Please reconsult if needed. Thank you for the opportunity to participate in the care of this patient. Patient seen, case discussed with, and plan approved by attending physician, Dr. Elizabeth <Reji Elizabeth - Last Filed: 06/30/17 16:22> CCU Objective - Vital Signs / Intake & Output Intake and Output (Last 8hrs): Intake & Output 06/30/17 06/30/17 06/30/17 06:59 14:59 22:59 Intake Total 150 100 Output Total 400 Balance -250 100 Weight 199 lb 3 oz Intake: IV 100 100 Right Hand 100 Oral 50 Output: Urine 400 Urine, Voided 400 Other: # Bowel Movements 0 - Medications Active Medications: Active Medications Generic Name Dose Route Start Last Admin Trade Name Freq PRN Reason Stop Dose Admin Albuterol/Ipratropium 3 ml 06/29/17 11:35 Duoneb 3 Mg/0.5 Mg (3 Ml) Ud IH Q2H PRN Shortness of Breath Albuterol/Ipratropium 3 ml 06/29/17 15:30 06/30/17 11:10 Duoneb 3 Mg/0.5 Mg (3 Ml) Ud IH 3 ml [id number] GRACIE Administration Alprazolam 1 mg 06/27/17 22:00 06/29/17 21:22 Xanax PO 1 mg HS GRACIE Administration Protocol Atorvastatin Calcium 20 mg 06/27/17 10:00 06/30/17 10:13 Lipitor PO 20 mg DAILY GRACIE Administration Digoxin 0.125 mg 06/27/17 10:00 06/30/17 10:17 Lanoxin PO 0.125 mg DAILY GRACIE Administration Diltiazem HCl 240 mg 06/27/17 10:00 06/30/17 10:12 Cardizem Cd PO 240 mg DAILY GRACIE Administration Donepezil HCl 5 mg 06/27/17 22:00 06/29/17 21:23 Aricept PO 5 mg HS GRACIE Administration Furosemide 40 mg 06/29/17 12:00 06/30/17 10:19 Lasix IVP 40 mg Q12 GRACIE Administration Haloperidol Lactate 2 mg 06/30/17 09:25 Haldol IVP Q4 PRN Agitation Protocol Doxycycline Hyclate 100 mg/ 100 mls @ 100 mls/hr 06/29/17 10:45 06/30/17 10: 12 Sodium Chloride IVPB 100 mls/hr Q12 GRACIE Administration Protocol Ceftriaxone Sodium 1 gm in 100 mls @ 100 mls/hr 06/29/17 10:45 06/30/17 10:11 Rocephin 1 Gram Ivpb IVPB 100 mls/hr DAILY GRACIE Administration Protocol Milrinone Lactate/Dextrose 100 mls @ 6.069 mls/hr 06/29/17 11:51 06/30/17 07: 08 Primacor 20mg/100ml D5w IV 0.2 mcg/kg/min .[id number] PRN 6.069 mls/hr TITRATE PER MD ORDER Administration Protocol 0.2 MCG/KG/MIN Dexmedetomidine HCl 400 mcg in 100 mls @ 5.058 mls/hr 06/30/17 01:47 02:28 Precedex 4 Mcg/Ml (100 Ml) IV 0.1 mcg/kg/hr .[id number] PRN 2.529 mls/hr Sedation Administration Protocol 0.2 MCG/KG/HR Insulin Human Regular 0 units 06/27/17 11:30 06/30/17 10:15 Humulin R Med SC 3 units ACHS GRACIE Administration Protocol Insulin Lispro Protam/Lispro Human 20 units 06/27/17 10:00 06/30/17 10:15 Humalog Mix 75/25 SC 20 units BID GRACIE Administration Methylprednisolone 40 mg 06/29/17 11:45 06/30/17 12:30 Solu-Medrol IVP 40 mg Q8H GRACIE Administration Pantoprazole Sodium 40 mg 06/29/17 12:00 06/30/17 10:19 Protonix Inj IVP 40 mg DAILY GRACIE Administration Potassium Chloride 20 meq 06/27/17 10:00 06/30/17 10:13 K-Dur 20 Meq Er Tab PO 20 meq DAILY GRACIE Administration Warfarin Sodium 5 mg 06/27/17 18:00 06/29/17 18:00 Coumadin PO Not Given 1800 GRACIE - Patient Studies Lab Studies: Microbiology Studies 06/29/17 10:22 Blood Culture - Preliminary Blood-Venous NO GROWTH AFTER 24 HOURS 06/29/17 10:00 Blood Culture - Preliminary Blood-Venous NO GROWTH AFTER 24 HOURS Lab Studies 06/30/17 06/30/17 06/30/17 Range/Units 06:50 06:50 06:30 WBC 4.9 D (4.5-11.0) 10^3/ul RBC 4.31 (3.5-6.1) 10^6/uL Hgb 11.3 L (12.0-16.0) g/dL Hct 39.2 (36.0-48.0) % MCV 91.0 (80.0-105.0) fl MCH 26.2 (25.0-35.0) pg MCHC 28.8 L (31.0-37.0) g/dl RDW 20.8 H (11.5-14.5) % Plt Count 259 (120.0-450.0) 10^3/uL MPV 9.6 (7.0-11.0) fl Gran % 90.7 H (50.0-68.0) % Lymph % (Auto) 5.9 L (22.0-35.0) % Sherman % (Auto) 3.2 (1.0-6.0) % Eos % (Auto) 0.0 L (1.5-5.0) % Baso % (Auto) 0.2 (0.0-3.0) % Gran # 4.47 (1.4-6.5) Lymph # 0.3 L (1.2-3.4) Sherman # 0.2 (0.1-0.6) Eos # 0.0 (0.0-0.7) Baso # 0.01 (0.0-2.0) K/mm3 Neutrophils % (Manual) 91 H (50.0-70.0) % Lymphocytes % (Manual) 6 L (22.0-35.0) % Monocytes % (Manual) 3 (1.0-6.0) % Anisocytosis (manual) Slight PT 28.7 H (9.4-12.5) SECONDS INR 2.56 H (0.93-1.08) Sodium 145 (132-148) mmol/L Potassium 4.2 (3.6-5.0) mmol/L Chloride 99 (98-107) mmol/L Carbon Dioxide 39 H (21-33) mmol/L Anion Gap 11 (10-20) BUN 44 H (7-21) mg/dL Creatinine 1.2 (0.7-1.2) mg/dL Est GFR ( Amer) 51 Est GFR (Non-Af Amer) 42 Random Glucose 225 H (70-110) mg/dL Calcium 9.1 (8.4-10.5) mg/dL Total Bilirubin 0.9 (0.2-1.3) mg/dL AST 23 (14-36) U/L ALT 23 (7-56) U/L Alkaline Phosphatase 132 H (38-126) U/L Total Protein 8.0 (5.8-8.3) g/dL Albumin 3.4 (3.0-4.8) g/dL Globulin 4.5 gm/dL Albumin/Globulin Ratio 0.8 L (1.1-1.8) Procalcitonin (0.19-0.49) NG/ML 06/29/17 Range/Units 10:45 WBC (4.5-11.0) 10^3/ul RBC (3.5-6.1) 10^6/uL Hgb (12.0-16.0) g/dL Hct (36.0-48.0) % MCV (80.0-105.0) fl MCH (25.0-35.0) pg MCHC (31.0-37.0) g/dl RDW (11.5-14.5) % Plt Count (120.0-450.0) 10^3/uL MPV (7.0-11.0) fl Gran % (50.0-68.0) % Lymph % (Auto) (22.0-35.0) % Sherman % (Auto) (1.0-6.0) % Eos % (Auto) (1.5-5.0) % Baso % (Auto) (0.0-3.0) % Gran # (1.4-6.5) Lymph # (1.2-3.4) Sherman # (0.1-0.6) Eos # (0.0-0.7) Baso # (0.0-2.0) K/mm3 Neutrophils % (Manual) (50.0-70.0) % Lymphocytes % (Manual) (22.0-35.0) % Monocytes % (Manual) (1.0-6.0) % Anisocytosis (manual) PT (9.4-12.5) SECONDS INR (0.93-1.08) Sodium (132-148) mmol/L Potassium (3.6-5.0) mmol/L Chloride (98-107) mmol/L Carbon Dioxide (21-33) mmol/L Anion Gap (10-20) BUN (7-21) mg/dL Creatinine (0.7-1.2) mg/dL Est GFR ( Amer) Est GFR (Non-Af Amer) Random Glucose (70-110) mg/dL Calcium (8.4-10.5) mg/dL Total Bilirubin (0.2-1.3) mg/dL AST (14-36) U/L ALT (7-56) U/L Alkaline Phosphatase (38-126) U/L Total Protein (5.8-8.3) g/dL Albumin (3.0-4.8) g/dL Globulin gm/dL Albumin/Globulin Ratio (1.1-1.8) Procalcitonin 0.10 L (0.19-0.49) NG/ML Laboratory Results - last 24 hr 06/29/17 06/30/17 06/30/17 10:45 06:30 06:50 WBC 4.9 D RBC 4.31 Hgb 11.3 L Hct 39.2 MCV 91.0 MCH 26.2 MCHC 28.8 L RDW 20.8 H Plt Count 259 MPV 9.6 Gran % 90.7 H Lymph % (Auto) 5.9 L Sherman % (Auto) 3.2 Eos % (Auto) 0.0 L Baso % (Auto) 0.2 Gran # 4.47 Lymph # 0.3 L Sherman # 0.2 Eos # 0.0 Baso # 0.01 Neutrophils % (Manual) 91 H Lymphocytes % (Manual) 6 L Monocytes % (Manual) 3 Anisocytosis (manual) Slight PT 28.7 H INR 2.56 H Sodium Potassium Chloride Carbon Dioxide Anion Gap BUN Creatinine Est GFR ( Amer) Est GFR (Non-Af Amer) Random Glucose Calcium Total Bilirubin AST ALT Alkaline Phosphatase Total Protein Albumin Globulin Albumin/Globulin Ratio Procalcitonin 0.10 L 06/30/17 06:50 WBC RBC Hgb Hct MCV MCH MCHC RDW Plt Count MPV Gran % Lymph % (Auto) Sherman % (Auto) Eos % (Auto) Baso % (Auto) Gran # Lymph # Sherman # Eos # Baso # Neutrophils % (Manual) Lymphocytes % (Manual) Monocytes % (Manual) Anisocytosis (manual) PT INR Sodium 145 Potassium 4.2 Chloride 99 Carbon Dioxide 39 H Anion Gap 11 BUN 44 H Creatinine 1.2 Est GFR ( Amer) 51 Est GFR (Non-Af Amer) 42 Random Glucose 225 H Calcium 9.1 Total Bilirubin 0.9 AST 23 ALT 23 Alkaline Phosphatase 132 H Total Protein 8.0 Albumin 3.4 Globulin 4.5 Albumin/Globulin Ratio 0.8 L Procalcitonin Critical Care Progress Note - Nutrition Nutrition: Nutrition Category Date Time Status Heart Healthy Diet [DIET] Diets 06/27/17 Lunch Ordered Attending/Attestation - Attestation I have personally seen and examined this patient.: Yes I have fully participated in the care of the patient.: Yes I have reviewed all pertinent clinical information: Yes Notes (Text): 06/30/17 16:18 86 with now resolved HcRF superimposed on chronic HCRF and HxRF due to COPD exacerbation in the setting of cor pulmonale and RV failure. nebs/steroid taper/ conservative fi02/BPAP when tolerates and needed, DNI noted, conservative fluid management, primacor, haldol PRN for agitation--likely delirium, frequent re- orientation, optimization circadian and sleep patterns. INR is therapeutic. GI prophyalxis, palliative care. ok to downrgade to tele ccm time 40 min
--- NOTE | 2017-06-30 20:34 | PN ---
DATE: 06/30/2017 SUBJECTIVE: The patient is much more awake and alert. No complaints of any chest pain or shortness of breath. PHYSICAL EXAMINATION VITAL SIGNS: Temperature is 98, pulse of 80, blood pressure 143/64 and respirations 18. GENERAL: The patient is lying in bed, flat, comfortable. HEENT: No oral lesion. Anicteric sclerae. Moist mucosa. NECK: No JVD, adenopathy, or thyromegaly. CARDIOVASCULAR: S1 and S2, regular. No murmurs, rubs, or gallops. LUNGS: Clear to auscultation bilaterally. No wheeze, rales, or rhonchi. ABDOMEN: Bowel sounds are positive, soft, nontender and nondistended. EXTREMITIES: No cyanosis, clubbing or edema. LABORATORY DATA: Creatinine is 1.2. Chest x-ray done shows a lot of bilateral pleural effusion with compressive atelectasis. ASSESSMENT: 1. Bilateral pleural effusion. 2. Hypoxia secondary to chronic obstructive pulmonary disease. 3. Congestive heart failure secondary to systolic dysfunction. 4. Lower extremity edema, improved. 5. Dementia, Alzheimer's type. 6. Atrial fibrillation, on Coumadin. 7. Hypertension. 8. Diabetes type 2. 9. Osteoarthritis. 10. Do not resuscitate and do not intubate. PLAN: The patient is currently receiving Coumadin. Her last INR was therapeutic at 2.56. There has been discussions about end of life planning. She is on doxycycline for antibiotics. The patient is on Haldol. She is going to need further management with Pulmonary and ID consult and the patient is on Lipitor for dyslipidemia. She was on milrinone drip. She is getting steroids. Denton Napoles MD
[2017-07-01] MEDS: Meropenem 1 GM in Dextrose 5% In Water 100 ML IVPB SCH ×2 (00:30→22:30)
[2017-07-01] MEDS: MethylPREDNISolone 40 mg Vial IVP SCH ×3 (04:00→22:30)
[2017-07-01] MEDS: Albuterol-Ipratrop 3 mg / 0.5 (3 ml) UD IH SCH ×7 (04:26→23:47)
--- NOTE | 2017-07-01 08:09 | CON ---
PULMONARY CONSULTATION REFERRING PHYSICIAN: Dr. Napoles. REASON FOR CONSULTATION: Chronic obstructive pulmonary disease. History is obtained via extensive discussion with the nurse. I have also reviewed the chart at length. The patient is not an adequate historian at the present time. The patient is a chronically ill 86-year-old female, with past medical history significant for chronic obstructive pulmonary disease, congestive heart failure, atrial fibrillation, coronary artery disease, diabetes mellitus, dementia, who presented to [facility]-originally on 06/27/2017-with main complaints of increasing shortness of breath at rest, dyspnea on exertion, and cough for the previous 2 days. In the emergency room, the patient was noted to be in congestive heart failure. She was thus admitted for additional evaluation. Again, I did discuss the case with the night nurse at length. On 06/29/2017, the patient experienced increasing shortness of breath,choking and cyanosis. A rapid response was called, and the patient was transferred to the medical ICU. I am thus asked to evaluate on this case for additional management. At the present time, the patient is mildly short of breath, but in no acute distress. Her cough is improved/decreased from admission. There is no significant sputum production. There is no history of chest pain, coughing up of blood, or chest pain-made worse with deep respirations. There is no history of temperatures, chills or infectious exposure. There is no history of night sweats, weight loss or appetite change prior to the above events. No history of calf pains. No history of syncope or diaphoresis. No history of recent travel or trauma. REVIEW OF SYSTEMS: No history of nausea, vomiting or diarrhea. No acute urinary symptoms. No new musculoskeletal complaints. Rest of the review of systems negative. ALLERGIES: NO KNOWN ALLERGIES. SOCIAL HISTORY: Positive for extensive tobacco usage. No alcohol. FAMILY HISTORY: No inheritable diseases. HOME MEDICATIONS: Include Cardizem, Coumadin, Lasix, insulin, Aricept, digoxin, Keflex, Lipitor, Xanax. PHYSICAL EXAMINATION: GENERAL: The patient is mildly short of breath, but in no acute distress. She is certainly disoriented. VITAL SIGNS: Last temperature recorded is 97.4. Pulse on the monitor is 88, respiratory rate 20/22, blood pressure 128/72. Oxygen saturation on BiPAP is 97%. Oxygen saturation on nasal cannula is 87%. HEENT: Normocephalic, atraumatic. NECK: No JVD. CARDIOVASCULAR: Systolic ejection murmur at the lower left sternal border. Positive S3 gallop. LUNGS: Decreased breath sounds with crackles at both lower lobes. Minimal bilateral rhonchi. No wheezing. EXTREMITIES: Positive for edema. No cyanosis, no clubbing. Calves are nontender to palpation. GI: Abdomen is soft, nontender and nondistended. Bowel sounds are positive. SKIN: No acute rash. NEUROLOGIC: Limited at the present time. PERTINENT LABORATORY DATA: Chest x-ray was done last on 06/29/2017 and reviewed. There is moderately severe pulmonary edema noted. There are also bilateral pleural effusions noted. Initial arterial blood gas was done on 06/29/2017. This arterial blood gas was done on 100% oxygen. Results are: PH 7.29, pCO2 of 81, pO2 of 77. There was a subsequent gas done on 2 liters nasal cannula. Results are: PH 7.39, pCO2 of 66, pO2 of 43. CBC: White count 4.9, hemoglobin 11.3, hematocrit 39.2, platelets of 259. Complete metabolic profile: Carbon dioxide 39, BUN 44, glucose 225, alkaline phosphatase 132. Rest of the metabolic profile is within normal limits. Procalcitonin was done on 06/29/2017. It is negative-0.10. Initial B-type nature peptide 2440. IMPRESSION: 1. Respiratory failure with hypoxemia. 2. Acute congestive heart failure. 3. Bilateral pleural effusions. 4. Chronic obstructive pulmonary disease. 5. Atrial fibrillation. 6. Mild anemia. PLAN: Again, I did discuss the case with the night nurse at length. The patient presented to [facility]-originally on 06/27/2017-with a 2-day history of worsening pulmonary symptoms. In the emergency room, she was noted to be in congestive heart failure and admitted. I did review the last chest x-ray done. The chest x-ray reveals moderately severe pulmonary edema with bilateral pleural effusions. I have also reviewed the arterial blood gases. The arterial blood gases are consistent with acute respiratory failure with hypoxemia. The patient does saturate well on BiPAP . However, she consistently takes the mask off (discussed with nurse at length). I will try changing the nasal cannula to high-flow delivery-so at least we can oxygenate her better. I would continue with the treatment for congestive heart failure as per Cardiology. Their input is noted. The patient remains on Lasix/afterload reduction. I will also continue with the frequent nebulizer treatments and decrease the intravenous steroids this morning. The patient does not appear in significant bronchospasm. Repeat a.m. labs are pending. I would also check a repeat chest x-ray in a few days-for comparison. Overall status/prognosis for this patient is poor. The patient is currently a DNR/DNI status. Input by Roseline Cotter, (palliative care) is noted. I will discuss the above with the entire ICU team the next few moments. I will also discuss the above with Dr. Napoles later this morning. Thank you very much for this pulmonary consultation. Cade Chakraborty MD MTDJarvis
[2017-07-01] MEDS: Insulin Reg-MEDIUM-Coverage SC SCH ×6 (08:11→22:46)
--- NOTE | 2017-07-01 10:17 | CP.PCM.CON ---
History of Present Illness - History of Present Illness History of Present Illness: 86 year old female with PMH of right parietal subdural hematoma, atrial fibrillation on anticoagulation, HTN, DM, Alzheimer's dementia, COPD, osteoarthritis, obesity with BMI 32 was initially admitted in [facility] [place] [facility] [place] acute [place]B and lower extremity edema and was being treated for acute CHF. She was doing well but then became dyspneic again and hypoxic and had to be transferred to the ICU for closer observation and use of more oxygen. There is concern that the patient may have aspirated and Infectious Diseases consult is requested to further evaluate and manage. Full HPI and review of systems is unobtainable because of the patient's dementia. She is currently not very cooperative and keeps talking about her daughter. She is currently on high flow oxygen, not in distress currently. Review of Systems - Review of Systems Systems not reviewed;Unavailable: Dementia Past Patient History - Infectious Disease Hx of Infectious Diseases: None - Tetanus Immunizations Tetanus Immunization: Unknown - Past Medical History & Family History Past Medical History?: Yes - Past Social History Smoking Status: Never Smoked - CARDIAC Hx Cardiac Disorders: Yes ([place]) Hx Congestive Heart Failure: Yes Hx Hypertension: Yes - PULMONARY Hx Chronic Obstructive Pulmonary Disease (COPD): Yes - NEUROLOGICAL Hx Alzheimer's Disease: Yes HX Cerebrovascular Accident: Yes - HEENT Hx HEENT Problems: Yes Hx Cataracts: Yes (bilateral, sx 2007) - RENAL Hx Chronic Kidney Disease: No - ENDOCRINE/METABOLIC Hx Diabetes Mellitus Type 2: Yes - HEMATOLOGICAL/ONCOLOGICAL Hx Blood Disorders: Yes Hx Anemia: Yes - INTEGUMENTARY Hx Dermatological Problems: Yes Other/Comment: bruises to left knee , both great toes red swollen stage 1 opening 0.5cm round left buttock, buttocks/sacrum reddened, red rash under right breast multiple dry age spots to chest, small dry brown growth to left hand 3rd finger. 2 small scabs to rle, multiple skin discolorations b/l arms, small st 1 0.5cm left buttock round opening - MUSCULOSKELETAL/RHEUMATOLOGICAL Hx Falls: No - GASTROINTESTINAL Hx Gastrointestinal Disorders: Yes Hx Diverticulitis: Yes - GENITOURINARY/GYNECOLOGICAL Hx Genitourinary Disorders: Yes Hx Incontinence: Yes Hx Urinary Tract Infection: Yes - PSYCHIATRIC Hx Psychophysiologic Disorder: No Hx Anxiety: No Hx Bipolar Disorder: No Hx Depression: No Hx Emotional Abuse: No Hx Hallucinations: No Hx Panic Symptoms: No Hx Post Traumatic Stress Disorder: No Hx Psychosis: No Hx Physical Abuse: No Hx Schizophrenia: No Hx Sexual Abuse: No Hx Substance Use: No - SURGICAL HISTORY Hx Amputation: No Hx Appendectomy: No Hx Cardiac Catheterization: No Hx Cholecystectomy: No Hx Coronary Stent: No Hx Gastric Bypass Surgery: No Hx Hysterectomy: No Hx Joint Replacement: No Hx Kidney Transplant: No Hx Liver Transplant: No Hx Musculoskeletal Surgery: No Hx Open Heart Surgery: No Hx Orthopedic Surgery: No Hx Splenectomy: No Hx Valve Replacement: No Other/Comment: right breast cyst removed 25 yrs ago - ANESTHESIA Hx Anesthesia: No Meds Allergies/Adverse Reactions: Allergies Allergy/AdvReac Type Severity Reaction Status Date / Time No Known Allergies Allergy Verified 11/06/16 18:20 - Medications Medications: Current Medications Albuterol/Ipratropium (Duoneb 3 Mg/0.5 Mg (3 Ml) Ud) 3 ml IH Q2H PRN PRN Reason: Shortness of Breath Albuterol/Ipratropium (Duoneb 3 Mg/0.5 Mg (3 Ml) Ud) 3 ml IH [id number] [facility] Last Admin: 06/30/17 19:57 Dose: 3 ml Alprazolam (Xanax) 1 mg PO HS [facility] PRN Reason: Protocol Last Admin: 06/30/17 22:11 Dose: 1 mg Atorvastatin Calcium (Lipitor) 20 mg PO DAILY [facility] Last Admin: 06/30/17 10:13 Dose: 20 mg Digoxin (Lanoxin) 0.125 mg PO DAILY [facility] Last Admin: 06/30/17 10:17 Dose: 0.125 mg Diltiazem HCl (Cardizem Cd) 240 mg PO DAILY [facility] Last Admin: 06/30/17 10:12 Dose: 240 mg Donepezil HCl (Aricept) 5 mg PO HS [facility] Last Admin: 06/30/17 22:13 Dose: 5 mg Furosemide (Lasix) 40 mg IVP Q12 [facility] Last Admin: 06/30/17 22:10 Dose: 40 mg Haloperidol Lactate (Haldol) 2 mg IVP Q4 PRN; Protocol PRN Reason: Agitation Doxycycline Hyclate 100 mg/ (Sodium Chloride) 100 mls @ 100 mls/hr IVPB Q12 [facility] PRN Reason: Protocol Last Admin: 06/30/17 10:12 Dose: 100 mls/hr Milrinone Lactate/Dextrose (Primacor 20mg/100ml D5w) 100 mls @ 6.069 mls/hr IV .[id number] PRN; Protocol; 0.2 MCG/KG/MIN PRN Reason: TITRATE PER MD ORDER Last Admin: 06/30/17 07:08 Dose: 0.2 mcg/kg/min, 6.069 mls/hr Dexmedetomidine HCl (Precedex 4 Mcg/Ml (100 Ml)) 400 mcg in 100 mls @ 5.058 mls /hr IV .[id number] PRN; Protocol; 0.2 MCG/KG/HR PRN Reason: Sedation Last Admin: 06/30/17 02:28 Dose: 0.1 mcg/kg/hr, 2.529 mls/hr Meropenem 1 gm/ Dextrose 100 mls @ 100 mls/hr IVPB Q12 [facility] PRN Reason: Protocol Stop: 07/07/17 23:31 Insulin Human Regular (Humulin R Med) 0 units SC ACHS [facility] PRN Reason: Protocol Last Admin: 06/30/17 22:13 Dose: Not Given Insulin Lispro Protam/Lispro Human (Humalog Mix 75/25) 20 units SC BID [facility] Last Admin: 06/30/17 17:57 Dose: 20 units Methylprednisolone (Solu-Medrol) 40 mg IVP Q8H [facility] Last Admin: 06/30/17 21:12 Dose: 40 mg Pantoprazole Sodium (Protonix Inj) 40 mg IVP DAILY [facility] Last Admin: 06/30/17 10:19 Dose: 40 mg Potassium Chloride (K-Dur 20 Meq Er Tab) 20 meq PO DAILY [facility] Last Admin: 06/30/17 10:13 Dose: 20 meq Warfarin Sodium (Coumadin) 5 mg PO 1800 [facility] Last Admin: 06/30/17 17:58 Dose: 5 mg Physical Exam - Constitutional Appears: Other (on high flow oxygen) - Head Exam Head Exam: NORMAL INSPECTION - ENT Exam ENT Exam: Mucous Membranes Moist - Neck Exam Neck exam: Negative for: Lymphadenopathy, Meningismus - Respiratory Exam Respiratory Exam: Decreased Breath Sounds, Rales (scattered) - Cardiovascular Exam Cardiovascular Exam: +S1, +S2 - GI/Abdominal Exam GI & Abdominal Exam: Soft. absent: Tenderness Results - Vital Signs Recent Vital Signs: Last Vital Signs Temp 97.4 F L 06/30/17 14:42 Pulse 95 H 06/30/17 17:49 Resp 37 H 06/30/17 17:49 BP 131/100 H 06/30/17 22:10 Pulse Ox 69 L 06/30/17 17:49 - Labs Result Diagrams: 06/30/17 06:50 06/30/17 06:50 Labs: Laboratory Results - last 24 hr 06/29/17 06/29/17 06/30/17 17:14 21:48 06:30 WBC RBC Hgb Hct MCV MCH MCHC RDW Plt Count MPV Gran % Lymph % (Auto) [place] % (Auto) Eos % (Auto) Baso % (Auto) Gran # Lymph # [place] # Eos # Baso # Neutrophils % (Manual) Lymphocytes % (Manual) Monocytes % (Manual) Anisocytosis (manual) PT 28.7 H INR 2.56 H Sodium Potassium Chloride Carbon Dioxide Anion Gap BUN Creatinine Est GFR ( Amer) Est GFR (Non-Af Amer) POC Glucose (mg/dL) 171 H 188 H Random Glucose Calcium Total Bilirubin AST ALT Alkaline Phosphatase Total Protein Albumin Globulin Albumin/Globulin Ratio 06/30/17 06/30/17 06/30/17 06:50 06:50 08:00 WBC 4.9 D RBC 4.31 Hgb 11.3 L Hct 39.2 MCV 91.0 MCH 26.2 MCHC 28.8 L RDW 20.8 H Plt Count 259 MPV 9.6 Gran % 90.7 H Lymph % (Auto) 5.9 L [place] % (Auto) 3.2 Eos % (Auto) 0.0 L Baso % (Auto) 0.2 Gran # 4.47 Lymph # 0.3 L [place] # 0.2 Eos # 0.0 Baso # 0.01 Neutrophils % (Manual) 91 H Lymphocytes % (Manual) 6 L Monocytes % (Manual) 3 Anisocytosis (manual) Slight PT INR Sodium 145 Potassium 4.2 Chloride 99 Carbon Dioxide 39 H Anion Gap 11 BUN 44 H Creatinine 1.2 Est GFR ( Amer) 51 Est GFR (Non-Af Amer) 42 POC Glucose (mg/dL) 232 H Random Glucose 225 H Calcium 9.1 Total Bilirubin 0.9 AST 23 ALT 23 Alkaline Phosphatase 132 H Total Protein 8.0 Albumin 3.4 Globulin 4.5 Albumin/Globulin Ratio 0.8 L 06/30/17 06/30/17 06/30/17 11:04 16:30 21:57 WBC RBC Hgb Hct MCV MCH MCHC RDW Plt Count MPV Gran % Lymph % (Auto) [place] % (Auto) Eos % (Auto) Baso % (Auto) Gran # Lymph # [place] # Eos # Baso # Neutrophils % (Manual) Lymphocytes % (Manual) Monocytes % (Manual) Anisocytosis (manual) PT INR Sodium Potassium Chloride Carbon Dioxide Anion Gap BUN Creatinine Est GFR ( Amer) Est GFR (Non-Af Amer) POC Glucose (mg/dL) 255 H 235 H 224 H Random Glucose Calcium Total Bilirubin AST ALT Alkaline Phosphatase Total Protein Albumin Globulin Albumin/Globulin Ratio Assessment & Plan - Assessment and Plan (Free Text) Plan: Assessment Acute hypoxic respiratory failure, consider due to COPD and acute CHF, R/O aspiration pneumonia right parietal subdural hematoma atrial fibrillation on anticoagulation HTN DM Alzheimer's dementia COPD osteoarthritis obesity with BMI 32 Plan started patient on Doxycycline and Merrem pending blood, sputum cx, PCT; reviewed current CXR which does not show infiltrates - will need repeat tomorrow follow up Pulmonary recommendations will monitor clinically
[2017-07-01] MEDS: Insulin Lispro (humaLOG) MIX 75/25(10 ml) SC SCH (10:45)
[2017-07-01] MEDS: Potassium Chloride 20 mEq ER Tab PO SCH (10:45)
[2017-07-01] MEDS: Digoxin 125 mcg (0.125 mg) Tab PO SCH (10:45)
--- NOTE | 2017-07-01 11:13 | PN ---
DATE: 07/01/2017 SUBJECTIVE: The patient has no complaints of any chest pain. No shortness of breath. No headache. PHYSICAL EXAMINATION: VITAL SIGNS: Temperature is 97.4, pulse of 108, blood pressure is 149/78, respirations 25. GENERAL: The patient is lying in bed, flat, comfortable. HEENT: No oral lesion. Anicteric sclerae. Moist mucosa. NECK: No JVD, adenopathy, or thyromegaly. CARDIOVASCULAR: S1 and S2, regular. No murmurs, rubs, or gallops. LUNGS: Clear to auscultation bilaterally. No wheeze, rales, or rhonchi. ABDOMEN: Bowel sounds are positive, soft, nontender and nondistended. EXTREMITIES: No cyanosis, clubbing or edema. LABS: White count of 4.9, hemoglobin 11.3. Creatinine is 1.2. ASSESSMENT: 1. Bilateral pleural effusion. 2. Hypoxia secondary to chronic obstructive pulmonary disease. 3. Congestive heart failure secondary to systolic dysfunction. 4. Lower extremity edema, improved. 5. Dementia, Alzheimer's type. 6. Atrial fibrillation on Coumadin. 7. Hypertension. 8. Diabetes type 2. 9. Osteoarthritis. 10. Do not resuscitate/do not intubate. The patient has large bilateral effusions with compressive atelectasis. We will get Pulmonary to see the patient. The patient is on Aricept for her dementia. She is receiving antibiotics with doxycycline. She is on insulin for her diabetes. The patient is going to continue with Lasix for the pleural effusion. She is on meropenem for antibiotics. Her blood cultures have been negative. She is on Xanax as needed. She is also on steroids. We will repeat her blood work tomorrow. Denton Napoles MD
[2017-07-01] MEDS: diltiaZEM 240 mg/24 Hours CD Cap PO SCH (11:22)
[2017-07-01] MEDS: Milrinone 20mg/100ml D5W 100 ML IV PRN (17:56)
[2017-07-02] MEDS: Albuterol-Ipratrop 3 mg / 0.5 (3 ml) UD IH SCH ×4 (04:04→20:35)
[2017-07-02 05:59] LABS: GRAN # 6.01 (1.4-6.5); GRAN % 93.3 % (50.0-68.0); HEMATOCRIT 37.5 % (36.0-48.0); LYMPH # 0.2 (1.2-3.4); LYMPH % 3.3 % (22.0-35.0); MEAN CELL VOLUME 87.8 fl (80.0-105.0); MEAN CORPUSCULAR HGB CONC 29.6 g/dl (31.0-37.0); MEAN PLATELET VOLUME 9.6 fl (7.0-11.0); MONO # 0.2 (0.1-0.6); MONO % 3.4 % (1.0-6.0); RED CELL DISTRIBUTION WIDTH 20.3 % (11.5-14.5); WHITE BLOOD COUNT 6.4 10^3/ul (4.5-11.0)
[2017-07-02 06:09] LABS: ALB/GLOB RATIO 0.8 (1.1-1.8); BILIRUBIN,TOTAL 0.7 mg/dL (0.2-1.3); CALCIUM 9.4 mg/dL (8.4-10.5); POTASSIUM 4.7 mmol/L (3.6-5.0); TOTAL PROTEIN 8.1 g/dL (5.8-8.3)
[2017-07-02] MEDS: Insulin Reg-MEDIUM-Coverage SC SCH ×4 (08:07→22:00)
[2017-07-02] MEDS: diltiaZEM 240 mg/24 Hours CD Cap PO SCH (09:30)
[2017-07-02] MEDS: Digoxin 125 mcg (0.125 mg) Tab PO SCH (09:31)
[2017-07-02] MEDS: Meropenem 1 GM in Dextrose 5% In Water 100 ML IVPB SCH ×2 (09:31→23:13)
[2017-07-02] MEDS: Potassium Chloride 20 mEq ER Tab PO SCH (09:31)
[2017-07-02] MEDS: MethylPREDNISolone 40 mg Vial IVP SCH ×2 (09:32→22:00)
[2017-07-02] MEDS: Insulin Lispro (humaLOG) MIX 75/25(10 ml) SC SCH ×2 (09:35→17:41)
[2017-07-02] MEDS: Milrinone 20mg/100ml D5W 100 ML IV PRN (10:28)
--- NOTE | 2017-07-02 12:13 | PN ---
PULMONARY PROGRESS NOTE DATE: 07/02/2017 SUBJECTIVE: The patient was seen and examined in the Intensive Care Unit. She is on high-flow oxygen. She was on BiPAP for the past overnight, but does not tolerate BiPAP and removed the mask. She is on moderate dose of intravenous steroids as well as nebulizer treatment and intravenous antibiotics as well as diuretics. PHYSICAL EXAMINATION VITAL SIGNS: Her temperature is 99, pulse of 74, respirations of 24, oxygen saturation ranging from 84-92% on high-flow oxygen. HEAD, EARS, NOSE, AND THROAT: Normocephalic and atraumatic. No JVD. CHEST: Bilateral coarse rhonchi, more rhonchi in the upper airway. Few basal crackles. No wheezing. CARDIOVASCULAR: S1 and S2. No S3, irregular. GASTROINTESTINAL: Soft and nontender. No organomegaly. EXTREMITIES: 1+ pedal edema. NEUROLOGIC: Limited at the present time. SKIN: No acute skin rash. LABORATORY DATA: Chest x-ray initially demonstrated pulmonary vascular congestion and bilateral pleural effusion. Blood gas initially showed CO2 retention with combined acidosis, which improved with administration of respiratory treatment. Her sodium is 139, potassium is 4.7, chloride is 95, her BUN is 66, and creatinine is 1.6. WBC 6.4 and hemoglobin 11.1. There is no blood gas. ASSESSMENT: 1. Exacerbation of chronic obstructive pulmonary disease. 2. Acute bronchitis. 3. Severe congestive heart failure. 4. Respiratory failure with hypercarbia. PLAN: The patient does not tolerate CPAP. We will keep on high-flow oxygen. At the present time, she will continue with nebulizer treatment as well as intravenous steroids, intravenous antibiotics, and diuretics. Her condition is extremely guarded and overall prognosis is poor. We will continue all conservative measures. Delroy Maynard MD
--- NOTE | 2017-07-02 18:10 | CP.PCM.PN ---
Subjective - Date & Time of Evaluation Date of Evaluation: 07/02/17 Time of Evaluation: 08:00 - Subjective Subjective: Comfortable in bed, no fevers. Objective - Vital Signs/Intake and Output Vital Signs (last 24 hours): Temp Pulse Resp BP Pulse Ox 97.4 F L 94 H 16 165/88 H 92 L 06/30/17 14:42 07/02/17 03:35 07/02/17 05:15 07/02/17 03:35 07/02/17 03:35 Intake and Output: 07/01/17 07/02/17 18:59 06:59 Intake Total 800 Output Total 300 Balance 500 - Medications Medications: Current Medications Albuterol/Ipratropium (Duoneb 3 Mg/0.5 Mg (3 Ml) Ud) 3 ml IH Q2H PRN PRN Reason: Shortness of Breath Albuterol/Ipratropium (Duoneb 3 Mg/0.5 Mg (3 Ml) Ud) 3 ml IH [id number] [facility] Last Admin: 07/02/17 04:04 Dose: 3 ml Alprazolam (Xanax) 1 mg PO HS [facility] PRN Reason: Protocol Last Admin: 07/01/17 22:30 Dose: 1 mg Atorvastatin Calcium (Lipitor) 20 mg PO DAILY [facility] Last Admin: 07/01/17 11:24 Dose: 20 mg Digoxin (Lanoxin) 0.125 mg PO DAILY [facility] Last Admin: 07/01/17 10:45 Dose: 0.125 mg Diltiazem HCl (Cardizem Cd) 240 mg PO DAILY [facility] Last Admin: 07/01/17 11:22 Dose: 240 mg Donepezil HCl (Aricept) 5 mg PO HS [facility] Last Admin: 07/01/17 22:30 Dose: 5 mg Furosemide (Lasix) 40 mg IVP Q12 [facility] Last Admin: 07/01/17 22:30 Dose: 40 mg Haloperidol Lactate (Haldol) 2 mg IVP Q4 PRN; Protocol PRN Reason: Agitation Doxycycline Hyclate 100 mg/ (Sodium Chloride) 100 mls @ 100 mls/hr IVPB Q12 [facility] PRN Reason: Protocol Last Admin: 07/01/17 22:30 Dose: 100 mls/hr Milrinone Lactate/Dextrose (Primacor 20mg/100ml D5w) 100 mls @ 6.069 mls/hr IV .[id number] PRN; Protocol; 0.2 MCG/KG/MIN PRN Reason: TITRATE PER MD ORDER Last Admin: 07/01/17 17:56 Dose: 0.2 mcg/kg/min, 6.069 mls/hr Dexmedetomidine HCl (Precedex 4 Mcg/Ml (100 Ml)) 400 mcg in 100 mls @ 5.058 mls /hr IV .[id number] PRN; Protocol; 0.2 MCG/KG/HR PRN Reason: Sedation Last Admin: 06/30/17 02:28 Dose: 0.1 mcg/kg/hr, 2.529 mls/hr Meropenem 1 gm/ Dextrose 100 mls @ 100 mls/hr IVPB Q12 [facility] PRN Reason: Protocol Stop: 07/07/17 23:31 Last Admin: 07/01/17 22:30 Dose: 100 mls/hr Insulin Human Regular (Humulin R Med) 0 units SC ACHS [facility] PRN Reason: Protocol Last Admin: 07/01/17 22:46 Dose: Not Given Insulin Lispro Protam/Lispro Human (Humalog Mix 75/25) 20 units SC BID [facility] Last Admin: 07/01/17 10:45 Dose: 20 units Methylprednisolone (Solu-Medrol) 40 mg IVP Q12 [facility] Last Admin: 07/01/17 22:30 Dose: 40 mg Mupirocin (Bactroban Ointment) 0 gm NS BID [facility] Stop: 07/06/17 10:01 Last Admin: 07/01/17 20:00 Dose: 1 applic Pantoprazole Sodium (Protonix Inj) 40 mg IVP DAILY [facility] Last Admin: 07/01/17 11:24 Dose: 40 mg Potassium Chloride (K-Dur 20 Meq Er Tab) 20 meq PO DAILY [facility] Last Admin: 07/01/17 10:45 Dose: 20 meq Warfarin Sodium (Coumadin) 5 mg PO 1800 [facility] Last Admin: 07/01/17 17:50 Dose: 5 mg - Labs Labs: 06/30/17 06:50 06/30/17 06:50 PT 28.7 SECONDS (9.4-12.5) H 06/30/17 06:30 INR 2.56 (0.93-1.08) H 06/30/17 06:30 APTT 36.3 Seconds (25.1-36.5) 06/29/17 10:15 - Constitutional Appears: Non-toxic, No Acute Distress - Head Exam Head Exam: NORMAL INSPECTION - ENT Exam ENT Exam: Mucous Membranes Moist - Neck Exam Neck Exam: absent: Meningismus - Respiratory Exam Respiratory Exam: Decreased Breath Sounds - Cardiovascular Exam Cardiovascular Exam: +S1, +S2 - GI/Abdominal Exam GI & Abdominal Exam: Soft. absent: Tenderness Assessment and Plan - Assessment and Plan (Free Text) Plan: Assessment Acute hypoxic respiratory failure, consider due to COPD and acute CHF, R/O aspiration pneumonia right parietal subdural hematoma atrial fibrillation on anticoagulation HTN DM Alzheimer's dementia COPD osteoarthritis obesity with BMI 32 Plan continue Doxycycline and Merrem day pending final blood, sputum cx, PCT will continue to monitor clinically
[2017-07-02] MEDS ORDERED: Loperamide Hydrochloride 1 mg/5 ml Cup PO STA (19:10)
[2017-07-03] MEDS: Milrinone 20mg/100ml D5W 100 ML IV PRN ×2 (03:17→20:25)
[2017-07-03] MEDS: Albuterol-Ipratrop 3 mg / 0.5 (3 ml) UD IH SCH ×4 (03:25→20:20)
[2017-07-03] MEDS: Pantoprazole 40 mg EC Tab PO SCH (06:22)
[2017-07-03] MEDS: Insulin Reg-MEDIUM-Coverage SC SCH ×4 (07:54→22:37)
[2017-07-03] MEDS: Digoxin 125 mcg (0.125 mg) Tab PO SCH (09:43)
[2017-07-03] MEDS: Potassium Chloride 20 mEq ER Tab PO SCH (09:43)
[2017-07-03] MEDS: MethylPREDNISolone 40 mg Vial IVP SCH ×2 (09:44→21:41)
[2017-07-03] MEDS: Meropenem 1 GM in Dextrose 5% In Water 100 ML IVPB SCH ×2 (09:44→21:41)
[2017-07-03] MEDS: Insulin Lispro (humaLOG) MIX 75/25(10 ml) SC SCH ×2 (09:45→17:35)
[2017-07-03] MEDS: diltiaZEM 240 mg/24 Hours CD Cap PO SCH (10:28)
--- NOTE | 2017-07-03 10:37 | PN ---
PULMONARY PROGRESS NOTE DATE: 07/03/2017 SUBJECTIVE: The patient was seen and examined in Intensive Care Unit. She appears more comfortable than yesterday. There is still coarse rhonchi audible at the distance, but she is not in respiratory distress. PHYSICAL EXAMINATION: VITAL SIGNS: Temperature is 97, pulse is 79, respirations are 14, pulse oximetry is 95 on high-flow oxygen, and blood pressure is 150/90. HEAD, EARS, NOSE AND THROAT: Normocephalic and atraumatic. NECK: No jugular vein distention. CARDIOVASCULAR: S1 and S2. No S3. Irregular. PULMONARY: Coarse rhonchi bilaterally more in the upper airway. No wheezing. GASTROINTESTINAL: Soft and nontender. No organomegaly. EXTREMITIES: 1+ pedal edema. NEUROLOGIC: Limited at the present time. SKIN: No acute skin rash. No cyanosis. LABORATORY DATA: There is no new laboratory data this morning. Laboratory data as reported above. There are no new labs this morning. ASSESSMENT: 1. Exacerbation of severe chronic obstructive pulmonary disease. 2. Respiratory insufficiency. 3. Acute bronchitis. 4. Severe hypoxia. 5. Congestive heart failure. PLAN: The patient is improving this morning. She may be transferred to telemetry. I would continue with high-flow oxygen. At the present time, continue with nebulizer treatment, intravenous antibiotics, and intravenous diuretics. This was discussed with ICU team. Delroy Maynard MD
--- NOTE | 2017-07-03 13:55 | CP.PCM.PN ---
Subjective - Date & Time of Evaluation Date of Evaluation: 07/03/17 Time of Evaluation: 09:30 - Subjective Subjective: Comfortable in bed, no fevers. Objective - Vital Signs/Intake and Output Vital Signs (last 24 hours): Temp Pulse Resp BP Pulse Ox 97 F L 96 H 18 132/82 96 07/02/17 16:00 07/03/17 01:27 07/03/17 07:13 07/03/17 01:27 07/03/17 01:00 Intake and Output: 07/03/17 07/03/17 06:59 18:59 Intake Total 553 Balance 553 - Medications Medications: Current Medications Albuterol/Ipratropium (Duoneb 3 Mg/0.5 Mg (3 Ml) Ud) 3 ml IH Q2H PRN PRN Reason: Shortness of Breath Albuterol/Ipratropium (Duoneb 3 Mg/0.5 Mg (3 Ml) Ud) 3 ml IH [id number] [facility] Last Admin: 07/03/17 07:10 Dose: 3 ml Alprazolam (Xanax) 1 mg PO HS [facility] PRN Reason: Protocol Last Admin: 07/02/17 22:00 Dose: 1 mg Atorvastatin Calcium (Lipitor) 20 mg PO DAILY [facility] Last Admin: 07/02/17 09:31 Dose: 20 mg Digoxin (Lanoxin) 0.125 mg PO DAILY [facility] Last Admin: 07/02/17 09:31 Dose: 0.125 mg Diltiazem HCl (Cardizem Cd) 240 mg PO DAILY [facility] Last Admin: 07/02/17 09:30 Dose: 240 mg Donepezil HCl (Aricept) 5 mg PO HS [facility] Last Admin: 07/02/17 22:00 Dose: 5 mg Furosemide (Lasix) 40 mg IVP Q12 [facility] Last Admin: 07/02/17 21:59 Dose: 40 mg Haloperidol Lactate (Haldol) 2 mg IVP Q4 PRN; Protocol PRN Reason: Agitation Last Admin: 07/03/17 00:44 Dose: 2 mg Doxycycline Hyclate 100 mg/ (Sodium Chloride) 100 mls @ 100 mls/hr IVPB Q12 [facility] PRN Reason: Protocol Last Admin: 07/02/17 22:03 Dose: 100 mls/hr Milrinone Lactate/Dextrose (Primacor 20mg/100ml D5w) 100 mls @ 6.069 mls/hr IV .[id number] PRN; Protocol; 0.2 MCG/KG/MIN PRN Reason: TITRATE PER MD ORDER Last Admin: 07/03/17 03:17 Dose: 0.2 mcg/kg/min, 6.069 mls/hr Dexmedetomidine HCl (Precedex 4 Mcg/Ml (100 Ml)) 400 mcg in 100 mls @ 5.058 mls /hr IV .[id number] PRN; Protocol; 0.2 MCG/KG/HR PRN Reason: Sedation Last Admin: 06/30/17 02:28 Dose: 0.1 mcg/kg/hr, 2.529 mls/hr Meropenem 1 gm/ Dextrose 100 mls @ 100 mls/hr IVPB Q12 [facility] PRN Reason: Protocol Stop: 07/07/17 23:31 Last Admin: 07/02/17 23:13 Dose: 100 mls/hr Insulin Human Regular (Humulin R Med) 0 units SC ACHS [facility] PRN Reason: Protocol Last Admin: 07/02/17 22:00 Dose: 2 units Insulin Lispro Protam/Lispro Human (Humalog Mix 75/25) 20 units SC BID [facility] Last Admin: 07/02/17 17:41 Dose: 20 units Methylprednisolone (Solu-Medrol) 40 mg IVP Q12 [facility] Last Admin: 07/02/17 22:00 Dose: 40 mg Mupirocin (Bactroban Ointment) 0 gm NS BID [facility] Stop: 07/06/17 10:01 Last Admin: 07/02/17 17:40 Dose: 1 applic Pantoprazole Sodium (Protonix Ec Tab) 40 mg PO 0600 [facility] Last Admin: 07/03/17 06:22 Dose: 40 mg Potassium Chloride (K-Dur 20 Meq Er Tab) 20 meq PO DAILY [facility] Last Admin: 07/02/17 09:31 Dose: 20 meq Warfarin Sodium (Coumadin) 5 mg PO 1800 [facility] Last Admin: 07/02/17 17:39 Dose: 5 mg - Labs Labs: 07/02/17 05:30 07/02/17 05:30 PT 28.7 SECONDS (9.4-12.5) H 06/30/17 06:30 INR 2.56 (0.93-1.08) H 06/30/17 06:30 APTT 36.3 Seconds (25.1-36.5) 06/29/17 10:15 - Constitutional Appears: Chronically Ill - Head Exam Head Exam: NORMAL INSPECTION - Neck Exam Neck Exam: absent: Meningismus - Respiratory Exam Respiratory Exam: Decreased Breath Sounds - Cardiovascular Exam Cardiovascular Exam: +S1, +S2 - GI/Abdominal Exam GI & Abdominal Exam: Soft. absent: Tenderness Assessment and Plan - Assessment and Plan (Free Text) Plan: Assessment Acute hypoxic respiratory failure, consider due to COPD and acute CHF, R/O aspiration pneumonia right parietal subdural hematoma atrial fibrillation on anticoagulation HTN DM Alzheimer's dementia COPD osteoarthritis obesity with BMI 32 Plan continue Doxycycline and Merrem day 3 to complete 4-7 days of therapy will continue to monitor clinically
[2017-07-03 16:32] LABS: URINE BILIRUBIN NEGATIVE (NEGATIVE); URINE BLOOD NEGATIVE (NEGATIVE); URINE GLUCOSE (UA) 100 mg/dL (NEGATIVE); URINE KETONE NEGATIVE (NEGATIVE); URINE LEUKOCYTE ESTERASE NEGATIVE Leu/uL (NEGATIVE); URINE PROTEIN NEGATIVE mg/dL (<30 mg/dL); URINE UROBILINOGEN 0.2 E.U./dL (<1 E.U./dL)
[2017-07-03 16:33] LABS: URINE APPEARANCE CLEAR (CLEAR); URINE COLOR LIGHT YELLOW (YELLOW)
[2017-07-04] MEDS: Albuterol-Ipratrop 3 mg / 0.5 (3 ml) UD IH SCH ×4 (02:45→20:05)
[2017-07-04] MEDS: Pantoprazole 40 mg EC Tab PO SCH (05:17)
--- NOTE | 2017-07-04 08:04 | PN ---
PULMONARY NOTE DATE: 07/04/2017(645am--735am) SUBJECTIVE: The patient appears comfortable this morning. She is not short of breath at rest. OBJECTIVE: VITAL SIGNS: Temperature is 97.7, pulse on the monitor is 78, respirations are 16/18, and blood pressure 144/82. Oxygen saturation on high-flow delivery is 94%. HEENT: Normocephalic and atraumatic. NECK: No JVD. CARDIOVASCULAR: Systolic ejection murmur at the lower left sternal border. Positive S3 gallop. LUNGS: Decreased breath sounds with crackles at both lower lobes. Much less rhonchi. No wheezing. EXTREMITIES: Positive for edema. No cyanosis. No clubbing. Calves are nontender to palpation. GASTROINTESTINAL: Abdomen is soft, nontender, and nondistended. Bowel sounds are positive. SKIN: No acute rash. NEUROLOGIC: Limited at the present time. PERTINENT LABORATORY DATA: Chest x-ray was done this morning and reviewed. The chest x-ray remains with moderately severe pulmonary edema and bilateral pleural effusions. IMPRESSION: 1. Respiratory failure with hypoxemia. 2. Acute congestive heart failure. 3. Bilateral pleural effusions. 4. Chronic obstructive pulmonary disease. 5. Atrial fibrillation. 6. Mild anemia. PLAN: The patient appears comfortable this morning. She is not short of breath at rest. I did discuss the case with the night nurse at length. The night nurse stated that the patient had a pretty good night. I have also reviewed the chest x-ray - as above. The chest x-ray remains with moderately severe pulmonary edema and bilateral pleural effusions. I would continue with the treatment for congestive heart failure as per Cardiology. The patient remains on Lasix/afterload reduction. On physical exam, there is definitely less bronchospasm noted. I will continue the current nebulizer treatments and decrease the intravenous steroids this morning. The patient remains on antibiotic therapy. Input by Infectious Disease (Dr. Sales) is noted. Repeat a.m. labs are pending. I would also check a repeat chest x-ray in a few days--- for comparison. Clinical status of the patient is certainly improved - compared to the initial presentation. However, again, the patient's overall status/prognosis does remain poor. All are aware. I will discuss the above with the entire ICU team in the next few moments. I will also discuss the above with the attending physician. Cade Chakraborty MD MTDD
--- NOTE | 2017-07-04 08:27 | RAD ---
HISTORY: follow up COMPARISON: 06/29/2017 FINDINGS: LUNGS: No change in the pattern of bilateral infiltrates and effusions. Vascular congestion. Findings most consistent with CHF PLEURA: As above CARDIOVASCULAR: Moderate to severe cardiomegaly OSSEOUS STRUCTURES: No significant abnormalities. VISUALIZED UPPER ABDOMEN: Normal. OTHER FINDINGS: None. IMPRESSION: No change in the pattern of bilateral infiltrates and effusions. Vascular congestion. Findings most consistent with CHF
[2017-07-04] MEDS: Insulin Reg-MEDIUM-Coverage SC SCH ×4 (08:46→22:00)
--- NOTE | 2017-07-04 10:07 | PN ---
DATE: 07/04/2017 SUBJECTIVE: The patient has no complaints of any chest pain. No shortness of breath. No headaches or dizziness. PHYSICAL EXAMINATION: VITAL SIGNS: Temperature is 97.7, pulse of 83, blood pressure 144/82, and respirations 15. GENERAL: The patient is lying in bed, flat, comfortable. HEENT: No oral lesion. Anicteric sclerae. Moist mucosa. NECK: No JVD, adenopathy, or thyromegaly. CARDIOVASCULAR: S1 and S2, regular. No murmurs, rubs, or gallops. LUNGS: Clear to auscultation bilaterally. No wheeze, rales, or rhonchi. ABDOMEN: Bowel sounds are positive, soft, nontender and nondistended. EXTREMITIES: No cyanosis, clubbing or edema. LABORATORY DATA: Creatinine is 1.6. ASSESSMENT: 1. Bilateral pleural effusion. 2. Hypoxia secondary to chronic obstructive pulmonary disease. 3. Congestive heart failure secondary to systolic dysfunction. 4. Lower extremity edema, improved. 5. Dementia, Alzheimer's type. 6. Atrial fibrillation, on Coumadin. 7. Hypertension. 8. Diabetes type 2. 9. Osteoarthritis. 10. Do not resuscitate/do not intubate. PLAN: The patient is currently comfortable. She is on Primacor. I will discontinue Primacor at this point. She is on Lasix twice a day. She is receiving potassium replacement. The patient is on Haldol as needed. She is receiving IV antibiotics. The patient is on steroids daily. The patient is on digoxin daily. She is going to continue Lipitor for dyslipidemia. Overall prognosis is guarded. Denton Napoles MD
--- NOTE | 2017-07-04 10:13 | PN ---
DATE: 07/03/2017 SUBJECTIVE: She is comfortable in bed, in no acute distress, opens eyes. She is hard of hearing. Does not respond, respond occasionally to verbal commands. Moving all the limbs. She is currently on oxygen by nasal cannula. No fever. No cough or expectoration. Denies any chest pain. She is able to accept oral feeds. No nausea. No vomiting. No abdominal pain. REVIEW OF SYSTEMS: As per HPI. A 12-point of review of systems reviewed and negative. PHYSICAL EXAMINATION: GENERAL: Comfortable in bed, in no acute distress. VITAL SIGNS: Temperature is 98.8, heart rate is 100 per minute, blood pressure 140/90 and respiratory rate 25 per minute. HEENT: Oral mucosa dry. Pallor positive. NECK: No lymphadenopathy. CHEST: Air entry present and equal bilateral. No added sounds. CARDIOVASCULAR: S1 and S2 normal. No murmur. No gallop. ABDOMEN: Soft and nontender. No hepatosplenomegaly. EXTREMITIES: Bilateral leg edema positive. Edema of the left arm. Pitting. SKIN: No petechia. No rash. LABORATORY DATA: White count 6.4, hemoglobin 11.1, hematocrit 37.5 and platelets of 259. Glucose 278. MEDICATIONS: DuoNeb p.r.n., Xanax 1 mg p.o. at bedtime, Lipitor 20 mg daily, Peridex mouth care, digoxin 0.125 mg daily, Cardizem 240 mg daily, Aricept 5 mg p.o. at bedtime, doxycycline q. 12 hour, Haldol 2 mg IV q. 4 hour p.r.n., insulin, meropenem q. 12 hour, Solu-Medrol 40 mg q. 12 hour, milrinone drip, Protonix daily, and Coumadin 5 mg daily. ASSESSMENT: 1. Bilateral pleural effusion. 2. Anemia. 3. Congestive cardiac failure. 4. Bilateral lower extremity edema. 5. Atrial fibrillation. 6. Hypertension. 7. Diabetes mellitus type 2. 8. Respiratory failure. 9. Dementia. PLAN: We will continue current treatment. She is therapeutic on current dose of Coumadin. She is on Aricept for dementia. We will continue IV antibiotics. She is on meropenem and doxycycline accepting orally. She can be transferred to [facility] once bed is available. Condition remains critical. Dinorah Yang MD [facility] # [id number]
[2017-07-04] MEDS: Insulin Lispro (humaLOG) MIX 75/25(10 ml) SC SCH ×2 (10:35→18:42)
--- NOTE | 2017-07-04 10:47 | CP.PCM.PN ---
Subjective - Date & Time of Evaluation Date of Evaluation: 07/04/17 Time of Evaluation: 09:50 - Subjective Subjective: Patient was able to eat her breakfast well, no fevers overnight, still needs oxygen even at rest. Objective - Vital Signs/Intake and Output Vital Signs (last 24 hours): Temp Pulse Resp BP Pulse Ox 97.7 F 83 15 144/82 90 L 07/04/17 05:10 07/04/17 06:10 07/04/17 06:10 07/04/17 06:00 07/04/17 06:10 Intake and Output: 07/03/17 07/04/17 18:59 06:59 Intake Total 1063 640 Output Total 850 900 Balance 213 -260 - Medications Medications: Current Medications Albuterol/Ipratropium (Duoneb 3 Mg/0.5 Mg (3 Ml) Ud) 3 ml IH Q2H PRN PRN Reason: Shortness of Breath Albuterol/Ipratropium (Duoneb 3 Mg/0.5 Mg (3 Ml) Ud) 3 ml IH [id number] [facility] Last Admin: 07/03/17 20:20 Dose: 3 ml Alprazolam (Xanax) 1 mg PO HS [facility] PRN Reason: Protocol Last Admin: 07/03/17 22:33 Dose: 1 mg Atorvastatin Calcium (Lipitor) 20 mg PO DAILY [facility] Last Admin: 07/03/17 09:43 Dose: 20 mg Digoxin (Lanoxin) 0.125 mg PO DAILY [facility] Last Admin: 07/03/17 09:43 Dose: 0.125 mg Diltiazem HCl (Cardizem Cd) 240 mg PO DAILY [facility] Last Admin: 07/03/17 10:28 Dose: 240 mg Donepezil HCl (Aricept) 5 mg PO HS [facility] Last Admin: 07/03/17 21:41 Dose: 5 mg Furosemide (Lasix) 40 mg IVP Q12 [facility] Last Admin: 07/03/17 21:41 Dose: 40 mg Haloperidol Lactate (Haldol) 2 mg IVP Q4 PRN; Protocol PRN Reason: Agitation Last Admin: 07/03/17 00:44 Dose: 2 mg Doxycycline Hyclate 100 mg/ (Sodium Chloride) 100 mls @ 100 mls/hr IVPB Q12 [facility] PRN Reason: Protocol Last Admin: 07/03/17 21:41 Dose: 100 mls/hr Milrinone Lactate/Dextrose (Primacor 20mg/100ml D5w) 100 mls @ 6.069 mls/hr IV .[id number] PRN; Protocol; 0.2 MCG/KG/MIN PRN Reason: TITRATE PER MD ORDER Last Admin: 07/03/17 20:25 Dose: 0.2 mcg/kg/min, 6.069 mls/hr Meropenem 1 gm/ Dextrose 100 mls @ 100 mls/hr IVPB Q12 [facility] PRN Reason: Protocol Stop: 07/07/17 23:31 Last Admin: 07/03/17 21:41 Dose: 100 mls/hr Insulin Human Regular (Humulin R Med) 0 units SC ACHS [facility] PRN Reason: Protocol Last Admin: 07/03/17 22:37 Dose: Not Given Insulin Lispro Protam/Lispro Human (Humalog Mix 75/25) 20 units SC BID [facility] Last Admin: 07/03/17 17:35 Dose: 20 units Methylprednisolone (Solu-Medrol) 40 mg IVP Q12 [facility] Last Admin: 07/03/17 21:41 Dose: 40 mg Mupirocin (Bactroban Ointment) 0 gm NS BID [facility] Stop: 07/06/17 10:01 Last Admin: 07/03/17 17:33 Dose: 1 applic Pantoprazole Sodium (Protonix Ec Tab) 40 mg PO 0600 [facility] Last Admin: 07/04/17 05:17 Dose: 40 mg Potassium Chloride (K-Dur 20 Meq Er Tab) 20 meq PO DAILY [facility] Last Admin: 07/03/17 09:43 Dose: 20 meq Warfarin Sodium (Coumadin) 5 mg PO 1800 [facility] Last Admin: 07/03/17 17:34 Dose: 5 mg - Labs Labs: 07/02/17 05:30 07/02/17 05:30 PT 28.7 SECONDS (9.4-12.5) H 06/30/17 06:30 INR 2.56 (0.93-1.08) H 06/30/17 06:30 APTT 36.3 Seconds (25.1-36.5) 06/29/17 10:15 - Constitutional Appears: Chronically Ill - Head Exam Head Exam: NORMAL INSPECTION - ENT Exam ENT Exam: Mucous Membranes Moist - Neck Exam Neck Exam: absent: Lymphadenopathy, Meningismus - Respiratory Exam Respiratory Exam: Decreased Breath Sounds - Cardiovascular Exam Cardiovascular Exam: +S1, +S2 - GI/Abdominal Exam GI & Abdominal Exam: Soft. absent: Tenderness Assessment and Plan - Assessment and Plan (Free Text) Plan: Assessment Acute hypoxic respiratory failure, consider due to COPD and acute CHF, R/O aspiration pneumonia right parietal subdural hematoma atrial fibrillation on anticoagulation HTN DM Alzheimer's dementia COPD osteoarthritis obesity with BMI 32 Plan continue Doxycycline and Merrem day 4 to complete 4-7 days of therapy will continue to monitor clinically
[2017-07-04] MEDS: Digoxin 125 mcg (0.125 mg) Tab PO SCH (11:10)
[2017-07-04] MEDS: Potassium Chloride 20 mEq ER Tab PO SCH (11:10)
[2017-07-04] MEDS: Meropenem 1 GM in Dextrose 5% In Water 100 ML IVPB SCH ×2 (11:11→22:22)
[2017-07-04] MEDS: MethylPREDNISolone 40 mg Vial IVP SCH ×2 (11:12→22:22)
--- NOTE | 2017-07-04 11:30 | CP.PCM.PN ---
Subjective - Date & Time of Evaluation Date of Evaluation: 07/04/17 Time of Evaluation: 11:00 - Subjective Subjective: Alert, confused, in no distress Objective - Vital Signs/Intake and Output Vital Signs (last 24 hours): Temp Pulse Resp BP Pulse Ox 97.7 F 83 15 144/82 90 L 07/04/17 05:10 07/04/17 06:10 07/04/17 06:10 07/04/17 06:00 07/04/17 06:10 Intake and Output: 07/04/17 07/04/17 06:59 18:59 Intake Total 640 Output Total 900 Balance -260 - Medications Medications: Current Medications Albuterol/Ipratropium (Duoneb 3 Mg/0.5 Mg (3 Ml) Ud) 3 ml IH Q2H PRN PRN Reason: Shortness of Breath Albuterol/Ipratropium (Duoneb 3 Mg/0.5 Mg (3 Ml) Ud) 3 ml IH [id number] [facility] Last Admin: 07/04/17 07:51 Dose: 3 ml Alprazolam (Xanax) 1 mg PO HS [facility] PRN Reason: Protocol Last Admin: 07/03/17 22:33 Dose: 1 mg Atorvastatin Calcium (Lipitor) 20 mg PO DAILY [facility] Last Admin: 07/03/17 09:43 Dose: 20 mg Digoxin (Lanoxin) 0.125 mg PO DAILY [facility] Last Admin: 07/03/17 09:43 Dose: 0.125 mg Diltiazem HCl (Cardizem Cd) 240 mg PO DAILY [facility] Last Admin: 07/03/17 10:28 Dose: 240 mg Donepezil HCl (Aricept) 5 mg PO HS [facility] Last Admin: 07/03/17 21:41 Dose: 5 mg Doxycycline Hyclate (Doryx) 100 mg PO Q12 [facility] PRN Reason: Protocol Furosemide (Lasix) 40 mg IVP Q12 [facility] Last Admin: 07/03/17 21:41 Dose: 40 mg Haloperidol Lactate (Haldol) 2 mg IVP Q4 PRN; Protocol PRN Reason: Agitation Last Admin: 07/03/17 00:44 Dose: 2 mg Meropenem 1 gm/ Dextrose 100 mls @ 100 mls/hr IVPB Q12 [facility] PRN Reason: Protocol Stop: 07/07/17 23:31 Last Admin: 07/03/17 21:41 Dose: 100 mls/hr Insulin Human Regular (Humulin R Med) 0 units SC ACHS [facility] PRN Reason: Protocol Last Admin: 07/04/17 08:46 Dose: 5 units Insulin Lispro Protam/Lispro Human (Humalog Mix 75/25) 20 units SC BID [facility] Last Admin: 07/03/17 17:35 Dose: 20 units Methylprednisolone (Solu-Medrol) 30 mg IVP Q12 [facility] Mupirocin (Bactroban Ointment) 0 gm NS BID [facility] Stop: 07/06/17 10:01 Last Admin: 07/03/17 17:33 Dose: 1 applic Pantoprazole Sodium (Protonix Ec Tab) 40 mg PO 0600 [facility] Last Admin: 07/04/17 05:17 Dose: 40 mg Potassium Chloride (K-Dur 20 Meq Er Tab) 20 meq PO DAILY [facility] Last Admin: 07/03/17 09:43 Dose: 20 meq Warfarin Sodium (Coumadin) 5 mg PO 1800 [facility] Last Admin: 07/03/17 17:34 Dose: 5 mg - Labs Labs: 07/02/17 05:30 07/02/17 05:30 PT 28.7 SECONDS (9.4-12.5) H 06/30/17 06:30 INR 2.56 (0.93-1.08) H 06/30/17 06:30 APTT 36.3 Seconds (25.1-36.5) 06/29/17 10:15 - Constitutional Appears: Chronically Ill - Head Exam Head Exam: NORMAL INSPECTION - Eye Exam Eye Exam: Normal appearance, PERRL - ENT Exam ENT Exam: Mucous Membranes Moist - Respiratory Exam Respiratory Exam: Decreased Breath Sounds - Cardiovascular Exam Cardiovascular Exam: Irregular Rhythm, +S1, +S2 - GI/Abdominal Exam GI & Abdominal Exam: Firm, Diminished Bowel Sounds - Extremities Exam Extremities Exam: Pedal Edema - Back Exam Back Exam: NORMAL INSPECTION - Neurological Exam Neurological Exam: Altered - Skin Skin Exam: Dry, Pallor Assessment and Plan - Assessment and Plan (Free Text) Assessment: 86 year old female with history of DM,CHF,atrial fibrillation, MT, dementia, sepsis,lower extremity cellulitis,HTN and OA who was admitted with hypoxia, sepsis,bilateral pleural effusions and lower extremity edema. The patient is stable. Dyspnea on exertion or when lying flat. No acute distress. Her appetite is good. She needs assistance with all ADL's . She has periods of confusion. I have had multiple discussions with patients daughter regarding goals of care and end of life planning. Daughter, Rocco Anguiano(POA) has executed a POLST , the patient is DNR/DNI. Family has been apprised of patient's medical condition and prognosis by medical staff. Rocco has been presented with option for hospice care vs home with services vs NH placement with palliative services. Daughter has been reluctant to make decision regarding future goals of care. She has inferred that she will speak with her family before making decision. Mela CHING has arranged for family meeting today to resolve and move forward with plan. Plan: Palliative support
[2017-07-04] MEDS: diltiaZEM 240 mg/24 Hours CD Cap PO SCH (11:41)
[2017-07-05] MEDS: Pantoprazole 40 mg EC Tab PO SCH (05:31)
[2017-07-05] MEDS: Albuterol-Ipratrop 3 mg / 0.5 (3 ml) UD IH SCH ×3 (05:35→13:12)
[2017-07-05 06:21] LABS: HEMATOCRIT 42.5 % (36.0-48.0); MEAN CORPUSCULAR HEMOGLOBIN 27.3 pg (25.0-35.0); MEAN CORPUSCULAR HGB CONC 31.1 g/dl (31.0-37.0); MEAN PLATELET VOLUME 9.9 fl (7.0-11.0); RED CELL DISTRIBUTION WIDTH 19.9 % (11.5-14.5); WHITE BLOOD COUNT 8.5 10^3/ul (4.5-11.0)
[2017-07-05 06:34] LABS: ALB/GLOB RATIO 0.8 (1.1-1.8); BILIRUBIN,TOTAL 0.8 mg/dL (0.2-1.3); CALCIUM 9.5 mg/dL (8.4-10.5); POTASSIUM 4.3 mmol/L (3.6-5.0); TOTAL PROTEIN 8.1 g/dL (5.8-8.3)
[2017-07-05 06:39] LABS: INR 4.54 (0.93-1.08)
--- NOTE | 2017-07-05 07:58 | PN ---
DATE: 07/05/2017 SUBJECTIVE: The patient appears comfortable this morning. She is not short of breath at rest. PHYSICAL EXAMINATION: VITAL SIGNS: Temperature is 97.7, pulse 92, respirations 18/20, blood pressure 156/82. Last oxygen saturation noted in the chart - 98% on high-flow delivery. HEENT: Normocephalic, atraumatic. No JVD. CARDIOVASCULAR: Systolic ejection murmur at the lower left sternal border. Positive S3 gallop. LUNGS: Decreased breath sounds with crackles at both lower lobes. Minimal rhonchi. No wheezing. EXTREMITIES: Positive for edema. No cyanosis, no clubbing. Calves are nontender to palpation. GI: Abdomen is soft, nontender and nondistended. Bowel sounds are positive. SKIN: No acute rash. NEUROLOGIC: Exam limited at the present time. IMPRESSION: 1. Respiratory failure with hypoxemia. 2. Acute congestive heart failure. 3. Bilateral pleural effusions. 4. Chronic obstructive pulmonary disease. 5. Atrial fibrillation. 6. Mild anemia. PLAN: The patient appears comfortable this morning. She is not short of breath at rest. Oxygen saturation - last measured on high-flow delivery - is 98%. On physical exam, there is less bronchospasm noted. I will continue the current nebulizer treatments and low-dose intravenous steroids (decreased yesterday) for now. I would continue with the treatment for congestive heart failure as per cardiology. The patient remains on Lasix/afterload reduction. The patient also remains on antibiotic therapy - as per Infectious Disease. Input by Dr. Sales is noted. Clinical status of the patient is improved - compared to the initial presentation. However, unfortunately, the overall status/prognosis for this patient remains poor. Input by Roseline Cotter (Palliative Care) is noted. The family is considering hospice transfer. I will discuss the above with Dr. Napoles. Cade Chakraborty MD [facility]TD[facility]ar[facility]
[2017-07-05] MEDS: Insulin Reg-MEDIUM-Coverage SC SCH ×3 (08:21→16:45)
[2017-07-05] MEDS: MethylPREDNISolone 40 mg Vial IVP SCH (10:00)
[2017-07-05] MEDS: Meropenem 1 GM in Dextrose 5% In Water 100 ML IVPB SCH (10:00)
[2017-07-05] MEDS: diltiaZEM 240 mg/24 Hours CD Cap PO SCH (10:00)
[2017-07-05] MEDS: Digoxin 125 mcg (0.125 mg) Tab PO SCH (10:00)
[2017-07-05] MEDS: Insulin Lispro (humaLOG) MIX 75/25(10 ml) SC SCH (10:00)
[2017-07-05] MEDS: Potassium Chloride 20 mEq ER Tab PO SCH (10:00)
--- NOTE | 2017-07-05 12:02 | CP.PCM.PN ---
Subjective - Date & Time of Evaluation Date of Evaluation: 07/05/17 Time of Evaluation: 10:55 - Subjective Subjective: Comfortable in bed, no fevers overnight, no SOB at rest, no diarrhea. Objective - Vital Signs/Intake and Output Vital Signs (last 24 hours): Temp Pulse Resp BP Pulse Ox 97.8 F 74 22 149/99 H 94 L 07/05/17 08:22 07/05/17 08:22 07/05/17 08:22 07/05/17 08:22 07/05/17 08:22 Intake and Output: 07/05/17 07/05/17 06:59 18:59 Intake Total 670 Balance 670 - Medications Medications: Current Medications Albuterol/Ipratropium (Duoneb 3 Mg/0.5 Mg (3 Ml) Ud) 3 ml IH Q2H PRN PRN Reason: Shortness of Breath Albuterol/Ipratropium (Duoneb 3 Mg/0.5 Mg (3 Ml) Ud) 3 ml IH [id number] [facility] Last Admin: 07/05/17 07:39 Dose: 3 ml Alprazolam (Xanax) 1 mg PO HS [facility] PRN Reason: Protocol Last Admin: 07/04/17 22:23 Dose: 1 mg Atorvastatin Calcium (Lipitor) 20 mg PO DAILY [facility] Last Admin: 07/04/17 11:10 Dose: 20 mg Digoxin (Lanoxin) 0.125 mg PO DAILY [facility] Last Admin: 07/04/17 11:10 Dose: 0.125 mg Diltiazem HCl (Cardizem Cd) 240 mg PO DAILY [facility] Last Admin: 07/04/17 11:41 Dose: 240 mg Donepezil HCl (Aricept) 5 mg PO HS [facility] Last Admin: 07/04/17 22:23 Dose: 5 mg Doxycycline Hyclate (Doryx) 100 mg PO Q12 [facility] PRN Reason: Protocol Last Admin: 07/04/17 22:23 Dose: 100 mg Furosemide (Lasix) 40 mg IVP Q12 [facility] Last Admin: 07/04/17 22:22 Dose: 40 mg Haloperidol Lactate (Haldol) 2 mg IVP Q4 PRN; Protocol PRN Reason: Agitation Last Admin: 07/03/17 00:44 Dose: 2 mg Meropenem 1 gm/ Dextrose 100 mls @ 100 mls/hr IVPB Q12 [facility] PRN Reason: Protocol Stop: 07/07/17 23:31 Last Admin: 07/04/17 22:22 Dose: 100 mls/hr Insulin Human Regular (Humulin R Med) 0 units SC ACHS [facility] PRN Reason: Protocol Last Admin: 07/05/17 08:21 Dose: 1 units Insulin Lispro Protam/Lispro Human (Humalog Mix 75/25) 20 units SC BID [facility] Last Admin: 07/04/17 18:42 Dose: 20 units Methylprednisolone (Solu-Medrol) 30 mg IVP Q12 [facility] Last Admin: 07/04/17 22:22 Dose: 30 mg Mupirocin (Bactroban Ointment) 0 gm NS BID [facility] Stop: 07/06/17 10:01 Last Admin: 07/04/17 18:42 Dose: 1 applic Pantoprazole Sodium (Protonix Ec Tab) 40 mg PO 0600 [facility] Last Admin: 07/05/17 05:31 Dose: Not Given Potassium Chloride (K-Dur 20 Meq Er Tab) 20 meq PO DAILY [facility] Last Admin: 07/04/17 11:10 Dose: 20 meq Warfarin Sodium (Coumadin) 5 mg PO 1800 [facility] Last Admin: 07/04/17 18:00 Dose: 5 mg - Labs Labs: 07/05/17 05:30 07/05/17 05:30 PT 51.5 SECONDS (9.4-12.5) H 07/05/17 05:30 INR 4.54 (0.93-1.08) H* 07/05/17 05:30 APTT 36.3 Seconds (25.1-36.5) 06/29/17 10:15 - Constitutional Appears: Non-toxic - Head Exam Head Exam: NORMAL INSPECTION - ENT Exam ENT Exam: Mucous Membranes Moist - Neck Exam Neck Exam: absent: Meningismus - Respiratory Exam Respiratory Exam: Decreased Breath Sounds - Cardiovascular Exam Cardiovascular Exam: +S1, +S2 - GI/Abdominal Exam GI & Abdominal Exam: Soft. absent: Tenderness Assessment and Plan - Assessment and Plan (Free Text) Plan: Assessment Acute hypoxic respiratory failure, consider due to COPD and acute CHF, R/O aspiration pneumonia right parietal subdural hematoma atrial fibrillation on anticoagulation HTN DM Alzheimer's dementia COPD osteoarthritis obesity with BMI 32 Plan continue Doxycycline and Merrem day 5 to complete 4-7 days of therapy will continue to follow clinically
[2017-07-05 12:40] VITALS: PULSE 74
[2017-07-05 16:43] VITALS: BP 144/68; PULSE 59; RESP 20; TEMP 97.9; O2SAT 92
--- NOTE | 2017-07-06 03:15 | DS ---
HISTORY OF PRESENT ILLNESS: The patient is an 86-year-old female who had come into the hospital. She was having more difficulty breathing. She was found to be hypoxic. She has advanced COPD. She also has dementia. She had aspiration. During the hospital course, she had bilateral pleural effusion that has been treated with Primacor and IV diuretic therapy. She has had improvement of her symptoms. There was a discussion about end-of-life care and the patient's daughter decided to make the patient DNR/DNI and allow natural , code form was filled out, the patient continues to be on high flow O2, and so, the patient's family has agreed to send her to LT[facility]. The patient has no complaints. No headaches, dizziness. No nausea. No vomiting. PHYSICAL EXAMINATION: VITAL SIGNS: Temperature is 97.9, pulse of 59, blood pressure 144/68, respirations 20 and O2 saturation is 92%. GENERAL: The patient is lying in bed, flat, comfortable. HEENT: No oral lesion. Anicteric sclerae. Moist mucosa. NECK: No JVD, adenopathy, or thyromegaly. CARDIOVASCULAR: S1 and S2, regular. No murmurs, rubs, or gallops. LUNGS: Clear to auscultation bilaterally. No wheeze, rales, or rhonchi. ABDOMEN: Bowel sounds are positive, soft, nontender and nondistended. EXTREMITIES: No cyanosis, clubbing. 1+ edema. LABORATORY DATA: White count of 8.5, creatinine is 1.3. ASSESSMENT: 1. Bilateral pleural effusion. 2. Hypoxia secondary to chronic obstructive pulmonary disease. 3. Congestive heart failure secondary to systolic dysfunction, stable. 4. Lower extremity edema, improved. 5. Dementia, Alzheimer's type. 6. Atrial fibrillation, on Coumadin. 7. Hypertension. 8. Diabetes type 2. 9. Osteoarthritis. 10. Do not resuscitate/do not intubate. PLAN: The patient is going to continue on IV Lasix. She is going to be discharged to LTAC today. She is doing okay. She is on Haldol as needed. She is receiving steroids, will need to be tapered. She is on digoxin. She is going to continue Lipitor for dyslipidemia. Overall prognosis is poor. I did speak to the patient's daughter, Tammi, about end-of-life care and about possible hospice. She has less than 6 months' survival in my opinion. Denton Napoles MD
== END 2017-07-05 19:09 | DRG 291 ==
LOC: ED 05:04 → ERH 07:04 → OBSVTOIN 08:30 → ERH 08:48 → 3RNO 09:18 → CCU 06-29 10:11 → 3RNO 07-04 11:55
PROVIDERS: ADMIT Internal Medicine Nephrology; ATTEND Internal Medicine Nephrology
PROC: 5A09357 Assistance with Respiratory Ventilation, Less than 24 Consecutive Hours, Continuous Positive Airway Pressure (ICD-10-PCS; principal; 2017-06-29)
DX: I11.0 Hypertensive heart disease with heart failure (principal); I50.21 Acute systolic (congestive) heart failure; J96.22 Acute and chronic respiratory failure with hypercapnia; J96.21 Acute and chronic respiratory failure with hypoxia; J44.1 Chronic obstructive pulmonary disease with (acute) exacerbation; J44.0 Chronic obstructive pulmonary disease with (acute) lower respiratory infection; E87.2 Acidosis; L03.119 Cellulitis of unspecified part of limb; I27.81 Cor pulmonale (chronic); J98.11 Atelectasis; J20.9 Acute bronchitis, unspecified; E11.9 Type 2 diabetes mellitus without complications; G30.9 Alzheimer's disease, unspecified; F02.80 Dementia in other diseases classified elsewhere, unspecified severity, without behavioral disturbance, psychotic disturbance, mood disturbance, and anxiety; L89.321 Pressure ulcer of left buttock, stage 1; I48.91 Unspecified atrial fibrillation; M19.90 Unspecified osteoarthritis, unspecified site; E78.5 Hyperlipidemia, unspecified; Z66 Do not resuscitate; I25.10 Atherosclerotic heart disease of native coronary artery without angina pectoris; E66.9 Obesity, unspecified; D64.9 Anemia, unspecified; Z51.5 Encounter for palliative care; Z99.81 Dependence on supplemental oxygen; I25.2 Old myocardial infarction; Z68.32 Body mass index [BMI] 32.0-32.9, adult; Z79.4 Long term (current) use of insulin; Z87.891 Personal history of nicotine dependence; Z79.01 Long term (current) use of anticoagulants